=== PATIENT | male | born 1945 | race Caucasian/White ===

== ENCOUNTER 2016-09-13 17:56 | Inpatient (IN) | payer MEDICARE, OTHER ==
[2016-09-13] MEDS ORDERED: DUONEB 0.5-3 MG/3 ml Neb IH ONE ×2 (18:09→18:19)
[2016-09-13] MEDS ORDERED: solu-MEDROL 125 MG IV ONE (18:09)
[2016-09-13] MEDS ORDERED: solu-MEDROL 125 MG ONE (18:15)
--- NOTE | 2016-09-13 18:16 | ERPHSYRPT ---
- History of Present Illness Source: patient Exam Limitations: no limitations Patient Subjective Stated Complaint: PT REPORTS INCREASED SOB ET CHEST PAIN- REPORTS PRODUCTIVE COUGH WITH WHITE SPUTUM-CHEST PAIN INTERMITTANT-HURTS TO TAKE A DEEP BREATH Triage Nursing Assessment: PT ARRIVED SOB-RETRACTIONS NOTED-WHEEZES AUDIBLE- PURSED LIP BREATHING NOTED Hx Tetanus, Diphtheria Vaccination/Date Given: No Hx Influenza Vaccination/Date Given: No Hx Pneumococcal Vaccination/Date Given: No Immunizations Up to Date: Yes <SCAR DANIELS - Last Filed: 09/13/16 19:04> <MARIA TERESA HENRIQUEZ - Last Filed: 09/13/16 20:21> - History of Present Illness Time Seen by Provider: 09/13/16 18:09 Physician History: 71 year old male presented to the ER with complaints of sharp central chest pain that was worse upon awakening this morning. He has had cough and problems with respiratory issues since he had pneumonia in June. He complains of cough productive of white sputum, no fever, feels tight in his chest. He is prescribed an inhaler but states he hasn't used it in the last 5 days and he forgets it. He quit smoking 3 months ago. He denies syncope or palpitations. ( SCAR DANIELS) Allergies/Adverse Reactions: No Known Drug Allergies Allergy (Verified 09/13/16 18:05) Home Medications: No Home Meds 1 ea MC UD 09/13/16 [History] - Review of Systems Constitutional: No Fever, No Chills Respiratory: Cough, Wheezing Cardiac: Chest Pain, No Palpitations, No Syncope, No Orthopnea, No PND Abdominal/Gastrointestinal: No Abdominal Pain, No Nausea, No Vomiting, No Diarrhea Genitourinary Symptoms: No Dysuria Skin: No Rash All Other Systems: Reviewed and Negative <SCAR DANIELS - Last Filed: 09/13/16 19:04> - Past Medical History Pertinent Past Medical History: Yes Neurological History: No Pertinent History ENT History: No Pertinent History Cardiac History: No Pertinent History Respiratory History: COPD, Pneumonia Endocrine Medical History: No Pertinent History Musculoskeletal History: Other GI Medical History: No Pertinent History History: No Pertinent History Psycho-Social History: No Pertinent History Male Reproductive Disorders: No Pertinent History Other Medical History: hx of vertebrae pinching a nerve, seen a chiropractor. - Past Surgical History Past Surgical History: Yes Neuro Surgical History: No Pertinent History Cardiac: No Pertinent History Respiratory: No Pertinent History Gastrointestinal: Cholecystectomy, Hernia Repair Genitourinary: No Pertinent History Musculoskeletal: No Pertinent History Male Surgical History: No Pertinent History - Social History Smoking Status: Former smoker How long have you smoked: 62 years Exposure to second hand smoke: Yes Drug Use: none Patient Lives Alone: No <SCAR DANIELS - Last Filed: 09/13/16 19:04> - Physical Exam General Appearance: no apparent distress Ears, Nose, Throat Exam: normal ENT inspection Neck Exam: normal inspection, non-tender, supple, full range of motion Respiratory Exam: prolonged expirations, wheezing Cardiovascular Exam: regular rate/rhythm, normal heart sounds Gastrointestinal/Abdomen Exam: soft, No tenderness Extremity Exam: normal inspection, normal range of motion Skin Exam: normal color, warm, dry, No rash SpO2 Interpretation: normal SpO2: 95 Oxygen Delivery: Room Air <SCAR DANIELS - Last Filed: 09/13/16 19:04> - Course EKG Interpreted by Me: Sinus Rhythm, Sinus Tach, Left [place] Deviation, NORMAL INTERVALS, NORMAL QRS, Non-specific ST Changes, Other (PVC noted) Rhythm Strip: Rate (109), Sinus Tachycardia <SCAR DANIELS - Last Filed: 09/13/16 19:04> <SCAR DANIELS - Last Filed: 09/13/16 19:04> - Progress Discussed with : Chanell Whiting ( - 2008) <MARIA TERESA HENRIQUEZ - Last Filed: 09/13/16 20:21> - Progress Progress Note: 09/13/16 19:[address] Henriquez (SCAR DANIELS) 09/13/16 20:19 (MARIA TERESA HENRIQUEZ) <SCAR DANIELS - Last Filed: 09/13/16 19:04> - Departure Time of Disposition: 20:21 Departure Disposition: Observation Critical Care Time: No <MARIA TERESA HENRIQUEZ - Last Filed: 09/13/16 20:21> - Departure Clinical Impression: BRONCHITIS, CHEST PAIN, ELEVATED D-DIMER, COPD Condition: Fair
[2016-09-13 18:53] LABS: BASOPHIL % 0.6 % (0.0-0.4); Eosinophil % 1.3 % (0.00-5.0); Granulocytes % 63.9 % (36.0-66.0); Lymphocytes % 20.8 % (24.0-44.0); Mean Cell Volume 83.5 fl (78-100); Mean Platelet Volume 9.7 fl (6-9.5); Monocytes % 13.4 % (0.0-12.0); Platelet Count 247 K/mm3 (150-450); Red Blood Count 6.25 M/mm3 (4.1-5.6); White Blood Count 9.4 K/mm3 (4.0-10.5)
[2016-09-13 18:54] LABS: Mean Corpuscular Hemoglobin 28.4 pg (26-32)
[2016-09-13 19:28] LABS: ALBUMIN 3.4 g/dL (3.4-5.0); ALKALINE PHOSPHATASE 86 U/L (46-116); ANION GAP 13.3 MEQ/L (5-15); BILIRUBIN,TOTAL 0.7 mg/dL (0.2-1.0); BLOOD UREA NITROGEN 14 mg/dL (9-20); CHLORIDE 105 mEq/L (98-107); Glucose 127 MG/DL (70-110); Potassium 3.9 mEq/L (3.5-5.1); SGOT/AST 8 U/L (15-37); SGPT/ALT 14 U/L (12-78); SODIUM 140 mEq/L (136-145); Total Protein 7.4 gm/dL (6.4-8.2)
[2016-09-13 19:30] LABS: TROPONIN < 0.017 ng/ml (0.000-0.056)
[2016-09-13] MEDS ORDERED: ROCEPHIN 1 Gm-D5w 50 ml Bag** 50 ML IV ONE ×2 (20:31→20:43)
[2016-09-13] MEDS ORDERED: Zithromax 500 MG/ 250 ML NaCl Premix 250 ML IV ONE ×2 (20:31→20:43)
[2016-09-13] MEDS ORDERED: PROVENTIL 2.5 MG/3 ML NEB IH PRN (21:41)
[2016-09-13] MEDS ORDERED: DILAUDID 2 MG INJECTION IV PRN (21:41)
[2016-09-13] MEDS ORDERED: Phenergan 25 MG INJ IV PRN (21:41)
[2016-09-13] MEDS ORDERED: Nitrostat 0.4 MG Tablet SL PRN (21:41)
[2016-09-13] MEDS ORDERED: TYLENOL 325 MG PO PRN (21:41)
[2016-09-14] MEDS ORDERED: ENOXAPARIN SODIUM SQ ONE
[2016-09-14] MEDS: Sodium Chloride 0.9% 1000 ML 1,000 ML IV SCH ×2 (00:36→21:22)
[2016-09-14] MEDS ORDERED: MAALOX ES 30 ML UNIT DOSE PO PRN (03:29)
[2016-09-14] MEDS ORDERED: MILK OF MAGNESIA 30 ML PO PRN (03:29)
[2016-09-14 06:31] LABS: Mean Cell Volume 83.9 fl (78-100); Mean Corpuscular Hemoglobin 28.2 pg (26-32); Mean Platelet Volume 10.3 fl (6-9.5); Platelet Count 267 K/mm3 (150-450); Red Blood Count 5.85 M/mm3 (4.1-5.6); Red Cell Distribution Width 14.7 % (11.5-14.0); White Blood Count 4.2 K/mm3 (4.0-10.5)
[2016-09-14 06:38] LABS: ALKALINE PHOSPHATASE 76 U/L (46-116); ANION GAP 13.2 MEQ/L (5-15); BILIRUBIN,TOTAL 0.5 mg/dL (0.2-1.0); BLOOD UREA NITROGEN 14 mg/dL (9-20); CHLORIDE 106 mEq/L (98-107); Glucose 131 MG/DL (70-110); Potassium 4.4 mEq/L (3.5-5.1); SGOT/AST 10 U/L (15-37); SGPT/ALT 12 U/L (12-78); SODIUM 138 mEq/L (136-145); Total Protein 6.7 gm/dL (6.4-8.2)
[2016-09-14] MEDS: DUONEB 0.5-3 MG/3 ml Neb IH SCH ×5 (06:51→18:42)
[2016-09-14 07:58] LABS: Total Cells Counted 100
[2016-09-14 07:59] LABS: Platelet Estimate NORMAL (NORMAL)
--- NOTE | 2016-09-14 08:38 | XRAY ---
Indication: Fever, cough, and short of breath. Comparison: August 09, 2016 Portable chest unchanged again hyperinflated with right mid to lower lung infiltrate/atelectasis and left base fibrosis/scarring. Remaining lungs clear. Heart is not enlarged. Bony thorax intact again with mild scoliosis.
[2016-09-14] MEDS ORDERED: Zithromax 500 MG/ 250 ML NaCl Premix 250 ML IV SCH (10:00)
[2016-09-14] MEDS ORDERED: ROCEPHIN 1 Gm-D5w 50 ml Bag** 50 ML IV SCH ×2 (10:00→11:15)
[2016-09-14] MEDS ORDERED: ENOXAPARIN SODIUM SQ SCH ×2 (10:00→22:00)
[2016-09-14] MEDS: PROTONIX 40 MG IV IV SCH (10:54)
[2016-09-14] MEDS: solu-MEDROL 40 MG IV SCH ×2 (11:30→21:26)
[2016-09-14 11:33] LABS: MAGNESIUM 1.9 mg/dL (1.8-2.4)
[2016-09-14 11:36] LABS: A-aADO2 72; ALLEN TEST OK? YES; ARTERIAL BLD GAS O2 SATURATION 98.9 % (95-100); ARTERIAL BLOOD GAS BASE EXCESS -2.1 (-2.0-2.0); ARTERIAL BLOOD GAS FIO2 28 %; ARTERIAL BLOOD GAS PO2 88 mmHg (75-100); ARTERIAL BLOOD GAS pH 7.43 (7.35-7.45)
--- NOTE | 2016-09-14 12:25 | XRAY ---
Indication: Elevated d-dimer. Two-dimensional sonogram and color Doppler imaging of the major venous vessels of the left and right leg was performed. Comparison: None No thrombus seen in the examined deep venous vessels of the left and right leg including greater saphenous veins. Veins demonstrate normal compressibility. Venous waveforms are normal with and without augmentation. Impression: Left and right leg negative for DVT.
--- NOTE | 2016-09-14 12:37 | HP ---
HISTORY OF PRESENT ILLNESS: David Martinez is a 71 year old male with past medical history of chronic obstructive pulmonary disease. He presented to the emergency room yesterday evening with sharp substernal/central chest pain which started yesterday afternoon. The patient states he was carrying a heavy load trying to help his friend carrying something and that is when the pain started. The pain lasted for about four hours. It was associated with increased shortness of breath however no nausea, vomiting, diaphoresis. The pain did not radiate. He also states that he has been having increasing productive cough and shortness of breath for the past several days. There was no reported history of fever. Upon initial evaluation and treatment in the emergency room he was admitted to the medical floor. Prior to admission vitals in the emergency room were blood pressure 154/69, heart rate 110, respiratory rate 16, and temperature 97.5F. Oxygen saturation 95%. Since admission his chest pain had not recurred. At the time of this evaluation he is alert, awake, comfortable, denies any chest pain. He complains of shortness of breath, complains of cough. Appears comfortable. PAST MEDICAL HISTORY: As noted above. He denies any prior history of coronary problems. PAST SURGICAL HISTORY: Pinched nerve. Cholecystectomy. ALLERGIES: NKDA. MEDICATIONS: The patient is on no home medications. He was prescribed an inhaler however does not use it often. SOCIAL HISTORY: The patient is a former smoker. He has smoked for 50 years, also he has history of exposure to secondhand smoke. Denies illicit drug use. REVIEW OF SYSTEMS: Denies headache or dizziness. Denies fever. Complains of fatigue. History of sharp chest pain all across the lower part of chest (anterior) and also substernal yesterday that has resolved. Complains of shortness of breath. Complains of productive cough. Denies palpitations. Denies abdominal pain, nausea or vomiting. Denies constipation or diarrhea. Denies urinary complaints. PHYSICAL EXAMINATION: An elderly male lying comfortably in bed, not in acute distress. VITAL SIGNS: Blood pressure 123/62, heart rate 84, respiratory rate 20, temperature 97.8F. Oxygen saturation 97% on 2 liters. HEENT: Normocephalic. No pallor or icterus is noted. NECK: No JVD is present. CVS: S1, S2 present. RESPIRATORY: Breath sounds are bilaterally diminished, occasional rhonchi present. ABDOMEN: Soft, nontender. NEURO: He is alert, oriented x3. EXTREMITIES: No edema on bilateral lower extremities. LABORATORY DATA AND TESTS: Initial labs had revealed unremarkable CBC. D-dimer was 1.125. CMP notable for BUN 14, creatinine 1.35, glucose 127. Troponin has been less than 0.017 x3. Today's CBC is unremarkable. Today's BMP shows glucose of 131, BUN 14, creatinine 1.05. Chest x-ray from yesterday showed hyperinflated right mid to lower lung infiltrate/atelectasis and left base fibrosis/scarring. Initial EKG showed sinus tachycardia at 103 beats/minute, nonspecific ST-T changes in anterior leads. A follow EKG showed sinus tachycardia at 92 beats/minute, nonspecific ST-T changes in anterior leads, presence of PVC. ASSESSMENT: A 71 year old male with impression: 1) Chest pain. 2) Acute bronchopneumonia. 3) Elevated D-dimer. 4) Chronic obstructive pulmonary disease exacerbation. 5) Renal insufficiency, resolved. PLAN: The patient is admitted for further monitoring and management. He was placed on chest pain protocol. Also he was placed on therapeutic dose of Lovenox. VQ scan has been requested and will not be available until tomorrow. Will obtain bilateral lower extremity venous Doppler's. Continue broad spectrum IV antibiotics, continue inhalers. Addition of steroids. Likely discharge home tomorrow if clinically improved and work up is negative. The patient's clinical condition, work up results and plan of management was discussed with patient and family. The patient seem to be in understanding and agreement.
[2016-09-14] MEDS: ROCEPHIN 1 Gm-D5w 50 ml Bag** 50 ML IV SCH (21:27)
[2016-09-15] MEDS: Zithromax 500 MG/ 250 ML NaCl Premix 250 ML IV SCH ×2 (00:41→22:30)
[2016-09-15] MEDS: DUONEB 0.5-3 MG/3 ml Neb IH SCH ×4 (06:40→19:07)
--- NOTE | 2016-09-15 09:26 | XRAY ---
Indication: Short of breath, chest pain, tachycardia, and elevated d-dimer. COPD. Patient received 4.7 mCi technetium 99 microaggregated albumin for the perfusion portion of the exam. Patient inhaled 36.9 mCi of air/technetium 99 DTPA. Multiplanar images obtained. Comparison: None Perfusion images demonstrates good radiopharmaceutical activity throughout both lungs. Small subsegmental perfusion defect seen in the periphery of the right middle lobe. No other perfusion defects. Ventilation images demonstrates diffuse heterogeneous radiopharmaceutical activity with more central activity noted favoring known COPD. Small subsegmental ventilation defect seen in the periphery of the right middle lobe. Incidental ingested GI radiopharmaceutical activity. Impression: 1. Small subsegmental matched right middle lobe ventilation/perfusion defect. PIOPED criteria for diagnosis of pulmonary embolus is low probability. 2. Ventilation images demonstrates features favoring COPD.
[2016-09-15] MEDS: PROTONIX 40 MG IV IV SCH (10:41)
[2016-09-15] MEDS: solu-MEDROL 40 MG IV SCH ×3 (10:45→21:26)
--- NOTE | 2016-09-15 15:40 | XRAY ---
Indication: Chronic respiratory distress. Comparison: Taken earlier today. PA/lateral chest unchanged again hyperinflated with right mid to lower lung infiltrate/atelectasis and left base fibrosis/scarring. Heart is not enlarged. No new cardiopulmonary abnormalities.
[2016-09-15] MEDS: ROCEPHIN 1 Gm-D5w 50 ml Bag** 50 ML IV SCH (21:26)
[2016-09-15] MEDS: Sodium Chloride 0.9% 1000 ML 1,000 ML IV SCH (22:29)
[2016-09-16 05:52] LABS: Mean Cell Volume 86.7 fl (78-100); Mean Corpuscular Hemoglobin 28.2 pg (26-32); Mean Platelet Volume 10.1 fl (6-9.5); Platelet Count 199 K/mm3 (150-450); Red Blood Count 4.83 M/mm3 (4.1-5.6); Red Cell Distribution Width 15.1 % (11.5-14.0); White Blood Count 9.6 K/mm3 (4.0-10.5)
[2016-09-16 06:28] LABS: ALBUMIN 2.6 g/dL (3.4-5.0); ALKALINE PHOSPHATASE 53 U/L (46-116); ANION GAP 11.5 MEQ/L (5-15); BILIRUBIN,TOTAL 0.2 mg/dL (0.2-1.0); BLOOD UREA NITROGEN 15 mg/dL (9-20); CHLORIDE 109 mEq/L (98-107); Carbon Dioxide 25.9 mEq/L (21-32); Glucose 119 MG/DL (70-110); Potassium 4.8 mEq/L (3.5-5.1); SGOT/AST 7 U/L (15-37); SGPT/ALT 10 U/L (12-78); SODIUM 142 mEq/L (136-145); Total Protein 5.6 gm/dL (6.4-8.2)
[2016-09-16] MEDS: DUONEB 0.5-3 MG/3 ml Neb IH SCH ×4 (06:53→19:41)
[2016-09-16] MEDS: PROTONIX 40 MG IV IV SCH (09:27)
[2016-09-16] MEDS: solu-MEDROL 40 MG IV SCH ×2 (09:27→17:31)
[2016-09-16] MEDS: ENOXAPARIN SODIUM SQ SCH (09:27)
--- NOTE | 2016-09-16 15:39 | PROG NOTE ---
DATE: 09/16/16 Chart reviewed. Events noted. Patient states he ambulated some this morning with respiratory therapy. However, got more short of breath upon ambulation. At the time of this evaluation, he is alert and awake. Continues to have shortness of breath. Denied chest pain. Complains of dry cough. VITALS: BP 110/62, heart rate 59, respiratory rate 28, temperature 97.3, O2 saturation 92%. HEENT: No pallor or icterus noted. NECK: No JVD present. CVS: S1 and S2 present. RESPIRATORY: Breath sounds bilaterally diminished and clear to auscultation. ABDOMEN: Obese, soft, nontender. NEURO: He is alert and oriented X 3. EXTREMITIES: Reveals no edema in bilateral lower extremities. LABORATORY DATA: Labs from today show unremarkable CBC. CMP is notable for chloride of 109, glucose 119, BUN 15, creatinine 0.92. VQ scan from yesterday was low probability. Chest x-ray from yesterday showed hyperinflated right mid to lower lung. Infiltrates/atelectasis and left base fibrosis/scarring. No new cardiopulmonary abnormalities. Bilateral lower extremity venous Doppler was negative. Medications were reviewed. ASSESSMENT: 71 y/o male with impression: 1. ACUTE BRONCHOPNEUMONIA. 2. CHEST PAIN - RESOLVED. 3. CHRONIC OBSTRUCTIVE PULMONARY DISEASE WITH EXACERBATION. 4. ELEVATED D-DIMER. 5. HISTORY OF RENAL INSUFFICIENCY (RESOLVED). PLAN: 1. Patient continues to be symptomatic clinically. Will obtain another NT Pro BNP. Increase steroids. 2. Continue ambulation as tolerated. 3. Likely discharge home tomorrow if improves clinically. 4. Prior to discharge, will obtain 2D echo. Patient's clinical condition, work-up results, and plan of management were discussed with him. He seems to be in understanding and agreement.
[2016-09-16] MEDS ORDERED: Lasix 40 MG/4 ML IV ONE (17:00)
[2016-09-16] MEDS: ROCEPHIN 1 Gm-D5w 50 ml Bag** 50 ML IV SCH (22:22)
[2016-09-16] MEDS: Zithromax 500 MG/ 250 ML NaCl Premix 250 ML IV SCH (23:29)
[2016-09-17] MEDS: solu-MEDROL 40 MG IV SCH ×3 (02:28→18:58)
[2016-09-17] MEDS: DUONEB 0.5-3 MG/3 ml Neb IH SCH ×4 (07:28→20:12)
[2016-09-17] MEDS: Lasix 20 MG/2 ML IV SCH (09:30)
[2016-09-17] MEDS: Protonix 40MG Tablet PO SCH (09:30)
[2016-09-17] MEDS: ENOXAPARIN SODIUM SQ SCH (09:30)
--- NOTE | 2016-09-17 16:46 | ECHO ---
Transthoracic echocardiographic examination and color Doppler was done on 09/16/2016. INDICATION: Shortness of breath, chronic obstructive pulmonary disease. IMPRESSION: 1) BORDERLINE LEFT VENTRICULAR HYPOKINESIA. EJECTION FRACTION OF AROUND 50%. 2) TRACE MITRAL REGURGITATION. 3) TRACE TRICUSPID REGURGITATION. RIGHT VENTRICULAR SYSTOLIC PRESSURE OF 20 MM OF MERCURY. The left ventricle is visualized and demonstrated borderline left ventricular hypokinesia. Ejection fraction around 50%. There is mild left ventricular hypertrophy. The mitral valve is seen and this opens adequately. There is trace mitral regurgitation. Left atrium is normal. The aortic valve opens adequately. Right side chambers are normal. There is trace tricuspid regurgitation. Right ventricular systolic pressure of 20 mm of Mercury.
[2016-09-17] MEDS: ROCEPHIN 1 Gm-D5w 50 ml Bag** 50 ML IV SCH (21:32)
[2016-09-17] MEDS: Zithromax 500 MG/ 250 ML NaCl Premix 250 ML IV SCH (23:31)
[2016-09-18] MEDS: solu-MEDROL 40 MG IV SCH ×2 (02:05→10:37)
[2016-09-18] MEDS: DUONEB 0.5-3 MG/3 ml Neb IH SCH ×3 (06:57→14:50)
[2016-09-18 09:29] LABS: ANION GAP 14.7 MEQ/L (5-15); BLOOD UREA NITROGEN 24 mg/dL (9-20); CHLORIDE 103 mEq/L (98-107); Carbon Dioxide 26.2 mEq/L (21-32); Glucose 190 MG/DL (70-110); Potassium 4.4 mEq/L (3.5-5.1); SODIUM 140 mEq/L (136-145)
[2016-09-18] MEDS: Protonix 40MG Tablet PO SCH (10:14)
[2016-09-18] MEDS: Lasix 20 MG/2 ML IV SCH (10:14)
[2016-09-18] MEDS: ENOXAPARIN SODIUM SQ SCH (10:37)
[2016-09-18 15:36] VITALS: BP 145/82; PULSE 113; O2SAT 94
--- NOTE | 2016-09-20 11:29 | DS ---
DISCHARGE DIAGNOSES: 1) ACUTE BRONCHOPNEUMONIA, CLINICALLY IMPROVED. 2) CHEST PAIN, RESOLVED. 3) CHRONIC OBSTRUCTIVE PULMONARY DISEASE WITH EXACERBATION. 4) ELEVATED D-DIMER. 5) HISTORY OF RENAL INSUFFICIENCY, RESOLVED. HOSPITAL COURSE: David Martinez is a 71 year-old male with past medical history of chronic obstructive pulmonary disease. He was admitted through the emergency room on 09/12/2016 with sharp, substernal chest pain with increasing shortness of breath. Lab work up was notable for BUN of 14, creatinine 1.35. D-dimer was 1.125. Troponin less than 0.017 x3. Chest x-ray showed hyperinflated right mid to lower lung infiltrate/atelectasis and left lung base fibrosis/scarring. Initial EKG showed tachycardia, nonspecific ST-T changes. Follow up EKG showed tachycardia of 92 beats/minutes, nonspecific ST-T changes, presence of PAC. He was placed on chest pain protocol. Also he was placed on therapeutic dose of Lovenox. Additionally he was placed on broad spectrum IV antibiotics and IV steroids and supplemental oxygen. Also he was placed on cautious IV hydration. He underwent VQ scan on 09/15/2016 with small subsegmental mass right middle lobe ventilation-perfusion defect pulmonary embolism low probability consistent with chronic obstructive pulmonary disease. Chest x-ray on the same day had shown no acute cardiopulmonary abnormalities. During his further course he also underwent bilateral lower extremity venous Doppler's which were negative for deep venous thrombosis. Follow up lab work up had revealed resolution of renal insufficiency, normal white blood cell count and stable hemoglobin/hematocrit. ABG during his admission had shown pH of 7.43, pCO2 32, pO2 88. Lipid profile was essentially unremarkable. Subsequent labs had shown elevated BNP. His IV fluids were discontinued. Also he was treated with IV diuretic. He underwent 2D echo on 09/16/2016 and that showed ejection fraction of around 50%, trace mitral regurgitation, trace tricuspid regurgitation, right ventricular systolic pressure of 20 mm of Mercury. During his further course he improved clinically, remained hemodynamically stable. He was discharged by covering physician, Dr. Montague, on 09/18/2016. He was discharged in stable condition. Please refer to discharge medication list from 09/18/2016 for details of medications on discharge. The patient was advised to obtain CMP and CBC in three to four days and follow up with Dr. Luo in one week. Compliance with diet and medications was stressed. He was advised to return to the Emergency Room ANTON[facility] if any new signs and symptoms or reappearance of previous signs and symptoms are noted. The patient's clinical condition, work-up results and plan of management were discussed with him. He seems to be in understanding and agreement. Please refer to patient's chart, labs, diagnostic work up results and consult notes for details.
== END 2016-09-18 15:55 | disposition home health service (06) | DRG 204 ==
LOC: ED 17:56 → MED SURG 21:11 → OBSVTOIN 09-15 09:00
PROVIDERS: ADMIT General Practice; ATTEND General Practice
DX: J80 Acute respiratory distress syndrome (principal); J44.1 Chronic obstructive pulmonary disease with (acute) exacerbation; R07.89 Other chest pain; R79.1 Abnormal coagulation profile; N28.9 Disorder of kidney and ureter, unspecified; J96.20 Acute and chronic respiratory failure, unspecified whether with hypoxia or hypercapnia; I34.0 Nonrheumatic mitral (valve) insufficiency; I07.1 Rheumatic tricuspid insufficiency
CPT/HCPCS: 36000; 36415; 36600; 71010; 71020; 78582; 80048; 80053; 80061; 82375; 82803; 83605; 83721; 83735; 83880; 84484; 85025; 85027; 85379; 87040; 93005; 93041; 93268; 93306; 93970; 94640; 94760; 96374; 99284; A9540; A9567; G0378; J0456; J0696; J1650; J1940; J2920; J2930

== ENCOUNTER 2016-11-16 13:02 | Emergency (ER) | payer MEDICARE, OTHER ==
[2016-11-16] MEDS ORDERED: DUONEB 0.5-3 MG/3 ml Neb IH ONE ×2 (13:35→13:36)
[2016-11-16 13:42] VITALS: O2SAT 94
--- NOTE | 2016-11-16 14:00 | ERPHSYRPT ---
- History of Present Illness Time Seen by Provider: 11/16/16 13:55 Source: patient Exam Limitations: no limitations Patient Subjective Stated Complaint: SOB Triage Nursing Assessment: STATES WENT TO CARDIAC REHAB TODAY AND BEFORE IT BEGAN HE C/O SOB. STATES INCREASED SOB STARTED LAST NIGHT AND WORSENED TODAY. MOIST COUGH WHICH PT SAYS IS NORMAL FOR HIM. NO FEVER. CLEAR/WHITE SPUTUM PRODUCTION SINCE LAST NIGHT. LUNGS DIMINISHED BUT CLEAR Physician History: The patient is a 71-year-old male who complains of shortness of breath since last night. He had presented himself to cardiac rehabilitation for treatment of shortness of breath and because he was so short of breath he was transferred to the ER for evaluation. He's had a cough with mild sputum production. He denies fever. He has COPD. He quit smoking last June after 63 years of smoking. Timing/Duration: yesterday Activities at Onset: none Severity of Dyspnea-Max: moderate Severity of Dyspnea-Current: moderate Possible Cause: frequent episodes Modifying Factors: Improves With: activity, albuterol inhaler, coughing Associated Symptoms: cough, No fever Allergies/Adverse Reactions: No Known Drug Allergies Allergy (Verified 11/16/16 13:25) Home Medications: Potassium Chloride 10 meq PO BID 11/16/16 [History] Hx Tetanus, Diphtheria Vaccination/Date Given: Yes Hx Influenza Vaccination/Date Given: No Hx Pneumococcal Vaccination/Date Given: No Immunizations Up to Date: Yes - Review of Systems Constitutional: No Fever, No Chills Eyes: No Symptoms Ears, Nose, & Throat: No Symptoms Respiratory: Cough, Dyspnea, Dyspnea on Exertion (KANG) Cardiac: No Chest Pain Abdominal/Gastrointestinal: No Abdominal Pain, No Nausea, No Vomiting, No Diarrhea Genitourinary Symptoms: No Dysuria Musculoskeletal: No Back Pain, No Neck Pain Skin: No Symptoms, No Rash Neurological: No Dizziness, No Focal Weakness, No Sensory Changes Psychological: No Symptoms Endocrine: No Symptoms Hematologic/Lymphatic: No Symptoms Immunological/Allergic: No Symptoms All Other Systems: Reviewed and Negative - Past Medical History Pertinent Past Medical History: Yes Neurological History: No Pertinent History ENT History: No Pertinent History Cardiac History: No Pertinent History Respiratory History: COPD, Pneumonia Endocrine Medical History: No Pertinent History Musculoskeletal History: Other GI Medical History: No Pertinent History History: No Pertinent History Psycho-Social History: No Pertinent History Male Reproductive Disorders: No Pertinent History Other Medical History: PINCH NERVE IN BACK - Past Surgical History Past Surgical History: Yes Neuro Surgical History: No Pertinent History Cardiac: No Pertinent History Respiratory: No Pertinent History Gastrointestinal: Cholecystectomy, Hernia Repair Genitourinary: No Pertinent History Musculoskeletal: No Pertinent History Male Surgical History: No Pertinent History - Social History Smoking Status: Former smoker How long have you smoked: 62 years Exposure to second hand smoke: Yes Drug Use: none Patient Lives Alone: No - Nursing Vital Signs Nursing Vital Signs: Initial Vital Signs Temperature 97.9 F Temperature Source Oral Pulse Rate 114 Respiratory Rate 22 Blood Pressure [Right Arm] 127/66 Pain Intensity 0 - Physical Exam General Appearance: mild distress Eye Exam: PERRL/EOMI Neck Exam: normal inspection, supple Respiratory Exam: diminished breath sounds Cardiovascular/Chest Exam: normal heart sounds, regular rate/rhythm Abdominal/Gastrointestinal Exam: soft, No tenderness, No distention, No mass Rectal Exam: not done Extremity Exam: non-tender, normal range of motion, normal inspection, no calf tenderness, no pedal edema Neurologic Exam: alert, oriented x 3, cooperative, 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, sensation nml, No motor deficits Skin Exam: normal color, warm, No dry SpO2 Interpretation: normal SpO2: 94 Oxygen Delivery: Nasal Cannula - Radiology Exams Chest X-ray Interpretation: Teleradiologist Report, Negative (no acute, per Dr Howe.) Ordered Tests: Active Orders 24 hr Category Date Time Status Overlay Operator STAT Care 11/16/16 14:04 Active EKG-ER Only STAT Care 11/16/16 13:32 Active IV Insertion STAT Care 11/16/16 14:34 Active Oxygen-ED Only NASAL CANNULA 2 lpm Care 11/16/16 13:43 Active CHEST 2 VIEWS (PA AND LAT) Stat Exams 11/16/16 14:04 Completed CBC W DIFF Stat Lab 11/16/16 13:40 Completed CMP Stat Lab 11/16/16 13:40 Completed Manual Differential NC Stat Lab 11/16/16 13:40 Completed NT PRO BNP Stat Lab 11/16/16 13:40 Completed TROPONIN Stat Lab 11/16/16 13:40 Completed Respiratory Nebulizer STAT RT 11/16/16 13:35 Completed Medication Summary Discontinued Medications Generic Name Dose Route Start Last Admin Trade Name Freq PRN Reason Stop Dose Admin Albuterol/Ipratropium 3 ml 11/16/16 13:35 11/16/16 13:36 Duoneb 0.5-3 Mg/3 Ml Neb IH 11/16/16 13:36 3 ml STAT ONE Administration Albuterol/Ipratropium Confirm 11/16/16 13:36 Duoneb 0.5-3 Mg/3 Ml Neb Administered 11/16/16 13:37 Dose 3 ml IH .STK-MED ONE Methylprednisolone Sodium Succinate 125 mg 11/16/16 14:04 11/16/16 14:11 Solu-Medrol 125 Mg IV 11/16/16 14:05 125 mg STAT ONE Administration Methylprednisolone Sodium Succinate Confirm 11/16/16 14:08 Solu-Medrol 125 Mg Administered 11/16/16 14:09 Dose 125 mg .ROUTE .STK-MED ONE Lab/Rad Data: Laboratory Result Diagrams 11/16/16 13:40 11/16/16 13:40 Laboratory Results 11/16/16 11/16/16 11/16/16 Range/Units 14:16 13:40 13:40 WBC 8.3 (4.0-10.5) K/mm3 RBC 5.89 H (4.1-5.6) M/mm3 Hgb 16.9 (12.5-18.0) gm/dl Hct 49.5 (42-50) % MCV 84.0 (78-100) fl MCH 28.6 (26-32) pg MCHC 34.1 (32-36) g/dl RDW 15.3 H (11.5-14.0) % Plt Count 228 (150-450) K/mm3 MPV 10.5 H (6-9.5) fl Sodium 136 (136-145) mEq/L Potassium 4.8 (3.5-5.1) mEq/L Chloride 103 (98-107) mEq/L Carbon Dioxide 22.2 (21-32) mEq/L Anion Gap 15.7 H (5-15) MEQ/L BUN 10 (9-20) mg/dL Creatinine 1.10 (0.55-1.30) mg/dl Estimated GFR > 60 ML/MIN Glucose 90 (70-110) MG/DL Calcium 9.7 (8.5-10.1) mg/dL Total Bilirubin 0.8 (0.2-1.0) mg/dL AST 21 (15-37) U/L ALT 10 L (12-78) U/L Alkaline Phosphatase 72 (46-116) U/L Troponin I < 0.017 (0.000-0.056) ng/ml NT-Pro-B Natriuret Pep 970 H (0-125) pg/ml Serum Total Protein 7.3 (6.4-8.2) gm/dL Albumin 3.5 (3.4-5.0) g/dL Influenza Type A Ag POSITIVE (NEGATIVE) Influenza Type B Ag NEGATIVE (NEGATIVE) RSV (PCR) NEGATIVE (Negative) - Progress Progress: improved Air Movement: good Blood Culture(s) Obtained: No Antibiotics given: No - Departure Time of Disposition: 16:22 Departure Disposition: Home Clinical Impression: Influenza A Condition: Stable Critical Care Time: No Additional Instructions: You have an influenza A infection. Take tamiflu 75 mg twice a day for 5 days. Take prednisone 60 mg daily for 5 days. Use your nebulizers as directed. Follow up as needed. Prescriptions: Oseltamivir Phosphate [Tamiflu] 75 mg PO BID #10 capsule Prednisone 10 mg [Deltasone 10 mg] 60 mg PO DAILY #30 tablet
[2016-11-16] MEDS ORDERED: solu-MEDROL 125 MG IV ONE (14:04)
[2016-11-16] MEDS ORDERED: solu-MEDROL 125 MG ONE (14:08)
--- NOTE | 2016-11-16 14:31 | XRAY ---
Indication: Cough. Short of breath. Comparison: September 15, 2016. AP/lateral chest unchanged again hyperinflated with bilateral mid to lower lung infiltrates/atelectasis/scarring. Heart is not enlarged. No new cardiopulmonary abnormalities.
[2016-11-16 14:33] LABS: ALBUMIN 3.5 g/dL (3.4-5.0); ALKALINE PHOSPHATASE 72 U/L (46-116); ANION GAP 15.7 MEQ/L (5-15); BILIRUBIN,TOTAL 0.8 mg/dL (0.2-1.0); BLOOD UREA NITROGEN 10 mg/dL (9-20); CHLORIDE 103 mEq/L (98-107); Carbon Dioxide 22.2 mEq/L (21-32); Glucose 90 MG/DL (70-110); Potassium 4.8 mEq/L (3.5-5.1); SGOT/AST 21 U/L (15-37); SGPT/ALT 10 U/L (12-78); SODIUM 136 mEq/L (136-145); Total Protein 7.3 gm/dL (6.4-8.2)
[2016-11-16 14:34] LABS: Mean Platelet Volume 10.5 fl (6-9.5); Platelet Count 228 K/mm3 (150-450); Red Blood Count 5.89 M/mm3 (4.1-5.6); Red Cell Distribution Width 15.3 % (11.5-14.0); White Blood Count 8.3 K/mm3 (4.0-10.5)
[2016-11-16 14:35] LABS: Mean Corpuscular Hemoglobin 28.6 pg (26-32)
[2016-11-16 14:42] LABS: TROPONIN < 0.017 ng/ml (0.000-0.056)
[2016-11-16 16:30] VITALS: BP 116/68; PULSE 112
[2016-11-16 16:54] LABS: Basophil 1 % (0.0-1.0); Eosinophil 1 % (0.00-3.0); Total Cells Counted 100
[2016-11-16 17:12] LABS: Platelet Estimate NORMAL (NORMAL)
[2016-11-16 17:19] LABS: ANISOCYTOSIS 1+
== END 2016-11-16 16:40 | disposition home or self-care (01) ==
LOC: ED 13:02
DX: J11.1 Influenza due to unidentified influenza virus with other respiratory manifestations (principal); R06.02 Shortness of breath; J44.9 Chronic obstructive pulmonary disease, unspecified; R05 Cough; R06.00 Dyspnea, unspecified
CPT/HCPCS: 93041; 96374; 99284; 36000; 93005; 36415; 83880; 85025; 80053; 84484; 87631; 71020; 94640; A9270; J2930

== ENCOUNTER 2017-12-12 10:51 | Observation (INO) | payer MEDICARE, OTHER ==
--- NOTE | 2017-12-12 12:13 | PCM.HP.ADD ---
Addendum to History & Physical - History & Physical Addendum Addendum to History & Physical: This certifies that the History & Physical in the electronic chart reflects the current health status of the patient. If there are changes in the H&P these changes/exceptions are listed as follows.
[2017-12-12 12:43] LABS: A-aADO2 44; ABG HEMOGLOBIN 17.2; ABG SITE RIGHT RADIAL; ALLEN TEST OK? YES; ARTERIAL BLD GAS O2 SATURATION 99.2 % (95-100); ARTERIAL BLOOD GAS BASE EXCESS 0.7 (-2.0-2.0); ARTERIAL BLOOD GAS FIO2 28 %; ARTERIAL BLOOD GAS PCO2 40 mmHg (35-45); ARTERIAL BLOOD GAS PO2 106 mmHg (75-100); ARTERIAL BLOOD GAS pH 7.41 (7.35-7.45); CARBOXYHEMOGLOBIN 1.8 % THgb (0.0-6.9); HCO3- 25.4 (22-28); Methhemoglobin 1.4 % (1.4-1.5); paO2 pAO1 0.71
[2017-12-12] MEDS: ROCEPHIN 1 Gm-D5w 50 ml Bag** 1 G/50 ML IVPB IV SCH (12:50)
[2017-12-12] MEDS: solu-MEDROL 40 MG IV SCH ×2 (12:51→21:19)
[2017-12-12 12:53] LABS: BASOPHIL % 0.7 % (0.0-0.4); Basophil (Absolute #) 0.06 (0-0.4); Eosinophil % 3.3 % (0.00-5.0); Granulocyte Absolute (ANC) 6.48 (1.4-6.9); Granulocytes % 71.3 % (36.0-66.0); Hematocrit 48.3 % (42-50); Hemoglobin 16.6 gm/dl (12.5-18.0); Lymphocyte (Absolute #) 1.15 (1.0-4.6); Lymphocytes % 12.7 % (24.0-44.0); Mean Cell Volume 82.1 fl (78-100); Mean Corpuscular Hemoglobin 28.2 pg (26-32); Mean Corpuscular Hgb Concent. 34.4 g/dl (32-36); Mean Platelet Volume 9.5 fl (6-9.5); Monocyte (Absolute #) 1.09 (0.0-1.3); Platelet Count 249 K/mm3 (150-450); Red Blood Count 5.88 M/mm3 (4.1-5.6); Red Cell Distribution Width 14.8 % (11.5-14.0); White Blood Count 9.1 K/mm3 (4.0-10.5)
[2017-12-12] MEDS: Sodium Chloride 0.9% 1000 ML 1,000 ML IV SCH (12:54)
[2017-12-12] MEDS ORDERED: MEDICATION INTERVENTION MC SCH (13:15)
[2017-12-12 13:37] LABS: ALBUMIN 3.8 g/dL (3.5-5.0); ALKALINE PHOSPHATASE 74 U/L (38-126); ANION GAP 13.7 MEQ/L (5-15); BLOOD UREA NITROGEN 16 mg/dL (9-20); CHLORIDE 103 mmol/L (98-107); Calcium 10.2 mg/dL (8.4-10.2); Carbon Dioxide 25 mmol/L (22-30); Glucose 108 mg/dL (74-106); Potassium 4.3 mmol/L (3.5-5.1); SGOT/AST 20 U/L (17-59); SGPT/ALT 13 U/L (0-50); SODIUM 137 mmol/L (137-145); Total Protein 7.2 g/dL (6.3-8.2)
[2017-12-12 13:46] LABS: NT PRO BNP 536 pg/mL (0-900)
--- NOTE | 2017-12-12 13:50 | XRAY ---
Indication: COPD. Comparison: November 16, 2016. PA/lateral chest again demonstrates COPD and bibasilar fibrosis/scarring again right greater than left. No focal infiltrate, consolidation, or large effusion. Heart is not enlarged. Bony thorax intact again with mild osteopenia, degenerative changes, and mild scoliosis. Impression: Stable nonacute chest with chronic features.
[2017-12-12] MEDS: Klor Con 10 MEQ PO SCH ×2 (13:59→21:18)
[2017-12-12] MEDS: DUONEB 0.5-3 MG/3 ml Neb IH SCH ×2 (14:30→19:55)
[2017-12-12] MEDS: PATIENT OWN MEDICATION IH SCH (19:58)
[2017-12-12] MEDS ORDERED: NON-FORMULARY ITEM (Potassium Chloride [Potassium Chloride] 10 MEQ) PO SCH (22:00)
[2017-12-12] MEDS ORDERED: NON-FORMULARY ITEM (Budesonide/Formoterol Fumarate [Symbicort 160-4.5 Mcg Inhaler] 2 PUFF) IH SCH (22:00)
[2017-12-13] MEDS: DUONEB 0.5-3 MG/3 ml Neb IH SCH ×4 (02:13→18:49)
[2017-12-13] MEDS: solu-MEDROL 40 MG IV SCH ×3 (05:39→22:08)
[2017-12-13] MEDS: PATIENT OWN MEDICATION IH SCH ×2 (07:08→18:50)
[2017-12-13] MEDS: Sodium Chloride 0.9% 1000 ML 1,000 ML IV SCH (08:40)
[2017-12-13] MEDS: ROCEPHIN 1 Gm-D5w 50 ml Bag** 1 G/50 ML IVPB IV SCH (09:14)
[2017-12-13] MEDS: Klor Con 10 MEQ PO SCH ×2 (09:14→22:08)
--- NOTE | 2017-12-13 11:50 | PCM.NOTE ---
Date and Time: 12/13/17 1149 Subjective Assessment: doing better - Review of Systems Constitutional: No Fever, No Chills Eyes: No Symptoms Ears, Nose, & Throat: No Symptoms Respiratory: No Cough, No Short Of Breath Cardiac: No Chest Pain, No Edema, No Syncope Abdominal/Gastrointestinal: No Abdominal Pain, No Nausea, No Vomiting, No Diarrhea Genitourinary Symptoms: No Dysuria Musculoskeletal: No Back Pain, No Neck Pain Skin: No Rash Neurological: No Dizziness, No Focal Weakness, No Sensory Changes Psychological: No Symptoms Endocrine: No Symptoms Hematologic/Lymphatic: No Symptoms Immunological/Allergic: No Symptoms Objective Exam General Appearance: no apparent distress, alert Neurologic Exam: alert, oriented x 3, cooperative, normal mood/affect, nml cerebellar function, sensation nml, No motor deficits Skin Exam: normal color, warm, dry Eye Exam: PERRL, EOMI, eyes nml inspection Ears, Nose, Throat Exam: normal ENT inspection, pharynx normal, moist mucous membranes Neck Exam: normal inspection, non-tender, supple, full range of motion Respiratory Exam: diminished breath sounds, No respiratory distress Cardiovascular Exam: regular rate/rhythm, normal heart sounds Gastrointestinal/Abdomen Exam: soft, No tenderness, No mass Extremity Exam: normal inspection, normal range of motion Back Exam: normal inspection, normal range of motion, No CVA tenderness, No vertebral tenderness Male Genitalia Exam: deferred Rectal Exam: deferred OBJECTIVE DATA Vital Signs: Vital Signs - 24 hr Temp Pulse Resp BP Pulse Ox 12/13/17 11:38 97.4 F 70 20 131/62 94 L 12/13/17 08:45 20 12/13/17 07:21 97.3 F 78 20 118/71 93 L 12/13/17 07:10 84 18 93 L 12/13/17 04:00 97.5 F 83 18 126/85 96 12/13/17 00:00 97.9 F 96 H 20 123/73 95 12/12/17 20:00 98.3 F 104 H 17 124/97 95 12/12/17 19:59 88 20 95 12/12/17 16:00 97.7 F 89 18 144/75 97 12/12/17 14:30 80 20 96 12/12/17 12:09 97.6 F 87 22 117/70 95 Oxygen-Last 24 hours O2 Percentage 2 Liters = 28% O2 Percentage 2 Liters = 28% O2 Percentage 2 Liters = 28% O2 Percentage 2 Liters = 28% O2 Percentage 2 Liters = 28% Pain Assessment - Last Documented Pain Intensity 0 Pain Scale Used 0-10 Pain Scale Intake and Output: Intake & Output 12/10/17 12/11/17 12/12/17 12/13/17 11:59 11:59 11:59 11:59 Intake Total 2270 Balance 2270 Weight 55.5 kg Lab Results: Lab Results-Last 24 Hours 12/12/17 12/12/17 12/12/17 Range/Units 12:40 12:45 12:45 WBC 9.1 (4.0-10.5) K/mm3 RBC 5.88 H (4.1-5.6) M/mm3 Hgb 16.6 (12.5-18.0) gm/dl Hct 48.3 (42-50) % MCV 82.1 (78-100) fl MCH 28.2 (26-32) pg MCHC 34.4 (32-36) g/dl RDW 14.8 H (11.5-14.0) % Plt Count 249 (150-450) K/mm3 MPV 9.5 (6-9.5) fl Gran % 71.3 H (36.0-66.0) % Eos # (Auto) 0.30 (0-0.5) Absolute Lymphs (auto) 1.15 (1.0-4.6) Absolute Monos (auto) 1.09 (0.0-1.3) Lymphocytes % 12.7 L (24.0-44.0) % Monocytes % 12.0 (0.0-12.0) % Eosinophils % 3.3 (0.00-5.0) % Basophils % 0.7 (0.0-0.4) % Absolute Granulocytes 6.48 (1.4-6.9) Basophils # 0.06 (0-0.4) Puncture Site RIGHT RADIAL pCO2 40 (35-45) mmHg pO2 106 H (75-100) mmHg Base Excess 0.7 (-2.0-2.0) O2 Saturation 96.0 (94-100) g/dF ABG pH 7.41 (7.35-7.45) ABG HCO3 25.4 (22-28) ABG O2 Sat (Measured) 99.2 (95-100) % Ravi Test YES A-a Gradient 44 a/A Ratio 0.71 Hemoglobin 17.2 Carboxyhemoglobin 1.8 (0.0-6.9) % THgb Methemoglobin 1.4 (1.4-1.5) % Potassium 4.0 4.3 (3.5-5.1) Temperature 37.0 C POC O2 Flow Rate 28 % Sodium 137 (137-145) mmol/L Chloride 103 (98-107) mmol/L Carbon Dioxide 25 (22-30) mmol/L Anion Gap 13.7 (5-15) MEQ/L BUN 16 (9-20) mg/dL Creatinine 0.90 (0.66-1.25) mg/dL Estimated GFR > 60.0 ML/MIN Glucose 108 H (74-106) mg/dL Calcium 10.2 (8.4-10.2) mg/dL Total Bilirubin 0.50 (0.2-1.3) mg/dL AST 20 (17-59) U/L ALT 13 (0-50) U/L Alkaline Phosphatase 74 (38-126) U/L NT-Pro-B Natriuret Pep 536 (0-900) pg/mL Serum Total Protein 7.2 (6.3-8.2) g/dL Albumin 3.8 (3.5-5.0) g/dL Radiology Exams: Radiology Procedures Category Date Time Status CHEST 2 VIEWS (PA AND LAT) Stat Exams 12/12/17 13:42 Completed Assessment/Plan (1) COPD exacerbation Current Visit: Yes Status: Acute Onset Date: ~12/12/17 Assessment & Plan: Chief Complaint Diagnosis COPD exacerbation Allergies Allergy/AdvReac Type Severity Reaction Status Date / Time No Known Drug Allergies Allergy Verified 12/12/17 11:59 Vital Signs (Last 24 hours) Temp Pulse Resp BP Pulse Ox 12/13/17 11:38 97.4 F 70 20 131/62 94 L 12/13/17 08:45 20 12/13/17 07:21 97.3 F 78 20 118/71 93 L 12/13/17 07:10 84 18 93 L 12/13/17 04:00 97.5 F 83 18 126/85 96 12/13/17 00:00 97.9 F 96 H 20 123/73 95 12/12/17 20:00 98.3 F 104 H 17 124/97 95 12/12/17 19:59 88 20 95 12/12/17 16:00 97.7 F 89 18 144/75 97 12/12/17 14:30 80 20 96 12/12/17 12:09 97.6 F 87 22 117/70 95 Current Medications Generic Name Dose Route Start Last Admin Trade Name Freq PRN Reason Stop Dose Admin Albuterol/Ipratropium 3 ml 12/12/17 13:00 12/13/17 07:08 Duoneb 0.5-3 Mg/3 Ml Neb IH 01/11/18 12:59 3 ml Q6HRT ALIYAH Administration Ceftriaxone Sodium/Dextrose 1 g in 50 mls @ 100 mls/hr 12/12/17 12:30 09:14 Rocephin 1 Gm-D5w 50 Ml Bag IV 01/11/18 12:29 100 mls/hr Q24H10 ALIYAH Administration Sodium Chloride 1,000 mls @ 50 mls/hr 12/12/17 12:00 12/13/17 08:40 Sodium Chloride 0.9% 1000 Ml IV 01/11/18 11:59 50 mls/hr .Q20H ALIYAH Administration Methylprednisolone Sodium Succinate 40 mg 12/12/17 12:30 12/13/17 05:39 Solu-Medrol 40 Mg IV 01/11/18 12:29 40 mg Q8HT ALIYAH Administration Symbicort 160/4.5 2 each 12/12/17 19:00 12/13/17 07:08 Inhaler IH 01/11/18 18:59 2 each BIDRT ALIYAH Administration Potassium Chloride 10 meq 12/12/17 14:00 12/13/17 09:14 Klor Con 10 Meq PO 01/11/18 13:59 10 meq BID ALIYAH Administration Intake & Output (Last 24 hours) 12/10/17 12/11/17 12/12/17 12/13/17 11:59 11:59 11:59 11:59 Intake Total 2270 Balance 2270 Weight 55.5 kg Microbiology Results (Last 24 hours) 12/12/17 13:05 Blood Blood Culture Gram Stain - Pending 12/12/17 13:05 Blood Blood Culture - Pending 12/12/17 12:45 Blood Blood Culture Gram Stain - Pending 12/12/17 12:45 Blood Blood Culture - Pending Laboratory Results (Last 24 hours) 12/12/17 12/12/17 12/12/17 12:45 12:45 12:40 WBC 9.1 RBC 5.88 H Hgb 16.6 Hct 48.3 MCV 82.1 MCH 28.2 MCHC 34.4 RDW 14.8 H Plt Count 249 MPV 9.5 Gran % 71.3 H Eos # (Auto) 0.30 Absolute Lymphs (auto) 1.15 Absolute Monos (auto) 1.09 Lymphocytes % 12.7 L Monocytes % 12.0 Eosinophils % 3.3 Basophils % 0.7 Absolute Granulocytes 6.48 Basophils # 0.06 Puncture Site RIGHT RADIAL pCO2 40 pO2 106 H Base Excess 0.7 O2 Saturation 96.0 ABG pH 7.41 ABG HCO3 25.4 ABG O2 Sat (Measured) 99.2 Ravi Test YES A-a Gradient 44 a/A Ratio 0.71 Hemoglobin 17.2 Carboxyhemoglobin 1.8 Methemoglobin 1.4 Potassium 4.3 4.0 Temperature 37.0 POC O2 Flow Rate 28 Sodium 137 Chloride 103 Carbon Dioxide 25 Anion Gap 13.7 BUN 16 Creatinine 0.90 Estimated GFR > 60.0 Glucose 108 H Calcium 10.2 Total Bilirubin 0.50 AST 20 ALT 13 Alkaline Phosphatase 74 NT-Pro-B Natriuret Pep 536 Serum Total Protein 7.2 Albumin 3.8 Orders (Last 24 hours) Category Date Time Status Up Ad Priti TOLERATED Activity 12/12/17 11:59 Active Ambulate Patient TID Care 12/13/17 09:16 Active Code Status Order ROUTINE Care 12/12/17 11:[address] in Observation ROUTINE Care 12/12/17 11:58 Active Social Services Technician/Discharge Plan ROUTINE Cons 12/12/17 13:00 Active Regular Diet Diet 12/12/17 Dinner Active CHEST 2 VIEWS (PA AND LAT) Stat Exams 12/12/17 13:42 Completed ARTERIAL BLOOD GASES Stat Lab 12/12/17 12:40 Completed BLOOD CULTURE Stat Lab 12/12/17 13:05 Received CBC W DIFF Stat Lab 12/12/17 12:45 Completed CMP Stat Lab 12/12/17 12:45 Completed NT PRO BNP Stat Lab 12/12/17 12:45 Completed Albuterol/Ipratropium 3ml Neb* [DUONEB 0.5-3 MG/3 ml Med 12/12/17 13:00 Active Neb] 3 ml IH Q6HRT Ceftriaxone 1 GM/50 ML PREMIX* [ROCEPHIN 1 Gm-D5w 50 ml Med 12/12/17 12:30 Active Bag] 1 g in 50 ml IV Q24H10 Medication Intervention Med 12/12/17 13:15 Discontinued 1 each MC .RT TO CHECK ON Methylprednisolone Sod Suc 40M [solu-MEDROL 40 MG] Med 12/12/17 12:30 Active 40 mg IV Q8HT NaCl 0.9% 1000 ml [Sodium Chloride 0.9% 1000 ML] 1,000 Med 12/12/17 12:00 Active ml IV 50 mls/hr Patient Own Med [Patient Own Medication] Med 12/12/17 19:00 Active 2 each IH BIDRT Potassium Chloride 10 Meq Tab* [Klor Con 10 MEQ] Med 12/12/17 14:00 Active 10 meq PO BID Oxygen NASAL CANNULA 2 lpm RT 12/12/17 14:33 Active RT Screen per Nursing Assess ONCE RT 12/12/17 13:00 Completed Respiratory MDI BID RT 12/12/17 19:00 Active Respiratory Nebulizer Q6H RT 12/12/17 13:00 Active Patient Care Notes (Last 24 hours) 12/13/17 09:23 Nursing Note by Alie Pearson see medsurg assessment, pt sadie c/o at this time, O2 on at 2L NC, pt states he wears O2 at home "most of the time." Dr. Luo will round today and assess progress, pt in agreement with this plan. Initialized on 12/13/17 09:23 - END OF NOTE 12/12/17 14:04 Nursing Note by Nimco Coyle pt's nonformulary symbacort from home sent to pharmacy to verify Initialized on 12/12/17 14:04 - END OF NOTE Code(s): J44.1 - CHRONIC OBSTRUCTIVE PULMONARY DISEASE W (ACUTE) EXACERBATION
[2017-12-14] MEDS: DUONEB 0.5-3 MG/3 ml Neb IH SCH ×2 (02:40→07:03)
[2017-12-14] MEDS: solu-MEDROL 40 MG IV SCH (06:47)
[2017-12-14] MEDS: Sodium Chloride 0.9% 1000 ML 1,000 ML IV SCH (06:47)
[2017-12-14] MEDS: Klor Con 10 MEQ PO SCH (09:47)
[2017-12-14] MEDS: ROCEPHIN 1 Gm-D5w 50 ml Bag** 1 G/50 ML IVPB IV SCH (09:47)
--- NOTE | 2017-12-14 11:30 | PCM.NOTE ---
Date and Time: 12/14/17 1130 Subjective Assessment: doing better - Review of Systems Constitutional: No Fever, No Chills Eyes: No Symptoms Ears, Nose, & Throat: No Symptoms Respiratory: No Cough, No Short Of Breath Cardiac: No Chest Pain, No Edema, No Syncope Abdominal/Gastrointestinal: No Abdominal Pain, No Nausea, No Vomiting, No Diarrhea Genitourinary Symptoms: No Dysuria Musculoskeletal: No Back Pain, No Neck Pain Skin: No Rash Neurological: No Dizziness, No Focal Weakness, No Sensory Changes Psychological: No Symptoms Endocrine: No Symptoms Hematologic/Lymphatic: No Symptoms Immunological/Allergic: No Symptoms Objective Exam General Appearance: no apparent distress, alert Neurologic Exam: alert, oriented x 3, cooperative, normal mood/affect, nml cerebellar function, sensation nml, No motor deficits Skin Exam: normal color, warm, dry Eye Exam: PERRL, EOMI, eyes nml inspection Ears, Nose, Throat Exam: normal ENT inspection, pharynx normal, moist mucous membranes Neck Exam: normal inspection, non-tender, supple, full range of motion Respiratory Exam: normal breath sounds, lungs clear, No respiratory distress Cardiovascular Exam: regular rate/rhythm, normal heart sounds Gastrointestinal/Abdomen Exam: soft, No tenderness, No mass Extremity Exam: normal inspection, normal range of motion Back Exam: normal inspection, normal range of motion, No CVA tenderness, No vertebral tenderness Male Genitalia Exam: deferred Rectal Exam: deferred OBJECTIVE DATA Vital Signs: Vital Signs - 24 hr Temp Pulse Resp BP Pulse Ox 12/14/17 08:00 18 12/14/17 07:59 97.6 F 76 18 100/55 95 12/14/17 04:00 97.6 F 74 18 115/57 96 12/14/17 02:00 76 18 95 12/14/17 00:00 97.9 F 63 19 102/60 96 12/13/17 20:00 97.6 F 79 18 131/70 96 12/13/17 18:53 86 18 95 12/13/17 16:00 97.3 F 69 20 137/63 94 L 12/13/17 13:00 84 18 92 L 12/13/17 12:00 20 12/13/17 11:38 97.4 F 70 20 131/62 94 L Oxygen-Last 24 hours O2 Percentage 2 Liters = 28% O2 Percentage 2 Liters = 28% O2 Percentage 2 Liters = 28% O2 Percentage 2 Liters = 28% O2 Percentage 2 Liters = 28% O2 Percentage 2 Liters = 28% Pain Assessment - Last Documented Pain Intensity 0 Pain Scale Used FLACC Intake and Output: Intake & Output 12/11/17 12/12/17 12/13/17 12/14/17 11:59 11:59 11:59 11:59 Intake Total 0 1938 Balance 2270 1938 Weight 55.5 kg Radiology Exams: Radiology Procedures Category Date Time Status CHEST 2 VIEWS (PA AND LAT) Stat Exams 12/12/17 13:42 Completed Multi-Disciplinary Progress Notes: Multi-Disciplinary Progress Notes 12/13/17 12:40 (created 12/13/17 13:11) Case Management Note by Libra Escalante DR. ROUNDED AND EVALUATED, DISCUSSED PLAN OF CARE WITH PT, VERBALIZED UNDERSTANDING AND ABLE TO REPEAT INFORMATION BACK. DECLINED ADDNL NEEDS AT PRESENT. DR. DOBBINS DISCUSSED WITH PT LIKELY DC HOME TOMORROW, 12/14/17, IF PT CONTINUES TO IMPROVE. DENIES NEEDS FOR DISCHARGE. USES [facility] FOR HOME OXYGEN. INDEPENDENT WITH ALL ADL'S. Initialized on 12/13/17 13:11 - END OF NOTE Assessment/Plan (1) COPD exacerbation Current Visit: Yes Status: Acute Onset Date: ~12/12/17 Code(s): J44.1 - CHRONIC OBSTRUCTIVE PULMONARY DISEASE W (ACUTE) EXACERBATION
--- NOTE | 2017-12-14 11:35 | PCM.DCORD ---
- Discharge Discharge Date: 12/14/17 Disposition: Home, Self-Care Condition: Stable Prescriptions: New Azithromycin [Zithromax Tri-Peter 500 mg] 500 mg PO DAILY #3 tablet Continue Albuterol/Ipratropium 3ml Neb* [DUONEB 0.5-3 MG/3 ml Neb] 3 ml IH QID #120 ampul.neb Budesonide/Formoterol Fumarate [Symbicort 160-4.5 Mcg Inhaler] 2 puff IH BID #1 hfa.aer.ad Potassium Chloride 10 meq PO BID Follow up with: GALEN DOBBINS MD [Primary Care Provider] - 12/21/17 3:15 pm (at [facility] )
[2017-12-14 12:12] VITALS: BP 125/71; PULSE 74; O2SAT 96
== END 2017-12-14 12:40 | disposition home or self-care (01) ==
LOC: MED SURG 11:35
PROVIDERS: ADMIT General Practice; ATTEND General Practice
DX: J44.1 Chronic obstructive pulmonary disease with (acute) exacerbation (principal); J15.8 Pneumonia due to other specified bacteria
CPT/HCPCS: 36415; 36600; 71046; 80053; 82375; 82803; 83880; 85025; 87040; 94150; 94640; 94760; G0378; J0696; J2920; A9270-GY

== ENCOUNTER 2017-12-18 08:19 | Observation (INO) | payer MEDICARE ==
[2017-12-18] MEDS ORDERED: DUONEB 0.5-3 MG/3 ml Neb IH ONE ×4 (08:22→11:32)
[2017-12-18] MEDS ORDERED: solu-MEDROL 125 MG IV ONE (08:22)
[2017-12-18] MEDS ORDERED: PROVENTIL 2.5 MG/3 ML NEB IH ONE (08:22)
--- NOTE | 2017-12-18 08:37 | ERPHSYRPT ---
- History of Present Illness Time Seen by Provider: 12/18/17 08:20 Source: patient Exam Limitations: clinical condition Physician History: PATIENT WITH A HISTORY OF COPE, CHF RECENTLY DISCHARGED FROM THE HOSPITAL 4 DAYS AGO COMPLAINS OF INCREASING DYSPNEA SINCE 9PM LAST NIGHT. HAS DYSPNEA AT REST, MARKED EXERTIONAL DYSPNEA AND A PRODUCTIVE COUGH. DENIES CHEST PAIN, FEVER OR CHILLS. PATIENT ALSO COMPLAINS OF BILATERAL FLANK PAIN SINCE LAST NIGHT. DENIES RADIATION AROUND TO LOWER ABDOMEN, NAUSEA OR EMESIS Timing/Duration: yesterday Activities at Onset: none Severity of Dyspnea-Max: severe Severity of Dyspnea-Current: severe Possible Cause: occasional episodes Modifying Factors: Improves With: activity, coughing, exertion Associated Symptoms: cough International travel in last 2 weeks: No Allergies/Adverse Reactions: No Known Drug Allergies Allergy (Verified 12/12/17 11:59) Home Medications: Potassium Chloride 10 meq PO BID 11/16/16 [History] Hx Tetanus, Diphtheria Vaccination/Date Given: Yes Hx Influenza Vaccination/Date Given: No Hx Pneumococcal Vaccination/Date Given: No - Review of Systems Constitutional: No Fever, No Chills Eyes: No Symptoms Ears, Nose, & Throat: No Symptoms Respiratory: Cough, Dyspnea, Dyspnea on Exertion (KANG) Cardiac: No Symptoms, No Chest Pain, No Edema, No Syncope Abdominal/Gastrointestinal: No Symptoms, No Abdominal Pain, No Nausea, No Vomiting, No Diarrhea Genitourinary Symptoms: No Symptoms, No Dysuria Musculoskeletal: No Symptoms, No Back Pain, No Neck Pain Skin: No Rash Neurological: No Dizziness, No Focal Weakness, No Sensory Changes Psychological: No Symptoms Endocrine: No Symptoms All Other Systems: Reviewed and Negative - Past Medical History Pertinent Past Medical History: Yes Neurological History: No Pertinent History ENT History: No Pertinent History Cardiac History: No Pertinent History Respiratory History: Bronchitis, COPD, Pneumonia Endocrine Medical History: No Pertinent History Musculoskeletal History: No Pertinent History GI Medical History: No Pertinent History History: No Pertinent History Psycho-Social History: No Pertinent History Male Reproductive Disorders: No Pertinent History Other Medical History: 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 - Past Surgical History Past Surgical History: Yes Neuro Surgical History: No Pertinent History Cardiac: No Pertinent History Respiratory: No Pertinent History Gastrointestinal: Cholecystectomy, Hernia Repair Genitourinary: No Pertinent History Musculoskeletal: No Pertinent History Male Surgical History: No Pertinent History - Social History Smoking Status: Former smoker How long have you smoked: 62 years Exposure to second hand smoke: Yes Drug Use: none Patient Lives Alone: No - Nursing Vital Signs Nursing Vital Signs: Initial Vital Signs Pulse Rate 100 H 12/18/17 08:24 Respiratory Rate 24 12/18/17 08:24 O2 Sat by Pulse Oximetry 96 12/18/17 08:24 Pain Scale Pain Intensity 4 - Physical Exam General Appearance: severe distress Eye Exam: PERRL/EOMI Neck Exam: normal inspection, supple Respiratory Exam: diminished breath sounds, accessory muscle use Abdominal/Gastrointestinal Exam: soft, No tenderness, No distention, No mass Extremity Exam: non-tender, normal range of motion, normal inspection, no calf tenderness, no pedal edema Peripheral Pulses Exam: carotid (R): 2+, carotid (L): 2+, femoral (R): 2+, femoral (L): 2+, dorsalis-pedis (R): 2+, dorsalis-pedis (L): 2+ Neurologic Exam: alert, oriented x 3, cooperative, 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, sensation nml, No motor deficits SpO2 Interpretation: hypoxic SpO2: 88 - Course EKG Interpreted by Me: RATE, Sinus Rhythm, NORMAL AXIS, Non-specific ST Changes - Radiology Exams Chest X-ray Interpretation: Discussed w/ radiologist (NONACUTE CHEST WITH CHRONIC FEATURES) - CT Exams Chest CT Interpretation: Discussed w/radiologist (EXTENSIVE BILATERAL PULMONARY EMBOLI , NO DISTAL INFARCT, ADVANCED PULMONARY EMPLHYSEMA) Abdomen/Pelvis CT Interpretation: Discussed w/radiologist (NEGATIVE RENAL CALCULUS OR EVIDENCE FOR OBSTRUCTIVE UROPATHY) Ordered Tests: Active Orders 24 hr Category Date Time Status Up With Assistance ROUTINE Activity 12/18/17 11:26 Ordered Dye Machine Operator STAT Care 12/18/17 08:22 Active Code Status Order ROUTINE Care 12/18/17 11:26 Ordered EKG-ER Only STAT Care 12/18/17 08:22 Active IV Care Q6H Care 12/18/17 11:26 Ordered IV Insertion STAT Care 12/18/17 08:22 Active Oxygen-ED Only NASAL CANNULA 4 lpm Care 12/18/17 08:[address] in Observation ROUTINE Care 12/18/17 11:26 Ordered Jake Hose, Apply ROUTINE Care 12/18/17 11:26 Ordered Telemetry ROUTINE Care 12/18/17 11:26 Ordered Vital Signs Q4H Care 12/18/17 11:26 Ordered Weight,Daily 0600 Care 12/18/17 11:26 Ordered Regular Diet Diet 12/18/17 Dinner Ordered ABDOMEN AND PELVIS W/0 CONTRAS [CT] Stat Exams 12/18/17 09:48 Completed CHEST 1 VIEW (PORTABLE) Stat Exams 12/18/17 08:22 Completed CHEST WITH CONTRAST [CT] Stat Exams 12/18/17 09:47 Completed BLOOD CULTURE Stat Lab 12/18/17 08:54 Received CBC W DIFF Stat Lab 12/18/17 08:54 Completed CMP Routine Lab 12/18/17 08:30 Ordered D-DIMER QUANTITATION Stat Lab 12/18/17 08:54 Completed Lactic Acid Stat Lab 12/18/17 08:22 Completed MAGNESIUM Routine Lab 12/18/17 08:30 Ordered Manual Differential NC Stat Lab 12/18/17 08:54 Completed NT PRO BNP Routine Lab 12/18/17 08:30 Ordered TROPONIN Q3H Lab 12/18/17 08:30 Ordered TROPONIN Q3H Lab 12/18/17 11:30 Ordered TROPONIN Q3H Lab 12/18/17 14:30 Ordered TROPONIN Q3H Lab 12/18/17 17:30 Ordered TROPONIN Q3H Lab 12/18/17 20:30 Ordered UA W/RFX UR CULTURE Stat Lab 12/18/17 08:53 Ordered VENOUS BLOOD GAS Stat Lab 12/18/17 08:22 Completed Oxygen NASAL CANNULA 3 lpm RT 12/18/17 11:26 Ordered Pulse Oximetry CONTINUOUS RT 12/18/17 11:28 Ordered Respiratory Nebulizer STAT RT 12/18/17 08:24 Completed Respiratory Nebulizer STAT RT 12/18/17 08:51 Active Respiratory Therapy Consult ROUTINE RT 12/18/17 11:26 Ordered Transfer Order Routine Transfer 12/18/17 Ordered Medication Summary Discontinued Medications Generic Name Dose Route Start Last Admin Trade Name Freq PRN Reason Stop Dose Admin Hydrocodone Bitart/Acetaminophen 1 tab 12/18/17 09:17 12/18/17 09:47 [place] 5/325 Mg PO 12/18/17 09:18 1 tab STAT ONE Administration Hydrocodone Bitart/Acetaminophen Confirm 12/18/17 09:19 [place] 5/325 Mg Administered 12/18/17 09:20 Dose 1 tab .ROUTE .STK-MED ONE Albuterol Sulfate 10 mg 12/18/17 08:22 12/18/17 08:42 Proventil 2.5 Mg/3 Ml Neb IH 12/18/17 08:23 10 mg STAT ONE Administration Albuterol/Ipratropium 3 ml 12/18/17 08:22 12/18/17 08:28 Duoneb 0.5-3 Mg/3 Ml Neb IH 12/18/17 08:23 3 ml STAT ONE Administration Albuterol/Ipratropium Confirm 12/18/17 08:26 Duoneb 0.5-3 Mg/3 Ml Neb Administered 12/18/17 08:27 Dose 3 ml IH .STK-MED ONE Albuterol/Ipratropium Confirm 12/18/17 11:26 Duoneb 0.5-3 Mg/3 Ml Neb Administered 12/18/17 11:27 Dose 3 ml IH .STK-MED ONE Enoxaparin Sodium Confirm 12/18/17 11:09 Enoxaparin Sodium Administered 12/18/17 11:10 Dose 80 mg SQ .STK-MED ONE Enoxaparin Sodium 50 mg 12/18/17 11:30 12/18/17 11:25 Enoxaparin Sodium SQ 12/18/17 11:31 50 mg STAT ONE Administration Levofloxacin/Dextrose 500 mg in 100 mls @ 100 mls/hr 12/18/17 09:13 12/18/17 09:47 Levofloxacin 500mg/100ml D5w IV 12/18/17 10:12 100 mls/hr STAT STA Administration Levofloxacin/Dextrose Confirm 12/18/17 09:19 Levofloxacin 500mg/100ml D5w Administered 12/18/17 09:20 Dose 500 mg in 100 mls @ ud IV .STK-MED ONE Ketorolac Tromethamine 20 mg 12/18/17 09:43 12/18/17 09:46 Toradol 30 Mg Injection IV 12/18/17 09:44 20 mg STAT ONE Administration Ketorolac Tromethamine Confirm 12/18/17 09:45 Toradol 30 Mg Injection Administered 12/18/17 09:46 Dose 30 mg .ROUTE .STK-MED ONE Methylprednisolone Sodium Succinate 125 mg 12/18/17 08:22 12/18/17 08:41 Solu-Medrol 125 Mg IV 12/18/17 08:23 125 mg STAT ONE Administration Methylprednisolone Sodium Succinate Confirm 12/18/17 08:40 Solu-Medrol 125 Mg Administered 12/18/17 08:41 Dose 125 mg .ROUTE .STK-MED ONE Lab/Rad Data: Laboratory Result Diagrams 12/18/17 08:54 Laboratory Results 12/18/17 12/18/17 12/18/17 Range/Units 08:54 08:54 08:54 WBC 18.4 H (4.0-10.5) K/mm3 RBC 6.44 H* (4.1-5.6) M/mm3 Hgb 18.2 H (12.5-18.0) gm/dl Hct 52.6 H (42-50) % MCV 81.7 (78-100) fl MCH 28.2 (26-32) pg MCHC 34.6 (32-36) g/dl RDW 16.0 H (11.5-14.0) % Plt Count 269 (150-450) K/mm3 MPV 10.1 H (6-9.5) fl Segmented Neutrophils 93 H (36.-66.) % Lymphocytes (Manual) 4 L (24-44) % Monocytes (Manual) 1 (0.0-12.0) % Eosinophils (Manual) 2 (0.00-3.0) % Platelet Estimate NORMAL (NORMAL) RBC Morphology NORMAL D-Dimer 1100.23 H* (215-500) ng/mL pO2/FiO2 Ratio % VBG pH (7.32-7.42) VBG pCO2 at Pat Temp (42-55) mm/Hg VBG pO2 at Pat Temp (25-40) mm/Hg VBG HCO3 (22-28) meq/L VBG O2 Sat (Toni) (95-100) VBG Base Excess (-2.0-2.0) VBG Hemoglobin VBG Carboxyhemoglobin (0.0-6.9) % T HGB POC Potassium (3.5-5.1) Lactic Acid (0.4-2.0) Influenza Type A Ag NEGATIVE (NEGATIVE) Influenza Type B Ag NEGATIVE (NEGATIVE) RSV (PCR) NEGATIVE (Negative) 12/18/17 Range/Units 08:22 WBC (4.0-10.5) K/mm3 RBC (4.1-5.6) M/mm3 Hgb (12.5-18.0) gm/dl Hct (42-50) % MCV (78-100) fl MCH (26-32) pg MCHC (32-36) g/dl RDW (11.5-14.0) % Plt Count (150-450) K/mm3 MPV (6-9.5) fl Segmented Neutrophils (36.-66.) % Lymphocytes (Manual) (24-44) % Monocytes (Manual) (0.0-12.0) % Eosinophils (Manual) (0.00-3.0) % Platelet Estimate (NORMAL) RBC Morphology D-Dimer (215-500) ng/mL pO2/FiO2 Ratio 36.0 % VBG pH 7.40 (7.32-7.42) VBG pCO2 at Pat Temp 37 L (42-55) mm/Hg VBG pO2 at Pat Temp 67 H (25-40) mm/Hg VBG HCO3 22.9 (22-28) meq/L VBG O2 Sat (Toni) 96.3 (95-100) VBG Base Excess -1.4 (-2.0-2.0) VBG Hemoglobin 18.3 VBG Carboxyhemoglobin 2.4 (0.0-6.9) % T HGB POC Potassium 4.5 (3.5-5.1) Lactic Acid 1.1 (0.4-2.0) Influenza Type A Ag (NEGATIVE) Influenza Type B Ag (NEGATIVE) RSV (PCR) (Negative) - Progress Progress: re-examined Air Movement: fair Progress Note: 12/18/17 08:35 IV NORMAL SALINE 50ML/HR, SOLUMEDROL 125MG IV, DUONEB AEROSOL TX FOLLOWED BY A CONTINUOUS ALBUTEROL 10MG AEROSOL TX OVER 1 HOUR. AND AFTER 2 SETS OF BLOOD CULTURES OBTAINED LEVAQUIN 500MG IVPB, NORCO 5/325 ORALLY, TORADOL 20MG IV. CHEST CT C/W EXTENSIVE BILATERAL PULMONARLY EMBOLISM, ADMINISTERED LOVENOX 50MG SUBQ 12/18/17 11:12 12/18/17 11:22 Blood Culture(s) Obtained: Yes Antibiotics given: Yes Discussed with Dr.: Dobbins (DISCUSSDED WITH DR FIERRO AT 1115 FOR OBSERVATION ) - Departure Time of Disposition: 11:25 Departure Disposition: Observation Clinical Impression: ACUTE PULMONARY EMBOLI, ACUTE EXACERBATION COPD Condition: Stable Critical Care Time: No Referrals: GALEN DOBBINS MD [Primary Care Provider] -
[2017-12-18] MEDS ORDERED: solu-MEDROL 125 MG ONE (08:40)
--- NOTE | 2017-12-18 08:45 | XRAY ---
Indication: Severe dyspnea. COPD. Comparison: December 12, 2017. Portable chest less inflated today, accentuating previous bibasilar fibrosis/scarring. Remaining lungs clear again with COPD. Heart is not enlarged. Vascularity normal. Bony thorax intact again with mild osteopenia, degenerative changes, and mild scoliosis. Impression: Nonacute chest again with chronic features.
[2017-12-18 08:47] LABS: Lactic Acid 1.1 (0.4-2.0); VBG BASE EXCESS -1.4 (-2.0-2.0); VBG CARBOXYHEMOGLOBIN 2.4 % T HGB (0.0-6.9); VBG HCO3- 22.9 meq/L (22-28); VBG HEMOGLOBIN 18.3; VBG O2 SATURATION 96.3 (95-100); VBG POTASSIUM 4.5 (3.5-5.1); VBG pH 7.4 (7.32-7.42)
[2017-12-18 09:02] LABS: Hematocrit 52.6 % (42-50); Hemoglobin 18.2 gm/dl (12.5-18.0); Mean Cell Volume 81.7 fl (78-100); Mean Corpuscular Hemoglobin 28.2 pg (26-32); Mean Corpuscular Hgb Concent. 34.6 g/dl (32-36); Mean Platelet Volume 10.1 fl (6-9.5); Platelet Count 269 K/mm3 (150-450); Red Blood Count 6.44 M/mm3 (4.1-5.6); White Blood Count 18.4 K/mm3 (4.0-10.5)
[2017-12-18] MEDS ORDERED: Levofloxacin 500MG/100ML D5W 500 MG/100 ML BAG IV STA (09:13)
[2017-12-18] MEDS ORDERED: NORCO 5/325 MG PO ONE (09:17)
[2017-12-18] MEDS ORDERED: NORCO 5/325 MG ONE (09:19)
[2017-12-18] MEDS ORDERED: Levofloxacin 500MG/100ML D5W 500 MG/100 ML BAG IV ONE (09:19)
[2017-12-18] MEDS ORDERED: TORAdol 30 mg Injection IV ONE (09:43)
[2017-12-18] MEDS ORDERED: TORAdol 30 mg Injection ONE (09:45)
[2017-12-18 09:47] LABS: INFLUENZA A NEGATIVE (NEGATIVE); INFLUENZA B NEGATIVE (NEGATIVE); RESPIRATORY SYNCTIAL VIRUS NEGATIVE (Negative)
[2017-12-18 09:55] LABS: Eosinophil 2 % (0.00-3.0); Lymphocytes 4 % (24-44); Monocyte 1 % (0.0-12.0); Neutrophils 93 % (36.-66.); Platelet Estimate NORMAL (NORMAL); Total Cells Counted 100
--- NOTE | 2017-12-18 11:00 | XRAY ---
Indication: Short of breath and low back pain. Multiple contiguous axial images obtained through the chest using 80 cc Isovue 370 contrast and PE protocol. Comparison: None There is satisfactory opacification of the pulmonary arteries. Extensive pulmonary emboli seen in the distal left and right main pulmonary arteries extending into all lobar branches with sparing of the left upper lobe. Pulmonary emboli further extends into the segmental branches of both lower lobes. Heart is not enlarged. AP window, subcarinal, and right hilar tiny calcified nodes. No pathologic mediastinal/hilar lymphadenopathy. Examination of the lung parenchyma demonstrates advanced diffuse pulmonary emphysema and moderate bilateral dependent atelectasis. A few scattered tiny calcified granulomas bilaterally. No consolidation or effusion. Bony thorax intact with mild degenerative changes throughout the spine and multilevel Schmorl nodes. CT abdomen reported separately. Impression: 1. Extensive bilateral pulmonary emboli. No distal infarct. 2. Advanced pulmonary emphysema and evidence for old granulomatous disease. CT DI 11.37
--- NOTE | 2017-12-18 11:04 | XRAY ---
Indication: Bilateral flank pain. Multiple contiguous axial images obtained through the abdomen and pelvis without contrast using renal stone protocol. Comparison: None CT chest reported separately. No renal calculus or evidence for obstructive uropathy in either system. Noncontrasted stomach and bowel loops appear nonobstructed. Normal appendix. No free fluid/air. Mild fatty liver. Previous cholecystectomy. Remaining liver, pancreas, spleen, adrenal glands, kidneys, ureters, and bladder appear unremarkable for noncontrast exam. Mild scattered aortoiliac calcifications without AAA. Osseous structures intact with mild degenerative changes throughout the spine. Superior endplates of T12/L1/L3/L4 demonstrates concave appearance either remote fractures versus prominent Schmorl nodes. Moderate-sized fatty left inguinal hernia. Impression: 1. Negative renal calculus or evidence for obstructive uropathy. 2. Mild fatty liver and moderate-sized fatty left inguinal hernia. 3. No acute intra-abdominal/pelvic abnormalities on this noncontrast exam. 4. Multilevel remote endplate fractures versus prominent Schmorl nodes. CT DI 12.65
[2017-12-18] MEDS ORDERED: ENOXAPARIN SODIUM SQ ONE ×2 (11:09→11:30)
[2017-12-18] MEDS ORDERED: Xopenex 1.25 MG/0.5 ML UD NEBULE IH PRN (11:30)
[2017-12-18] MEDS ORDERED: NORCO 5/325 MG PO PRN (11:32)
[2017-12-18] MEDS: Sodium Chloride 0.9% 1000 ML 1,000 ML IV SCH (12:57)
[2017-12-18] MEDS: solu-MEDROL 125 MG IV SCH ×3 (13:00→23:02)
[2017-12-18 14:22] LABS: Appearance CLEAR (CLEAR); Bilirubin NEGATIVE (NEGATIVE); Blood 50 Ery/ul (0-5); Glucose 50 mg/dL (NEGATIVE); Ketones MODERATE (NEGATIVE); Leukocyte Esterase NEGATIVE (NEGATIVE); Nitrite NEGATIVE (NEGATIVE); Protein,Urine Dip TRACE (Negative); Specific Gravity 1.015 (1.005-1.025); Urobilinogen NORMAL mg/dL (0-1)
[2017-12-18 14:30] LABS: WBC 0-2 /HPF (0-5)
[2017-12-18 14:31] LABS: Bacteria RARE /HPF (NEGATIVE); Epithelial Cells RARE /HPF (FEW); Hyaline Casts 0-2 /LPF (0-2)
[2017-12-18] MEDS ORDERED: Advair Hfa 230/21 Mcg COMMON CANISTER IH SCH (15:00)
[2017-12-18] MEDS: DUONEB 0.5-3 MG/3 ml Neb IH SCH ×3 (15:09→23:17)
[2017-12-18] MEDS: Advair Hfa 230/21 Mcg COMMON CANISTER IH SCH ×2 (15:31→18:58)
[2017-12-18] MEDS: ENOXAPARIN SODIUM SQ SCH (22:59)
[2017-12-18] MEDS: Klor Con 10 MEQ PO SCH (22:59)
[2017-12-19] MEDS: DUONEB 0.5-3 MG/3 ml Neb IH SCH ×6 (05:56→23:10)
[2017-12-19] MEDS: solu-MEDROL 125 MG IV SCH ×3 (06:34→18:22)
[2017-12-19] MEDS: Advair Hfa 230/21 Mcg COMMON CANISTER IH SCH ×2 (07:01→19:06)
[2017-12-19] MEDS: Sodium Chloride 0.9% 1000 ML 1,000 ML IV SCH (07:15)
[2017-12-19] MEDS: Klor Con 10 MEQ PO SCH ×2 (10:04→21:34)
[2017-12-19] MEDS: ENOXAPARIN SODIUM SQ SCH (10:04)
[2017-12-19] MEDS: Levofloxacin 500MG/100ML D5W 500 MG/100 ML BAG IV SCH (10:05)
[2017-12-19] MEDS ORDERED: ENOXAPARIN SODIUM SQ ONE (11:05)
--- NOTE | 2017-12-19 12:21 | PCM.HP ---
History of Present Illness - Chief Complaint Chief Complaint: worsening of shortness of breath for 2-3 days History of Present Illness: is a 72 year old male came to ER with worsening shortness of breath, patient was recently admitted with COPD exacerbation - Review of Systems Constitutional: No Fever, No Chills Eyes: No Symptoms Ears, Nose, & Throat: No Symptoms Respiratory: Cough, Orthopnea, Short Of Breath, Wheezing Cardiac: No Chest Pain, No Edema, No Syncope Abdominal/Gastrointestinal: No Abdominal Pain, No Nausea, No Vomiting, No Diarrhea Genitourinary Symptoms: No Dysuria Musculoskeletal: No Back Pain, No Neck Pain Skin: No Rash Neurological: No Dizziness, No Focal Weakness, No Sensory Changes Psychological: No Symptoms Endocrine: No Symptoms Hematologic/Lymphatic: No Symptoms Immunological/Allergic: No Symptoms Medications & Allergies Home Medications: Home Medication List Albuterol/Ipratropium 3ml Neb* [DUONEB 0.5-3 MG/3 ml Neb] 3 ml IH QID #120 ampul.neb 09/18/16 [Rx Confirmed 12/18/17] Budesonide/Formoterol Fumarate [Symbicort 160-4.5 Mcg Inhaler] 2 puff IH BID #1 [email or web address] 09/18/16 [Rx Confirmed 12/18/17] Potassium Chloride 10 meq PO BID 11/16/16 [History Confirmed 12/18/17] Allergies/Adverse Reactions: Allergies Allergy/AdvReac Type Severity Reaction Status Date / Time No Known Drug Allergies Allergy Verified 12/18/17 13:25 - Past Medical History Past Medical History: Yes Neurological History: No Pertinent History ENT History: No Pertinent History Cardiac History: No Pertinent History Respiratory History: Bronchitis, COPD, Pneumonia Endocrine Medical History: No Pertinent History Musculoskelatal History: No Pertinent History GI Medical History: No Pertinent History History: No Pertinent History Pyscho-Social History: No Pertinent History Male Reproductive Disorders: No Pertinent History 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 - Past Surgical History Past Surgical History: Yes Neuro Surgical History: No Pertinent History Cardiac History: No Pertinent History Respiratory Surgery: No Pertinent History GI Surgical History: Cholecystectomy, Hernia Repair Genitourinary Surgical Hx: No Pertinent History Musculskeletal Surgical Hx: No Pertinent History Male Surgical History: No Pertinent History - Social History Smoking Status: Former smoker How long have you smoked: 62 years Exposure to second hand smoke: Yes Alcohol: None Drug Use: none - Physical Exam Vital Signs: Vital Signs - 24 hr Temp Pulse Resp BP Pulse Ox 12/19/17 11:53 97.9 F 106 H 18 124/65 96 12/19/17 10:37 108 H 20 93 L 12/19/17 07:32 97.6 F 99 H 18 119/67 95 12/19/17 07:00 84 16 100 12/19/17 04:00 98 F 100 H 20 131/74 96 12/19/17 00:00 97.9 F 97 H 26 H 120/67 95 12/18/17 23:00 105 H 23 93 L 12/18/17 20:00 97.9 F 110 H 20 111/65 95 12/18/17 19:00 107 H 22 95 12/18/17 16:00 97.7 F 106 H 20 134/76 94 L 12/18/17 15:00 110 H 24 93 L 12/18/17 13:05 98.1 F 118 H 20 141/73 96 12/18/17 13:00 96 Oxygen-Last 24 hours O2 Percentage 4 Liters = 36% O2 Percentage 4 Liters = 36% O2 Percentage 4 Liters = 36% O2 Percentage 4 Liters = 36% General Appearance: no apparent distress, alert Neurologic Exam: alert, oriented x 3, cooperative, normal mood/affect, nml cerebellar function, nml station & gait, sensation nml, No motor deficits Eye Exam: PERRL/EOMI, eyes nml inspection Ears, Nose, Throat Exam: normal ENT inspection, TMs normal, pharynx normal, moist mucous membranes Neck Exam: normal inspection, non-tender, supple, full range of motion Respiratory Exam: diminished breath sounds, prolonged expirations, crackles/ rales, rhonchi, wheezing, No respiratory distress Cardiovascular Exam: regular rate/rhythm, normal heart sounds, normal peripheral pulses Gastrointestinal/Abdomen Exam: soft, normal bowel sounds, No tenderness, No mass Back Exam: normal inspection, normal range of motion, No CVA tenderness, No vertebral tenderness Extremity Exam: normal inspection, normal range of motion, pelvis stable Skin Exam: normal color, warm, dry, No rash Lymphatic Exam: No adenopathy Results - Labs Lab/Micro Results: Lab Results-Last 24 Hours 12/18/17 12/18/17 12/18/17 Range/Units 14:20 14:25 17:42 Troponin I < 0.012 < 0.012 (0.000-0.034) ng/mL Ur Collection Type VOID Urine Color YELLOW (YELLOW) Urine Appearance CLEAR (CLEAR) Urine pH 5.0 (5-6) Ur Specific [place] 1.015 (1.005-1.025) Urine Protein TRACE (Negative) Urine Ketones MODERATE (NEGATIVE) Urine Blood 50 (0-5) Tim/ul Urine Nitrite NEGATIVE (NEGATIVE) Urine Bilirubin NEGATIVE (NEGATIVE) Urine Urobilinogen NORMAL (0-1) mg/dL Ur Leukocyte Esterase NEGATIVE (NEGATIVE) Urine Microscopic RBC 2-5 (0-2) /HPF Urine Microscopic WBC 0-2 (0-5) /HPF Ur Epithelial Cells RARE (FEW) /HPF Urine Bacteria RARE (NEGATIVE) /HPF Hyaline Casts 0-2 (0-2) /LPF Urine Culture Reflexed YES (NO) Urine Glucose 50 (NEGATIVE) mg/dL Specimen Received 12/18/17 1213 Microbiology 12/18/17 14:20 Urine Culture - Preliminary Urine, Void NO GROWTH TO DATE - Radiology Impressions Radiology Exams & Impressions: Radiology Procedures Category Date Time Status VENOUS BILATERAL EXTREMITY [US] Stat Exams 12/19/17 Ordered - Other Procedures and Tests Respiratory Therapy 12/18/17 11:26 Oxygen NASAL CANNULA 3 lpm 12/18/17 15:00 Respiratory Nebulizer Q4H 12/18/17 19:00 Respiratory MDI Q12H Assessment/Plan (1) Pulmonary embolism Current Visit: Yes Status: Acute Onset Date: ~12/18/17 Qualifiers: Pulmonary embolism type: other Chronicity: acute Acute cor pulmonale presence: without acute cor pulmonale Qualified Code(s): I26.99 - Other pulmonary embolism without acute cor pulmonale Assessment & Plan: Chief Complaint Diagnosis PE Allergies Allergy/AdvReac Type Severity Reaction Status Date / Time No Known Drug Allergies Allergy Verified 12/18/17 13:25 Vital Signs (Last 24 hours) Temp Pulse Resp BP Pulse Ox 12/19/17 11:53 97.9 F 106 H 18 124/65 96 12/19/17 10:37 108 H 20 93 L 12/19/17 07:32 97.6 F 99 H 18 119/67 95 12/19/17 07:00 84 16 100 12/19/17 04:00 98 F 100 H 20 131/74 96 12/19/17 00:00 97.9 F 97 H 26 H 120/67 95 12/18/17 23:00 105 H 23 93 L 12/18/17 20:00 97.9 F 110 H 20 111/65 95 12/18/17 19:00 107 H 22 95 12/18/17 16:00 97.7 F 106 H 20 134/76 94 L 12/18/17 15:00 110 H 24 93 L 12/18/17 13:05 98.1 F 118 H 20 141/73 96 12/18/17 13:00 96 Current Medications Generic Name Dose Route Start Last Admin Trade Name Freq PRN Reason Stop Dose Admin Hydrocodone Bitart/Acetaminophen 1 tab 12/18/17 11:32 [place] 5/325 Mg PO 12/23/17 11:31 QID PRN PRN PAIN Albuterol/Ipratropium 3 ml 12/18/17 15:00 12/19/17 10:36 Duoneb 0.5-3 Mg/3 Ml Neb 01/17/18 14:59 3 ml Q4HRT ALIYAH Administration Enoxaparin Sodium 50 mg 12/18/17 22:00 12/19/17 10:04 Enoxaparin Sodium 1 mg/kg (50 mg) 01/17/18 21:59 50 mg SQ Administration Q12HT ALIYAH Levofloxacin/Dextrose 500 mg in 100 mls @ 100 mls/hr 12/19/17 10:00 12/19/17 10:05 Levofloxacin 500mg/100ml D5w IV 01/18/18 09:59 100 mls/hr Q24H10 ALIYAH Administration Sodium Chloride 1,000 mls @ 50 mls/hr 12/18/17 11:30 12/19/17 07:15 Sodium Chloride 0.9% 1000 Ml IV 01/17/18 11:29 50 mls/hr .Q20H ALIYAH Administration Levalbuterol HCl 1.25 mg 12/18/17 11:30 Xopenex 1.25 Mg/0.5 Ml Ud Nebule IH 01/17/18 11:29 Q2H/PRN PRN DYSPNEA Methylprednisolone Sodium Succinate 80 mg 12/18/17 12:00 12/19/17 11:39 Solu-Medrol 125 Mg IV 01/17/18 11:59 80 mg Q6HT ALIYAH Administration Potassium Chloride 10 meq 12/18/17 22:00 12/19/17 10:04 Klor Con 10 Meq PO 01/17/18 21:59 10 meq BID ALYIAH Administration Fluticasone/Salmeterol 2 puff 12/18/17 19:00 12/19/17 07:01 Advair Hfa 230/21 Mcg Common Canister* IH 01/17/18 18:59 2 puff BIDRT ALIYAH Administration Discontinued Medications Generic Name Dose Route Start Last Admin Trade Name Sreeq PRN Reason Stop Dose Admin Hydrocodone Bitart/Acetaminophen 1 tab 12/18/17 09:17 12/18/17 09:47 [place] 5/325 Mg PO 12/18/17 09:18 1 tab STAT ONE Administration Hydrocodone Bitart/Acetaminophen Confirm 12/18/17 09:19 [place] 5/325 Mg Administered 12/18/17 09:20 Dose 1 tab .ROUTE .STK-MED ONE Albuterol Sulfate 10 mg 12/18/17 08:22 12/18/17 08:42 Proventil 2.5 Mg/3 Ml Neb IH 12/18/17 08:23 10 mg STAT ONE Administration Albuterol/Ipratropium 3 ml 12/18/17 08:22 12/18/17 08:28 Duoneb 0.5-3 Mg/3 Ml Neb IH 12/18/17 08:23 3 ml STAT ONE Administration Albuterol/Ipratropium Confirm 12/18/17 08:26 Duoneb 0.5-3 Mg/3 Ml Neb Administered 12/18/17 08:27 Dose 3 ml IH .STK-MED ONE Albuterol/Ipratropium Confirm 12/18/17 11:26 Duoneb 0.5-3 Mg/3 Ml Neb Administered 12/18/17 11:27 Dose 3 ml IH .STK-MED ONE Albuterol/Ipratropium 3 ml 12/18/17 11:32 12/18/17 11:30 Duoneb 0.5-3 Mg/3 Ml Neb IH 12/18/17 11:33 3 ml STAT ONE Administration Enoxaparin Sodium Confirm 12/18/17 11:09 Enoxaparin Sodium Administered 12/18/17 11:10 Dose 80 mg SQ .STK-MED ONE Enoxaparin Sodium 50 mg 12/18/17 11:30 12/18/17 11:25 Enoxaparin Sodium SQ 12/18/17 11:31 50 mg STAT ONE Administration Levofloxacin/Dextrose 500 mg in 100 mls @ 100 mls/hr 12/18/17 09:13 12/18/17 09:47 Levofloxacin 500mg/100ml D5w IV 12/18/17 10:12 100 mls/hr STAT STA Administration Levofloxacin/Dextrose Confirm 12/18/17 09:19 Levofloxacin 500mg/100ml D5w Administered 12/18/17 09:20 Dose 500 mg in 100 mls @ ud IV .STK-MED ONE Ketorolac Tromethamine 20 mg 12/18/17 09:43 12/18/17 09:46 Toradol 30 Mg Injection IV 12/18/17 09:44 20 mg STAT ONE Administration Ketorolac Tromethamine Confirm 12/18/17 09:45 Toradol 30 Mg Injection Administered 12/18/17 09:46 Dose 30 mg .ROUTE .STK-MED ONE Methylprednisolone Sodium Succinate 125 mg 12/18/17 08:22 12/18/17 08:41 Solu-Medrol 125 Mg IV 12/18/17 08:23 125 mg STAT ONE Administration Methylprednisolone Sodium Succinate Confirm 12/18/17 08:40 Solu-Medrol 125 Mg Administered 12/18/17 08:41 Dose 125 mg .ROUTE .STK-MED ONE Intake & Output (Last 24 hours) 12/17/17 12/18/17 12/19/17 12/20/17 11:59 11:59 11:59 11:59 Intake Total 1415 Output Total 550 Balance 865 Weight 49.895 kg 57.3 kg Microbiology Results (Last 24 hours) 12/18/17 14:20 Urine, Void Urine Culture - Preliminary NO GROWTH TO DATE 12/18/17 08:54 Blood Blood Culture Gram Stain - Pending 12/18/17 08:54 Blood Blood Culture - Pending 12/18/17 08:54 Blood Blood Culture Gram Stain - Pending 12/18/17 08:54 Blood Blood Culture - Pending Laboratory Results (Last 24 hours) 12/18/17 12/18/17 12/18/17 17:42 14:25 14:20 Anion Gap Troponin I < 0.012 < 0.012 Ur Collection Type VOID Urine Color YELLOW Urine Appearance CLEAR Urine pH 5.0 Ur Specific [place] 1.015 Urine Protein TRACE Urine Ketones MODERATE Urine Blood 50 Urine Nitrite NEGATIVE Urine Bilirubin NEGATIVE Urine Urobilinogen NORMAL Ur Leukocyte Esterase NEGATIVE Urine Microscopic RBC 2-5 Urine Microscopic WBC 0-2 Ur Epithelial Cells RARE Urine Bacteria RARE Hyaline Casts 0-2 Urine Culture Reflexed YES Urine Glucose 50 Specimen Received 12/18/17 1213 12/18/17 12/18/17 12/18/17 11:40 08:30 08:05 Anion Gap Troponin I < 0.012 < 0.012 Ur Collection Type Urine Color Urine Appearance Urine pH Ur Specific [place] Urine Protein Urine Ketones Urine Blood Urine Nitrite Urine Bilirubin Urine Urobilinogen Ur Leukocyte Esterase Urine Microscopic RBC Urine Microscopic WBC Ur Epithelial Cells Urine Bacteria Hyaline Casts Urine Culture Reflexed Urine Glucose Specimen Received Orders (Last 24 hours) Category Date Time Status Up With Assistance ROUTINE Activity 12/18/17 11:26 Active Code Status Order ROUTINE Care 12/18/17 11:26 Inactive IV Care Q6H Care 12/18/17 11:[address] in Observation ROUTINE Care 12/18/17 11:26 Active Fracisco Calderon ROUTINE Care 12/18/17 11:26 Active Telemetry Q12H Care 12/18/17 11:26 Active Vital Signs Q4H Care 12/18/17 11:26 Completed Weight,Daily 0600 Care 12/18/17 11:26 Active Slot Operations Director/Discharge Plan ROUTINE Cons 12/18/17 13:18 Active Regular Diet Diet 12/18/17 Dinner Active VENOUS BILATERAL EXTREMITY [US] Stat Exams 12/19/17 Ordered CULTURE,URINE Stat Lab 12/18/17 14:20 Results TROPONIN Q3H Lab 12/18/17 11:40 Completed TROPONIN Q3H Lab 12/18/17 14:25 Completed TROPONIN Q3H Lab 12/18/17 17:42 Completed UA W/ MICROSCOPIC Stat Lab 12/18/17 14:20 Completed Albuterol/Ipratropium 3ml Neb* [DUONEB 0.5-3 MG/3 ml Med 12/18/17 11:26 Discontinued Neb] 3 ml IH .STK-MED ONE Albuterol/Ipratropium 3ml Neb* [DUONEB 0.5-3 MG/3 ml Med 12/18/17 15:00 Active Neb] 3 ml IH Q4HRT Albuterol/Ipratropium 3ml Neb* [DUONEB 0.5-3 MG/3 ml Med 12/18/17 11:32 Discontinued Neb] 3 ml IH STAT ONE Enoxaparin Sodium [Enoxaparin Sodium] Med 12/18/17 11:30 Discontinued 50 mg SQ STAT ONE Enoxaparin Sodium [Enoxaparin Sodium] Med 12/18/17 22:00 Active See Dose Instructions SQ Q12HT Fluticasone/Salmeterol 230/21 [Advair Hfa 230/21 Mcg Med 12/18/17 19:00 Active COMMON CANISTER*] 2 puff IH BIDRT Hydrocodone/APAP 5/325 [[place] 5/325 mg] Med 12/18/17 11:32 Active 1 tab PO QID PRN PRN Levalbuterol HCl 1.25 MG/0.5M* [Xopenex 1.25 MG/0.5 ML Med 12/18/17 11:30 Active UD NEBULE] 1.25 mg IH Q2H/PRN PRN Levofloxacin [Levofloxacin 500MG/100ML D5W] Med 12/19/17 10:00 Active 500 mg in 100 ml IV Q24H10 Methylprednis Sod Succ 125 mg* [solu-MEDROL 125 MG] Med 12/18/17 12:00 Active 80 mg IV Q6HT NaCl 0.9% 1000 ml [Sodium Chloride 0.9% 1000 ML] 1,000 Med 12/18/17 11:30 Active ml IV 50 mls/hr Potassium Chloride 10 Meq Tab* [Klor Con 10 MEQ] Med 12/18/17 22:00 Active 10 meq PO BID Oxygen NASAL CANNULA 3 lpm RT 12/18/17 11:26 Active Pulse Oximetry CONTINUOUS RT 12/18/17 11:28 Active Respiratory MDI Q12H RT 12/18/17 19:00 Active Respiratory Nebulizer Q4H RT 12/18/17 15:00 Active Respiratory Nebulizer STAT RT 12/18/17 11:32 Completed Respiratory Therapy Consult ROUTINE RT 12/18/17 11:26 Completed Code(s): I26.99 - OTHER PULMONARY EMBOLISM WITHOUT ACUTE COR PULMONALE (2) COPD exacerbation Current Visit: Yes Status: Acute Onset Date: ~12/18/17 Code(s): J44.1 - CHRONIC OBSTRUCTIVE PULMONARY DISEASE W (ACUTE) EXACERBATION
--- NOTE | 2017-12-19 14:54 | XRAY ---
Indication: Short of breath. Pulmonary emboli. Two-dimensional sonogram and color Doppler imaging of the major venous vessels of the left and right leg was performed. Comparison: September 14, 2016. Again no thrombus seen in the examined deep venous vessels of the left and right leg including greater saphenous veins. Veins demonstrated normal compressibility. Venous waveforms are normal with and without augmentation. Impression: Left and right legs negative for DVT.
[2017-12-19] MEDS: ELIQUIS 5 MG TABLET PO SCH (21:34)
[2017-12-20] MEDS: solu-MEDROL 125 MG IV SCH ×3 (00:24→13:56)
[2017-12-20] MEDS: Sodium Chloride 0.9% 1000 ML 1,000 ML IV SCH (02:37)
[2017-12-20] MEDS: DUONEB 0.5-3 MG/3 ml Neb IH SCH ×4 (06:06→15:16)
[2017-12-20] MEDS: Advair Hfa 230/21 Mcg COMMON CANISTER IH SCH (06:38)
[2017-12-20] MEDS: ELIQUIS 5 MG TABLET PO SCH (10:26)
[2017-12-20] MEDS: Klor Con 10 MEQ PO SCH (10:26)
[2017-12-20] MEDS: Levofloxacin 500MG/100ML D5W 500 MG/100 ML BAG IV SCH (10:26)
[2017-12-20 11:01] VITALS: BP 156/78
--- NOTE | 2017-12-20 12:01 | PCM.NOTE ---
Date and Time: 12/20/17 1201 Subjective Assessment: doing better - Review of Systems Constitutional: No Fever, No Chills Eyes: No Symptoms Ears, Nose, & Throat: No Symptoms Respiratory: No Cough, No Short Of Breath Cardiac: No Chest Pain, No Edema, No Syncope Abdominal/Gastrointestinal: No Abdominal Pain, No Nausea, No Vomiting, No Diarrhea Genitourinary Symptoms: No Dysuria Musculoskeletal: No Back Pain, No Neck Pain Skin: No Rash Neurological: No Dizziness, No Focal Weakness, No Sensory Changes Psychological: No Symptoms Endocrine: No Symptoms Hematologic/Lymphatic: No Symptoms Immunological/Allergic: No Symptoms Objective Exam General Appearance: no apparent distress, alert Neurologic Exam: alert, oriented x 3, cooperative, normal mood/affect, nml cerebellar function, sensation nml, No motor deficits Skin Exam: normal color, warm, dry Eye Exam: PERRL, EOMI, eyes nml inspection Ears, Nose, Throat Exam: normal ENT inspection, pharynx normal, moist mucous membranes Neck Exam: normal inspection, non-tender, supple, full range of motion Respiratory Exam: rhonchi, wheezing, No respiratory distress Cardiovascular Exam: regular rate/rhythm, normal heart sounds Gastrointestinal/Abdomen Exam: soft, No tenderness, No mass Extremity Exam: normal inspection, normal range of motion Back Exam: normal inspection, normal range of motion, No CVA tenderness, No vertebral tenderness Male Genitalia Exam: deferred Rectal Exam: deferred OBJECTIVE DATA Vital Signs: Vital Signs - 24 hr Temp Pulse Resp BP Pulse Ox 12/20/17 11:00 98.6 F 105 H 20 156/78 93 L 12/20/17 10:40 99 H 20 95 12/20/17 08:00 20 12/20/17 07:21 97.6 F 87 20 131/72 97 12/20/17 06:41 93 H 18 95 12/20/17 04:00 97.9 F 95 H 18 132/66 93 L 12/20/17 00:00 21 12/19/17 23:53 98.1 F 111 H 21 130/70 97 12/19/17 23:00 108 H 24 97 12/19/17 20:00 97.6 F 105 H 19 119/64 95 12/19/17 19:00 109 H 26 H 95 12/19/17 15:44 97.8 F 102 H 20 129/67 95 12/19/17 14:31 100 H 20 96 Oxygen-Last 24 hours O2 Percentage 2 Liters = 28% O2 Percentage 2 Liters = 28% O2 Percentage 2 Liters = 28% O2 Percentage 2 Liters = 28% O2 Percentage 2 Liters = 28% Pain Assessment - Last Documented Pain Intensity 0 Pain Scale Used 0-10 Pain Scale Intake and Output: Intake & Output 12/18/17 12/19/17 12/20/17 12/21/17 11:59 11:59 11:59 11:59 Intake Total 1415 3041 Output Total 550 200 Balance 865 2841 Weight 57.3 kg 57.3 kg Radiology Exams: Radiology Procedures Category Date Time Status VENOUS BILATERAL EXTREMITY [US] Stat Exams 12/19/17 14:40 Completed Multi-Disciplinary Progress Notes: Multi-Disciplinary Progress Notes 12/19/17 15:45 Case Management Note by Libra Escalante CALL TO [facility] TO REQUEST COKER CHECK FOR PT'S COPAY. SPOKE WITH JAYLENE BHARDWAJ. REPORTS THAT PT'S PORTION FOR ONE MONTH SUPPLY IS APPROX $78.00. WILL REPORT TO PT. Initialized on 12/19/17 15:45 - END OF NOTE Assessment/Plan (1) Pulmonary embolism Current Visit: Yes Status: Acute Onset Date: ~12/18/17 Qualifiers: Pulmonary embolism type: other Chronicity: acute Acute cor pulmonale presence: without acute cor pulmonale Qualified Code(s): I26.99 - Other pulmonary embolism without acute cor pulmonale Code(s): I26.99 - OTHER PULMONARY EMBOLISM WITHOUT ACUTE COR PULMONALE (2) COPD exacerbation Current Visit: Yes Status: Acute Onset Date: ~12/18/17 Code(s): J44.1 - CHRONIC OBSTRUCTIVE PULMONARY DISEASE W (ACUTE) EXACERBATION
[2017-12-20 15:18] VITALS: PULSE 98; O2SAT 95
--- NOTE | 2017-12-20 15:44 | CONS ---
CONSULT DATE: 12/20/2017 HISTORY: David Martinez is a 72 year-old male with chronic obstructive pulmonary disease on home oxygen therapy who started developing chest discomfort with chest pain around 2100 hours on Monday night. The patient reported that his symptoms were progressively worse to the point that he had to call his friends to bring him to the emergency room. The patient had CT chest that showed bilateral pulmonary emboli. Lower extremity venous Doppler's were negative for any additional cause. The patient also had CT abdomen and pelvis that also did not show any acute problems other than fatty liver and inguinal hernia. The patient is being treated with anticoagulation and does report improvement in symptoms gradually. He has been experiencing streaky hemoptysis presumably from pulmonary emboli and pulmonary infarction. At the time of my evaluation the patient is sitting comfortably in bed. He voices no new complaints. He has not yet ambulated well. He denies any chest pain. The patient also denies any recent leg swelling or leg pain. He has had relative sedentary lifestyle. There is no family history of hypercoag state. PAST MEDICAL HISTORY: Positive for history of chronic obstructive pulmonary disease, chronic respiratory failure with hypoxemia, arthritis. PAST SURGICAL HISTORY: No recent surgery. PERSONAL AND SOCIAL HISTORY: The patient is a former smoker. MEDICATIONS: Home and current medications are reviewed. ALLERGIES: ALLERGIES NOTED. PHYSICAL EXAMINATION: This is an elderly frail male who appears comfortable at rest. Vital signs are noted. HEENT: Normocephalic. Pupils are reactive. Oral exam unremarkable. NECK: Supple. CVS: First and second heart sounds are normal, regular, rhythmic. RESPIRATORY: Shows diminished breath sounds, fairly clear to auscultation. ABDOMEN: Soft. No edema is noted. LABORATORY DATA AND TESTS: Blood cultures have remained negative to date. Troponin I negative as well x3. Sodium 135, potassium 4.8, chloride 99, bicarb 22, glucose 108, BUN 15, creatinine 0.9, albumin 4.0. Magnesium 2.0. ABG showed pH of 7.40, pCO2 37, pO2 67. White blood cell count 18.4, hemoglobin 18.2, hematocrit 52, PLT 269,000. Influenza A and B were negative. D-dimer 1110. CT chest reviewed. ASSESSMENT: This is a 72 year old male admitted with: 1) Acute chest pain from pulmonary emboli. 2) Hemoptysis possibly from pulmonary infarction with streaking. 3) No evidence of deep venous thrombosis. 4) Underlying chronic obstructive pulmonary disease, stable. 5) Chronic hypoxic respiratory failure. RECOMMENDATIONS: The patient is doing well from pulmonary standpoint. Advised ambulation causes the patient's functional status. The patient's treatment options were discussed already and the patient has agreed to be on Eliquis which I believe certainly would be helpful. I advised a repeat CT in four to six months to assess complete resolution of clots following which hypercoag work up can be done although it appears that given extensive clot but without obvious risk factor, the patient may be of benefit with anticoagulation for life unless any other obvious contraindication persists. No evidence of any occult malignancy so far on diagnostic radiology screens. Consider CEA and PSA if not done earlier. Follow up with me in two weeks upon discharge. Discussed the plan of care with the patient and family. Thank you Dr. Luo for allowing me to participate in the care of David Martinez.
== END 2017-12-20 15:50 | disposition home or self-care (01) ==
LOC: ED 08:19 → MED SURG 12:13
PROVIDERS: ADMIT General Practice; ATTEND General Practice
DX: I26.99 Other pulmonary embolism without acute cor pulmonale (principal); J44.1 Chronic obstructive pulmonary disease with (acute) exacerbation
CPT/HCPCS: 36000; 36415; 71045; 71260; 74176; 80053; 81000; 82378; 82805; 83605; 83735; 83880; 84484; 85025; 85379; 87040; 87086; 87631; 93005; 93041; 93268; 93970; 94150; 94640; 94760; 96365; 96372; 96374; 96375; 99285; G0103; J1650; J1885; J1956; J2930; A9270-GY; G0378

== ENCOUNTER 2018-02-28 14:56 | Emergency (ER) | payer MEDICARE ==
[2018-02-28] MEDS ORDERED: DUONEB 0.5-3 MG/3 ml Neb IH ONE ×2 (16:02→16:10)
--- NOTE | 2018-02-28 16:02 | ERPHSYRPT ---
- History of Present Illness Time Seen by Provider: 02/28/18 15:50 Source: patient Exam Limitations: no limitations Patient Subjective Stated Complaint: shortness of breath Triage Nursing Assessment: pt to er per rehabilitation nurse, was participating in the bicycle when he experienced increased dyspnea, pt reports that he has been experiencing this for several days, worse with movement, denies cough or congestion, denies any other complaints at this time, upon arrival pt did not have o2 on, states he uses it at 2 lpm at home, believed he removed it for transport from rehab Physician History: The patient is a 72-year-old male who arrives from physical therapy where he was short of breath while riding a bicycle. He has COPD and uses supplemental oxygen at home when he needs it. Before he began riding the bike in physical therapy today, they've placed him on 4 L by nasal cannula of oxygen. Shortly after beginning has been biking he felt short of breath and his oxygen saturation declined into the 80s. He now feels fine and would like to go home. He says he has oxygen at home and he wants to see his primary medical doctor, Dr. Dobbins, in the morning. He denies chest pain. He states it is time for his breathing treatment at home. I suggested that he have a breathing treatment in the ER before going home. The patient agrees to breathing treatment. He declines any other treatment or blood work or chest x-ray. His past medical history is significant for COPD, pulmonary embolus. Timing/Duration: today Activities at Onset: activity Severity of Dyspnea-Max: moderate Severity of Dyspnea-Current: mild Possible Cause: frequent episodes Modifying Factors: Improves With: exertion Allergies/Adverse Reactions: No Known Drug Allergies Allergy (Verified 02/28/18 15:09) Home Medications: Potassium Chloride 10 meq PO BID 11/16/16 [History] Furosemide 40 mg [Lasix 40 MG] 40 mg PO DAILY 02/28/18 [History] Hx Tetanus, Diphtheria Vaccination/Date Given: Yes Hx Influenza Vaccination/Date Given: Yes Hx Pneumococcal Vaccination/Date Given: Yes Immunizations Up to Date: Yes - Review of Systems Constitutional: No Fever, No Chills Eyes: No Symptoms Ears, Nose, & Throat: No Symptoms Respiratory: Dyspnea, Dyspnea on Exertion (KANG) Cardiac: No Chest Pain, No Edema, No Syncope Abdominal/Gastrointestinal: No Abdominal Pain, No Nausea, No Vomiting, No Diarrhea Genitourinary Symptoms: No Dysuria Musculoskeletal: No Back Pain, No Neck Pain Skin: No Rash Neurological: No Dizziness, No Focal Weakness, No Sensory Changes Psychological: No Symptoms Endocrine: No Symptoms Hematologic/Lymphatic: No Symptoms Immunological/Allergic: No Symptoms All Other Systems: Reviewed and Negative - Past Medical History Pertinent Past Medical History: Yes Neurological History: No Pertinent History ENT History: No Pertinent History Cardiac History: No Pertinent History Respiratory History: Bronchitis, COPD, Pneumonia, Pulmonary Embolism Endocrine Medical History: No Pertinent History Musculoskeletal History: No Pertinent History GI Medical History: No Pertinent History History: No Pertinent History Psycho-Social History: No Pertinent History Male Reproductive Disorders: No Pertinent History Other Medical History: 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 - Past Surgical History Past Surgical History: Yes Neuro Surgical History: No Pertinent History Cardiac: No Pertinent History Respiratory: No Pertinent History Gastrointestinal: Cholecystectomy, Hernia Repair Genitourinary: No Pertinent History Musculoskeletal: No Pertinent History Male Surgical History: No Pertinent History - Social History Smoking Status: Former smoker How long have you smoked: 62 years Exposure to second hand smoke: No Drug Use: none Patient Lives Alone: No - Nursing Vital Signs Nursing Vital Signs: Initial Vital Signs Temperature 97.5 F 02/28/18 15:00 Pulse Rate 92 H 02/28/18 15:00 Respiratory Rate 24 02/28/18 15:00 Blood Pressure 124/83 02/28/18 15:00 O2 Sat by Pulse Oximetry 97 02/28/18 15:00 Pain Scale Pain Intensity 0 - Physical Exam General Appearance: no apparent distress, alert Eye Exam: PERRL/EOMI Ears, Nose, Throat Exam: hearing grossly normal Neck Exam: normal inspection, supple Respiratory Exam: diminished breath sounds, prolonged expirations, wheezing ( mild) Cardiovascular/Chest Exam: normal heart sounds, regular rate/rhythm Abdominal/Gastrointestinal Exam: soft, No tenderness, No distention, No mass Rectal Exam: not done Extremity Exam: non-tender, normal range of motion, normal inspection, no calf tenderness, no pedal edema Neurologic Exam: alert, oriented x 3, cooperative, db2 dba II-XII nml as tested, sensation nml, No motor deficits Skin Exam: normal color, warm, No dry SpO2 Interpretation: normal SpO2: 97 Oxygen Delivery: Nasal Cannula (2 L) - Course EKG Interpreted by Me: RATE, Sinus Rhythm, Left Pima Deviation, NORMAL INTERVALS , NORMAL QRS - Progress Progress: improved Air Movement: fair Counseled pt/family regarding: diagnosis, need for follow-up - Departure Time of Disposition: 16:08 Departure Disposition: Home Clinical Impression: COPD exacerbation Condition: Stable Critical Care Time: No Referrals: GALEN DOBBINS MD [Primary Care Provider] - Instructions: Chronic Obstructive Pulmonary Disease Additional Instructions: You experienced shortness of breath due to your COPD. You were given a DuoNeb treatment in the ER. You declined any other workup or treatments in the ER. Please follow-up with Dr. Dobbins tomorrow morning as scheduled.
[2018-02-28 16:38] VITALS: BP 135/82; PULSE 80; O2SAT 96
== END 2018-02-28 16:38 | disposition home or self-care (01) ==
LOC: ED 14:56
DX: J44.1 Chronic obstructive pulmonary disease with (acute) exacerbation (principal); Z87.891 Personal history of nicotine dependence; Z86.711 Personal history of pulmonary embolism
CPT/HCPCS: 93005; 94150; 94640; 99284; A9270-GY

== ENCOUNTER 2018-08-21 08:22 | Day surgery (SDC) | payer MEDICARE ==
[~2018-08-21 08:22] MED LIST: Ak-Dilate OPHTHALMIC*** 1.065 ML, Cyclogyl 1% OPHTH SOL 5 ML 1.065 ML, GATIFLOXACIN 0.5... OP ONE; Lactated Ringers 1,000 ML IV ONE; Lactated Ringers 1,000 ML IV SCH; TETRACAINE 0.5% STERI-UNIT SOL OP ONE
[2018-08-21] MEDS ORDERED: DIPRIVAN 200 MG/20 ML IV ONE (08:23)
[2018-08-21 08:57] VITALS: O2SAT 95
[2018-08-21] MEDS ORDERED: ACETAZOLAMIDE 250 MG TABLET PO ONE (09:00)
[2018-08-21] MEDS ORDERED: Zofran 4 MG/2 ML VIAL IV PRN (09:00)
[2018-08-21] MEDS ORDERED: LIDOCAINE HCL 1% AMPUL 5 ML IJ ONE (09:00)
[2018-08-21] MEDS ORDERED: BSS 500 ML, Fortaz/Tazicef 1 GM** 0.2 G IO ONE ×2 (09:00)
[2018-08-21] MEDS ORDERED: BETADINE 5% OPHTHALMIC 30 ML OP ONE (09:00)
[2018-08-21] MEDS ORDERED: Epinephrine Preservative Free 1 MG/ML INTRAOP ONE (09:00)
[2018-08-21 11:04] VITALS: BP 146/72; PULSE 77
--- NOTE | 2018-08-21 15:28 | OP ---
DATE/TIME OF OPERATION: 08/21/2018 0950 TIME DICTATED: 1146 PREOPERATIVE DIAGNOSIS: Senile cataract of left eye. POSTOPERATIVE DIAGNOSIS: Senile cataract of left eye. SURGEON: Tahir Marcos MD EXPERIMENTAL PSYCHOLOGIST: None. OPERATION: Cataract extraction of left eye with an intraocular lens implant. STANDARD COMPLEX ___X___ ANESTHESIA: MAC. 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 The anesthesiologist or the nurse coordinate measuring machine operator was utilized to monitor and regulate the intravenous sedation of the patient, so the patient was cooperative, relaxed, and comfortable). Topical anesthesia using Tetracaine eye drops together with intra cameral anesthesia using Lidocaine 1% MPF. The nurse was utilized to monitor the patient. ANESTHESIA PROVIDER: Lopez Blum CRNA. COMPLICATIONS: None. BLOOD LOSS: None. INDICATIONS: The patient is undergoing cataract surgery in the hopes of eliminating the visual complaints and difficulty. PROCEDURE: After arriving at the facility's outpatient surgery area, an IV was started; the patient was given 5 mg of p.o. Versed. (If an anesthesia provider was not monitoring the patient) The patient was then given topical anesthetic Tetracaine eye drops. A cotton pellet was soaked into a solution of a combination of Zymaxid 0.5%, Hudson-Synephrine 2.5% and Ocufen (other drops might have been substituted referenced in the patient's record). The pellet was inserted by the RN into the lower conjunctival cul-de-sac with a sterile forceps and left for 20 minutes. The pellet was then removed by the RN with a sterile forceps before taking the patient to the operating room. The preoperative area nurse identified the patient and marked the correct eye to be operated on. I identified the correct eye to be operated on and marked it appropriately in the outpatient surgery area. The patient was then taken into the operating room. Tetracaine eye drops were installed again in the correct eye. The eyelids and the lashes and the lid margins were scrubbed with Betadine solution. One drop of the diluted Betadine solution was placed in the conjunctival cul-de-sac for 45 seconds and then was irrigated. A drop of Tetracaine Gel was placed in the conjunctival cul-de-sac. The patient's forehead was taped to secure it during the procedure. The patient was monitored. The patient was then draped in the usual way for this procedure. An eye speculum was used to separate the eyelids. The eye was then fixated and a temporal 2.5 mm incision was made in the clear cornea temporally at the limbus. Through the incision, 0.25 cc of 1% non-preserved lidocaine was injected into the anterior chamber for intracameral anesthesia. The anterior chamber was then filled with viscoelastic. ___X__ The pupil was small. I felt that it would be safer to mechanically dilate the pupil. A Malyugin ring was used at this point which dilated the pupil. That was removed at the end of the procedure prior to aspiration of the viscoelastic from the anterior chamber and posterior to the intraocular lens implant. The cataract had a great amount of cortical changes. That rendered seeing the anterior capsule difficult for a safe performance of an anterior capsulotomy. I injected an air bubble into the anterior chamber. I then injected 1 ML of vision blue solution into the anterior chamber. The vision blue solution was irrigated from the anterior chamber after 30 seconds. The anterior capsule was stained which facilitated performing the anterior capsulotomy safely. After that was completed, a cystotome was introduced into the anterior chamber and a round anterior capsulotomy was performed. The capsule was removed by a forceps. Hydrodissection was next carried utilizing a 25-gauge cannula and balanced salt solution to delineate the cortical material from the capsule and the nucleus from the cortical material. The nucleus was rotated freely into the capsular bag with no difficulty. The phaco tip of the [employer] Phacoemulsifier was introduced into the anterior chamber and two grooves were made into the nucleus 90 degrees apart. Using two spatulas resulted into the nucleus being fractured into four quadrants. The phaco tip was then used to remove each quadrant of the nucleus. Viscoelastic was used during this process to protect the corneal endothelium. Once the entire nucleus was removed, the phaco tip then was removed and the irrigation tip was introduced into the eye and the cortex was removed. The posterior capsule was polished. It was noticed that there was a tear into the posterior capsule with few vitreous strands into the pupil plan. An anterior vitrectomy was performed. A 22.00 diopter, [id number], posterior chamber lens implant, was inspected and found to be grossly normal. The implant was inserted into the implant injector cartridge; Viscoelastic again was introduced into the anterior chamber, which filled the capsular bag. The implant injector's cartridge tip was placed at the limbal wound and the posterior chamber implant was released into the capsular bag and rotated appropriately. The implant was found to be into the capsular bag and it was centered. 0.2 ml of Tri-Moxi was introduced via 27 gauge cannula into the vitreous cavity through the ciliary processes. Viscoelastic was aspirated from the anterior chamber and posterior to the intraocular lens implant from the capsular bag using the irrigating tip. The anterior chamber was irrigated and filled with 5 cc antibiotic solution (500 cc of BSS plus 2 ml of Fortaz 100 mg/ml) ( if patient was not allergic to the medication). The lips of the corneal incision were hydrated using BSS solution. The anterior chamber was checked and found to be water tight. ___X___ One drop each of antibiotic, steroid and NSAID drops (refer to chart for drops used) were placed in the conjunctival cul-de-sac of the operated eye. Patient tolerated the procedure quite well and left the operating room in satisfactory condition. DISCHARGE SUMMARY: The patient was released in stable condition. The patient and those with the patient were given an instruction sheet as of how to care for the eye after surgery as well as counseling on any abnormal laboratory studies by the postoperative RN. The patient was also given an appointment card for follow-up in the office and is to call immediately for any difficulties including but not limited to pain in the eye, decreased vision, discharge from the eye, headache and or fever. DISCHARGE DIAGNOSIS: Pseudophakia of left eye.
== END 2018-08-21 11:20 | disposition home or self-care (01) ==
LOC: SDC 08:22
PROVIDERS: ATTEND Ophthalmology
DX: H25.9 Unspecified age-related cataract (principal); J44.9 Chronic obstructive pulmonary disease, unspecified; I82.409 Acute embolism and thrombosis of unspecified deep veins of unspecified lower extremity; Z79.01 Long term (current) use of anticoagulants
CPT/HCPCS: 66982; 94250; 99100; C1780; J0171; J2704; A9270-GY

== ENCOUNTER 2019-03-23 19:29 | Observation (INO) | payer MEDICARE ==
[2019-03-23] MEDS ORDERED: DUONEB 0.5-3 MG/3 ml Neb IH ONE ×2 (19:33)
[2019-03-23] MEDS ORDERED: BABY ASPIRIN 81 MG CHEW PO ONE (19:33)
[2019-03-23] MEDS ORDERED: solu-MEDROL 125 MG IV ONE (19:33)
[2019-03-23] MEDS ORDERED: Sodium Chloride 0.9% 1000 ML 1,000 ML ONE (19:44)
[2019-03-23] MEDS ORDERED: Magnesium 1 Gm / 100 Ml D5W*** 100 ML IV ONE ×2 (19:44→21:29)
[2019-03-23] MEDS ORDERED: solu-MEDROL 125 MG ONE (19:44)
[2019-03-23] MEDS ORDERED: Sodium Chloride 0.9% 1000 ML 1,000 ML IV SCH (19:45)
--- NOTE | 2019-03-23 19:46 | ERPHSYRPT ---
- History of Present Illness Time Seen by Provider: 03/23/19 19:37 Source: patient, family Exam Limitations: no limitations Physician History: pt is 73 year old male with hx lung dx on inhalers and acute sobreath today after being outside- uses home O2; has not had any cardiac procedures , but is seeing synthetic soil blocks pulper to check on heart; was prior smoker; no fever, has CP Timing/Duration: today, hour(s) Activities at Onset: activity Severity of Dyspnea-Max: severe Severity of Dyspnea-Current: moderate Possible Cause: frequent episodes Modifying Factors: Improves With: albuterol inhaler, exertion, oxygen Associated Symptoms: chest pain/discomfort, wheezing, No cough, No fever Allergies/Adverse Reactions: No Known Drug Allergies Allergy (Verified 09/18/18 11:25) Home Medications: Potassium Chloride 10 meq PO BID 11/16/16 [History] predniSONE [Prednisone] 10 mg PO DAILY 03/23/19 [History] Hx Tetanus, Diphtheria Vaccination/Date Given: Yes Hx Influenza Vaccination/Date Given: Yes Hx Pneumococcal Vaccination/Date Given: Yes - Review of Systems Constitutional: No Fever, No Chills Eyes: No Symptoms Ears, Nose, & Throat: No Symptoms Respiratory: Dyspnea, Dyspnea on Exertion (KANG), Wheezing, No Cough Cardiac: Chest Pain, No Edema, No Syncope Abdominal/Gastrointestinal: No Abdominal Pain, No Nausea, No Vomiting, No Diarrhea Genitourinary Symptoms: No Dysuria Musculoskeletal: No Back Pain, No Neck Pain Skin: No Rash Neurological: No Dizziness, No Focal Weakness, No Sensory Changes Psychological: No Symptoms Endocrine: No Symptoms All Other Systems: Reviewed and Negative - Past Medical History Pertinent Past Medical History: Yes Neurological History: No Pertinent History ENT History: No Pertinent History Cardiac History: No Pertinent History Respiratory History: Bronchitis, COPD, Pneumonia, Pulmonary Embolism Endocrine Medical History: No Pertinent History Musculoskeletal History: No Pertinent History GI Medical History: No Pertinent History History: No Pertinent History Psycho-Social History: No Pertinent History Male Reproductive Disorders: No Pertinent History Other Medical History: 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 - Past Surgical History Past Surgical History: Yes Neuro Surgical History: No Pertinent History Cardiac: No Pertinent History Respiratory: No Pertinent History Gastrointestinal: Cholecystectomy, Hernia Repair Genitourinary: No Pertinent History Musculoskeletal: No Pertinent History Male Surgical History: No Pertinent History Other Surgical History: cataract IOL left eye - Social History Smoking Status: Former smoker How long have you smoked: 62 years Exposure to second hand smoke: Yes Drug Use: none Patient Lives Alone: No - Nursing Vital Signs Nursing Vital Signs: Initial Vital Signs Temperature 97.8 F 03/23/19 19:29 Pulse Rate 90 03/23/19 19:29 Respiratory Rate 26 H 03/23/19 19:29 Blood Pressure 162/85 03/23/19 19:29 O2 Sat by Pulse Oximetry 99 03/23/19 19:29 Pain Scale Pain Intensity 0 - Physical Exam General Appearance: no apparent distress, alert Eye Exam: PERRL/EOMI Neck Exam: normal inspection, supple Respiratory Exam: airway intact, accessory muscle use, prolonged expirations, wheezing Cardiovascular/Chest Exam: normal heart sounds, regular rate/rhythm Abdominal/Gastrointestinal Exam: soft, No tenderness, No distention, No mass Extremity Exam: non-tender, normal range of motion, normal inspection, no calf tenderness, no pedal edema, No swelling, No stacey's sign Peripheral Pulses Exam: carotid (R): 2+, carotid (L): 2+, femoral (R): 2+, femoral (L): 2+, dorsalis-pedis (R): 2+, dorsalis-pedis (L): 2+ Neurologic Exam: alert, oriented x 3, cooperative, program scheduler II-XII nml as tested, sensation nml, No motor deficits Skin Exam: normal color, warm, No dry SpO2 Interpretation: borderline oxygenation O2 Delivery: Nasal Cannula - Course Nursing assessment & vital signs reviewed: Yes EKG Interpreted by Me: Left Avery Deviation, Non-specific ST Changes, Other ( bigeminy) - Radiology Exams Chest X-ray Interpretation: Reviewed by me, Infiltrates (similar to previous ) Ordered Tests: Active Orders 24 hr Category Date Time Status Supervisor Long Goods STAT Care 03/23/19 19:34 Active EKG-ER Only STAT Care 03/23/19 19:33 Active IV Insertion STAT Care 03/23/19 19:33 Active Oxygen-ED Only Nasal Cannula 4 lpm Care 03/23/19 19:33 Active CHEST 1 VIEW (PORTABLE) Stat Exams 03/23/19 19:34 Taken CBC W DIFF Stat Lab 03/23/19 19:59 Completed CMP Stat Lab 03/23/19 19:59 Completed D-DIMER QUANTITATION Stat Lab 03/23/19 19:59 Completed Lactic Acid Stat Lab 03/23/19 20:45 Completed Manual Differential NC Stat Lab 03/23/19 19:59 Completed NT PRO BNP Stat Lab 03/23/19 19:59 Completed TROPONIN Q3H Lab 03/23/19 19:59 Completed TROPONIN Q3H Lab 03/23/19 22:45 Ordered TROPONIN Q3H Lab 03/24/19 01:45 Ordered TROPONIN Q3H Lab 03/24/19 04:45 Ordered TROPONIN Q3H Lab 03/24/19 07:45 Ordered VENOUS BLOOD GAS Urgent Lab 03/23/19 19:45 Completed Respiratory Therapy Assessment DAILY RT 03/23/19 19:41 Completed Medication Summary Generic Name Dose Route Start Last Admin Trade Name Freq PRN Reason Stop Dose Admin Magnesium Sulfate/Dextrose 100 mls @ 100 mls/hr 03/23/19 19:45 03/23/19 19:47 Magnesium 1 Gm / 100 Ml D5w IV 03/23/19 21:44 100 mls/hr Q1H ALIYAH Administration Sodium Chloride 1,000 mls @ 50 mls/hr 03/23/19 19:45 03/23/19 19:47 Sodium Chloride 0.9% 1000 Ml IV 04/22/19 19:44 50 mls/hr .Q20H ALIYAH Administration Levofloxacin/Dextrose 750 mg in 150 mls @ 100 mls/hr 03/23/19 20:53 Levofloxacin 750mg/150ml D5w IV 03/23/19 22:22 STAT STA Discontinued Medications Generic Name Dose Route Start Last Admin Trade Name Freq PRN Reason Stop Dose Admin Albuterol/Ipratropium Confirm 03/23/19 19:33 Duoneb 0.5-3 Mg/3 Ml Neb Administered 03/23/19 19:34 Dose 3 ml IH .STK-MED ONE Albuterol/Ipratropium 3 ml 03/23/19 19:33 03/23/19 19:40 Duoneb 0.5-3 Mg/3 Ml Neb IH 03/23/19 19:34 3 ml STAT ONE Administration Aspirin 324 mg 03/23/19 19:33 03/23/19 19:42 Baby Aspirin 81 Mg Chew PO 03/23/19 19:34 324 mg STAT ONE Administration Piperacillin Sod/Tazobactam Sod 3.375 gm in 100 mls @ 200 mls/hr 03/23/19 20: 18 Zosyn 3.375gm/100 Ml D5w IV 03/23/19 20:47 STAT ONE Piperacillin Sod/Tazobactam Sod Confirm 03/23/19 20:55 Zosyn 3.375gm/100 Ml D5w Administered 03/23/19 20:56 Dose 3.375 gm in 100 mls @ ud IV .STK-MED ONE Piperacillin Sod/Tazobactam Sod Confirm 03/23/19 20:56 Zosyn 3.375gm/100 Ml D5w Administered 03/23/19 20:57 Dose 3.375 gm in 100 mls @ ud IV .STK-MED ONE Methylprednisolone Sodium Succinate 125 mg 03/23/19 19:33 03/23/19 19:48 Solu-Medrol 125 Mg IV 03/23/19 19:34 125 mg STAT ONE Administration Methylprednisolone Sodium Succinate Confirm 03/23/19 19:44 Solu-Medrol 125 Mg Administered 03/23/19 19:45 Dose 125 mg .ROUTE .STK-MED ONE Lab/Rad Data: Laboratory Result Diagrams 03/23/19 19:59 03/23/19 19:59 Laboratory Results 03/23/19 03/23/19 03/23/19 Range/Units 20:45 19:59 19:59 WBC (4.0-10.5) K/mm3 RBC (4.1-5.6) M/mm3 Hgb (12.5-18.0) gm/dl Hct (42-50) % MCV (78-100) fl MCH (26-32) pg MCHC (32-36) g/dl RDW (11.5-14.0) % Plt Count (150-450) K/mm3 MPV (6-9.5) fl D-Dimer 270 (215-500) ng/mL pO2/FiO2 Ratio % VBG pH (7.32-7.42) VBG pCO2 at Pat Temp (42-55) mm/Hg VBG pO2 at Pat Temp (25-40) mm/Hg VBG HCO3 (22-28) meq/L VBG O2 Sat (Toni) (95-100) VBG Base Excess (-2.0-2.0) VBG Hemoglobin VBG Carboxyhemoglobin (0.0-6.9) % T HGB POC Potassium (3.5-5.1) Sodium (137-145) mmol/L Potassium (3.5-5.1) mmol/L Chloride (98-107) mmol/L Carbon Dioxide (22-30) mmol/L Anion Gap (5-15) MEQ/L BUN (9-20) mg/dL Creatinine (0.66-1.25) mg/dL Estimated GFR ML/MIN Glucose (74-106) mg/dL Lactic Acid 1.3 (0.4-2.0) Calcium (8.4-10.2) mg/dL Total Bilirubin (0.2-1.3) mg/dL AST (17-59) U/L ALT (0-50) U/L Alkaline Phosphatase (38-126) U/L Troponin I < 0.012 (0.000-0.034) ng/mL NT-Pro-B Natriuret Pep (0-900) pg/mL Serum Total Protein (6.3-8.2) g/dL Albumin (3.5-5.0) g/dL 03/23/19 03/23/19 03/23/19 Range/Units 19:59 19:59 19:45 WBC 10.1 (4.0-10.5) K/mm3 RBC 6.05 H (4.1-5.6) M/mm3 Hgb 17.2 (12.5-18.0) gm/dl Hct 50.9 H (42-50) % MCV 84.1 (78-100) fl MCH 28.4 (26-32) pg MCHC 33.8 (32-36) g/dl RDW 18.1 H (11.5-14.0) % Plt Count 181 (150-450) K/mm3 MPV 10.1 H (6-9.5) fl D-Dimer (215-500) ng/mL pO2/FiO2 Ratio 36.0 % VBG pH 7.40 (7.32-7.42) VBG pCO2 at Pat Temp 45 (42-55) mm/Hg VBG pO2 at Pat Temp 46 H (25-40) mm/Hg VBG HCO3 27.9 (22-28) meq/L VBG O2 Sat (Toni) 85.9 L (95-100) VBG Base Excess 2.3 H (-2.0-2.0) VBG Hemoglobin 17.9 VBG Carboxyhemoglobin 2.6 (0.0-6.9) % T HGB POC Potassium 4.6 (3.5-5.1) Sodium 137 (137-145) mmol/L Potassium 4.6 (3.5-5.1) mmol/L Chloride 104 (98-107) mmol/L Carbon Dioxide 25 (22-30) mmol/L Anion Gap 12.2 (5-15) MEQ/L BUN 23 H (9-20) mg/dL Creatinine 1.00 (0.66-1.25) mg/dL Estimated GFR > 60.0 ML/MIN Glucose 94 (74-106) mg/dL Lactic Acid (0.4-2.0) Calcium 10.2 (8.4-10.2) mg/dL Total Bilirubin 1.00 (0.2-1.3) mg/dL AST 19 (17-59) U/L ALT 23 (0-50) U/L Alkaline Phosphatase 75 (38-126) U/L Troponin I (0.000-0.034) ng/mL NT-Pro-B Natriuret Pep 965 H (0-900) pg/mL Serum Total Protein 7.2 (6.3-8.2) g/dL Albumin 3.9 (3.5-5.0) g/dL - Progress Progress: improved, re-examined Air Movement: good Progress Note: 03/23/19 19:59 improving after first breathing treatment and steroids; 03/23/19 21:05 discussed with pt and Dr. Cast covering and all agree best to place pt in on obs and continue to monitor cadiac status and resp condition for resolution, also starting ab for COPD exacerbation CP has now resolved. Blood Culture(s) Obtained: No Antibiotics given: Yes Discussed with : Henry Will see patient in: hospital (observation) Counseled pt/family regarding: lab results, diagnosis, need for follow-up, rad results - Departure Departure Disposition: Observation Clinical Impression: COPD exacerbation, SOB (shortness of breath) Condition: Good Critical Care Time: No Referrals: GALEN DOBBINS MD [Primary Care Provider] - Instructions: Chronic Obstructive Pulmonary Disease
[2019-03-23] MEDS: Magnesium 1 Gm / 100 Ml D5W*** 100 ML IV SCH ×2 (19:47→21:36)
[2019-03-23 19:59] LABS: VBG BASE EXCESS 2.3 (-2.0-2.0); VBG CARBOXYHEMOGLOBIN 2.6 % T HGB (0.0-6.9); VBG HCO3- 27.9 meq/L (22-28); VBG HEMOGLOBIN 17.9; VBG O2 SATURATION 85.9 (95-100); VBG POTASSIUM 4.6 (3.5-5.1); VBG pH 7.4 (7.32-7.42)
[2019-03-23 20:06] LABS: Hematocrit 50.9 % (42-50); Hemoglobin 17.2 gm/dl (12.5-18.0); Mean Cell Volume 84.1 fl (78-100); Mean Corpuscular Hemoglobin 28.4 pg (26-32); Mean Corpuscular Hgb Concent. 33.8 g/dl (32-36); Mean Platelet Volume 10.1 fl (6-9.5); Platelet Count 181 K/mm3 (150-450); Red Blood Count 6.05 M/mm3 (4.1-5.6); Red Cell Distribution Width 18.1 % (11.5-14.0); White Blood Count 10.1 K/mm3 (4.0-10.5)
[2019-03-23] MEDS ORDERED: Zosyn 3.375GM/100 Ml D5W 3.375 GM/100 ML IVPB IV ONE ×2 (20:18→20:56)
[2019-03-23 20:23] LABS: ALBUMIN 3.9 g/dL (3.5-5.0); ALKALINE PHOSPHATASE 75 U/L (38-126); ANION GAP 12.2 MEQ/L (5-15); BLOOD UREA NITROGEN 23 mg/dL (9-20); CHLORIDE 104 mmol/L (98-107); Calcium 10.2 mg/dL (8.4-10.2); Carbon Dioxide 25 mmol/L (22-30); Glucose 94 mg/dL (74-106); NT PRO BNP 965 pg/mL (0-900); Potassium 4.6 mmol/L (3.5-5.1); SGOT/AST 19 U/L (17-59); SGPT/ALT 23 U/L (0-50); SODIUM 137 mmol/L (137-145); Total Protein 7.2 g/dL (6.3-8.2)
[2019-03-23] MEDS ORDERED: LEVOFLOXACIN 750MG/150ML D5W 750 MG/150 ML BAG IV STA (20:53)
[2019-03-23] MEDS ORDERED: Zosyn 3.375GM/100 Ml D5W 0 GM/0 ML IVPB IV ONE (20:55)
[2019-03-23] MEDS ORDERED: LEVOFLOXACIN 750MG/150ML D5W 750 MG/150 ML BAG IV ONE (21:29)
[2019-03-23] MEDS ORDERED: NovoLIN R SQ PRN (21:39)
[2019-03-23] MEDS ORDERED: solu-MEDROL 125 MG IV SCH (21:39)
[2019-03-23] MEDS ORDERED: Zofran 4 MG/2 ML VIAL IV PRN (21:39)
[2019-03-23] MEDS ORDERED: MORPHINE SULFATE 2 MG INJ IV PRN (21:39)
[2019-03-23] MEDS ORDERED: TYLENOL 325 MG PO PRN (21:39)
[2019-03-23 21:59] LABS: Group A Strep NEGATIVE (NEGATIVE); INFLUENZA A NEGATIVE (NEGATIVE); INFLUENZA B NEGATIVE (NEGATIVE); RESPIRATORY SYNCTIAL VIRUS NEGATIVE (Negative)
[2019-03-23] MEDS ORDERED: BABY ASPIRIN 81 MG CHEW ONE (22:09)
[2019-03-23] MEDS: Klor Con 10 MEQ PO SCH (23:17)
[2019-03-23] MEDS: Bystolic 5 MG PO SCH (23:17)
[2019-03-23] MEDS: Pepcid 20 MG VIAL IV SCH (23:18)
[2019-03-23] MEDS: ELIQUIS 2.5 MG TABLET PO SCH (23:18)
[2019-03-24] MEDS: Zosyn 3.375GM/100 Ml D5W 3.375 GM/100 ML IVPB IV SCH ×4 (02:18→17:53)
[2019-03-24] MEDS: solu-MEDROL 125 MG IV SCH ×4 (02:19→17:46)
[2019-03-24 05:11] LABS: ATYPICAL LYMPHS 1 %; BAND 2 % (0.0-2.0); Eosinophil 4 % (0.00-3.0); Lymphocytes 7 % (24-44); Monocyte 2 % (0.0-12.0); Neutrophils 84 % (36.-66.); Total Cells Counted 100
[2019-03-24 05:12] LABS: Platelet Estimate NORMAL (NORMAL)
[2019-03-24 05:56] LABS: Hematocrit 46.1 % (42-50); Hemoglobin 15.6 gm/dl (12.5-18.0); Mean Cell Volume 83.5 fl (78-100); Mean Corpuscular Hemoglobin 28.3 pg (26-32); Mean Corpuscular Hgb Concent. 33.8 g/dl (32-36); Mean Platelet Volume 9.9 fl (6-9.5); Platelet Count 159 K/mm3 (150-450); Red Blood Count 5.52 M/mm3 (4.1-5.6); Red Cell Distribution Width 16.2 % (11.5-14.0); White Blood Count 7.5 K/mm3 (4.0-10.5)
[2019-03-24 06:22] LABS: ALBUMIN 3.1 g/dL (3.5-5.0); ALKALINE PHOSPHATASE 54 U/L (38-126); ANION GAP 10.7 MEQ/L (5-15); BLOOD UREA NITROGEN 19 mg/dL (9-20); CHLORIDE 104 mmol/L (98-107); Calcium 8.6 mg/dL (8.4-10.2); Carbon Dioxide 25 mmol/L (22-30); Creatinine 1 0.87 mg/dL (0.66-1.25); Glucose 144 mg/dL (74-106); Potassium 4.8 mmol/L (3.5-5.1); SGOT/AST 16 U/L (17-59); SGPT/ALT 19 U/L (0-50); SODIUM 135 mmol/L (137-145); Total Protein 5.9 g/dL (6.3-8.2)
[2019-03-24 06:25] LABS: Lymphocytes 3 % (24-44); Neutrophils 97 % (36.-66.); Total Cells Counted 100
[2019-03-24 06:27] LABS: Platelet Estimate NORMAL (NORMAL)
[2019-03-24] MEDS: DUONEB 0.5-3 MG/3 ml Neb IH PRN ×3 (07:02→15:14)
[2019-03-24] MEDS: Advair Hfa 230/21 Mcg COMMON CANISTER IH SCH ×2 (07:03→19:43)
[2019-03-24] MEDS: Sodium Chloride 0.9% 1000 ML 1,000 ML IV SCH ×2 (07:18→11:21)
[2019-03-24] MEDS: ELIQUIS 2.5 MG TABLET PO SCH ×2 (09:55→21:07)
[2019-03-24] MEDS: Klor Con 10 MEQ PO SCH ×2 (09:56→21:07)
[2019-03-24] MEDS: Pepcid 20 MG VIAL IV SCH ×2 (09:56→21:07)
--- NOTE | 2019-03-24 13:14 | XRAY ---
Indication: Short of breath. COPD. Comparison: April 05, 2018. Portable chest again demonstrates bilateral mid to lower lung interstitial alveolar opacities again right greater than left with new tiny right effusion. Remaining heart and lungs unremarkable. Bony thorax intact within normal T12/L1 kyphoplasty.
[2019-03-24] MEDS: DUONEB 0.5-3 MG/3 ml Neb IH SCH (19:41)
[2019-03-24] MEDS: Bystolic 5 MG PO SCH (21:07)
[2019-03-24] MEDS ORDERED: LEVOFLOXACIN 750MG/150ML D5W 750 MG/150 ML BAG IV SCH (22:00)
[2019-03-25] MEDS: Zosyn 3.375GM/100 Ml D5W 3.375 GM/100 ML IVPB IV SCH ×3 (00:22→12:14)
[2019-03-25] MEDS: solu-MEDROL 125 MG IV SCH ×2 (01:11→09:35)
[2019-03-25 05:45] LABS: BASOPHIL % 0.1 % (0.0-0.4); Basophil (Absolute #) 0.01 (0-0.4); Eosinophil % 0.1 % (0.00-5.0); Eosinophil (Absolute #) 0.01 (0-0.5); Granulocytes % 94.3 % (36.0-66.0); Hematocrit 41.5 % (42-50); Hemoglobin 14.1 gm/dl (12.5-18.0); Lymphocyte (Absolute #) 0.22 (1.0-4.6); Lymphocytes % 2.1 % (24.0-44.0); Mean Cell Volume 83.8 fl (78-100); Mean Corpuscular Hemoglobin 28.5 pg (26-32); Mean Platelet Volume 10.4 fl (6-9.5); Monocyte (Absolute #) 0.36 (0.0-1.3); Monocytes % 3.4 % (0.0-12.0); Platelet Count 166 K/mm3 (150-450); Red Blood Count 4.95 M/mm3 (4.1-5.6); Red Cell Distribution Width 15.8 % (11.5-14.0); White Blood Count 10.5 K/mm3 (4.0-10.5)
[2019-03-25 06:04] LABS: ALBUMIN 2.9 g/dL (3.5-5.0); ALKALINE PHOSPHATASE 48 U/L (38-126); ANION GAP 9.8 MEQ/L (5-15); BLOOD UREA NITROGEN 20 mg/dL (9-20); CHLORIDE 106 mmol/L (98-107); Calcium 9.3 mg/dL (8.4-10.2); Carbon Dioxide 25 mmol/L (22-30); Creatinine 1 0.98 mg/dL (0.66-1.25); Glucose 143 mg/dL (74-106); Potassium 4.6 mmol/L (3.5-5.1); SGOT/AST 16 U/L (17-59); SGPT/ALT 17 U/L (0-50); SODIUM 137 mmol/L (137-145); Total Protein 5.4 g/dL (6.3-8.2)
[2019-03-25] MEDS: DUONEB 0.5-3 MG/3 ml Neb IH SCH ×2 (07:18→11:01)
[2019-03-25] MEDS: Advair Hfa 230/21 Mcg COMMON CANISTER IH SCH (07:20)
[2019-03-25] MEDS: ELIQUIS 2.5 MG TABLET PO SCH (09:33)
[2019-03-25] MEDS: Pepcid 20 MG VIAL IV SCH (09:37)
[2019-03-25] MEDS: Klor Con 10 MEQ PO SCH (09:38)
--- NOTE | 2019-03-25 11:12 | HP ---
CHIEF COMPLAINT: Shortness of breath. HISTORY OF PRESENT ILLNESS: The patient is a 73 year-old white male patient with known history of chronic obstructive pulmonary disease. He is on prednisone at 20 mg on a regular basis. He reports that he began having more shortness of breath yesterday evening while at the [facility]. He went out to get a pack of cigarettes for his friend when he continued to deteriorate and he was brought to the emergency room apparently fairly dyspneic upon arrival. Receiving nebulizer treatments he improved. He was admitted to the hospital for IV steroids, IV antibiotics, nebulizer treatments and oxygen support. PAST MEDICAL HISTORY: Again mostly significant for his lung problems. He is on home oxygen and oral steroids on a regular basis. He previously had a pulmonary embolism. PAST SURGICAL HISTORY: Includes cholecystectomy, hernia repair and cataract surgery. HOME MEDICATIONS: Albuterol PRN, Eliquis 5 mg b.i.d., Symbicort inhaler, Bystolic 5 mg at night, potassium 10 mEq b.i.d., prednisone 20 mg daily. ALLERGIES: NKDA. PHYSICAL EXAMINATION: The patient is currently on oxygen per nasal cannula. He is sitting upright in full sentences with ease. He is not tachypneic and moving air reasonably well. His vital signs on admission showed temperature 97.8F, pulse 90, respiratory rate 26 and blood pressure 162/85. HEENT: Normocephalic, atraumatic. Pupils equal round reactive to light. NECK: Supple. No masses. CHEST: Clear but diminished. HEART: Regular rate and rhythm. ABDOMEN: Soft without palpable masses. EXTREMITIES: Without cyanosis, clubbing or edema. NEUROLOGIC: The patient is alert and oriented x3. LAB DATA AND TESTS: Showed venous blood gas showing the pH 7.40, pCO2 45. His white blood cell count 10,100, hemoglobin 17.2, PLT count 181,000. Troponin was less than 0.012. His glucose is 94, BUN 23, creatinine 1.0. Electrolytes were normal. ProBNP was slightly elevated at 965. D-dimer was normal at 270. Lactic acid 1.3. Group A Strep, influenza and respiratory syncytial virus were all negative. Serial troponins all less than 0.012. His telemetry tracing showed him to be in sinus rhythm. ASSESSMENT: A patient with acute exacerbation of chronic obstructive pulmonary disease. He has been placed on IV steroids, Solu-Medrol 80 mg every six hours. He has been placed on oxygen nebulizer support. He will continue his home medications and also placed on empiric antibiotics.
--- NOTE | 2019-03-25 12:35 | PCM.SSS ---
History of Present Illness - Chief Complaint Chief Complaint: shortness of breath for 2 days History of Present Illness: is a 73 year old male came to ER with c/o shortness of breath for 2-3 days. pt is 73 year old male with hx lung dx on inhalers and acute sobreath today after being outside- uses home O2; has not had any cardiac procedures , but is seeing senior engineering technician to check on heart; was prior smoker; no fever, has CP - Review of Systems Constitutional: No Fever, No Chills Eyes: No Symptoms Ears, Nose, & Throat: No Symptoms Respiratory: Orthopnea, Short Of Breath, No Cough Cardiac: No Chest Pain, No Edema, No Syncope Abdominal/Gastrointestinal: No Abdominal Pain, No Nausea, No Vomiting, No Diarrhea Genitourinary Symptoms: No Dysuria Musculoskeletal: No Back Pain, No Neck Pain Skin: No Rash Neurological: No Dizziness, No Focal Weakness, No Sensory Changes Psychological: No Symptoms Endocrine: No Symptoms Hematologic/Lymphatic: No Symptoms Immunological/Allergic: No Symptoms Medications & Allergies Home Medications: Home Medication List Albuterol/Ipratropium 3ml Neb* [DUONEB 0.5-3 MG/3 ml Neb] 3 ml IH QID #120 ampul.neb 09/18/16 [Rx Confirmed 03/23/19] Budesonide/Formoterol Fumarate [Symbicort 160-4.5 Mcg Inhaler] 2 puff IH BID #1 hfa.aer.ad 09/18/16 [Rx Confirmed 03/23/19] Potassium Chloride 10 meq PO BID 11/16/16 [History Confirmed 03/23/19] Apixaban [Eliquis 5 mg Tablet] 5 mg PO BID 30 Days #60 tablet 12/20/17 [ Rx Confirmed 03/23/19] Nebivolol HCl 5 MG [Bystolic 5 MG] 5 mg PO QHS 03/23/19 [History Confirmed 03/23/19] predniSONE [Prednisone] 20 mg PO DAILY 03/23/19 [History Confirmed 03/24/19] Allergies/Adverse Reactions: Allergies Allergy/AdvReac Type Severity Reaction Status Date / Time No Known Drug Allergies Allergy Verified 09/18/18 11:25 - Past Medical History Past Medical History: Yes Neurological History: No Pertinent History ENT History: No Pertinent History Cardiac History: Hypertension Respiratory History: Bronchitis, COPD, Pneumonia, Pulmonary Embolism Endocrine Medical History: No Pertinent History Musculoskelatal History: No Pertinent History GI Medical History: No Pertinent History History: No Pertinent History Pyscho-Social History: No Pertinent History Male Reproductive Disorders: No Pertinent History 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 - Past Surgical History Past Surgical History: Yes Neuro Surgical History: No Pertinent History Cardiac History: No Pertinent History Respiratory Surgery: No Pertinent History GI Surgical History: Cholecystectomy, Hernia Repair Genitourinary Surgical Hx: No Pertinent History Musculskeletal Surgical Hx: No Pertinent History Male Surgical History: No Pertinent History Other Surgical History: cataract IOL left eye, back surgery - Social History Smoking Status: Former smoker How long have you smoked: 62 years Exposure to second hand smoke: Yes Alcohol: None Drug Use: none - Physical Exam Vital Signs: Vital Signs - 24 hr Temp Pulse Resp BP Pulse Ox 03/25/19 11:03 96 03/25/19 07:32 64 18 97 03/25/19 07:23 97.4 F 78 19 128/63 95 03/25/19 04:00 97.7 F 87 28 H 112/57 96 03/25/19 00:01 97.9 F 86 26 H 131/67 95 03/24/19 20:00 97.8 F 66 18 111/63 98 03/24/19 19:43 80 18 94 L 03/24/19 16:00 97.7 F 87 18 126/64 94 L 03/24/19 15:17 61 18 97 Oxygen-Last 24 hours O2 Percentage 4 Liters = 36% O2 Percentage 4 Liters = 36% O2 Percentage 4 Liters = 36% O2 Percentage 4 Liters = 36% O2 Percentage 4 Liters = 36% General Appearance: no apparent distress, alert Neurologic Exam: alert, oriented x 3, cooperative, normal mood/affect, nml cerebellar function, nml station & gait, sensation nml, No motor deficits Eye Exam: PERRL/EOMI, eyes nml inspection Ears, Nose, Throat Exam: normal ENT inspection, TMs normal, pharynx normal, moist mucous membranes Neck Exam: normal inspection, non-tender, supple, full range of motion Respiratory Exam: diminished breath sounds, crackles/rales, rhonchi, No respiratory distress Cardiovascular Exam: regular rate/rhythm, normal heart sounds, normal peripheral pulses Gastrointestinal/Abdomen Exam: soft, normal bowel sounds, No tenderness, No mass Back Exam: normal inspection, normal range of motion, No CVA tenderness, No vertebral tenderness Extremity Exam: normal inspection, normal range of motion, pelvis stable Skin Exam: normal color, warm, dry, No rash Lymphatic Exam: No adenopathy Results - Labs Lab/Micro Results: Lab Results-Last 24 Hours 03/25/19 03/25/19 Range/Units 05:05 05:05 WBC 10.5 (4.0-10.5) K/mm3 RBC 4.95 (4.1-5.6) M/mm3 Hgb 14.1 (12.5-18.0) gm/dl Hct 41.5 L (42-50) % MCV 83.8 (78-100) fl MCH 28.5 (26-32) pg MCHC 34.0 (32-36) g/dl RDW 15.8 H (11.5-14.0) % Plt Count 166 (150-450) K/mm3 MPV 10.4 H (6-9.5) fl Gran % 94.3 H (36.0-66.0) % Eos # (Auto) 0.01 (0-0.5) Absolute Lymphs (auto) 0.22 L (1.0-4.6) Absolute Monos (auto) 0.36 (0.0-1.3) Lymphocytes % 2.1 L (24.0-44.0) % Monocytes % 3.4 (0.0-12.0) % Eosinophils % 0.1 (0.00-5.0) % Basophils % 0.1 (0.0-0.4) % Absolute Granulocytes 9.90 H (1.4-6.9) Basophils # 0.01 (0-0.4) Sodium 137 (137-145) mmol/L Potassium 4.6 (3.5-5.1) mmol/L Chloride 106 (98-107) mmol/L Carbon Dioxide 25 (22-30) mmol/L Anion Gap 9.8 (5-15) MEQ/L BUN 20 (9-20) mg/dL Creatinine 0.98 (0.66-1.25) mg/dL Estimated GFR > 60.0 ML/MIN Glucose 143 H (74-106) mg/dL Calcium 9.3 (8.4-10.2) mg/dL Total Bilirubin 0.70 (0.2-1.3) mg/dL AST 16 L (17-59) U/L ALT 17 (0-50) U/L Alkaline Phosphatase 48 (38-126) U/L Serum Total Protein 5.4 L (6.3-8.2) g/dL Albumin 2.9 L (3.5-5.0) g/dL Slides for Path Review YES - Radiology Impressions Radiology Exams & Impressions: Radiology Procedures Category Date Time Status CHEST 1 VIEW (PORTABLE) Stat Exams 03/23/19 19:34 Completed Assessment/Plan (1) COPD exacerbation Current Visit: Yes Status: Resolved Onset Date: ~12/18/17 Code(s): J44.1 - CHRONIC OBSTRUCTIVE PULMONARY DISEASE W (ACUTE) EXACERBATION (2) Hypoxia Current Visit: No Status: Resolved Onset Date: ~12/18/17 Code(s): R09.02 - HYPOXEMIA Hospital Summary - Hospital Course Hospital Course: Chief Complaint Diagnosis shortness of breath for 2 days Allergies Allergy/AdvReac Type Severity Reaction Status Date / Time No Known Drug Allergies Allergy Verified 09/18/18 11:25 Vital Signs (Last 24 hours) Temp Pulse Resp BP Pulse Ox 03/25/19 11:03 96 03/25/19 07:32 64 18 97 03/25/19 07:23 97.4 F 78 19 128/63 95 03/25/19 04:00 97.7 F 87 28 H 112/57 96 03/25/19 00:01 97.9 F 86 26 H 131/67 95 03/24/19 20:00 97.8 F 66 18 111/63 98 03/24/19 19:43 80 18 94 L 03/24/19 16:00 97.7 F 87 18 126/64 94 L 03/24/19 15:17 61 18 97 Home Medications Medication Instructions Recorded Confirmed Last Taken Type Nebivolol HCl 5 MG [Bystolic 5 5 mg PO QHS 03/23/19 03/23/19 03/22/19 History MG] predniSONE [Prednisone] 20 mg PO DAILY 03/23/19 03/24/19 03/23/19 08:30 History Current Medications Generic Name Dose Route Start Last Admin Trade Name Freq PRN Reason Stop Dose Admin Acetaminophen 650 mg 03/23/19 21:39 Tylenol 325 Mg PO 04/22/19 21:38 Q4H PRN PRN PAIN AND/OR FEVER Albuterol/Ipratropium 3 ml 03/23/19 21:39 03/24/19 15:14 Duoneb 0.5-3 Mg/3 Ml Neb IH 04/22/19 21:38 3 ml Q4HPRN PRN Administration SHORTNESS OF BREATH/WHEEZING Albuterol/Ipratropium 3 ml 03/24/19 19:00 03/25/19 11:01 Duoneb 0.5-3 Mg/3 Ml Neb IH 04/23/19 18:59 3 ml QIDRT ALIYAH Administration Apixaban 5 mg 03/23/19 22:00 03/25/19 09:33 Eliquis 2.5 Mg Tablet PO 04/22/19 21:59 Not Given BID ALIYAH Famotidine 20 mg 03/23/19 22:00 03/25/19 09:37 Pepcid 20 Mg Vial IV 04/22/19 21:59 20 mg Q12HT ALIYAH Administration Levofloxacin/Dextrose 750 mg in 150 mls @ 100 mls/hr 03/24/19 22:00 03/24/19 21:07 Levofloxacin 750mg/150ml D5w IV 04/23/19 21:59 100 mls/hr Q24H22 ALIYAH Administration Piperacillin Sod/Tazobactam Sod 3.375 gm in 100 mls @ 200 mls/hr 03/24/19 00: 00 03/25/19 12:14 Zosyn 3.375gm/100 Ml D5w IV 04/23/19 00:00 200 mls/hr Q6HT ALIYAH Administration Insulin Human Regular 0 unit 03/23/19 21:39 Novolin R SQ 04/22/19 21:38 UD PRN HYPERGLYCEMIA Methylprednisolone Sodium Succinate 60 mg 03/24/19 10:00 03/25/19 09:35 Solu-Medrol 125 Mg IV 04/23/19 09:59 60 mg Q8H ALIYAH Administration Morphine Sulfate 2 mg 03/23/19 21:39 Morphine Sulfate 2 Mg Inj IV 03/28/19 21:38 Q4H PRN PRN PAIN Nebivolol 5 mg 03/23/19 23:02 03/24/19 21:07 Bystolic 5 Mg PO 04/22/19 23:01 5 mg QHS ALIYAH Administration Ondansetron HCl 4 mg 03/23/19 21:39 Zofran 4 Mg/2 Ml Vial IV 04/22/19 21:38 Q6H PRN PRN NAUSEA/VOMITING Potassium Chloride 10 meq 03/23/19 23:05 03/25/19 09:38 Klor Con 10 Meq PO 04/22/19 23:04 10 meq BID ALIYAH Administration Fluticasone/Salmeterol 2 puff 03/24/19 07:00 03/25/19 07:20 Advair Hfa 230/21 Mcg Common Canister* IH 04/23/19 06:59 2 puff BIDRT ALIYAH Administration Discontinued Medications Generic Name Dose Route Start Last Admin Trade Name Freq PRN Reason Stop Dose Admin Albuterol/Ipratropium Confirm 03/23/19 19:33 Duoneb 0.5-3 Mg/3 Ml Neb Administered 03/23/19 19:34 Dose 3 ml IH .STK-MED ONE Albuterol/Ipratropium 3 ml 03/23/19 19:33 03/23/19 19:40 Duoneb 0.5-3 Mg/3 Ml Neb IH 03/23/19 19:34 3 ml STAT ONE Administration Aspirin 324 mg 03/23/19 19:33 03/23/19 19:42 Baby Aspirin 81 Mg Chew PO 03/23/19 19:34 324 mg STAT ONE Administration Aspirin Confirm 03/23/19 22:09 Baby Aspirin 81 Mg Chew Administered 03/23/19 22:10 Dose 324 mg .ROUTE .STK-MED ONE Magnesium Sulfate/Dextrose 100 mls @ 100 mls/hr 03/23/19 19:45 03/23/19 21:36 Magnesium 1 Gm / 100 Ml D5w IV 03/23/19 21:44 100 mls/hr Q1H ALIYAH Administration Sodium Chloride 1,000 mls @ 50 mls/hr 03/23/19 19:45 03/23/19 19:47 Sodium Chloride 0.9% 1000 Ml IV 04/22/19 19:44 50 mls/hr .Q20H ALIYAH Administration Piperacillin Sod/Tazobactam Sod 3.375 gm in 100 mls @ 200 mls/hr 03/23/19 20: 18 03/23/19 21:01 Zosyn 3.375gm/100 Ml D5w IV 03/23/19 20:47 200 mls/hr STAT ONE Administration Levofloxacin/Dextrose 750 mg in 150 mls @ 100 mls/hr 03/23/19 20:53 03/23/19 21:36 Levofloxacin 750mg/150ml D5w IV 03/23/19 22:22 100 mls/hr STAT STA 100 mls/hr Administration Piperacillin Sod/Tazobactam Sod Confirm 03/23/19 20:55 Zosyn 3.375gm/100 Ml D5w Administered 03/23/19 20:56 Dose 3.375 gm in 100 mls @ ud IV .STK-MED ONE Piperacillin Sod/Tazobactam Sod Confirm 03/23/19 20:56 Zosyn 3.375gm/100 Ml D5w Administered 03/23/19 20:57 Dose 3.375 gm in 100 mls @ ud IV .STK-MED ONE Levofloxacin/Dextrose Confirm 03/23/19 21:29 Levofloxacin 750mg/150ml D5w Administered 03/23/19 21:30 Dose 750 mg in 150 mls @ ud IV .STK-MED ONE Magnesium Sulfate/Dextrose Confirm 03/23/19 19:44 Magnesium 1 Gm / 100 Ml D5w Administered 03/23/19 19:45 Dose 100 mls @ ud IV .STK-MED ONE Magnesium Sulfate/Dextrose Confirm 03/23/19 21:29 Magnesium 1 Gm / 100 Ml D5w Administered 03/23/19 21:30 Dose 100 mls @ ud IV .STK-MED ONE Sodium Chloride Confirm 03/23/19 19:44 Sodium Chloride 0.9% 1000 Ml Administered 03/23/19 19:45 Dose 1,000 mls @ ud .ROUTE .STK-MED ONE Sodium Chloride 1,000 mls @ 50 mls/hr 03/23/19 23:30 03/24/19 11:21 Sodium Chloride 0.9% 1000 Ml IV 04/22/19 23:29 50 mls/hr .Q20H ALIYAH Administration Methylprednisolone Sodium Succinate 125 mg 03/23/19 19:33 03/23/19 19:48 Solu-Medrol 125 Mg IV 03/23/19 19:34 125 mg STAT ONE Administration Methylprednisolone Sodium Succinate Confirm 03/23/19 19:44 Solu-Medrol 125 Mg Administered 03/23/19 19:45 Dose 125 mg .ROUTE .STK-MED ONE Methylprednisolone Sodium Succinate 80 mg 03/23/19 21:39 03/24/19 07:18 Solu-Medrol 125 Mg IV 04/22/19 21:38 Not Given Q6H ALIYAH Methylprednisolone Sodium Succinate 80 mg 03/24/19 02:00 03/24/19 09:40 Solu-Medrol 125 Mg IV 04/23/19 01:59 Not Given Q6H ALIYAH Intake & Output (Last 24 hours) 03/23/19 03/24/19 03/25/19 03/26/19 11:59 11:59 11:59 11:59 Intake Total 1477 2160 Balance 1477 2160 Weight 58.7 kg 59 kg Laboratory Results (Last 24 hours) 03/25/19 03/25/19 05:05 05:05 WBC 10.5 RBC 4.95 Hgb 14.1 Hct 41.5 L MCV 83.8 MCH 28.5 MCHC 34.0 RDW 15.8 H Plt Count 166 MPV 10.4 H Gran % 94.3 H Eos # (Auto) 0.01 Absolute Lymphs (auto) 0.22 L Absolute Monos (auto) 0.36 Lymphocytes % 2.1 L Monocytes % 3.4 Eosinophils % 0.1 Basophils % 0.1 Absolute Granulocytes 9.90 H Basophils # 0.01 Sodium 137 Potassium 4.6 Chloride 106 Carbon Dioxide 25 Anion Gap 9.8 BUN 20 Creatinine 0.98 Estimated GFR > 60.0 Glucose 143 H Calcium 9.3 Total Bilirubin 0.70 AST 16 L ALT 17 Alkaline Phosphatase 48 Serum Total Protein 5.4 L Albumin 2.9 L Slides for Path Review YES Orders (Last 24 hours) Category Date Time Status CBC W DIFF AM.LAB Lab 03/25/19 05:05 Completed CMP AM.LAB Lab 03/25/19 05:05 Completed Albuterol/Ipratropium 3ml Neb* [DUONEB 0.5-3 MG/3 ml Med 03/24/19 19:00 Active Neb] 3 ml IH QIDRT Levofloxacin [Levofloxacin 750Mg/150Ml D5w] Med 03/24/19 22:00 Active 750 mg in 150 ml IV Q24H22 Patient Care Notes (Last 24 hours) 03/25/19 09:33 (created 03/25/19 11:03) Nursing Note by Norma Dia [id number] pt refused eliquis at this time he stated he is having surgery on monday and needs to be off of his blood thinners for 2 days prior Initialized on 03/25/19 11:03 - END OF NOTE 03/24/19 22:43 Nursing Note by Dayton Watson During med pass pt mentioned he forgot he is having eye surgery on and is to stop blood thinners 2 days prior. Will report to day shift nurse Initialized on 03/24/19 22:43 - END OF NOTE - Vitals & Intake/Output Vital Signs: Vital Signs Temperature 97.4 F 03/25/19 07:23 Pulse Rate 64 03/25/19 07:32 Respiratory Rate 18 03/25/19 07:32 Blood Pressure 128/63 03/25/19 07:23 O2 Sat by Pulse Oximetry 96 03/25/19 11:03 Oxygen-Last Documented O2 Percentage 4 Liters = 36% Intake & Output: Intake & Output 03/23/19 03/24/19 03/25/19 03/26/19 11:59 11:59 11:59 11:59 Intake Total 1477 2160 Balance 1477 2160 Weight 58.7 kg 59 kg - Lab Result Diagrams: 03/25/19 05:05 03/25/19 05:05 Lab Results-Last 24 Hrs: Lab Results-Last 24 Hours 03/25/19 03/25/19 Range/Units 05:05 05:05 WBC 10.5 (4.0-10.5) K/mm3 RBC 4.95 (4.1-5.6) M/mm3 Hgb 14.1 (12.5-18.0) gm/dl Hct 41.5 L (42-50) % MCV 83.8 (78-100) fl MCH 28.5 (26-32) pg MCHC 34.0 (32-36) g/dl RDW 15.8 H (11.5-14.0) % Plt Count 166 (150-450) K/mm3 MPV 10.4 H (6-9.5) fl Gran % 94.3 H (36.0-66.0) % Eos # (Auto) 0.01 (0-0.5) Absolute Lymphs (auto) 0.22 L (1.0-4.6) Absolute Monos (auto) 0.36 (0.0-1.3) Lymphocytes % 2.1 L (24.0-44.0) % Monocytes % 3.4 (0.0-12.0) % Eosinophils % 0.1 (0.00-5.0) % Basophils % 0.1 (0.0-0.4) % Absolute Granulocytes 9.90 H (1.4-6.9) Basophils # 0.01 (0-0.4) Sodium 137 (137-145) mmol/L Potassium 4.6 (3.5-5.1) mmol/L Chloride 106 (98-107) mmol/L Carbon Dioxide 25 (22-30) mmol/L Anion Gap 9.8 (5-15) MEQ/L BUN 20 (9-20) mg/dL Creatinine 0.98 (0.66-1.25) mg/dL Estimated GFR > 60.0 ML/MIN Glucose 143 H (74-106) mg/dL Calcium 9.3 (8.4-10.2) mg/dL Total Bilirubin 0.70 (0.2-1.3) mg/dL AST 16 L (17-59) U/L ALT 17 (0-50) U/L Alkaline Phosphatase 48 (38-126) U/L Serum Total Protein 5.4 L (6.3-8.2) g/dL Albumin 2.9 L (3.5-5.0) g/dL Slides for Path Review YES - Radiology Exams Ordered Rad Exams-Entire Visit: Radiology Procedures Category Date Time Status CHEST 1 VIEW (PORTABLE) Stat Exams 03/23/19 19:34 Completed - Procedures and Test Procedures and Tests throughout Hospitalization: Therapy Orders & Screens 03/23/19 19:41 Respiratory Therapy Assessment DAILY Comment: 03/23/19 21:39 Oxygen Nasal Cannula 4 lpm Comment: Respiratory Therapy Consult ROUTINE Comment: Reason For Exam: 03/23/19 21:57 Respiratory Therapy Assessment DAILY Comment: 03/23/19 22:49 RT Screen per Nursing Assess ONCE Comment: Protocol Order Physician Instructions: Greater than 3 points order RT Admission Screen Reason For Exam: Triggered on Admission Diagnosis: COPD, SOB Diagnosis: COPD, SOB Pneumonia: No Home O2: Yes Asthma: No CHF: No Home CPAP/BIPAP: No Home Nebs/MDI: Yes Total Points: 10 03/24/19 07:07 Peak Expiratory Flow Rate ONCE Comment: Reason For Exam: Diagnosis: COPD, SOB - Discharge Discharge Date: 03/25/19 Disposition: Home, Self-Care Condition: Good Prescriptions: No Action Albuterol/Ipratropium 3ml Neb* [DUONEB 0.5-3 MG/3 ml Neb] 3 ml IH QID #120 ampul.neb Budesonide/Formoterol Fumarate [Symbicort 160-4.5 Mcg Inhaler] 2 puff IH BID #1 hfa.aer.ad Potassium Chloride 10 meq PO BID Apixaban [Eliquis 5 mg Tablet] 5 mg PO BID 30 Days #60 tablet predniSONE [Prednisone] 20 mg PO DAILY Nebivolol HCl 5 MG [Bystolic 5 MG] 5 mg PO QHS Instructions: Exacerbation of COPD (DC) Follow up with: MICAH HAND [ACTIVE STAFF] - 03/27/19 GALEN DOBBINS MD [Primary Care Provider] - 04/02/19 10:30 am (at [facility])
[2019-03-25 12:45] VITALS: BP 138/69; PULSE 78; O2SAT 92
== END 2019-03-25 13:20 | disposition home or self-care (01) ==
LOC: ED 19:29 → MED SURG 21:34
PROVIDERS: ADMIT General Practice; ATTEND General Practice
DX: J44.1 Chronic obstructive pulmonary disease with (acute) exacerbation (principal); I10 Essential (primary) hypertension; R09.02 Hypoxemia; Z99.81 Dependence on supplemental oxygen; Z86.711 Personal history of pulmonary embolism; Z79.899 Other long term (current) drug therapy; Z79.01 Long term (current) use of anticoagulants
CPT/HCPCS: 31500; 36000; 36415; 71045; 80053; 82805; 83605; 83880; 84484; 85025; 85379; 87631; 87651; 93005; 93041; 93268; 94150; 94640; 94760; 94762; 96360; 96361; 96365; 96367; 96374; 99285; G0378; J1956; J2543; J2930; J3475; A9270-GY

== ENCOUNTER 2019-05-06 18:01 | Observation (INO) | payer MEDICARE ==
[2019-05-06] MEDS ORDERED: BABY ASPIRIN 81 MG CHEW PO ONE (18:04)
[2019-05-06] MEDS ORDERED: Sodium Chloride 0.9% 1000 ML 1,000 ML IV STA ×2 (18:04→19:29)
[2019-05-06] MEDS ORDERED: DUONEB 0.5-3 MG/3 ml Neb IH ONE ×5 (18:06→18:37)
--- NOTE | 2019-05-06 18:15 | ERPHSYRPT ---
- History of Present Illness Source: patient Exam Limitations: no limitations Physician History: Patient has a history of COPD and has had increasing dyspnea over the past two days. Patient tried increasing his usual 3L nasal cannula to 4L last evening without any relief of his dyspnea. Timing/Duration: day(s) (2) Activities at Onset: rest Severity of Dyspnea-Max: moderate Severity of Dyspnea-Current: severe Possible Cause: occasional episodes Associated Symptoms: constant, wheezing, tightness, No cough, No chest pain/ discomfort, No edema, No fever, No hemoptysis, No calf pain, No dizziness, No heaviness, No heart racing, No lightheadedness, No leg swelling, No painful breathing, No productive cough International travel in last 2 weeks: No Allergies/Adverse Reactions: No Known Drug Allergies Allergy (Verified 05/06/19 18:15) Home Medications: Potassium Chloride 10 meq PO BID 11/16/16 [History] Nebivolol HCl 5 MG [Bystolic 5 MG] 5 mg PO QHS 03/23/19 [History] predniSONE [Prednisone] 20 mg PO DAILY 03/23/19 [History] Fluticasone/Umeclidin/Vilanter [Trelegy Ellipta 100-62.5-25] 1 each IH DAILY 10/23 [History] Hx Tetanus, Diphtheria Vaccination/Date Given: Yes Hx Influenza Vaccination/Date Given: Yes Hx Pneumococcal Vaccination/Date Given: Yes - Review of Systems Constitutional: No Fever, No Chills Eyes: No Eye Redness, No Photophobia Ears, Nose, & Throat: No Ear Pain, No Ear Discharge, No Nose Congestion, No Throat Pain Respiratory: Dyspnea, Wheezing, No Cough, No Stridor Cardiac: No Chest Pain, No Edema, No Syncope Abdominal/Gastrointestinal: No Abdominal Pain, No Nausea, No Vomiting, No Diarrhea Genitourinary Symptoms: No Dysuria, No Flank Pain Musculoskeletal: No Back Pain, No Neck Pain Skin: No Rash Neurological: No Dizziness, No Focal Weakness, No Sensory Changes Psychological: No Symptoms Endocrine: No Symptoms Hematologic/Lymphatic: No Easy Bleeding, No Easy Bruising All Other Systems: Reviewed and Negative - Past Medical History Pertinent Past Medical History: Yes Neurological History: No Pertinent History ENT History: No Pertinent History Cardiac History: Hypertension Respiratory History: Bronchitis, COPD, Pneumonia, Pulmonary Embolism Endocrine Medical History: No Pertinent History Musculoskeletal History: No Pertinent History GI Medical History: No Pertinent History History: No Pertinent History Psycho-Social History: No Pertinent History Male Reproductive Disorders: No Pertinent History Other Medical History: 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 - Past Surgical History Past Surgical History: Yes Neuro Surgical History: No Pertinent History Cardiac: No Pertinent History Respiratory: No Pertinent History Gastrointestinal: Cholecystectomy, Hernia Repair Genitourinary: No Pertinent History Musculoskeletal: No Pertinent History Male Surgical History: No Pertinent History Other Surgical History: cataract IOL left eye, back surgery - Social History Smoking Status: Former smoker How long have you smoked: 62 years Exposure to second hand smoke: Yes Drug Use: none Patient Lives Alone: No - Nursing Vital Signs Nursing Vital Signs: Initial Vital Signs Temperature 97.3 F 05/06/19 18:05 Pulse Rate 56 L 05/06/19 18:05 Respiratory Rate 40 H 05/06/19 18:05 Blood Pressure 162/58 05/06/19 18:05 O2 Sat by Pulse Oximetry 90 L 05/06/19 18:05 Pain Scale Pain Intensity 0 - Physical Exam General Appearance: mild distress, alert Eye Exam: PERRL/EOMI Ears, Nose, Throat Exam: normal ENT inspection, normal pharynx, No sinus pain/ drainage Neck Exam: normal inspection, supple, No meningismus, No carotid bruit, No JVD, No lymphadenopathy (R) Respiratory Exam: diminished breath sounds, prolonged expirations, rhonchi, wheezing, No accessory muscle use, No crackles/rales, No stridor, No pleural rub Cardiovascular/Chest Exam: normal heart sounds, regular rate/rhythm Abdominal/Gastrointestinal Exam: soft, No tenderness, No distention, No mass, No rebound Extremity Exam: non-tender, normal range of motion, normal inspection, no calf tenderness, no pedal edema Neurologic Exam: alert, oriented x 3, cooperative, embedded engineer II-XII nml as tested, sensation nml, No motor deficits Skin Exam: normal color, warm, No dry Lymphatic Exam: No adenopathy SpO2 Interpretation: borderline oxygenation, O2 applied, airway management int. O2 Delivery: Nasal Cannula - Course Nursing assessment & vital signs reviewed: Yes EKG Interpreted by Me: RATE, Sinus Rhythm, Left Burton Deviation, NORMAL ST-T, Other (multiple PVCs, no difference in comparison to EKG from 03/23/2019) - Radiology Exams Chest X-ray Interpretation: Interpreted by me, Infiltrates, Pneumonia, Other (right sided atelectasis) Ordered Tests: Active Orders 24 hr Category Date Time Status Stock Supervisor STAT Care 05/06/19 18:05 Active EKG-ER Only STAT Care 05/06/19 18:04 Active IV Insertion STAT Care 05/06/19 18:04 Active Oxygen-ED Only Nasal Cannula 4 lpm Care 05/06/19 18:04 Active Pulse Oximetry (ED) STAT Care 05/06/19 18:04 Active CHEST 1 VIEW (PORTABLE) Stat Exams 05/06/19 18:05 Taken CHEST WITH CONTRAST [CT] Stat Exams 05/06/19 20:10 Ordered BLOOD CULTURE Stat Lab 05/06/19 19:35 Received BLOOD CULTURE Stat Lab 05/06/19 19:45 Received CBC W DIFF Stat Lab 05/06/19 18:19 Completed CK-Creatinine Phosphokinase Stat Lab 05/06/19 18:19 Completed CMP Stat Lab 05/06/19 18:19 Completed Lactic Acid Urgent Lab 05/06/19 18:45 Results NT PRO BNP Stat Lab 05/06/19 18:19 Completed PROTIME WITH INR Stat Lab 05/06/19 18:19 Completed PTT Stat Lab 05/06/19 18:19 Completed TROPONIN Q3H Lab 05/06/19 18:19 Completed TROPONIN Q3H Lab 05/06/19 21:15 Ordered TROPONIN Q3H Lab 05/07/19 00:15 Ordered TROPONIN Q3H Lab 05/07/19 03:15 Ordered TROPONIN Q3H Lab 05/07/19 06:15 Ordered VENOUS BLOOD GAS Stat Lab 05/06/19 18:30 Completed Peak Expiratory Flow Rate ONCE RT 05/06/19 18:51 Active Respiratory Therapy Assessment DAILY RT 05/06/19 18:51 Active Transfer Order Routine Transfer 05/06/19 Ordered Medication Summary Generic Name Dose Route Start Last Admin Trade Name Freq PRN Reason Stop Dose Admin Sodium Chloride 1,000 mls @ 999 mls/hr 05/06/19 19:29 05/06/19 19:43 Sodium Chloride 0.9% 1000 Ml IV 05/06/19 20:29 999 mls/hr .Q1H1M STA Administration Discontinued Medications Generic Name Dose Route Start Last Admin Trade Name Freq PRN Reason Stop Dose Admin Albuterol/Ipratropium 3 ml 05/06/19 18:06 05/06/19 18:35 Duoneb 0.5-3 Mg/3 Ml Neb IH 05/06/19 18:07 3 ml STAT ONE Administration Albuterol/Ipratropium 3 ml 05/06/19 18:07 05/06/19 18:38 Duoneb 0.5-3 Mg/3 Ml Neb IH 05/06/19 18:08 3 ml STAT ONE Administration Albuterol/Ipratropium 3 ml 05/06/19 18:07 05/06/19 18:38 Duoneb 0.5-3 Mg/3 Ml Neb IH 05/06/19 18:08 3 ml STAT ONE Administration Albuterol/Ipratropium Confirm 05/06/19 18:28 Duoneb 0.5-3 Mg/3 Ml Neb Administered 05/06/19 18:29 Dose 3 ml IH .STK-MED ONE Albuterol/Ipratropium Confirm 05/06/19 18:37 Duoneb 0.5-3 Mg/3 Ml Neb Administered 05/06/19 18:38 Dose 6 ml IH .STK-MED ONE Aspirin 81 mg 05/06/19 18:04 05/06/19 18:36 Baby Aspirin 81 Mg Chew PO 05/06/19 18:05 81 mg STAT ONE Administration Aspirin Confirm 05/06/19 18:34 Baby Aspirin 81 Mg Chew Administered 05/06/19 18:35 Dose 81 mg .ROUTE .STK-MED ONE Sodium Chloride 1,000 mls @ 999 mls/hr 05/06/19 18:04 05/06/19 19:44 Sodium Chloride 0.9% 1000 Ml IV 05/06/19 19:04 Infused .Q1H1M STA Infusion Sodium Chloride Confirm 05/06/19 18:34 Sodium Chloride 0.9% 1000 Ml Administered 05/06/19 18:35 Dose 1,000 mls @ ud .ROUTE .STK-MED ONE Cefepime HCl 1 g/ Sodium 100 mls @ 200 mls/hr 05/06/19 19:26 Chloride IV 05/06/19 19:55 STAT STA Sodium Chloride Confirm 05/06/19 19:37 Sodium Chloride 0.9% 1000 Ml Administered 05/06/19 19:38 Dose 1,000 mls @ ud .ROUTE .STK-MED ONE Lab/Rad Data: Laboratory Result Diagrams 05/06/19 18:19 05/06/19 18:19 Laboratory Results 05/06/19 05/06/19 05/06/19 Range/Units 18:45 18:30 18:19 WBC (4.0-10.5) K/mm3 RBC (4.1-5.6) M/mm3 Hgb (12.5-18.0) gm/dl Hct (42-50) % MCV (78-100) fl MCH (26-32) pg MCHC (32-36) g/dl RDW (11.5-14.0) % Plt Count (150-450) K/mm3 MPV (6-9.5) fl Gran % (36.0-66.0) % Eos # (Auto) (0-0.5) Absolute Lymphs (auto) (1.0-4.6) Absolute Monos (auto) (0.0-1.3) Lymphocytes % (24.0-44.0) % Monocytes % (0.0-12.0) % Eosinophils % (0.00-5.0) % Basophils % (0.0-0.4) % Absolute Granulocytes (1.4-6.9) Basophils # (0-0.4) PT (8.83-12.87) SECONDS INR (0.8-3.0) APTT (24.1-36.1) SECONDS pO2/FiO2 Ratio 28.0 % VBG pH 7.47 H (7.32-7.42) VBG pCO2 at Pat Temp 31 L (42-55) mm/Hg VBG pO2 at Pat Temp 76 H (25-40) mm/Hg VBG HCO3 22.6 (22-28) meq/L VBG O2 Sat (Toni) 97.9 (95-100) VBG Base Excess 0.0 (-2.0-2.0) VBG Hemoglobin 16.9 VBG Carboxyhemoglobin 3.6 (0.0-6.9) % T HGB POC Potassium 4.4 (3.5-5.1) Sodium (137-145) mmol/L Potassium (3.5-5.1) mmol/L Chloride (98-107) mmol/L Carbon Dioxide (22-30) mmol/L Anion Gap (5-15) MEQ/L BUN (9-20) mg/dL Creatinine (0.66-1.25) mg/dL Estimated GFR ML/MIN Glucose (74-106) mg/dL Lactic Acid 3.3 H (0.4-2.0) Calcium (8.4-10.2) mg/dL Total Bilirubin (0.2-1.3) mg/dL AST (17-59) U/L ALT (0-50) U/L Alkaline Phosphatase (38-126) U/L Creatine Kinase (55-170) U/L Troponin I < 0.012 (0.000-0.034) ng/mL NT-Pro-B Natriuret Pep (0-900) pg/mL Serum Total Protein (6.3-8.2) g/dL Albumin (3.5-5.0) g/dL 05/06/19 05/06/19 05/06/19 Range/Units 18:19 18:19 18:19 WBC 12.7 H (4.0-10.5) K/mm3 RBC 5.88 H (4.1-5.6) M/mm3 Hgb 16.9 (12.5-18.0) gm/dl Hct 49.3 (42-50) % MCV 83.8 (78-100) fl MCH 28.7 (26-32) pg MCHC 34.3 (32-36) g/dl RDW 17.5 H (11.5-14.0) % Plt Count 247 (150-450) K/mm3 MPV 9.6 H (6-9.5) fl Gran % 89.3 H (36.0-66.0) % Eos # (Auto) 0.01 (0-0.5) Absolute Lymphs (auto) 0.45 L (1.0-4.6) Absolute Monos (auto) 0.86 (0.0-1.3) Lymphocytes % 3.6 L (24.0-44.0) % Monocytes % 6.8 (0.0-12.0) % Eosinophils % 0.1 (0.00-5.0) % Basophils % 0.2 (0.0-0.4) % Absolute Granulocytes 11.32 H (1.4-6.9) Basophils # 0.02 (0-0.4) PT 25.0 H (8.83-12.87) SECONDS INR 2.18 (0.8-3.0) APTT 38.5 H (24.1-36.1) SECONDS pO2/FiO2 Ratio % VBG pH (7.32-7.42) VBG pCO2 at Pat Temp (42-55) mm/Hg VBG pO2 at Pat Temp (25-40) mm/Hg VBG HCO3 (22-28) meq/L VBG O2 Sat (Toni) (95-100) VBG Base Excess (-2.0-2.0) VBG Hemoglobin VBG Carboxyhemoglobin (0.0-6.9) % T HGB POC Potassium (3.5-5.1) Sodium 138 (137-145) mmol/L Potassium 4.4 (3.5-5.1) mmol/L Chloride 105 (98-107) mmol/L Carbon Dioxide 22 (22-30) mmol/L Anion Gap 15.4 H (5-15) MEQ/L BUN 21 H (9-20) mg/dL Creatinine 1.09 (0.66-1.25) mg/dL Estimated GFR > 60.0 ML/MIN Glucose 148 H (74-106) mg/dL Lactic Acid (0.4-2.0) Calcium 10.4 H (8.4-10.2) mg/dL Total Bilirubin 1.70 H (0.2-1.3) mg/dL AST 20 (17-59) U/L ALT 21 (0-50) U/L Alkaline Phosphatase 66 (38-126) U/L Creatine Kinase 27 L (55-170) U/L Troponin I (0.000-0.034) ng/mL NT-Pro-B Natriuret Pep 1900 H (0-900) pg/mL Serum Total Protein 7.3 (6.3-8.2) g/dL Albumin 4.0 (3.5-5.0) g/dL - Progress Progress: improved, re-examined Air Movement: fair Blood Culture(s) Obtained: Yes Antibiotics given: Yes Discussed with : Alexandr Will see patient in: hospital (observation) Counseled pt/family regarding: lab results, diagnosis, need for follow-up, rad results - Departure Departure Disposition: Observation Clinical Impression: SOB (shortness of breath), Hospital-acquired bacterial pneumonia, COPD exacerbation Hypertension Qualifiers: Hypertension type: essential hypertension Qualified Code(s): I10 - Essential ( primary) hypertension Condition: Fair Critical Care Time: No Referrals: GALEN DOBBINS MD [Primary Care Provider] - Instructions: Chronic Obstructive Pulmonary Disease
[2019-05-06 18:33] LABS: BASOPHIL % 0.2 % (0.0-0.4); Basophil (Absolute #) 0.02 (0-0.4); Eosinophil % 0.1 % (0.00-5.0); Eosinophil (Absolute #) 0.01 (0-0.5); Granulocyte Absolute (ANC) 11.32 (1.4-6.9); Granulocytes % 89.3 % (36.0-66.0); Hematocrit 49.3 % (42-50); Hemoglobin 16.9 gm/dl (12.5-18.0); Lymphocyte (Absolute #) 0.45 (1.0-4.6); Lymphocytes % 3.6 % (24.0-44.0); Mean Cell Volume 83.8 fl (78-100); Mean Corpuscular Hemoglobin 28.7 pg (26-32); Mean Corpuscular Hgb Concent. 34.3 g/dl (32-36); Mean Platelet Volume 9.6 fl (6-9.5); Monocyte (Absolute #) 0.86 (0.0-1.3); Monocytes % 6.8 % (0.0-12.0); Platelet Count 247 K/mm3 (150-450); Red Blood Count 5.88 M/mm3 (4.1-5.6); Red Cell Distribution Width 17.5 % (11.5-14.0); White Blood Count 12.7 K/mm3 (4.0-10.5)
[2019-05-06 18:33] LABS: VBG CARBOXYHEMOGLOBIN 3.6 % T HGB (0.0-6.9); VBG HCO3- 22.6 meq/L (22-28); VBG HEMOGLOBIN 16.9; VBG O2 SATURATION 97.9 (95-100); VBG POTASSIUM 4.4 (3.5-5.1); VBG pH 7.47 (7.32-7.42)
[2019-05-06] MEDS ORDERED: Sodium Chloride 0.9% 1000 ML 1,000 ML ONE ×2 (18:34→19:37)
[2019-05-06] MEDS ORDERED: BABY ASPIRIN 81 MG CHEW ONE (18:34)
[2019-05-06 18:44] LABS: INR 2.18 (0.8-3.0)
[2019-05-06 18:47] LABS: PTT 38.5 SECONDS (24.1-36.1)
[2019-05-06 18:49] LABS: Lactic Acid 3.3 (0.4-2.0)
[2019-05-06 18:57] LABS: ALKALINE PHOSPHATASE 66 U/L (38-126); ANION GAP 15.4 MEQ/L (5-15); BLOOD UREA NITROGEN 21 mg/dL (9-20); CHLORIDE 105 mmol/L (98-107); CK-Creatinine Phosphokinase 27 U/L (55-170); Calcium 10.4 mg/dL (8.4-10.2); Carbon Dioxide 22 mmol/L (22-30); Creatinine 1 1.09 mg/dL (0.66-1.25); Glucose 148 mg/dL (74-106); NT PRO BNP 1900 pg/mL (0-900); Potassium 4.4 mmol/L (3.5-5.1); SGOT/AST 20 U/L (17-59); SGPT/ALT 21 U/L (0-50); SODIUM 138 mmol/L (137-145); Total Protein 7.3 g/dL (6.3-8.2)
[2019-05-06] MEDS ORDERED: MAXIPIME 1 GM** 1 G in Sodium Chloride 0.9% 100 ML IVPB 100 ML IV STA (19:26)
--- NOTE | 2019-05-06 20:32 | XRAY ---
Indication: Short of breath. Comparison: March 23, 2019. Portable chest again demonstrates bilateral mid to lower lung interstitial alveolar opacities a,in right greater than left. No consolidation/large effusion. Heart is not enlarged. Bony thorax intact again with mild scoliosis and T12 kyphoplasty.
[2019-05-06 21:28] LABS: Slide Review 1 YES
[2019-05-06] MEDS ORDERED: TYLENOL 325 MG PO PRN (22:18)
[2019-05-06] MEDS ORDERED: VANCOCIN 1 GM VIAL*** 1 GM in Sodium Chloride 0.9% 250 ML 250 ML IV SCH (22:18)
[2019-05-06] MEDS ORDERED: Colace 100 MG PO PRN (22:18)
[2019-05-06] MEDS: MAXIPIME 1 GM** 1 G in Dextrose 5%/Water IV Soln. 100ML PLUS BAG 100 ML IV SCH (22:20)
[2019-05-06] MEDS ORDERED: Vancomycin 1GM/ Ns 250ML*** 250 ML IV ONE (22:23)
[2019-05-06] MEDS: DUONEB 0.5-3 MG/3 ml Neb IH SCH (22:31)
[2019-05-07] MEDS ORDERED: Lasix 20 MG/2 ML IV ONE (00:30)
[2019-05-07] MEDS: Bystolic 5 MG PO SCH ×2 (00:32→23:52)
[2019-05-07] MEDS: ELIQUIS 2.5 MG TABLET PO SCH ×4 (00:32→21:17)
[2019-05-07] MEDS: Klor Con 10 MEQ PO SCH ×4 (00:32→21:17)
[2019-05-07] MEDS ORDERED: DUONEB 0.5-3 MG/3 ml Neb IH PRN (00:45)
[2019-05-07] MEDS: DUONEB 0.5-3 MG/3 ml Neb IH SCH ×6 (02:54→23:17)
[2019-05-07 03:47] LABS: BASOPHIL % 0.2 % (0.0-0.4); Basophil (Absolute #) 0.01 (0-0.4); Eosinophil % 0.5 % (0.00-5.0); Eosinophil (Absolute #) 0.03 (0-0.5); Granulocytes % 90.7 % (36.0-66.0); Hematocrit 44.9 % (42-50); Hemoglobin 15.1 gm/dl (12.5-18.0); Lymphocyte (Absolute #) 0.25 (1.0-4.6); Lymphocytes % 3.9 % (24.0-44.0); Mean Cell Volume 85.2 fl (78-100); Mean Corpuscular Hemoglobin 28.7 pg (26-32); Mean Corpuscular Hgb Concent. 33.6 g/dl (32-36); Mean Platelet Volume 9.5 fl (6-9.5); Monocytes % 4.7 % (0.0-12.0); Platelet Count 195 K/mm3 (150-450); Red Blood Count 5.27 M/mm3 (4.1-5.6); Red Cell Distribution Width 16.5 % (11.5-14.0); White Blood Count 6.4 K/mm3 (4.0-10.5)
[2019-05-07 04:03] LABS: ANION GAP 11.2 MEQ/L (5-15); BLOOD UREA NITROGEN 19 mg/dL (9-20); CHLORIDE 107 mmol/L (98-107); Calcium 9.5 mg/dL (8.4-10.2); Carbon Dioxide 22 mmol/L (22-30); Creatinine 1 0.89 mg/dL (0.66-1.25); Glucose 167 mg/dL (74-106); Potassium 3.8 mmol/L (3.5-5.1); SODIUM 136 mmol/L (137-145)
[2019-05-07 07:12] LABS: Slide Review 1 YES
--- NOTE | 2019-05-07 09:03 | XRAY ---
Indication: Dyspnea. Abnormal chest x-ray. Multiple contiguous axial images obtained through the chest using 80 cc Isovue 370 contrast. Comparison: December 18, 2017. Again advanced diffuse pulmonary emphysema with bibasilar dependent atelectasis, scattered fibrosis/scarring, and scattered tiny calcified granulomas. Inferior right upper lobe demonstrates new interstitial alveolar opacities without consolidation or effusion. Heart is not enlarged. Aorta remains minimally arteriosclerotic without aneurysm/dissection. Stable tiny mediastinal and hilar calcified nodes. No pathologic mediastinal/hilar lymphadenopathy. Bony thorax intact again with mild degenerative changes throughout the spine and multilevel Schmorl nodes. Interval T12/L1 kyphoplasty. Limited upper abdomen again demonstrates cholecystectomy clips. Impression: 1. New right upper lobe interstitial alveolar opacities. Rule out pneumonia. 2. Stable pulmonary emphysema, fibrosis/scarring, and evidence for old granulomatous disease. CT DI 12.32
[2019-05-07] MEDS ORDERED: MEDICATION INTERVENTION MC SCH (09:30)
[2019-05-07] MEDS ORDERED: NON-FORMULARY ITEM (Fluticasone/Umeclidin/Vilanter [Trelegy Ellipta 100-62.5-25] 1 EACH) IH SCH (10:00)
[2019-05-07] MEDS ORDERED: DELTASONE 5 MG PO SCH ×2 (10:00)
[2019-05-07] MEDS: DELTASONE 20 MG PO SCH (10:53)
[2019-05-07] MEDS: MAXIPIME 1 GM** 1 G in Dextrose 5%/Water IV Soln. 100ML PLUS BAG 100 ML IV SCH ×2 (10:53→21:16)
--- NOTE | 2019-05-07 12:11 | PCM.HP ---
History of Present Illness - Chief Complaint Chief Complaint: Pneumonia, COPD exacerbation History of Present Illness: is a 73 year old male has a history of COPD and has had increasing dyspnea over the past two days. Patient tried increasing his usual 3L nasal cannula to 4L last evening without any relief of his dyspnea. - Review of Systems Constitutional: No Fever, No Chills Eyes: No Symptoms Ears, Nose, & Throat: No Symptoms Respiratory: No Cough, No Short Of Breath Cardiac: No Chest Pain, No Edema, No Syncope Abdominal/Gastrointestinal: No Abdominal Pain, No Nausea, No Vomiting, No Diarrhea Genitourinary Symptoms: No Dysuria Musculoskeletal: No Back Pain, No Neck Pain Skin: No Rash Neurological: No Dizziness, No Focal Weakness, No Sensory Changes Psychological: No Symptoms Endocrine: No Symptoms Hematologic/Lymphatic: No Symptoms Immunological/Allergic: No Symptoms Medications & Allergies Home Medications: Home Medication List Albuterol/Ipratropium 3ml Neb* [DUONEB 0.5-3 MG/3 ml Neb] 3 ml IH QID #120 ampul.neb 09/18/16 [Rx Confirmed 05/06/19] Potassium Chloride 10 meq PO BID 11/16/16 [History Confirmed 05/06/19] Apixaban [Eliquis 5 mg Tablet] 5 mg PO BID 30 Days #60 tablet 12/20/17 [ Rx Confirmed 05/06/19] Nebivolol HCl 5 MG [Bystolic 5 MG] 5 mg PO QHS 03/23/19 [History Confirmed 05/06/19] predniSONE [Prednisone] 20 mg PO DAILY 03/23/19 [History Confirmed 05/06/19] Fluticasone/Umeclidin/Vilanter [Trelegy Ellipta 100-62.5-25] 1 each IH DAILY 10/23 [History Confirmed 05/06/19] Allergies/Adverse Reactions: Allergies Allergy/AdvReac Type Severity Reaction Status Date / Time No Known Drug Allergies Allergy Verified 05/06/19 18:15 - Past Medical History Past Medical History: Yes Neurological History: No Pertinent History ENT History: No Pertinent History Cardiac History: Hypertension Respiratory History: Bronchitis, COPD, Pneumonia, Pulmonary Embolism Endocrine Medical History: No Pertinent History Musculoskelatal History: No Pertinent History GI Medical History: No Pertinent History History: No Pertinent History Pyscho-Social History: No Pertinent History Male Reproductive Disorders: No Pertinent History 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 - Past Surgical History Past Surgical History: Yes Neuro Surgical History: No Pertinent History Cardiac History: No Pertinent History Respiratory Surgery: No Pertinent History GI Surgical History: Cholecystectomy, Hernia Repair Genitourinary Surgical Hx: No Pertinent History Musculskeletal Surgical Hx: No Pertinent History Male Surgical History: No Pertinent History Other Surgical History: cataract IOL left eye, back surgery, Surgery on right eye to bring up lower eyelid - Social History Smoking Status: Former smoker How long have you smoked: 62 years Exposure to second hand smoke: Yes Alcohol: None Drug Use: none - Physical Exam Vital Signs: Vital Signs - 24 hr Temp Pulse Resp BP Pulse Ox 05/07/19 11:19 94 H 26 H 05/07/19 07:30 97.5 F 97 H 25 H 99/58 97 05/07/19 07:00 98 H 100 05/07/19 04:02 100.3 F 107 H 30 H 142/87 96 05/07/19 03:00 102 H 26 H 93 L 05/07/19 01:41 117 H 48 H 93 L 05/07/19 00:45 112 H 46 H 95 05/06/19 23:25 97.9 F 99 H 28 H 150/85 92 L 05/06/19 22:45 101 H 24 94 L 05/06/19 21:42 97.9 F 99 H 28 H 150/85 92 L 05/06/19 21:25 100 H 24 127/74 95 05/06/19 20:21 102 H 22 140/84 95 05/06/19 19:45 106 H 26 H 137/92 95 05/06/19 18:52 91 H 26 H 93 L 05/06/19 18:22 94 L 05/06/19 18:05 97.3 F 56 L 40 H 162/58 90 L Oxygen-Last 24 hours O2 Percentage 4 Liters = 36% O2 Percentage 4 Liters = 36% O2 Percentage 4 Liters = 36% O2 Percentage 4 Liters = 36% O2 Percentage 4 Liters = 36% Oxygen Flowrate (L/min)-RT 12 Oxygen Flowrate (L/min)-RT 15 Oxygen Flowrate (L/min)-RT 4 General Appearance: no apparent distress, alert Neurologic Exam: alert, oriented x 3, cooperative, normal mood/affect, nml cerebellar function, nml station & gait, sensation nml, No motor deficits Eye Exam: PERRL/EOMI, eyes nml inspection Ears, Nose, Throat Exam: normal ENT inspection, TMs normal, pharynx normal, moist mucous membranes Neck Exam: normal inspection, non-tender, supple, full range of motion Respiratory Exam: normal breath sounds, lungs clear, No respiratory distress Cardiovascular Exam: regular rate/rhythm, normal heart sounds, normal peripheral pulses Gastrointestinal/Abdomen Exam: soft, normal bowel sounds, No tenderness, No mass Back Exam: normal inspection, normal range of motion, No CVA tenderness, No vertebral tenderness Extremity Exam: normal inspection, normal range of motion, pelvis stable Skin Exam: normal color, warm, dry, No rash Lymphatic Exam: No adenopathy Results - Labs Lab/Micro Results: Lab Results-Last 24 Hours 05/06/19 05/06/19 05/06/19 Range/Units 18:19 18:19 18:19 WBC 12.7 H (4.0-10.5) K/mm3 RBC 5.88 H (4.1-5.6) M/mm3 Hgb 16.9 (12.5-18.0) gm/dl Hct 49.3 (42-50) % MCV 83.8 (78-100) fl MCH 28.7 (26-32) pg MCHC 34.3 (32-36) g/dl RDW 17.5 H (11.5-14.0) % Plt Count 247 (150-450) K/mm3 MPV 9.6 H (6-9.5) fl Gran % 89.3 H (36.0-66.0) % Eos # (Auto) 0.01 (0-0.5) Absolute Lymphs (auto) 0.45 L (1.0-4.6) Absolute Monos (auto) 0.86 (0.0-1.3) Lymphocytes % 3.6 L (24.0-44.0) % Monocytes % 6.8 (0.0-12.0) % Eosinophils % 0.1 (0.00-5.0) % Basophils % 0.2 (0.0-0.4) % Absolute Granulocytes 11.32 H (1.4-6.9) Basophils # 0.02 (0-0.4) PT 25.0 H (8.83-12.87) SECONDS INR 2.18 (0.8-3.0) APTT 38.5 H (24.1-36.1) SECONDS pO2/FiO2 Ratio % VBG pH (7.32-7.42) VBG pCO2 at Pat Temp (42-55) mm/Hg VBG pO2 at Pat Temp (25-40) mm/Hg VBG HCO3 (22-28) meq/L VBG O2 Sat (Toni) (95-100) VBG Base Excess (-2.0-2.0) VBG Hemoglobin VBG Carboxyhemoglobin (0.0-6.9) % T HGB POC Potassium (3.5-5.1) Sodium 138 (137-145) mmol/L Potassium 4.4 (3.5-5.1) mmol/L Chloride 105 (98-107) mmol/L Carbon Dioxide 22 (22-30) mmol/L Anion Gap 15.4 H (5-15) MEQ/L BUN 21 H (9-20) mg/dL Creatinine 1.09 (0.66-1.25) mg/dL Estimated GFR > 60.0 ML/MIN Glucose 148 H (74-106) mg/dL Lactic Acid (0.4-2.0) Calcium 10.4 H (8.4-10.2) mg/dL Total Bilirubin 1.70 H (0.2-1.3) mg/dL AST 20 (17-59) U/L ALT 21 (0-50) U/L Alkaline Phosphatase 66 (38-126) U/L Creatine Kinase 27 L (55-170) U/L Troponin I (0.000-0.034) ng/mL NT-Pro-B Natriuret Pep 1900 H (0-900) pg/mL Serum Total Protein 7.3 (6.3-8.2) g/dL Albumin 4.0 (3.5-5.0) g/dL Slides for Path Review YES 05/06/19 05/06/19 05/06/19 Range/Units 18:19 18:30 18:45 WBC (4.0-10.5) K/mm3 RBC (4.1-5.6) M/mm3 Hgb (12.5-18.0) gm/dl Hct (42-50) % MCV (78-100) fl MCH (26-32) pg MCHC (32-36) g/dl RDW (11.5-14.0) % Plt Count (150-450) K/mm3 MPV (6-9.5) fl Gran % (36.0-66.0) % Eos # (Auto) (0-0.5) Absolute Lymphs (auto) (1.0-4.6) Absolute Monos (auto) (0.0-1.3) Lymphocytes % (24.0-44.0) % Monocytes % (0.0-12.0) % Eosinophils % (0.00-5.0) % Basophils % (0.0-0.4) % Absolute Granulocytes (1.4-6.9) Basophils # (0-0.4) PT (8.83-12.87) SECONDS INR (0.8-3.0) APTT (24.1-36.1) SECONDS pO2/FiO2 Ratio 28.0 % VBG pH 7.47 H (7.32-7.42) VBG pCO2 at Pat Temp 31 L (42-55) mm/Hg VBG pO2 at Pat Temp 76 H (25-40) mm/Hg VBG HCO3 22.6 (22-28) meq/L VBG O2 Sat (Toni) 97.9 (95-100) VBG Base Excess 0.0 (-2.0-2.0) VBG Hemoglobin 16.9 VBG Carboxyhemoglobin 3.6 (0.0-6.9) % T HGB POC Potassium 4.4 (3.5-5.1) Sodium (137-145) mmol/L Potassium (3.5-5.1) mmol/L Chloride (98-107) mmol/L Carbon Dioxide (22-30) mmol/L Anion Gap (5-15) MEQ/L BUN (9-20) mg/dL Creatinine (0.66-1.25) mg/dL Estimated GFR ML/MIN Glucose (74-106) mg/dL Lactic Acid 3.3 H (0.4-2.0) Calcium (8.4-10.2) mg/dL Total Bilirubin (0.2-1.3) mg/dL AST (17-59) U/L ALT (0-50) U/L Alkaline Phosphatase (38-126) U/L Creatine Kinase (55-170) U/L Troponin I < 0.012 (0.000-0.034) ng/mL NT-Pro-B Natriuret Pep (0-900) pg/mL Serum Total Protein (6.3-8.2) g/dL Albumin (3.5-5.0) g/dL Slides for Path Review 05/06/19 05/06/19 05/07/19 Range/Units 21:13 21:13 00:39 WBC (4.0-10.5) K/mm3 RBC (4.1-5.6) M/mm3 Hgb (12.5-18.0) gm/dl Hct (42-50) % MCV (78-100) fl MCH (26-32) pg MCHC (32-36) g/dl RDW (11.5-14.0) % Plt Count (150-450) K/mm3 MPV (6-9.5) fl Gran % (36.0-66.0) % Eos # (Auto) (0-0.5) Absolute Lymphs (auto) (1.0-4.6) Absolute Monos (auto) (0.0-1.3) Lymphocytes % (24.0-44.0) % Monocytes % (0.0-12.0) % Eosinophils % (0.00-5.0) % Basophils % (0.0-0.4) % Absolute Granulocytes (1.4-6.9) Basophils # (0-0.4) PT (8.83-12.87) SECONDS INR (0.8-3.0) APTT (24.1-36.1) SECONDS pO2/FiO2 Ratio % VBG pH (7.32-7.42) VBG pCO2 at Pat Temp (42-55) mm/Hg VBG pO2 at Pat Temp (25-40) mm/Hg VBG HCO3 (22-28) meq/L VBG O2 Sat (Toni) (95-100) VBG Base Excess (-2.0-2.0) VBG Hemoglobin VBG Carboxyhemoglobin (0.0-6.9) % T HGB POC Potassium (3.5-5.1) Sodium (137-145) mmol/L Potassium (3.5-5.1) mmol/L Chloride (98-107) mmol/L Carbon Dioxide (22-30) mmol/L Anion Gap (5-15) MEQ/L BUN (9-20) mg/dL Creatinine (0.66-1.25) mg/dL Estimated GFR ML/MIN Glucose (74-106) mg/dL Lactic Acid 1.2 (0.4-2.0) Calcium (8.4-10.2) mg/dL Total Bilirubin (0.2-1.3) mg/dL AST (17-59) U/L ALT (0-50) U/L Alkaline Phosphatase (38-126) U/L Creatine Kinase (55-170) U/L Troponin I < 0.012 < 0.012 (0.000-0.034) ng/mL NT-Pro-B Natriuret Pep (0-900) pg/mL Serum Total Protein (6.3-8.2) g/dL Albumin (3.5-5.0) g/dL Slides for Path Review 05/07/19 05/07/19 05/07/19 Range/Units 03:33 03:33 03:33 WBC 6.4 (4.0-10.5) K/mm3 RBC 5.27 (4.1-5.6) M/mm3 Hgb 15.1 (12.5-18.0) gm/dl Hct 44.9 (42-50) % MCV 85.2 (78-100) fl MCH 28.7 (26-32) pg MCHC 33.6 (32-36) g/dl RDW 16.5 H (11.5-14.0) % Plt Count 195 (150-450) K/mm3 MPV 9.5 (6-9.5) fl Gran % 90.7 H (36.0-66.0) % Eos # (Auto) 0.03 (0-0.5) Absolute Lymphs (auto) 0.25 L (1.0-4.6) Absolute Monos (auto) 0.30 (0.0-1.3) Lymphocytes % 3.9 L (24.0-44.0) % Monocytes % 4.7 (0.0-12.0) % Eosinophils % 0.5 (0.00-5.0) % Basophils % 0.2 (0.0-0.4) % Absolute Granulocytes 5.80 (1.4-6.9) Basophils # 0.01 (0-0.4) PT (8.83-12.87) SECONDS INR (0.8-3.0) APTT (24.1-36.1) SECONDS pO2/FiO2 Ratio % VBG pH (7.32-7.42) VBG pCO2 at Pat Temp (42-55) mm/Hg VBG pO2 at Pat Temp (25-40) mm/Hg VBG HCO3 (22-28) meq/L VBG O2 Sat (Toni) (95-100) VBG Base Excess (-2.0-2.0) VBG Hemoglobin VBG Carboxyhemoglobin (0.0-6.9) % T HGB POC Potassium (3.5-5.1) Sodium 136 L (137-145) mmol/L Potassium 3.8 (3.5-5.1) mmol/L Chloride 107 (98-107) mmol/L Carbon Dioxide 22 (22-30) mmol/L Anion Gap 11.2 (5-15) MEQ/L BUN 19 (9-20) mg/dL Creatinine 0.89 (0.66-1.25) mg/dL Estimated GFR > 60.0 ML/MIN Glucose 167 H (74-106) mg/dL Lactic Acid (0.4-2.0) Calcium 9.5 (8.4-10.2) mg/dL Total Bilirubin (0.2-1.3) mg/dL AST (17-59) U/L ALT (0-50) U/L Alkaline Phosphatase (38-126) U/L Creatine Kinase (55-170) U/L Troponin I 0.013 (0.000-0.034) ng/mL NT-Pro-B Natriuret Pep (0-900) pg/mL Serum Total Protein (6.3-8.2) g/dL Albumin (3.5-5.0) g/dL Slides for Path Review YES 05/07/19 Range/Units 06:15 WBC (4.0-10.5) K/mm3 RBC (4.1-5.6) M/mm3 Hgb (12.5-18.0) gm/dl Hct (42-50) % MCV (78-100) fl MCH (26-32) pg MCHC (32-36) g/dl RDW (11.5-14.0) % Plt Count (150-450) K/mm3 MPV (6-9.5) fl Gran % (36.0-66.0) % Eos # (Auto) (0-0.5) Absolute Lymphs (auto) (1.0-4.6) Absolute Monos (auto) (0.0-1.3) Lymphocytes % (24.0-44.0) % Monocytes % (0.0-12.0) % Eosinophils % (0.00-5.0) % Basophils % (0.0-0.4) % Absolute Granulocytes (1.4-6.9) Basophils # (0-0.4) PT (8.83-12.87) SECONDS INR (0.8-3.0) APTT (24.1-36.1) SECONDS pO2/FiO2 Ratio % VBG pH (7.32-7.42) VBG pCO2 at Pat Temp (42-55) mm/Hg VBG pO2 at Pat Temp (25-40) mm/Hg VBG HCO3 (22-28) meq/L VBG O2 Sat (Toni) (95-100) VBG Base Excess (-2.0-2.0) VBG Hemoglobin VBG Carboxyhemoglobin (0.0-6.9) % T HGB POC Potassium (3.5-5.1) Sodium (137-145) mmol/L Potassium (3.5-5.1) mmol/L Chloride (98-107) mmol/L Carbon Dioxide (22-30) mmol/L Anion Gap (5-15) MEQ/L BUN (9-20) mg/dL Creatinine (0.66-1.25) mg/dL Estimated GFR ML/MIN Glucose (74-106) mg/dL Lactic Acid (0.4-2.0) Calcium (8.4-10.2) mg/dL Total Bilirubin (0.2-1.3) mg/dL AST (17-59) U/L ALT (0-50) U/L Alkaline Phosphatase (38-126) U/L Creatine Kinase (55-170) U/L Troponin I 0.023 (0.000-0.034) ng/mL NT-Pro-B Natriuret Pep (0-900) pg/mL Serum Total Protein (6.3-8.2) g/dL Albumin (3.5-5.0) g/dL Slides for Path Review - Radiology Impressions Radiology Exams & Impressions: Radiology Procedures Category Date Time Status CHEST 1 VIEW (PORTABLE) Stat Exams 05/06/19 18:05 Completed CHEST WITH CONTRAST [CT] Stat Exams 05/06/19 20:10 Completed - Other Procedures and Tests Respiratory Therapy 05/06/19 22:39 Oxygen Nasal Cannula 4 lpm 05/06/19 22:40 Respiratory Therapy Assessment DAILY 05/07/19 01:52 BiPap/CPAP ROUTINE 05/07/19 07:00 Peak Expiratory Flow Rate ONCE Assessment/Plan (1) COPD exacerbation Current Visit: Yes Status: Acute Assessment & Plan: Last Vital Signs Temp 97.5 F 05/07/19 07:30 Pulse 94 H 05/07/19 11:19 Resp 26 H 05/07/19 11:19 BP 99/58 05/07/19 07:30 Pulse Ox 97 05/07/19 07:30 Allergies No Known Drug Allergies Allergy (Verified 05/06/19 18:15) Active Medications Acetaminophen (Tylenol 325 Mg) 325 mg PO Q4H PRN PRN PRN Reason: PAIN, FEVER, HEADACHE Stop: 06/05/19 22:17 Albuterol/Ipratropium (Duoneb 0.5-3 Mg/3 Ml Neb) 3 ml IH Q4HRT ALIYAH Stop: 06/05/19 22:59 Last Admin: 05/07/19 11:18 Dose: 3 ml Albuterol/Ipratropium (Duoneb 0.5-3 Mg/3 Ml Neb) 3 ml IH Q4HPRN PRN PRN Reason: SHORTNESS OF BREATH/WHEEZING Stop: 06/06/19 00:44 Last Admin: 05/07/19 00:45 Dose: 3 ml Apixaban (Eliquis 2.5 Mg Tablet) 5 mg PO BID [facility] Stop: 06/06/19 00:29 Last Admin: 05/07/19 10:53 Dose: 5 mg Docusate Sodium (Colace 100 Mg) 100 mg PO BIDPRN PRN PRN Reason: CONSTIPATION Stop: 06/05/19 22:17 Cefepime HCl 1 g/ Dextrose 100 mls @ 200 mls/hr IV Q12HT ALIYAH Stop: 06/05/19 22:17 Last Admin: 05/07/19 10:53 Dose: 200 mls/hr Vancomycin HCl 1 gm/ Sodium (Chloride) 250 mls @ 167 mls/hr IV Q18H ALIYAH Stop: 06/05/19 22:17 Miscellaneous Information (Medication Intervention) 1 each MC .RT TO CHECK WITH PT ALIYAH Stop: 06/06/19 09:29 Nebivolol (Bystolic 5 Mg) 5 mg PO HS ALIYAH Stop: 06/06/19 00:29 Last Admin: 05/07/19 00:32 Dose: 5 mg Potassium Chloride (Klor Con 10 Meq) 10 meq PO BID ALIYAH Stop: 06/06/19 00:29 Last Admin: 05/07/19 10:53 Dose: 10 meq Prednisone (Deltasone 20 Mg) 20 mg PO DAILY ALIYAH Stop: 06/06/19 09:59 Last Admin: 05/07/19 10:53 Dose: 20 mg Intake & Output 05/07/19 05/08/19 11:59 11:59 Intake Total 1380 Output Total 2150 Balance -770 Weight 60 kg Orders 05/06/19 22:39 Oxygen Nasal Cannula 4 lpm 05/06/19 22:40 Respiratory Therapy Assessment DAILY 05/06/19 22:41 Pulse Oximetry .continuos 05/07/19 00:08 [employer] Plaster/Discharge Plan Nutritional Admission Screen 05/07/19 00:45 Albuterol/Ipratropium 3ml Neb* [DUONEB 0.5-3 MG/3 ml Neb] 3 ml IH Q4HPRN PRN 05/07/19 07:00 Peak Expiratory Flow Rate ONCE 05/07/19 09:30 Medication Intervention 1 each MC .RT TO CHECK WITH PT 05/07/19 10:00 Prednisone 20 mg [Deltasone 20 mg] 20 mg PO DAILY Lab Tests 05/06/19 05/06/19 05/06/19 18:19 18:19 18:19 WBC 12.7 H RBC 5.88 H Hgb 16.9 Hct 49.3 MCV 83.8 MCH 28.7 MCHC 34.3 RDW 17.5 H Plt Count 247 MPV 9.6 H Gran % 89.3 H Eos # (Auto) 0.01 Absolute Lymphs (auto) 0.45 L Absolute Monos (auto) 0.86 Lymphocytes % 3.6 L Monocytes % 6.8 Eosinophils % 0.1 Basophils % 0.2 Absolute Granulocytes 11.32 H Basophils # 0.02 PT 25.0 H INR 2.18 APTT 38.5 H pO2/FiO2 Ratio VBG pH VBG pCO2 at Pat Temp VBG pO2 at Pat Temp VBG HCO3 VBG O2 Sat (Toni) VBG Base Excess VBG Hemoglobin VBG Carboxyhemoglobin POC Potassium Sodium 138 Potassium 4.4 Chloride 105 Carbon Dioxide 22 Anion Gap 15.4 H BUN 21 H Creatinine 1.09 Estimated GFR > 60.0 Glucose 148 H Lactic Acid Calcium 10.4 H Total Bilirubin 1.70 H AST 20 ALT 21 Alkaline Phosphatase 66 Creatine Kinase 27 L Troponin I NT-Pro-B Natriuret Pep 1900 H Serum Total Protein 7.3 Albumin 4.0 Slides for Path Review YES 05/06/19 05/06/19 05/06/19 18:19 18:30 18:45 WBC RBC Hgb Hct MCV MCH MCHC RDW Plt Count MPV Gran % Eos # (Auto) Absolute Lymphs (auto) Absolute Monos (auto) Lymphocytes % Monocytes % Eosinophils % Basophils % Absolute Granulocytes Basophils # PT INR APTT pO2/FiO2 Ratio 28.0 VBG pH 7.47 H VBG pCO2 at Pat Temp 31 L VBG pO2 at Pat Temp 76 H VBG HCO3 22.6 VBG O2 Sat (Toni) 97.9 VBG Base Excess 0.0 VBG Hemoglobin 16.9 VBG Carboxyhemoglobin 3.6 POC Potassium 4.4 Sodium Potassium Chloride Carbon Dioxide Anion Gap BUN Creatinine Estimated GFR Glucose Lactic Acid 3.3 H Calcium Total Bilirubin AST ALT Alkaline Phosphatase Creatine Kinase Troponin I < 0.012 NT-Pro-B Natriuret Pep Serum Total Protein Albumin Slides for Path Review 05/06/19 05/06/19 05/07/19 21:13 21:13 00:39 WBC RBC Hgb Hct MCV MCH MCHC RDW Plt Count MPV Gran % Eos # (Auto) Absolute Lymphs (auto) Absolute Monos (auto) Lymphocytes % Monocytes % Eosinophils % Basophils % Absolute Granulocytes Basophils # PT INR APTT pO2/FiO2 Ratio VBG pH VBG pCO2 at Pat Temp VBG pO2 at Pat Temp VBG HCO3 VBG O2 Sat (Toni) VBG Base Excess VBG Hemoglobin VBG Carboxyhemoglobin POC Potassium Sodium Potassium Chloride Carbon Dioxide Anion Gap BUN Creatinine Estimated GFR Glucose Lactic Acid 1.2 Calcium Total Bilirubin AST ALT Alkaline Phosphatase Creatine Kinase Troponin I < 0.012 < 0.012 NT-Pro-B Natriuret Pep Serum Total Protein Albumin Slides for Path Review 05/07/19 05/07/19 05/07/19 03:33 03:33 03:33 WBC 6.4 RBC 5.27 Hgb 15.1 Hct 44.9 MCV 85.2 MCH 28.7 MCHC 33.6 RDW 16.5 H Plt Count 195 MPV 9.5 Gran % 90.7 H Eos # (Auto) 0.03 Absolute Lymphs (auto) 0.25 L Absolute Monos (auto) 0.30 Lymphocytes % 3.9 L Monocytes % 4.7 Eosinophils % 0.5 Basophils % 0.2 Absolute Granulocytes 5.80 Basophils # 0.01 PT INR APTT pO2/FiO2 Ratio VBG pH VBG pCO2 at Pat Temp VBG pO2 at Pat Temp VBG HCO3 VBG O2 Sat (Toni) VBG Base Excess VBG Hemoglobin VBG Carboxyhemoglobin POC Potassium Sodium 136 L Potassium 3.8 Chloride 107 Carbon Dioxide 22 Anion Gap 11.2 BUN 19 Creatinine 0.89 Estimated GFR > 60.0 Glucose 167 H Lactic Acid Calcium 9.5 Total Bilirubin AST ALT Alkaline Phosphatase Creatine Kinase Troponin I 0.013 NT-Pro-B Natriuret Pep Serum Total Protein Albumin Slides for Path Review YES 05/07/19 06:15 WBC RBC Hgb Hct MCV MCH MCHC RDW Plt Count MPV Gran % Eos # (Auto) Absolute Lymphs (auto) Absolute Monos (auto) Lymphocytes % Monocytes % Eosinophils % Basophils % Absolute Granulocytes Basophils # PT INR APTT pO2/FiO2 Ratio VBG pH VBG pCO2 at Pat Temp VBG pO2 at Pat Temp VBG HCO3 VBG O2 Sat (Toni) VBG Base Excess VBG Hemoglobin VBG Carboxyhemoglobin POC Potassium Sodium Potassium Chloride Carbon Dioxide Anion Gap BUN Creatinine Estimated GFR Glucose Lactic Acid Calcium Total Bilirubin AST ALT Alkaline Phosphatase Creatine Kinase Troponin I 0.023 NT-Pro-B Natriuret Pep Serum Total Protein Albumin Slides for Path Review Code(s): J44.1 - CHRONIC OBSTRUCTIVE PULMONARY DISEASE W (ACUTE) EXACERBATION (2) SOB (shortness of breath) Current Visit: Yes Status: Acute Onset Date: ~12/19/17 Code(s): R06.02 - SHORTNESS OF BREATH
[2019-05-07] MEDS: VANCOCIN 1 GM VIAL*** 1 GM in Sodium Chloride 0.9% 250 ML 250 ML IV SCH (16:45)
[2019-05-08] MEDS: DUONEB 0.5-3 MG/3 ml Neb IH SCH ×3 (02:05→11:08)
[2019-05-08 08:28] VITALS: BP 121/75
[2019-05-08] MEDS: ELIQUIS 2.5 MG TABLET PO SCH (09:24)
[2019-05-08] MEDS: DELTASONE 20 MG PO SCH (09:24)
[2019-05-08] MEDS: MAXIPIME 1 GM** 1 G in Dextrose 5%/Water IV Soln. 100ML PLUS BAG 100 ML IV SCH (09:24)
[2019-05-08] MEDS: Klor Con 10 MEQ PO SCH (09:24)
[2019-05-08] MEDS: VANCOCIN 1 GM VIAL*** 1 GM in Sodium Chloride 0.9% 250 ML 250 ML IV SCH (10:04)
[2019-05-08 11:12] VITALS: PULSE 84; O2SAT 93
--- NOTE | 2019-05-08 12:39 | PCM.DS ---
Discharge Summary Date of Admission: 05/06/19 21:38 Admitting Physician: GALEN DOBBINS Primary Care Provider: GALEN DOBBINS Allergies Allergies No Known Drug Allergies Allergy (Verified 05/06/19 18:15) Hospital Summary - Hospital Course Hospital Course: Chief Complaint Diagnosis Pneumonia, COPD exacerbation Allergies Allergy/AdvReac Type Severity Reaction Status Date / Time No Known Drug Allergies Allergy Verified 05/06/19 18:15 Vital Signs (Last 24 hours) Temp Pulse Resp BP Pulse Ox 05/08/19 11:11 84 18 93 L 05/08/19 07:00 99.3 F 86 17 121/75 05/08/19 06:53 98 H 19 94 L 05/08/19 03:00 98.8 F 81 22 99/55 95 05/08/19 02:06 93 H 26 H 90 L 05/07/19 23:17 82 27 H 92 L 05/07/19 23:05 99.0 F 98 H 26 H 90/50 91 L 05/07/19 19:59 93 H 20 94 L 05/07/19 19:52 98.2 F 88 21 82/40 93 L 05/07/19 16:50 98.3 F 99 H 22 116/55 94 L 05/07/19 15:01 22 05/07/19 13:00 98.2 F 101 H 22 129/57 93 L Home Medications Medication Instructions Recorded Confirmed Last Taken Type Fluticasone/Umeclidin/Vilanter 1 each IH DAILY 05/06/19 05/06/19 05/06/19 History [Treledarin Ellipta 100-62.5-25] Levofloxacin [Levaquin] 500 mg PO DAILY #5 tablet 05/08/19 Unknown Rx Current Medications Discontinued Medications Generic Name Dose Route Start Last Admin Trade Name Freq PRN Reason Stop Dose Admin Acetaminophen 325 mg 05/06/19 22:18 Tylenol 325 Mg PO 06/05/19 22:17 Q4H PRN PRN PAIN, FEVER, HEADACHE Albuterol/Ipratropium 3 ml 05/06/19 18:06 05/06/19 18:35 Duoneb 0.5-3 Mg/3 Ml Neb IH 05/06/19 18:07 3 ml STAT ONE Administration Albuterol/Ipratropium 3 ml 05/06/19 18:07 05/06/19 18:38 Duoneb 0.5-3 Mg/3 Ml Neb IH 05/06/19 18:08 3 ml STAT ONE Administration Albuterol/Ipratropium 3 ml 05/06/19 18:07 05/06/19 18:38 Duoneb 0.5-3 Mg/3 Ml Neb IH 05/06/19 18:08 3 ml STAT ONE Administration Albuterol/Ipratropium Confirm 05/06/19 18:28 Duoneb 0.5-3 Mg/3 Ml Neb Administered 05/06/19 18:29 Dose 3 ml IH .STK-MED ONE Albuterol/Ipratropium Confirm 05/06/19 18:37 Duoneb 0.5-3 Mg/3 Ml Neb Administered 05/06/19 18:38 Dose 6 ml IH .STK-MED ONE Albuterol/Ipratropium 3 ml 05/06/19 23:00 05/08/19 11:08 Duoneb 0.5-3 Mg/3 Ml Neb IH 06/05/19 22:59 3 ml Q4HRT ALIYAH Administration Albuterol/Ipratropium 3 ml 05/07/19 00:45 05/07/19 00:45 Duoneb 0.5-3 Mg/3 Ml Neb IH 06/06/19 00:44 3 ml Q4HPRN PRN Administration SHORTNESS OF BREATH/WHEEZING Apixaban 5 mg 05/07/19 00:30 05/08/19 09:24 Eliquis 2.5 Mg Tablet PO 06/06/19 00:29 5 mg BID ALIYAH Administration Aspirin 81 mg 05/06/19 18:04 05/06/19 18:36 Baby Aspirin 81 Mg Chew PO 05/06/19 18:05 81 mg STAT ONE Administration Aspirin Confirm 05/06/19 18:34 Baby Aspirin 81 Mg Chew Administered 05/06/19 18:35 Dose 81 mg .ROUTE .STK-MED ONE Docusate Sodium 100 mg 05/06/19 22:18 Colace 100 Mg PO 06/05/19 22:17 BIDPRN PRN CONSTIPATION Furosemide 20 mg 05/07/19 00:30 05/07/19 00:32 Lasix 20 Mg/2 Ml IV 05/07/19 00:31 20 mg ONCE ONE Administration Sodium Chloride 1,000 mls @ 999 mls/hr 05/06/19 18:04 05/06/19 19:44 Sodium Chloride 0.9% 1000 Ml IV 05/06/19 19:04 Infused .Q1H1M STA Infusion Sodium Chloride Confirm 05/06/19 18:34 Sodium Chloride 0.9% 1000 Ml Administered 05/06/19 18:35 Dose 1,000 mls @ ud .ROUTE .STK-MED ONE Cefepime HCl 1 g/ Sodium 100 mls @ 200 mls/hr 05/06/19 19:26 05/06/19 20:17 Chloride IV 05/06/19 19:55 200 mls/hr STAT STA Administration Sodium Chloride 1,000 mls @ 999 mls/hr 05/06/19 19:29 05/06/19 20:46 Sodium Chloride 0.9% 1000 Ml IV 05/06/19 20:29 Infused .Q1H1M STA Infusion Sodium Chloride Confirm 05/06/19 19:37 Sodium Chloride 0.9% 1000 Ml Administered 05/06/19 19:38 Dose 1,000 mls @ ud .ROUTE .STK-MED ONE Cefepime HCl 1 g/ Dextrose 100 mls @ 200 mls/hr 05/06/19 22:18 05/08/19 09:24 IV 06/05/19 22:17 200 mls/hr Q12HT ALIYAH Administration Vancomycin HCl 1 gm/ Sodium 250 mls @ 167 mls/hr 05/06/19 22:18 05/06/19 22: 26 Chloride IV 06/05/19 22:17 167 mls/hr Q24H ALIYAH Administration Vancomycin HCl Confirm 05/06/19 22:23 Vancomycin 1gm/ Ns 250ml Administered 05/06/19 22:24 Dose 250 mls @ ud IV .STK-MED ONE Vancomycin HCl 1 gm/ Sodium 250 mls @ 167 mls/hr 05/07/19 16:00 05/08/19 10: 04 Chloride IV 06/05/19 22:17 167 mls/hr Q18H ALIYAH Administration Miscellaneous Information 1 each 05/07/19 09:30 Medication Intervention MC 06/06/19 09:29 .RT TO CHECK WITH PT ALIYAH Nebivolol 5 mg 05/07/19 00:30 05/07/19 23:52 Bystolic 5 Mg PO 06/06/19 00:29 Not Given HS ALIYAH Potassium Chloride 10 meq 05/07/19 00:30 05/08/19 09:24 Klor Con 10 Meq PO 06/06/19 00:29 10 meq BID ALIYAH Administration Prednisone 20 mg 05/07/19 10:00 Deltasone 5 Mg PO 06/06/19 09:59 DAILY ALIYAH Prednisone 20 mg 05/07/19 10:00 05/08/19 09:24 Deltasone 20 Mg PO 06/06/19 09:59 20 mg DAILY ALIYAH Administration Intake & Output (Last 24 hours) 05/06/19 05/07/19 05/08/19 05/09/19 11:59 11:59 11:59 11:59 Intake Total 1380 868 Output Total 2150 1325 Balance -770 -457 Weight 60 kg Microbiology Results (Last 24 hours) 05/06/19 19:45 Blood Blood Culture Gram Stain - Pending 05/06/19 19:45 Blood Blood Culture - Preliminary NO GROWTH TO DATE 05/06/19 19:35 Blood Blood Culture Gram Stain - Pending 05/06/19 19:35 Blood Blood Culture - Preliminary NO GROWTH TO DATE 05/07/19 04:00 Urine, Indwelling Catheter Urine Culture - Final NO GROWTH Orders (Last 24 hours) Category Date Time Status Discharge Routine Discharge 05/08/19 Ordered Vancomycin HCl 1 gm Inj [Vancocin 1 gm Vial] 1 gm Med 05/07/19 16:00 Discontinued NaCl 0.9% 250 ml [Sodium Chloride 0.9% 250 ML] 250 ml IV Q18H Patient Care Notes (Last 24 hours) 05/08/19 09:50 (created 05/08/19 10:20) Case Management Note by Libra Escalante CONTINUES TO DENY NEEDS FOR DISCHARGE. INDEPENDENT WITH ALL ADL'S. DRIVES HIMSELF TO APPTS, AND PLANNING TO DRIVE HIMSELF HOME TODAY. Initialized on 05/08/19 10:20 - END OF NOTE 05/08/19 02:13 Respiratory Note by [place] Viera NURSING CALLED TO STATE THAT PT HAD GOTTEN TANGLED UP IN HIS BLANKETS AND WIRES AND HAD A SMALL PANIC ATTACK. PT SATS DROPPED DURING THIS EVENT. NURSING CALMED HIM DOWN AND CALLED TO ASK IF I COULD GO AHEAD AND GIVE HIS 0300 TX. I AGAIN REQUESTED TO PT TO WEAR BIPAP AND HE STATED THAT HE WOULD HAVE REALLY BAD ANXIETY THEN IF HE HAD TO WEAR THAT AGAIN. PT REFUSED. I LEFT BIPAP IN RM AND POST TX PLACED PT ON 4LPM. Initialized on 05/08/19 02:13 - END OF NOTE 05/07/19 16:05 Nutrition Note by Elizabeth Harper Asked pt about chew/swall pblms stated he has both at times. Left message for speech therapist to evaluate. Tricia MSRDLD Initialized on 05/07/19 16:05 - END OF NOTE - Vitals & Intake/Output Vital Signs: Vital Signs Temperature 99.3 F 05/08/19 07:00 Pulse Rate 84 05/08/19 11:11 Respiratory Rate 18 05/08/19 11:11 Blood Pressure 121/75 05/08/19 07:00 O2 Sat by Pulse Oximetry 93 L 05/08/19 11:11 Oxygen-Last Documented O2 Percentage 4 Liters = 36% Intake & Output: Intake & Output 05/06/19 05/07/19 05/08/19 05/09/19 11:59 11:59 11:59 11:59 Intake Total 1380 868 Output Total 2150 1325 Balance -770 -457 Weight 60 kg - Lab Result Diagrams: 05/07/19 03:33 05/07/19 03:33 Micro Results-Entire Visit: Microbiology 05/06/19 19:45 Blood Culture - Preliminary Blood NO GROWTH TO DATE 05/06/19 19:35 Blood Culture - Preliminary Blood NO GROWTH TO DATE 05/07/19 04:00 Urine Culture - Final Urine, Indwelling Catheter NO GROWTH - Radiology Exams Ordered Rad Exams-Entire Visit: Radiology Procedures Category Date Time Status CHEST 1 VIEW (PORTABLE) Stat Exams 05/06/19 18:05 Completed CHEST WITH CONTRAST [CT] Stat Exams 05/06/19 20:10 Completed - Procedures and Test Procedures and Tests throughout Hospitalization: Therapy Orders & Screens 05/06/19 18:51 Peak Expiratory Flow Rate ONCE Comment: Reason For Exam: Respiratory Therapy Assessment DAILY Comment: 05/06/19 22:39 Oxygen Nasal Cannula 4 lpm Comment: Diagnosis: Pneumonia 05/06/19 22:40 Respiratory Therapy Assessment DAILY Comment: Diagnosis: Pneumonia 05/07/19 01:52 BiPap/CPAP ROUTINE Comment: Diagnosis: Pneumonia, COPD exacerbation 05/07/19 07:00 Peak Expiratory Flow Rate ONCE Comment: Reason For Exam: Diagnosis: Pneumonia Discharge Exam General Appearance: no apparent distress, alert Neurologic Exam: alert, oriented x 3, cooperative, normal mood/affect, nml cerebellar function, sensation nml, No motor deficits Eye Exam: PERRL, EOMI, eyes nml inspection Ears, Nose, Throat Exam: normal ENT inspection, pharynx normal, moist mucous membranes Neck Exam: normal inspection, non-tender, supple, full range of motion Respiratory Exam: normal breath sounds, lungs clear, No respiratory distress Cardiovascular Exam: regular rate/rhythm, normal heart sounds Gastrointestinal/Abdomen Exam: soft, No tenderness, No mass Male Genitalia Exam: deferred Rectal Exam: deferred Back Exam: normal inspection, normal range of motion, No CVA tenderness, No vertebral tenderness Extremity Exam: normal inspection, normal range of motion Skin Exam: normal color, warm, dry Final Diagnosis/Problem List - Final Discharge Diagnosis/Problem (1) COPD exacerbation Status: Acute Code(s): J44.1 - CHRONIC OBSTRUCTIVE PULMONARY DISEASE W (ACUTE ) EXACERBATION (2) SOB (shortness of breath) Status: Acute Onset Date: ~12/19/17 Code(s): R06.02 - SHORTNESS OF BREATH - Discharge Discharge Date: 05/08/19 Disposition: Home, Self-Care Condition: Fair Prescriptions: New Levofloxacin [Levaquin] 500 mg PO DAILY #5 tablet Continue Albuterol/Ipratropium 3ml Neb* [DUONEB 0.5-3 MG/3 ml Neb] 3 ml IH QID #120 ampul.neb Potassium Chloride 10 meq PO BID Apixaban [Eliquis 5 mg Tablet] 5 mg PO BID 30 Days #60 tablet predniSONE [Prednisone] 20 mg PO DAILY Nebivolol HCl 5 MG [Bystolic 5 MG] 5 mg PO QHS Fluticasone/Umeclidin/Vilanter [Trelegy Ellipta 100-62.5-25] 1 each IH DAILY Instructions: Exacerbation of COPD (DC) Follow up with: GALEN DOBBINS MD [Primary Care Provider] - 05/16/19 1:45 pm Forms: Discharge Instructions
== END 2019-05-08 12:15 | disposition home or self-care (01) ==
LOC: ED 18:01 → MED SURG 21:38
PROVIDERS: ADMIT General Practice; ATTEND General Practice
DX: J44.1 Chronic obstructive pulmonary disease with (acute) exacerbation (principal); J18.9 Pneumonia, unspecified organism; I10 Essential (primary) hypertension; Z79.899 Other long term (current) drug therapy; Z79.01 Long term (current) use of anticoagulants; Z86.711 Personal history of pulmonary embolism
CPT/HCPCS: 36000; 36415; 71045; 71260; 80048; 80053; 82550; 82805; 83605; 83880; 84484; 85025; 85610; 85730; 87040; 87086; 93005; 93041; 93268; 94002; 94150; 94640; 94760; 94762; 96360; 96361; 96365; 99285; G0378; J0692; J1940; J3370; A9270-GY

== ENCOUNTER 2019-06-15 19:37 | Observation (INO) | payer MEDICARE ==
--- NOTE | 2019-06-15 19:38 | ERPHSYRPT ---
- History of Present Illness Time Seen by Provider: 06/15/19 19:38 Source: patient Exam Limitations: no limitations Physician History: 73year-old male with history of chronic respiratory failure secondary to COPD on 3 L oxygen, hypertension, pulmonary embolism on Eliquis date ER with the chief complaint of worsening shortness of breath since morning initially with activity and currently having shortness of breath even at rest. He has increased his oxygen 5L but still feeling short of breath. Patient can hardly walk a few steps before he has to rest because of shortness of breath. He feels tightness in his chest all over with wheezing and worsening cough productive of yellow-green sputum. He denies any palpitations or chest pain but has tightness. Patient reports symptoms similar to previous episodes when he has COPD exacerbations. He is taking steroids chronically and has been using neb treatments with no significant relief. Denies tobacco use.denies any fever or chills. Timing/Duration: today Activities at Onset: activity, rest Severity of Dyspnea-Max: moderate Severity of Dyspnea-Current: moderate Possible Cause: frequent episodes Modifying Factors: Improves With: activity, coughing Associated Symptoms: cough, chest pain/discomfort, wheezing, heaviness, productive cough, No ankle swelling, No leg swelling, No painful breathing International travel in last 2 weeks: No Allergies/Adverse Reactions: No Known Drug Allergies Allergy (Verified 06/15/19 19:38) Home Medications: Potassium Chloride 10 meq PO BID 11/16/16 [History] Nebivolol HCl 5 MG [Bystolic 5 MG] 5 mg PO QHS 03/23/19 [History] predniSONE [Prednisone] 20 mg PO DAILY 03/23/19 [History] Fluticasone/Umeclidin/Vilanter [Trelegy Ellipta 100-62.5-25] 1 each IH DAILY 10/23 [History] Hx Tetanus, Diphtheria Vaccination/Date Given: Yes Hx Influenza Vaccination/Date Given: Yes Hx Pneumococcal Vaccination/Date Given: Yes - Review of Systems Constitutional: Fatigue, No Fever, No Chills Eyes: No Symptoms Ears, Nose, & Throat: No Symptoms Respiratory: Cough, Dyspnea, Dyspnea on Exertion (KANG), Wheezing Cardiac: No Palpitations, No Orthopnea Abdominal/Gastrointestinal: No Symptoms Psychological: No Symptoms Endocrine: No Symptoms Hematologic/Lymphatic: No Symptoms Immunological/Allergic: No Symptoms - Past Medical History Pertinent Past Medical History: Yes Neurological History: No Pertinent History ENT History: No Pertinent History Cardiac History: Hypertension Respiratory History: Bronchitis, COPD, Pneumonia, Pulmonary Embolism Endocrine Medical History: No Pertinent History Musculoskeletal History: No Pertinent History GI Medical History: No Pertinent History History: No Pertinent History Psycho-Social History: No Pertinent History Male Reproductive Disorders: No Pertinent History Other Medical History: 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 - Past Surgical History Past Surgical History: Yes Neuro Surgical History: No Pertinent History Cardiac: No Pertinent History Respiratory: No Pertinent History Gastrointestinal: Cholecystectomy, Hernia Repair Genitourinary: No Pertinent History Musculoskeletal: No Pertinent History Male Surgical History: No Pertinent History Other Surgical History: cataract IOL left eye, back surgery, Surgery on right eye to bring up lower eyelid - Social History Smoking Status: Former smoker How long have you smoked: 62 years Exposure to second hand smoke: Yes Drug Use: none Patient Lives Alone: No - Nursing Vital Signs Nursing Vital Signs: Initial Vital Signs Temperature 97.7 F 06/15/19 19:40 Pulse Rate 48 L 06/15/19 19:40 Respiratory Rate 30 H 06/15/19 19:40 Blood Pressure 146/70 06/15/19 19:40 O2 Sat by Pulse Oximetry 91 L 06/15/19 19:40 Pain Scale Pain Intensity 0 - Physical Exam General Appearance: moderate distress Eye Exam: eyes nml inspection, scleral icterus Ears, Nose, Throat Exam: hearing grossly normal, pharyngeal erythema Neck Exam: normal inspection, non-tender, full range of motion Respiratory Exam: diminished breath sounds, accessory muscle use, crackles/rales , wheezing, No chest tenderness Cardiovascular/Chest Exam: normal heart sounds, tachycardia Abdominal/Gastrointestinal Exam: soft, normal bowel sounds Extremity Exam: non-tender, normal range of motion, normal inspection Neurologic Exam: alert, oriented x 3, cooperative Skin Exam: normal color, warm, dry SpO2 Interpretation: ABG ordered, O2 applied O2 Delivery: Nasal Cannula - Course EKG Interpreted by Me: RATE (90), Sinus Rhythm, Non-specific ST Changes Ordered Tests: Active Orders 24 hr Category Date Time Status Up With Assistance ROUTINE Activity 06/15/19 21:20 Active Equipment Man STAT Care 06/15/19 20:02 Active Code Status Order ROUTINE Care 06/15/19 21:20 Active IV Care Q6H Care 06/15/19 21:20 Active IV Insertion STAT Care 06/15/19 20:01 Active Oxygen-ED Only Nasal Cannula 3 lpm Care 06/15/19 20:[address] in Observation ROUTINE Care 06/15/19 21:20 Active Pulse Oximetry (ED) STAT Care 06/15/19 20:01 Active Jake Floyd, Apply ROUTINE Care 06/15/19 21:20 Active Weight,Daily 0600 Care 06/15/19 21:20 Active CHEST 1 VIEW (PORTABLE) Stat Exams 06/15/19 20:01 Taken ARTERIAL BLOOD GASES Stat Lab 06/15/19 20:11 Completed BLOOD CULTURE Stat Lab 06/15/19 Ordered CBC AM.LAB Lab 06/16/19 04:00 Ordered CBC W DIFF Stat Lab 06/15/19 20:01 Completed CMP AM.LAB Lab 06/16/19 04:00 Ordered CMP Stat Lab 06/15/19 20:01 Completed Manual Differential NC Stat Lab 06/15/19 20:01 Completed NT PRO BNP Stat Lab 06/15/19 20:01 Completed TROPONIN Q3H Lab 06/15/19 20:15 Completed TROPONIN Q3H Lab 06/15/19 23:15 Ordered TROPONIN Q3H Lab 06/16/19 02:15 Ordered TROPONIN Q3H Lab 06/16/19 05:15 Ordered TROPONIN Q3H Lab 06/16/19 08:15 Ordered Oxygen Nasal Cannula 3 lpm RT 06/15/19 21:20 Completed Respiratory Therapy Assessment DAILY RT 06/15/19 19:55 Completed Medication Summary Generic Name Dose Route Start Last Admin Trade Name Freq PRN Reason Stop Dose Admin Albuterol Sulfate 2.5 mg 06/16/19 01:00 Proventil 2.5 Mg/3 Ml Neb IH 07/16/19 00:59 Q6HRT ALIYAH Magnesium Sulfate/Dextrose 100 mls @ 100 mls/hr 06/15/19 20:30 06/15/19 20:27 Magnesium 1 Gm / 100 Ml D5w IV 06/15/19 22:29 100 mls/hr Q1H ALIYAH Administration Levofloxacin/Dextrose 750 mg in 150 mls @ 100 mls/hr 06/15/19 21:00 06/15/19 21:12 Levofloxacin 750mg/150ml D5w IV 06/15/19 22:29 100 ml/hr STAT STA 100 mls/hr Administration Discontinued Medications Generic Name Dose Route Start Last Admin Trade Name Ana Paula PRN Reason Stop Dose Admin Albuterol/Ipratropium Confirm 06/15/19 19:41 Duoneb 0.5-3 Mg/3 Ml Neb Administered 06/15/19 19:42 Dose 3 ml IH .STK-MED ONE Albuterol/Ipratropium 3 ml 06/15/19 19:55 06/15/19 19:56 Duoneb 0.5-3 Mg/3 Ml Neb IH 06/15/19 19:56 3 ml STAT ONE Administration Albuterol/Ipratropium 3 ml 06/15/19 20:03 06/15/19 21:17 Duoneb 0.5-3 Mg/3 Ml Neb IH 06/15/19 20:04 3 ml STAT ONE Administration Albuterol/Ipratropium Confirm 06/15/19 20:22 Duoneb 0.5-3 Mg/3 Ml Neb Administered 06/15/19 20:23 Dose 3 ml IH .STK-MED ONE Aspirin 324 mg 06/15/19 20:01 06/15/19 20:12 Baby Aspirin 81 Mg Chew PO 06/15/19 20:02 324 mg STAT ONE Administration Aspirin Confirm 06/15/19 20:11 Baby Aspirin 81 Mg Chew Administered 06/15/19 20:12 Dose 324 mg .ROUTE .STK-MED ONE Dextrose Confirm 06/15/19 20:19 D5w 100ml Mini Bag 100 Ml Administered 06/15/19 20:20 Dose 100 mls @ ud IV .STK-MED ONE Levofloxacin/Dextrose Confirm 06/15/19 21:06 Levofloxacin 750mg/150ml D5w Administered 06/15/19 21:07 Dose 750 mg in 150 mls @ ud IV .STK-MED ONE Magnesium Sulfate Confirm 06/15/19 20:19 Magnesium Sulfate 1 Gm/2 Ml Vial Administered 06/15/19 20:20 Dose 2 gm .ROUTE .STK-MED ONE Methylprednisolone Sodium Succinate 125 mg 06/15/19 20:03 06/15/19 20:13 Solu-Medrol 125 Mg IV 06/15/19 20:04 125 mg STAT ONE Administration Methylprednisolone Sodium Succinate Confirm 06/15/19 20:11 Solu-Medrol 125 Mg Administered 06/15/19 20:12 Dose 125 mg .ROUTE .STK-MED ONE Lab/Rad Data: Laboratory Result Diagrams 06/15/19 20:01 06/15/19 20:01 Laboratory Results 06/15/19 06/15/19 06/15/19 Range/Units 20:15 20:11 20:01 WBC (4.0-10.5) K/mm3 RBC (4.1-5.6) M/mm3 Hgb (12.5-18.0) gm/dl Hct (42-50) % MCV (78-100) fl MCH (26-32) pg MCHC (32-36) g/dl RDW (11.5-14.0) % Plt Count (150-450) K/mm3 MPV (6-9.5) fl Puncture Site RIGHT RADIAL pCO2 34 L (35-45) mmHg pO2 77 (75-100) mmHg Base Excess 3.7 H (-2.0-2.0) O2 Saturation 94.9 (94-100) g/dF ABG pH 7.50 H (7.35-7.45) ABG HCO3 26.5 (22-28) ABG O2 Sat (Measured) 98.0 (95-100) % Ravi Test YES A-a Gradient 109 a/A Ratio 0.41 Hemoglobin 15.9 Carboxyhemoglobin 2.5 (0.0-6.9) % THgb Methemoglobin 0.8 L (1.4-1.5) % Temperature 37.0 C POC O2 Flow Rate 32 % Sodium 140 (137-145) mmol/L Potassium 4.2 4.4 (3.5-5.1) mmol/L Chloride 104 (98-107) mmol/L Carbon Dioxide 26 (22-30) mmol/L Anion Gap 14.2 (5-15) MEQ/L BUN 15 (9-20) mg/dL Creatinine 0.98 (0.66-1.25) mg/dL Estimated GFR > 60.0 ML/MIN Glucose 93 (74-106) mg/dL Calcium 10.3 H (8.4-10.2) mg/dL Total Bilirubin 1.00 (0.2-1.3) mg/dL AST 26 (17-59) U/L ALT 24 (0-50) U/L Alkaline Phosphatase 71 (38-126) U/L Troponin I < 0.012 (0.000-0.034) ng/mL NT-Pro-B Natriuret Pep 1630 H (0-900) pg/mL Serum Total Protein 6.8 (6.3-8.2) g/dL Albumin 3.7 (3.5-5.0) g/dL 06/15/19 Range/Units 20:01 WBC 8.6 (4.0-10.5) K/mm3 RBC 5.51 (4.1-5.6) M/mm3 Hgb 15.7 (12.5-18.0) gm/dl Hct 47.3 (42-50) % MCV 85.8 (78-100) fl MCH 28.5 (26-32) pg MCHC 33.2 (32-36) g/dl RDW 16.7 H (11.5-14.0) % Plt Count 220 (150-450) K/mm3 MPV 9.9 H (6-9.5) fl Puncture Site pCO2 (35-45) mmHg pO2 (75-100) mmHg Base Excess (-2.0-2.0) O2 Saturation (94-100) g/dF ABG pH (7.35-7.45) ABG HCO3 (22-28) ABG O2 Sat (Measured) (95-100) % Ravi Test A-a Gradient a/A Ratio Hemoglobin Carboxyhemoglobin (0.0-6.9) % THgb Methemoglobin (1.4-1.5) % Temperature C POC O2 Flow Rate % Sodium (137-145) mmol/L Potassium (3.5-5.1) mmol/L Chloride (98-107) mmol/L Carbon Dioxide (22-30) mmol/L Anion Gap (5-15) MEQ/L BUN (9-20) mg/dL Creatinine (0.66-1.25) mg/dL Estimated GFR ML/MIN Glucose (74-106) mg/dL Calcium (8.4-10.2) mg/dL Total Bilirubin (0.2-1.3) mg/dL AST (17-59) U/L ALT (0-50) U/L Alkaline Phosphatase (38-126) U/L Troponin I (0.000-0.034) ng/mL NT-Pro-B Natriuret Pep (0-900) pg/mL Serum Total Protein (6.3-8.2) g/dL Albumin (3.5-5.0) g/dL - Progress Progress: improved, re-examined Air Movement: fair Progress Note: 73 years old is evaluated for respiratory distress. He is given breathing treatments and Solu-Medrol. He also has multiple PVCs, given IV magnesium, and evaluation patient is feeling much better but still had wheezing. Chest x-ray showed right lower lobe infiltrative changes. Started on Levaquin. has normal white count and lactate. Negative troponins. Patient is on Eliquis do not think needs any PE workup as it seems more of a COPD exacerbation going to his pneumonia. Patient still have mild tachypnea, I believe he would benefit but frequent neb treatments, IV steroids. discussed with Dr. Jerome and patient is being admitted. 06/15/19 21:33 06/15/19 21:35 Blood Culture(s) Obtained: Yes Antibiotics given: Yes Discussed with Dr.: Mayelin Will see patient in: hospital (observation) Counseled pt/family regarding: lab results, diagnosis, rad results - Departure Departure Disposition: Observation Clinical Impression: COPD exacerbation Condition: Fair Critical Care Time: Yes Critical Care Time(excluding separately billable procedures): Critical 30-74 mins Referrals: GALEN DOBBINS MD [Primary Care Provider] - Instructions: Chronic Obstructive Pulmonary Disease
[2019-06-15] MEDS ORDERED: DUONEB 0.5-3 MG/3 ml Neb IH ONE ×4 (19:41→20:22)
[2019-06-15] MEDS ORDERED: BABY ASPIRIN 81 MG CHEW PO ONE (20:01)
[2019-06-15] MEDS ORDERED: solu-MEDROL 125 MG IV ONE (20:03)
[2019-06-15] MEDS ORDERED: BABY ASPIRIN 81 MG CHEW ONE (20:11)
[2019-06-15] MEDS ORDERED: solu-MEDROL 125 MG ONE (20:11)
[2019-06-15 20:14] LABS: A-aADO2 109; ABG HEMOGLOBIN 15.9; ABG POTASSIUM 4.2 (3.5-5.1); ARTERIAL BLOOD GAS BASE EXCESS 3.7 (-2.0-2.0); ARTERIAL BLOOD GAS FIO2 32 %; ARTERIAL BLOOD GAS PCO2 34 mmHg (35-45); ARTERIAL BLOOD GAS PO2 77 mmHg (75-100); CARBOXYHEMOGLOBIN 2.5 % THgb (0.0-6.9); HCO3- 26.5 (22-28); HGB O2 SAT 94.9 g/dF (94-100); Methhemoglobin 0.8 % (1.4-1.5); paO2 pAO1 0.41
[2019-06-15] MEDS ORDERED: Magnesium Sulfate 1 GM/2 ML VIAL ONE (20:19)
[2019-06-15] MEDS ORDERED: D5w 100ML Mini Bag 100 ML 100 ML IV ONE (20:19)
[2019-06-15 20:25] LABS: ABG SITE RIGHT RADIAL; ALLEN TEST OK? YES
[2019-06-15] MEDS: Magnesium 1 Gm / 100 Ml D5W*** 100 ML IV SCH ×2 (20:25→20:27)
[2019-06-15 20:43] LABS: ALBUMIN 3.7 g/dL (3.5-5.0); ALKALINE PHOSPHATASE 71 U/L (38-126); ANION GAP 14.2 MEQ/L (5-15); BLOOD UREA NITROGEN 15 mg/dL (9-20); CHLORIDE 104 mmol/L (98-107); Calcium 10.3 mg/dL (8.4-10.2); Carbon Dioxide 26 mmol/L (22-30); Creatinine 1 0.98 mg/dL (0.66-1.25); Glucose 93 mg/dL (74-106); NT PRO BNP 1630 pg/mL (0-900); Potassium 4.4 mmol/L (3.5-5.1); SGOT/AST 26 U/L (17-59); SGPT/ALT 24 U/L (0-50); SODIUM 140 mmol/L (137-145); Total Protein 6.8 g/dL (6.3-8.2)
[2019-06-15 20:57] LABS: Hematocrit 47.3 % (42-50); Hemoglobin 15.7 gm/dl (12.5-18.0); Mean Cell Volume 85.8 fl (78-100); Mean Corpuscular Hemoglobin 28.5 pg (26-32); Mean Corpuscular Hgb Concent. 33.2 g/dl (32-36); Mean Platelet Volume 9.9 fl (6-9.5); Platelet Count 220 K/mm3 (150-450); Red Blood Count 5.51 M/mm3 (4.1-5.6); Red Cell Distribution Width 16.7 % (11.5-14.0); White Blood Count 8.6 K/mm3 (4.0-10.5)
[2019-06-15] MEDS ORDERED: LEVOFLOXACIN 750MG/150ML D5W 750 MG/150 ML BAG IV STA (21:00)
[2019-06-15] MEDS ORDERED: LEVOFLOXACIN 750MG/150ML D5W 750 MG/150 ML BAG IV ONE (21:06)
--- NOTE | 2019-06-15 22:13 | XRAY ---
Indication: Short of breath. Pneumonia. Comparison: May 06, 2019. Portable chest again demonstrates bilateral mid to lower lung interstitial alveolar opacities, less than before. Remaining heart and lungs unremarkable.
[2019-06-15] MEDS ORDERED: PROVENTIL 2.5 MG/3 ML NEB IH PRN (23:00)
[2019-06-15 23:47] LABS: ANISOCYTOSIS 1+; Lymphocytes 14 % (24-44); Monocyte 7 % (0.0-12.0); Neutrophils 79 % (36.-66.); Platelet Estimate NORMAL (NORMAL); Poikilocytosis 1+; Total Cells Counted 100
[2019-06-16] MEDS ORDERED: Bystolic 5 MG ONE (00:10)
[2019-06-16] MEDS: Bystolic 5 MG PO SCH ×2 (00:11→22:12)
[2019-06-16] MEDS ORDERED: PROVENTIL 2.5 MG/3 ML NEB IH SCH (01:00)
[2019-06-16 05:38] LABS: Hematocrit 43.7 % (42-50); Hemoglobin 14.4 gm/dl (12.5-18.0); Mean Cell Volume 85.9 fl (78-100); Mean Corpuscular Hemoglobin 28.3 pg (26-32); Mean Platelet Volume 9.5 fl (6-9.5); Platelet Count 181 K/mm3 (150-450); Red Blood Count 5.09 M/mm3 (4.1-5.6); Red Cell Distribution Width 16.4 % (11.5-14.0); White Blood Count 7.2 K/mm3 (4.0-10.5)
[2019-06-16 05:46] LABS: ALBUMIN 3.2 g/dL (3.5-5.0); ALKALINE PHOSPHATASE 63 U/L (38-126); ANION GAP 12.4 MEQ/L (5-15); BLOOD UREA NITROGEN 17 mg/dL (9-20); CHLORIDE 103 mmol/L (98-107); Calcium 9.4 mg/dL (8.4-10.2); Carbon Dioxide 26 mmol/L (22-30); Creatinine 1 0.96 mg/dL (0.66-1.25); Glucose 140 mg/dL (74-106); Potassium 4.8 mmol/L (3.5-5.1); SGOT/AST 18 U/L (17-59); SGPT/ALT 21 U/L (0-50); SODIUM 136 mmol/L (137-145); Total Protein 5.9 g/dL (6.3-8.2)
[2019-06-16] MEDS: DUONEB 0.5-3 MG/3 ml Neb IH SCH ×4 (07:07→20:01)
[2019-06-16] MEDS: Advair Hfa 115/21 Common canister IH SCH ×2 (07:09→20:02)
--- NOTE | 2019-06-16 08:27 | PCM.HP ---
History of Present Illness - Chief Complaint Chief Complaint: severe shortness of breath for 1 day History of Present Illness: 73year-old male with history of chronic respiratory failure secondary to COPD on 3 L oxygen, hypertension, pulmonary embolism on Eliquis date ER with the chief complaint of worsening shortness of breath since morning initially with activity and currently having shortness of breath even at rest. He has increased his oxygen 5L but still feeling short of breath. Patient can hardly walk a few steps before he has to rest because of shortness of breath. He feels tightness in his chest all over with wheezing and worsening cough productive of yellow-green sputum. He denies any palpitations or chest pain but has tightness. Patient reports symptoms similar to previous episodes when he has COPD exacerbations. He is taking steroids chronically and has been using neb treatments with no significant relief. Denies tobacco use.denies any fever or chills. - Review of Systems Constitutional: No Fever, No Chills Eyes: No Symptoms Ears, Nose, & Throat: No Symptoms Respiratory: Short Of Breath, Wheezing, No Cough Cardiac: No Chest Pain, No Edema, No Syncope Abdominal/Gastrointestinal: No Abdominal Pain, No Nausea, No Vomiting, No Diarrhea Genitourinary Symptoms: No Dysuria Musculoskeletal: No Back Pain, No Neck Pain Skin: No Rash Neurological: No Dizziness, No Focal Weakness, No Sensory Changes Psychological: No Symptoms Endocrine: No Symptoms Hematologic/Lymphatic: No Symptoms Immunological/Allergic: No Symptoms Medications & Allergies Home Medications: Home Medication List Albuterol/Ipratropium 3ml Neb* [DUONEB 0.5-3 MG/3 ml Neb] 3 ml IH QID #120 ampul.neb 09/18/16 [Rx Confirmed 06/15/19] Potassium Chloride 10 meq PO BID 11/16/16 [History Confirmed 06/15/19] Apixaban [Eliquis 5 mg Tablet] 5 mg PO BID 30 Days #60 tablet 12/20/17 [ Rx Confirmed 06/15/19] Nebivolol HCl 5 MG [Bystolic 5 MG] 5 mg PO QHS 03/23/19 [History Confirmed 06/15/19] predniSONE [Prednisone] 20 mg PO DAILY 03/23/19 [History Confirmed 06/15/19] Fluticasone/Umeclidin/Vilanter [Trelegy Ellipta 100-62.5-25] 1 each IH DAILY 10/23 [History Confirmed 06/15/19] Allergies/Adverse Reactions: Allergies Allergy/AdvReac Type Severity Reaction Status Date / Time No Known Drug Allergies Allergy Verified 06/15/19 19:38 - Past Medical History Past Medical History: Yes Neurological History: No Pertinent History ENT History: No Pertinent History Cardiac History: Hypertension Respiratory History: Bronchitis, COPD, Pneumonia, Pulmonary Embolism Endocrine Medical History: No Pertinent History Musculoskelatal History: No Pertinent History GI Medical History: No Pertinent History History: No Pertinent History Pyscho-Social History: No Pertinent History Male Reproductive Disorders: No Pertinent History 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 - Past Surgical History Past Surgical History: Yes Neuro Surgical History: No Pertinent History Cardiac History: No Pertinent History Respiratory Surgery: No Pertinent History GI Surgical History: Cholecystectomy, Hernia Repair Genitourinary Surgical Hx: No Pertinent History Musculskeletal Surgical Hx: No Pertinent History Male Surgical History: No Pertinent History Other Surgical History: cataract IOL left eye, back surgery, Surgery on right eye to bring up lower eyelid - Social History Smoking Status: Former smoker How long have you smoked: 62 years Exposure to second hand smoke: Yes Alcohol: None Drug Use: none - Physical Exam Vital Signs: Vital Signs - 24 hr Temp Pulse Resp BP Pulse Ox 06/16/19 08:00 98.8 F 89 26 H 111/73 91 L 06/16/19 07:00 80 26 H 96 06/16/19 04:00 97.0 F 83 22 112/76 96 06/15/19 23:36 85 27 H 96 06/15/19 22:08 97.6 F 96 H 26 H 122/84 94 L 06/15/19 21:33 92 H 22 122/78 94 L 06/15/19 21:17 84 38 H 93 L 06/15/19 21:14 84 24 93/74 94 L 06/15/19 20:53 87 22 128/73 94 L 06/15/19 20:30 96 H 24 128/73 93 L 06/15/19 20:08 93 L 06/15/19 20:00 88 18 137/78 98 06/15/19 19:57 88 28 H 88 L 06/15/19 19:40 97.7 F 48 L 30 H 146/70 93 L Oxygen-Last 24 hours O2 Percentage 3 Liters = 32% O2 Percentage 3 Liters = 32% O2 Percentage 3 Liters = 32% O2 Percentage 3 Liters = 32% O2 Percentage 3 Liters = 32% O2 Percentage 4 Liters = 36% O2 Percentage 3 Liters = 32% O2 Percentage 3 Liters = 32% O2 Percentage 3 Liters = 32% O2 Percentage 4 Liters = 36% O2 Percentage 4 Liters = 36% General Appearance: no apparent distress, alert Neurologic Exam: alert, oriented x 3, cooperative, normal mood/affect, nml cerebellar function, nml station & gait, sensation nml, No motor deficits Eye Exam: PERRL/EOMI, eyes nml inspection Ears, Nose, Throat Exam: normal ENT inspection, TMs normal, pharynx normal, moist mucous membranes Neck Exam: normal inspection, non-tender, supple, full range of motion Respiratory Exam: prolonged expirations, crackles/rales, rhonchi, wheezing, No respiratory distress Cardiovascular Exam: regular rate/rhythm, normal heart sounds, normal peripheral pulses Gastrointestinal/Abdomen Exam: soft, normal bowel sounds, No tenderness, No mass Back Exam: normal inspection, normal range of motion, No CVA tenderness, No vertebral tenderness Extremity Exam: normal inspection, normal range of motion, pelvis stable Skin Exam: normal color, warm, dry, No rash Lymphatic Exam: No adenopathy Results - Labs Lab/Micro Results: Lab Results-Last 24 Hours 06/15/19 06/15/19 06/15/19 Range/Units 20:01 20:01 20:11 WBC 8.6 (4.0-10.5) K/mm3 RBC 5.51 (4.1-5.6) M/mm3 Hgb 15.7 (12.5-18.0) gm/dl Hct 47.3 (42-50) % MCV 85.8 (78-100) fl MCH 28.5 (26-32) pg MCHC 33.2 (32-36) g/dl RDW 16.7 H (11.5-14.0) % Plt Count 220 (150-450) K/mm3 MPV 9.9 H (6-9.5) fl Segmented Neutrophils 79 H (36.-66.) % Lymphocytes (Manual) 14 L (24-44) % Monocytes (Manual) 7 (0.0-12.0) % Platelet Estimate NORMAL (NORMAL) RBC Morphology ABNORMAL Poikilocytosis 1+ Anisocytosis 1+ Puncture Site RIGHT RADIAL pCO2 34 L (35-45) mmHg pO2 77 (75-100) mmHg Base Excess 3.7 H (-2.0-2.0) O2 Saturation 94.9 (94-100) g/dF ABG pH 7.50 H (7.35-7.45) ABG HCO3 26.5 (22-28) ABG O2 Sat (Measured) 98.0 (95-100) % Ravi Test YES A-a Gradient 109 a/A Ratio 0.41 Hemoglobin 15.9 Carboxyhemoglobin 2.5 (0.0-6.9) % THgb Methemoglobin 0.8 L (1.4-1.5) % Temperature 37.0 C POC O2 Flow Rate 32 % Sodium 140 (137-145) mmol/L Potassium 4.4 4.2 (3.5-5.1) mmol/L Chloride 104 (98-107) mmol/L Carbon Dioxide 26 (22-30) mmol/L Anion Gap 14.2 (5-15) MEQ/L BUN 15 (9-20) mg/dL Creatinine 0.98 (0.66-1.25) mg/dL Estimated GFR > 60.0 ML/MIN Glucose 93 (74-106) mg/dL Calcium 10.3 H (8.4-10.2) mg/dL Total Bilirubin 1.00 (0.2-1.3) mg/dL AST 26 (17-59) U/L ALT 24 (0-50) U/L Alkaline Phosphatase 71 (38-126) U/L Troponin I (0.000-0.034) ng/mL NT-Pro-B Natriuret Pep 1630 H (0-900) pg/mL Serum Total Protein 6.8 (6.3-8.2) g/dL Albumin 3.7 (3.5-5.0) g/dL 06/15/19 06/15/19 06/16/19 Range/Units 20:15 23:17 02:15 WBC (4.0-10.5) K/mm3 RBC (4.1-5.6) M/mm3 Hgb (12.5-18.0) gm/dl Hct (42-50) % MCV (78-100) fl MCH (26-32) pg MCHC (32-36) g/dl RDW (11.5-14.0) % Plt Count (150-450) K/mm3 MPV (6-9.5) fl Segmented Neutrophils (36.-66.) % Lymphocytes (Manual) (24-44) % Monocytes (Manual) (0.0-12.0) % Platelet Estimate (NORMAL) RBC Morphology Poikilocytosis Anisocytosis Puncture Site pCO2 (35-45) mmHg pO2 (75-100) mmHg Base Excess (-2.0-2.0) O2 Saturation (94-100) g/dF ABG pH (7.35-7.45) ABG HCO3 (22-28) ABG O2 Sat (Measured) (95-100) % Ravi Test A-a Gradient a/A Ratio Hemoglobin Carboxyhemoglobin (0.0-6.9) % THgb Methemoglobin (1.4-1.5) % Temperature C POC O2 Flow Rate % Sodium (137-145) mmol/L Potassium (3.5-5.1) mmol/L Chloride (98-107) mmol/L Carbon Dioxide (22-30) mmol/L Anion Gap (5-15) MEQ/L BUN (9-20) mg/dL Creatinine (0.66-1.25) mg/dL Estimated GFR ML/MIN Glucose (74-106) mg/dL Calcium (8.4-10.2) mg/dL Total Bilirubin (0.2-1.3) mg/dL AST (17-59) U/L ALT (0-50) U/L Alkaline Phosphatase (38-126) U/L Troponin I < 0.012 < 0.012 < 0.012 (0.000-0.034) ng/mL NT-Pro-B Natriuret Pep (0-900) pg/mL Serum Total Protein (6.3-8.2) g/dL Albumin (3.5-5.0) g/dL 06/16/19 06/16/19 06/16/19 Range/Units 05:30 05:30 05:30 WBC 7.2 (4.0-10.5) K/mm3 RBC 5.09 (4.1-5.6) M/mm3 Hgb 14.4 (12.5-18.0) gm/dl Hct 43.7 (42-50) % MCV 85.9 (78-100) fl MCH 28.3 (26-32) pg MCHC 33.0 (32-36) g/dl RDW 16.4 H (11.5-14.0) % Plt Count 181 (150-450) K/mm3 MPV 9.5 (6-9.5) fl Segmented Neutrophils (36.-66.) % Lymphocytes (Manual) (24-44) % Monocytes (Manual) (0.0-12.0) % Platelet Estimate (NORMAL) RBC Morphology Poikilocytosis Anisocytosis Puncture Site pCO2 (35-45) mmHg pO2 (75-100) mmHg Base Excess (-2.0-2.0) O2 Saturation (94-100) g/dF ABG pH (7.35-7.45) ABG HCO3 (22-28) ABG O2 Sat (Measured) (95-100) % Ravi Test A-a Gradient a/A Ratio Hemoglobin Carboxyhemoglobin (0.0-6.9) % THgb Methemoglobin (1.4-1.5) % Temperature C POC O2 Flow Rate % Sodium 136 L (137-145) mmol/L Potassium 4.8 (3.5-5.1) mmol/L Chloride 103 (98-107) mmol/L Carbon Dioxide 26 (22-30) mmol/L Anion Gap 12.4 (5-15) MEQ/L BUN 17 (9-20) mg/dL Creatinine 0.96 (0.66-1.25) mg/dL Estimated GFR > 60.0 ML/MIN Glucose 140 H (74-106) mg/dL Calcium 9.4 (8.4-10.2) mg/dL Total Bilirubin 0.90 (0.2-1.3) mg/dL AST 18 (17-59) U/L ALT 21 (0-50) U/L Alkaline Phosphatase 63 (38-126) U/L Troponin I < 0.012 (0.000-0.034) ng/mL NT-Pro-B Natriuret Pep (0-900) pg/mL Serum Total Protein 5.9 L (6.3-8.2) g/dL Albumin 3.2 L (3.5-5.0) g/dL - Radiology Impressions Radiology Exams & Impressions: Radiology Procedures Category Date Time Status CHEST 1 VIEW (PORTABLE) Stat Exams 06/15/19 20:01 Completed - Other Procedures and Tests Respiratory Therapy 06/15/19 21:20 Oxygen Nasal Cannula 3 lpm 06/15/19 23:35 Respiratory Therapy Assessment DAILY 06/16/19 07:00 Peak Expiratory Flow Rate ONCE Assessment/Plan (1) COPD exacerbation Current Visit: Yes Status: Acute Assessment & Plan: Chief Complaint Diagnosis copd exacerbation Allergies Allergy/AdvReac Type Severity Reaction Status Date / Time No Known Drug Allergies Allergy Verified 06/15/19 19:38 Vital Signs (Last 24 hours) Temp Pulse Resp BP Pulse Ox 06/16/19 08:00 98.8 F 89 26 H 111/73 91 L 06/16/19 07:00 80 26 H 96 06/16/19 04:00 97.0 F 83 22 112/76 96 06/15/19 23:36 85 27 H 96 06/15/19 22:08 97.6 F 96 H 26 H 122/84 94 L 06/15/19 21:33 92 H 22 122/78 94 L 06/15/19 21:17 84 38 H 93 L 06/15/19 21:14 84 24 93/74 94 L 06/15/19 20:53 87 22 128/73 94 L 06/15/19 20:30 96 H 24 128/73 93 L 06/15/19 20:08 93 L 06/15/19 20:00 88 18 137/78 98 06/15/19 19:57 88 28 H 88 L 06/15/19 19:40 97.7 F 48 L 30 H 146/70 93 L Current Medications Generic Name Dose Route Start Last Admin Trade Name Freq PRN Reason Stop Dose Admin Albuterol Sulfate 2.5 mg 06/15/19 23:00 Proventil 2.5 Mg/3 Ml Neb IH 07/15/19 22:59 Q4H PRN PRN SHORTNESS OF BREATH Albuterol/Ipratropium 3 ml 06/16/19 07:00 06/16/19 07:07 Duoneb 0.5-3 Mg/3 Ml Neb IH 07/16/19 06:59 3 ml QIDRT ALIYAH Administration Apixaban 5 mg 06/16/19 10:00 Eliquis 2.5 Mg Tablet PO 07/16/19 09:59 BID ALIYAH Nebivolol 5 mg 06/16/19 22:00 06/16/19 00:11 Bystolic 5 Mg PO 07/16/19 21:59 5 mg QHS ALIYAH Administration Non-Formulary Medication 1 each 06/16/19 10:00 Fluticasone/Umeclidin/Vilanter [Trelegy Ellipta 100-62.5-25] IH 07/16/19 09: 59 DAILY ALIYAH Potassium Chloride 10 meq 06/16/19 10:00 Klor Con 10 Meq PO 07/16/19 09:59 BID ALIYAH Prednisone 20 mg 06/16/19 10:00 Deltasone 20 Mg PO 07/16/19 09:59 DAILY ALIYAH Fluticasone/Salmeterol 2 puff 06/16/19 07:00 06/16/19 07:09 Advair Hfa 115/21 Common Canister* IH 07/16/19 06:59 2 puff BIDRT ALIYAH Administration Discontinued Medications Generic Name Dose Route Start Last Admin Trade Name Freq PRN Reason Stop Dose Admin Albuterol Sulfate 2.5 mg 06/16/19 01:00 Proventil 2.5 Mg/3 Ml Neb IH 07/16/19 00:59 Q6HRT ALIYAH Albuterol/Ipratropium Confirm 06/15/19 19:41 Duoneb 0.5-3 Mg/3 Ml Neb Administered 06/15/19 19:42 Dose 3 ml IH .STK-MED ONE Albuterol/Ipratropium 3 ml 06/15/19 19:55 06/15/19 19:56 Duoneb 0.5-3 Mg/3 Ml Neb IH 06/15/19 19:56 3 ml STAT ONE Administration Albuterol/Ipratropium 3 ml 06/15/19 20:03 06/15/19 21:17 Duoneb 0.5-3 Mg/3 Ml Neb IH 06/15/19 20:04 3 ml STAT ONE Administration Albuterol/Ipratropium Confirm 06/15/19 20:22 Duoneb 0.5-3 Mg/3 Ml Neb Administered 06/15/19 20:23 Dose 3 ml IH .STK-MED ONE Aspirin 324 mg 10/12/19 20:01 06/15/19 20:12 Baby Aspirin 81 Mg Chew PO 06/15/19 20:02 324 mg STAT ONE Administration Aspirin Confirm 06/15/19 20:11 Baby Aspirin 81 Mg Chew Administered 06/15/19 20:12 Dose 324 mg .ROUTE .STK-MED ONE Magnesium Sulfate/Dextrose 100 mls @ 100 mls/hr 06/15/19 20:30 06/15/19 20:27 Magnesium 1 Gm / 100 Ml D5w IV 06/15/19 22:29 100 mls/hr Q1H ALIYAH Administration Dextrose Confirm 06/15/19 20:19 D5w 100ml Mini Bag 100 Ml Administered 06/15/19 20:20 Dose 100 mls @ ud IV .STK-MED ONE Levofloxacin/Dextrose 750 mg in 150 mls @ 100 mls/hr 06/15/19 21:00 06/15/19 21:12 Levofloxacin 750mg/150ml D5w IV 06/15/19 22:29 100 ml/hr STAT STA 100 mls/hr Administration Levofloxacin/Dextrose Confirm 06/15/19 21:06 Levofloxacin 750mg/150ml D5w Administered 06/15/19 21:07 Dose 750 mg in 150 mls @ ud IV .STK-MED ONE Magnesium Sulfate Confirm 06/15/19 20:19 Magnesium Sulfate 1 Gm/2 Ml Vial Administered 06/15/19 20:20 Dose 2 gm .ROUTE .STK-MED ONE Methylprednisolone Sodium Succinate 125 mg 06/15/19 20:03 06/15/19 20:13 Solu-Medrol 125 Mg IV 06/15/19 20:04 125 mg STAT ONE Administration Methylprednisolone Sodium Succinate Confirm 06/15/19 20:11 Solu-Medrol 125 Mg Administered 06/15/19 20:12 Dose 125 mg .ROUTE .STK-MED ONE Nebivolol Confirm 06/16/19 00:10 Bystolic 5 Mg Administered 06/16/19 00:11 Dose 5 mg .ROUTE .STK-MED ONE Intake & Output (Last 24 hours) 06/13/19 06/14/19 06/15/19 06/16/19 11:59 11:59 11:59 11:59 Intake Total 100 Output Total 150 Balance -50 Weight 57.5 kg Microbiology Results (Last 24 hours) 06/15/19 Unknown Blood Blood Culture Gram Stain - Pending 06/15/19 Unknown Blood Blood Culture - Pending 06/15/19 Unknown Blood Blood Culture Gram Stain - Pending 06/15/19 Unknown Blood Blood Culture - Pending Laboratory Results (Last 24 hours) 06/16/19 06/16/19 06/16/19 05:30 05:30 05:30 WBC 7.2 RBC 5.09 Hgb 14.4 Hct 43.7 MCV 85.9 MCH 28.3 MCHC 33.0 RDW 16.4 H Plt Count 181 MPV 9.5 Segmented Neutrophils Lymphocytes (Manual) Monocytes (Manual) Platelet Estimate RBC Morphology Poikilocytosis Anisocytosis Puncture Site pCO2 pO2 Base Excess O2 Saturation ABG pH ABG HCO3 ABG O2 Sat (Measured) Ravi Test A-a Gradient a/A Ratio Hemoglobin Carboxyhemoglobin Methemoglobin Temperature POC O2 Flow Rate Sodium 136 L Potassium 4.8 Chloride 103 Carbon Dioxide 26 Anion Gap 12.4 BUN 17 Creatinine 0.96 Estimated GFR > 60.0 Glucose 140 H Calcium 9.4 Total Bilirubin 0.90 AST 18 ALT 21 Alkaline Phosphatase 63 Troponin I < 0.012 NT-Pro-B Natriuret Pep Serum Total Protein 5.9 L Albumin 3.2 L 06/16/19 06/15/19 06/15/19 02:15 23:17 20:15 WBC RBC Hgb Hct MCV MCH MCHC RDW Plt Count MPV Segmented Neutrophils Lymphocytes (Manual) Monocytes (Manual) Platelet Estimate RBC Morphology Poikilocytosis Anisocytosis Puncture Site pCO2 pO2 Base Excess O2 Saturation ABG pH ABG HCO3 ABG O2 Sat (Measured) Ravi Test A-a Gradient a/A Ratio Hemoglobin Carboxyhemoglobin Methemoglobin Temperature POC O2 Flow Rate Sodium Potassium Chloride Carbon Dioxide Anion Gap BUN Creatinine Estimated GFR Glucose Calcium Total Bilirubin AST ALT Alkaline Phosphatase Troponin I < 0.012 < 0.012 < 0.012 NT-Pro-B Natriuret Pep Serum Total Protein Albumin 06/15/19 06/15/19 06/15/19 20:11 20:01 20:01 WBC 8.6 RBC 5.51 Hgb 15.7 Hct 47.3 MCV 85.8 MCH 28.5 MCHC 33.2 RDW 16.7 H Plt Count 220 MPV 9.9 H Segmented Neutrophils 79 H Lymphocytes (Manual) 14 L Monocytes (Manual) 7 Platelet Estimate NORMAL RBC Morphology ABNORMAL Poikilocytosis 1+ Anisocytosis 1+ Puncture Site RIGHT RADIAL pCO2 34 L pO2 77 Base Excess 3.7 H O2 Saturation 94.9 ABG pH 7.50 H ABG HCO3 26.5 ABG O2 Sat (Measured) 98.0 Ravi Test YES A-a Gradient 109 a/A Ratio 0.41 Hemoglobin 15.9 Carboxyhemoglobin 2.5 Methemoglobin 0.8 L Temperature 37.0 POC O2 Flow Rate 32 Sodium 140 Potassium 4.2 4.4 Chloride 104 Carbon Dioxide 26 Anion Gap 14.2 BUN 15 Creatinine 0.98 Estimated GFR > 60.0 Glucose 93 Calcium 10.3 H Total Bilirubin 1.00 AST 26 ALT 24 Alkaline Phosphatase 71 Troponin I NT-Pro-B Natriuret Pep 1630 H Serum Total Protein 6.8 Albumin 3.7 Orders (Last 24 hours) Category Date Time Status Up With Assistance Q8H Activity 06/15/19 21:20 Active Technical Operations Manager STAT Care 06/15/19 20:02 Completed Code Status Order ROUTINE Care 06/15/19 21:20 Active IV Care Q6H Care 06/15/19 21:20 Active IV Insertion STAT Care 06/15/19 20:01 Active Oxygen-ED Only Nasal Cannula 3 lpm Care 06/15/19 20:[address] in Observation ROUTINE Care 06/15/19 21:20 Active Pulse Oximetry (ED) STAT Care 06/15/19 20:01 Completed Fracisco Calderon Q6H Care 06/15/19 21:20 Active Weight,Daily 0600 Care 06/15/19 21:20 Active Production Grader/Discharge Plan Cons 06/15/19 23:00 Active Regular Diet Diet 06/16/19 Breakfast Active CHEST 1 VIEW (PORTABLE) Stat Exams 06/15/19 20:01 Completed ARTERIAL BLOOD GASES Stat Lab 06/15/19 20:11 Completed CBC AM.LAB Lab 06/16/19 05:30 Completed CBC W DIFF Stat Lab 06/15/19 20:01 Completed CMP AM.LAB Lab 06/16/19 05:30 Completed CMP Stat Lab 06/15/19 20:01 Completed Manual Differential NC Stat Lab 06/15/19 20:01 Completed NT PRO BNP Stat Lab 06/15/19 20:01 Completed TROPONIN Q3H Lab 06/15/19 20:15 Completed TROPONIN Q3H Lab 06/15/19 23:17 Completed TROPONIN Q3H Lab 06/16/19 02:15 Completed TROPONIN Q3H Lab 06/16/19 05:30 Completed TROPONIN Q3H Lab 06/16/19 08:15 Ordered Albuterol 2.5 mg/3 ml Neb [Proventil 2.5 mg/3 ml Neb Med 06/15/19 23:00 Active ] 2.5 mg IH Q4H PRN PRN Albuterol 2.5 mg/3 ml Neb [Proventil 2.5 mg/3 ml Neb Med 06/16/19 01:00 Discontinued ] 2.5 mg IH Q6HRT Albuterol/Ipratropium 3ml Neb* [DUONEB 0.5-3 MG/3 ml Med 06/15/19 19:41 Discontinued Neb] 3 ml IH .STK-MED ONE Albuterol/Ipratropium 3ml Neb* [DUONEB 0.5-3 MG/3 ml Med 06/15/19 20:22 Discontinued Neb] 3 ml IH .STK-MED ONE Albuterol/Ipratropium 3ml Neb* [DUONEB 0.5-3 MG/3 ml Med 06/16/19 07:00 Active Neb] 3 ml IH QIDRT Albuterol/Ipratropium 3ml Neb* [DUONEB 0.5-3 MG/3 ml Med 06/15/19 19:55 Discontinued Neb] 3 ml IH STAT ONE Albuterol/Ipratropium 3ml Neb* [DUONEB 0.5-3 MG/3 ml Med 06/15/19 20:03 Discontinued Neb] 3 ml IH STAT ONE Apixaban [Eliquis 2.5 mg Tablet] Med 06/16/19 10:00 Active 5 mg PO BID Aspirin 81 gm Chew [Baby Aspirin 81 mg Chew] Med 06/15/19 20:11 Discontinued 324 mg .ROUTE .STK-MED ONE Aspirin 81 gm Chew [Baby Aspirin 81 mg Chew] Med 06/15/19 20:01 Discontinued 324 mg PO STAT ONE D5w 100 ml [D5w 100ML Mini Bag 100 ML] 100 ml Med 06/15/19 20:19 Discontinued IV UD Fluticasone/Salmeterol 115/21 [Advair Hfa 115/21 Common Med 06/16/19 07:00 Active canister*] 2 puff IH BIDRT Fluticasone/Umeclidin/Vilanter [Trelegy Ellipta 100-62. Med 06/16/19 10:00 Ordered 5-25] 1 each IH DAILY Levofloxacin [Levofloxacin 750Mg/150Ml D5w] Med 06/15/19 21:00 Discontinued 750 mg in 150 ml IV STAT Levofloxacin [Levofloxacin 750Mg/150Ml D5w] Med 06/15/19 21:06 Discontinued 750 mg in 150 ml IV UD Magnesium Sulfate 1 gm/100 ml* [Magnesium 1 Gm / 100 Ml Med 06/15/19 20:30 Discontinued D5W] 100 ml IV Q1H Magnesium Sulfate 1 gm/2 ml [Magnesium Sulfate 1 GM/ Med 06/15/19 20:19 Discontinued 2 ML VIAL] 2 gm .ROUTE .STK-MED ONE Methylprednis Sod Succ 125 mg* [solu-MEDROL 125 MG] Med 06/15/19 20:11 Discontinued 125 mg .ROUTE .STK-MED ONE Methylprednis Sod Succ 125 mg* [solu-MEDROL 125 MG] Med 06/15/19 20:03 Discontinued 125 mg IV STAT ONE Nebivolol HCl 5 MG [Bystolic 5 MG] Med 06/16/19 00:10 Discontinued 5 mg .ROUTE .STK-MED ONE Nebivolol HCl 5 MG [Bystolic 5 MG] Med 06/16/19 22:00 Active 5 mg PO QHS Potassium Chloride 10 Meq Tab* [Klor Con 10 MEQ] Med 06/16/19 10:00 Active 10 meq PO BID Prednisone 20 mg [Deltasone 20 mg] Med 06/16/19 10:00 Active 20 mg PO DAILY Oxygen Nasal Cannula 3 lpm RT 06/15/19 21:20 Active Peak Expiratory Flow Rate ONCE RT 06/16/19 07:00 Active Pulse Oximetry .continuos RT 06/15/19 23:34 Active RT Screen per Nursing Assess ONCE RT 06/15/19 23:00 Completed Respiratory Therapy Assessment DAILY RT 06/15/19 19:55 Completed Respiratory Therapy Assessment DAILY RT 06/15/19 23:35 Active Patient Care Notes (Last 24 hours) 06/16/19 07:48 Nursing Note by Cade Coppola Dr rounded this am. Was informed by Dr Luo that patient to be discharged tomorrow. No other orders at this time. Initialized on 06/16/19 07:48 - END OF NOTE Code(s): J44.1 - CHRONIC OBSTRUCTIVE PULMONARY DISEASE W (ACUTE) EXACERBATION (2) Hypertension Current Visit: Yes Status: Chronic Qualifiers: Hypertension type: essential hypertension Qualified Code(s): I10 - Essential (primary) hypertension Code(s): I10 - ESSENTIAL (PRIMARY) HYPERTENSION
[2019-06-16] MEDS ORDERED: DELTASONE 5 MG PO SCH (10:00)
[2019-06-16] MEDS ORDERED: DELTASONE 20 MG PO SCH (10:00)
[2019-06-16] MEDS ORDERED: NON-FORMULARY ITEM (Apixaban*** [Eliquis 5 Mg Tablet***] 5 MG) PO SCH (10:00)
[2019-06-16] MEDS ORDERED: NON-FORMULARY ITEM (Fluticasone/Umeclidin/Vilanter [Trelegy Ellipta 100-62.5-25] 1 EACH) IH SCH (10:00)
[2019-06-16] MEDS ORDERED: NON-FORMULARY ITEM (Potassium Chloride [Potassium Chloride] 10 MEQ) PO SCH (10:00)
[2019-06-16] MEDS: ELIQUIS 2.5 MG TABLET PO SCH ×2 (10:21→22:10)
[2019-06-16] MEDS: Klor Con 10 MEQ PO SCH ×2 (10:22→22:10)
[2019-06-16] MEDS: solu-MEDROL 40 MG IV SCH ×2 (14:37→22:10)
[2019-06-17] MEDS: Advair Hfa 115/21 Common canister IH SCH (06:38)
[2019-06-17] MEDS: DUONEB 0.5-3 MG/3 ml Neb IH SCH ×2 (06:38→10:22)
[2019-06-17 07:35] VITALS: BP 131/72
[2019-06-17] MEDS: ELIQUIS 2.5 MG TABLET PO SCH (10:29)
[2019-06-17] MEDS: solu-MEDROL 40 MG IV SCH (10:30)
[2019-06-17] MEDS: Klor Con 10 MEQ PO SCH (10:30)
[2019-06-17 10:31] VITALS: PULSE 63; O2SAT 93
--- NOTE | 2019-06-17 13:30 | PCM.DS ---
Discharge Summary Date of Admission: 06/15/19 21:56 Admitting Physician: GALEN DOBBINS Primary Care Provider: GALEN DOBBINS Allergies Allergies No Known Drug Allergies Allergy (Verified 06/15/19 19:38) Hospital Summary - Hospital Course Hospital Course: Chief Complaint Diagnosis severe shortness of breath for 1 day Allergies Allergy/AdvReac Type Severity Reaction Status Date / Time No Known Drug Allergies Allergy Verified 06/15/19 19:38 Vital Signs (Last 24 hours) Temp Pulse Resp BP Pulse Ox 06/17/19 10:25 63 24 93 L 06/17/19 07:34 97.9 F 87 26 H 131/72 94 L 06/17/19 06:42 89 26 H 95 06/17/19 04:00 97.9 F 95 H 22 125/83 94 L 06/17/19 00:00 99.3 F 101 H 22 108/64 93 L 06/16/19 21:00 97.8 F 96 H 20 117/70 95 06/16/19 20:07 93 H 30 H 93 L 06/16/19 16:00 97.7 F 92 H 25 H 111/66 96 06/16/19 15:27 87 24 92 L Home Medications Medication Instructions Recorded Confirmed Last Taken Type Levofloxacin [Levaquin] 500 mg PO DAILY #5 tablet 06/17/19 Unknown Rx Current Medications Discontinued Medications Generic Name Dose Route Start Last Admin Trade Name Freq PRN Reason Stop Dose Admin Albuterol Sulfate 2.5 mg 06/16/19 01:00 Proventil 2.5 Mg/3 Ml Neb IH 07/16/19 00:59 Q6HRT ALIYAH Albuterol Sulfate 2.5 mg 06/15/19 23:00 Proventil 2.5 Mg/3 Ml Neb IH 07/15/19 22:59 Q4H PRN PRN SHORTNESS OF BREATH Albuterol/Ipratropium Confirm 06/15/19 19:41 Duoneb 0.5-3 Mg/3 Ml Neb Administered 06/15/19 19:42 Dose 3 ml IH .STK-MED ONE Albuterol/Ipratropium 3 ml 06/15/19 19:55 06/15/19 19:56 Duoneb 0.5-3 Mg/3 Ml Neb IH 06/15/19 19:56 3 ml STAT ONE Administration Albuterol/Ipratropium 3 ml 06/15/19 20:03 06/15/19 21:17 Duoneb 0.5-3 Mg/3 Ml Neb IH 06/15/19 20:04 3 ml STAT ONE Administration Albuterol/Ipratropium Confirm 06/15/19 20:22 Duoneb 0.5-3 Mg/3 Ml Neb Administered 06/15/19 20:23 Dose 3 ml IH .STK-MED ONE Albuterol/Ipratropium 3 ml 06/16/19 07:00 06/17/19 10:22 Duoneb 0.5-3 Mg/3 Ml Neb IH 07/16/19 06:59 3 ml QIDRT ALIYAH Administration Apixaban 5 mg 06/16/19 10:00 06/17/19 10:29 Eliquis 2.5 Mg Tablet PO 07/16/19 09:59 5 mg BID ALIYAH Administration Aspirin 324 mg 06/15/19 20:01 06/15/19 20:12 Baby Aspirin 81 Mg Chew PO 06/15/19 20:02 324 mg STAT ONE Administration Aspirin Confirm 06/15/19 20:11 Baby Aspirin 81 Mg Chew Administered 06/15/19 20:12 Dose 324 mg .ROUTE .STK-MED ONE Magnesium Sulfate/Dextrose 100 mls @ 100 mls/hr 06/15/19 20:30 06/15/19 20:27 Magnesium 1 Gm / 100 Ml D5w IV 06/15/19 22:29 100 mls/hr Q1H ALIYAH Administration Dextrose Confirm 06/15/19 20:19 D5w 100ml Mini Bag 100 Ml Administered 06/15/19 20:20 Dose 100 mls @ ud IV .STK-MED ONE Levofloxacin/Dextrose 750 mg in 150 mls @ 100 mls/hr 06/15/19 21:00 06/15/19 21:12 Levofloxacin 750mg/150ml D5w IV 06/15/19 22:29 100 ml/hr STAT STA 100 mls/hr Administration Levofloxacin/Dextrose Confirm 06/15/19 21:06 Levofloxacin 750mg/150ml D5w Administered 06/15/19 21:07 Dose 750 mg in 150 mls @ ud IV .STK-MED ONE Levofloxacin/Dextrose 500 mg in 100 mls @ 100 mls/hr 06/17/19 22:00 Levofloxacin 500mg/100ml D5w IV 07/17/19 21:59 Q24H22 ALIYAH Magnesium Sulfate Confirm 06/15/19 20:19 Magnesium Sulfate 1 Gm/2 Ml Vial Administered 06/15/19 20:20 Dose 2 gm .ROUTE .STK-MED ONE Methylprednisolone Sodium Succinate 125 mg 06/15/19 20:03 06/15/19 20:13 Solu-Medrol 125 Mg IV 06/15/19 20:04 125 mg STAT ONE Administration Methylprednisolone Sodium Succinate Confirm 06/15/19 20:11 Solu-Medrol 125 Mg Administered 06/15/19 20:12 Dose 125 mg .ROUTE .STK-MED ONE Methylprednisolone Sodium Succinate 40 mg 06/16/19 13:00 06/17/19 10:30 Solu-Medrol 40 Mg IV 07/16/19 12:59 40 mg BID ALIYAH Administration Nebivolol 5 mg 06/16/19 22:00 06/16/19 22:12 Bystolic 5 Mg PO 07/16/19 21:59 5 mg QHS ALIYAH Administration Nebivolol Confirm 06/16/19 00:10 Bystolic 5 Mg Administered 06/16/19 00:11 Dose 5 mg .ROUTE .STK-MED ONE Non-Formulary Medication 1 each 06/16/19 10:00 06/16/19 11:02 Fluticasone/Umeclidin/Vilanter [Trelegy Ellipta 100-62.5-25] 07/16/19 09: 59 Not Given DAILY ALIYAH Potassium Chloride 10 meq 06/16/19 10:00 06/17/19 10:30 Klor Con 10 Meq PO 07/16/19 09:59 10 meq BID ALIYAH Administration Prednisone 20 mg 06/16/19 10:00 06/16/19 10:21 Deltasone 20 Mg PO 07/16/19 09:59 20 mg DAILY ALIYAH Administration Fluticasone/Salmeterol 2 puff 06/16/19 07:00 06/17/19 06:38 Advair Hfa 115/21 Common Canister* IH 07/16/19 06:59 2 puff BIDRT ALIYAH Administration Intake & Output (Last 24 hours) 06/15/19 06/16/19 06/17/19 06/18/19 11:59 11:59 11:59 11:59 Intake Total 100 840 Output Total 150 500 Balance -50 340 Weight 57.5 kg 57.6 kg Microbiology Results (Last 24 hours) 06/15/19 21:09 Blood Blood Culture Gram Stain - Pending 06/15/19 21:09 Blood Blood Culture - Preliminary NO GROWTH TO DATE 06/15/19 21:09 Blood Blood Culture Gram Stain - Pending 06/15/19 21:09 Blood Blood Culture - Preliminary NO GROWTH TO DATE Orders (Last 24 hours) Category Date Time Status Discharge Routine Discharge 06/17/19 Ordered Levofloxacin [Levofloxacin 500MG/100ML D5W] Med 06/17/19 22:00 Discontinued 500 mg in 100 ml IV Q24H22 Methylprednisolone Sod Suc 40M [solu-MEDROL 40 MG] Med 06/16/19 13:00 Discontinued 40 mg IV BID Nebivolol HCl 5 MG [Bystolic 5 MG] Med 06/16/19 22:00 Discontinued 5 mg PO QHS Patient Care Notes (Last 24 hours) 06/17/19 11:00 (created 06/17/19 11:09) Nursing Note by Amber Moran PT going home this am, given d/c instruction, verbalized understanding. Informed of new RX at [email or web address]. taken to [address] via w/c to care. Mario vazquez home Initialized on 06/17/19 11:09 - END OF NOTE 06/17/19 08:50 Case Management Note by Libra Escalante MD ORDER TO DC HOME TODAY ON LEVAQUIN 500 PO DAILY X 5 DAYS, F/U WITH DR. DOBBINS, F/U WITH DR. Leelee HAND PREVIOUSLY SCHEDULED. CONTINUE ALL OTHER HOME MEDICATIONS. CONTINUES TO DENY NEEDS FOR DISCHARGE. REPORTS THAT ALL HOME OXYGEN EQUIP IS IN WORKING CONDITION, NOW HAS [facility] TO SUPPLY O2 SINCE [facility] HAS CLOSED. Initialized on 06/17/19 08:50 - END OF NOTE - Vitals & Intake/Output Vital Signs: Vital Signs Temperature 97.9 F 06/17/19 07:34 Pulse Rate 63 06/17/19 10:25 Respiratory Rate 24 06/17/19 10:25 Blood Pressure 131/72 06/17/19 07:34 O2 Sat by Pulse Oximetry 93 L 06/17/19 10:25 Oxygen-Last Documented O2 Percentage 3 Liters = 32% Intake & Output: Intake & Output 06/15/19 06/16/19 06/17/19 06/18/19 11:59 11:59 11:59 11:59 Intake Total 100 840 Output Total 150 500 Balance -50 340 Weight 57.5 kg 57.6 kg - Lab Result Diagrams: 06/16/19 05:30 06/16/19 05:30 Micro Results-Entire Visit: Microbiology 06/15/19 21:09 Blood Culture - Preliminary Blood NO GROWTH TO DATE 06/15/19 21:09 Blood Culture - Preliminary Blood NO GROWTH TO DATE - Radiology Exams Ordered Rad Exams-Entire Visit: Radiology Procedures Category Date Time Status CHEST 1 VIEW (PORTABLE) Stat Exams 06/15/19 20:01 Completed - Procedures and Test Procedures and Tests throughout Hospitalization: Therapy Orders & Screens 06/15/19 19:55 Respiratory Therapy Assessment DAILY Comment: 06/15/19 21:20 Oxygen Nasal Cannula 3 lpm Comment: 06/15/19 23:00 RT Screen per Nursing Assess ONCE Comment: Protocol Order Physician Instructions: Greater than 3 points order RT Admission Screen Reason For Exam: Triggered on Admission Diagnosis: copd exacerbation Diagnosis: copd exacerbation Pneumonia: No Home O2: Yes Asthma: No CHF: No Home CPAP/BIPAP: No Home Nebs/MDI: Yes Total Points: 10 06/15/19 23:35 Respiratory Therapy Assessment DAILY Comment: Diagnosis: copd exacerbation 06/16/19 07:00 Peak Expiratory Flow Rate ONCE Comment: Reason For Exam: Diagnosis: copd exacerbation Discharge Exam General Appearance: no apparent distress, alert Neurologic Exam: alert, oriented x 3, cooperative, normal mood/affect, nml cerebellar function, sensation nml, No motor deficits Eye Exam: PERRL, EOMI, eyes nml inspection Ears, Nose, Throat Exam: normal ENT inspection, pharynx normal, moist mucous membranes Neck Exam: normal inspection, non-tender, supple, full range of motion Respiratory Exam: normal breath sounds, lungs clear, No respiratory distress Cardiovascular Exam: regular rate/rhythm, normal heart sounds Gastrointestinal/Abdomen Exam: soft, No tenderness, No mass Male Genitalia Exam: deferred Rectal Exam: deferred Back Exam: normal inspection, normal range of motion, No CVA tenderness, No vertebral tenderness Extremity Exam: normal inspection, normal range of motion Skin Exam: normal color, warm, dry Final Diagnosis/Problem List - Final Discharge Diagnosis/Problem (1) COPD exacerbation Status: Acute Assessment & Plan: improving Code(s): J44.1 - CHRONIC OBSTRUCTIVE PULMONARY DISEASE W (ACUTE) EXACERBATION (2) Hypertension Status: Chronic Code(s): I10 - ESSENTIAL (PRIMARY) HYPERTENSION - Discharge Discharge Date: 06/17/19 Disposition: Home, Self-Care Condition: Stable Prescriptions: New Levofloxacin [Levaquin] 500 mg PO DAILY #5 tablet Continue Albuterol/Ipratropium 3ml Neb* [DUONEB 0.5-3 MG/3 ml Neb] 3 ml IH QID #120 ampul.neb Potassium Chloride 10 meq PO BID Apixaban [Eliquis 5 mg Tablet] 5 mg PO BID 30 Days #60 tablet predniSONE [Prednisone] 20 mg PO DAILY Nebivolol HCl 5 MG [Bystolic 5 MG] 5 mg PO QHS Fluticasone/Umeclidin/Vilanter [Trelegy Ellipta 100-62.5-25] 1 each IH DAILY Instructions: Exacerbation of COPD (DC) Follow up with: MICAH HAND [ACTIVE STAFF] - 07/03/19 2:15 pm GALEN DOBBINS MD [Primary Care Provider] - 06/24/19 2:15 pm Forms: Discharge Instructions
[2019-06-17] MEDS ORDERED: Levofloxacin 500MG/100ML D5W 500 MG/100 ML BAG IV SCH (22:00)
== END 2019-06-17 11:05 | disposition home or self-care (01) ==
LOC: ED 19:37 → ICU 21:56
PROVIDERS: ADMIT General Practice; ATTEND General Practice
DX: J44.1 Chronic obstructive pulmonary disease with (acute) exacerbation (principal); I10 Essential (primary) hypertension; Z79.01 Long term (current) use of anticoagulants; Z79.899 Other long term (current) drug therapy; Z86.711 Personal history of pulmonary embolism
CPT/HCPCS: 36415; 80053; 82375; 82803; 83880; 84484; 85025; 85027; 87040; 93041; 93268; 94150; 94640; 94760; 94762; 96365; 96368; 96374; 99291; G0378; 36000; 36600; 71045; 99285; J1956; J2920; J2930; J3475; A9270-GY

== ENCOUNTER 2019-08-05 10:41 | Emergency (ER) | payer MEDICARE ==
--- NOTE | 2019-08-05 10:52 | ERPHSYRPT ---
- History of Present Illness Time Seen by Provider: 08/05/19 10:45 Source: patient, EMS Exam Limitations: no limitations Physician History: Patient began with a flare-up of his chronic low back pain on the right lower side last evening, causing him to feel short of breath. He called EMS to bring him into the emergency department. He has a history of COPD and saw his physician last week who put him on an antibiotic for his low back pain, but patient did not know the reason. Timing/Duration: yesterday Activities at Onset: none Severity of Dyspnea-Max: moderate Severity of Dyspnea-Current: moderate Possible Cause: occasional episodes Modifying Factors: Improves With: albuterol nebulizer. Worsens With: activity ( makes his low back pain worse) Associated Symptoms: constant, wheezing, tightness, No anxiety, No chest pain/ discomfort, No edema, No fever, No insomnia, No loss of appetite, No lightheadedness, No weakness, No ankle swelling, No hemoptysis, No calf pain, No dizziness, No heaviness, No heart racing, No lightheadedness, No leg swelling , No muscle spasms feet, No muscle spasms hands, No painful breathing, No productive cough, No sweating, No tingling face International travel in last 2 weeks: No Allergies/Adverse Reactions: No Known Drug Allergies Allergy (Verified 08/05/19 10:50) Home Medications: Potassium Chloride 10 meq PO BID 11/16/16 [History] Nebivolol HCl 5 MG [Bystolic 5 MG] 5 mg PO QHS 03/23/19 [History] predniSONE [Prednisone] 20 mg PO DAILY 03/23/19 [History] Fluticasone/Umeclidin/Vilanter [Trelegy Ellipta 100-62.5-25] 1 each IH DAILY 10/23 [History] Hx Tetanus, Diphtheria Vaccination/Date Given: Yes Hx Influenza Vaccination/Date Given: Yes Hx Pneumococcal Vaccination/Date Given: Yes - Review of Systems Constitutional: No Fever, No Chills Eyes: No Eye Pain, No Eye Redness, No Vision Changes Ears, Nose, & Throat: No Nose Congestion, No Nose Discharge, No Epistaxis, No Mouth Pain Respiratory: Cough, Dyspnea Cardiac: No Chest Pain, No Edema, No Syncope Abdominal/Gastrointestinal: No Abdominal Pain, No Nausea, No Vomiting, No Diarrhea Genitourinary Symptoms: No Dysuria, No Hematuria, No Flank Pain Musculoskeletal: Back Pain, No Neck Pain, No Fall, No Joint Pain, No Myalgias Skin: No Rash Neurological: No Dizziness, No Focal Weakness, No Headache, No Parasthesia, No Sensory Changes Psychological: No Emotional Lability Endocrine: No Excessive Sweating Hematologic/Lymphatic: No Easy Bleeding, No Easy Bruising All Other Systems: Reviewed and Negative - Past Medical History Pertinent Past Medical History: Yes Neurological History: No Pertinent History ENT History: No Pertinent History Cardiac History: Hypertension Respiratory History: Bronchitis, COPD, Pneumonia, Pulmonary Embolism Endocrine Medical History: No Pertinent History Musculoskeletal History: No Pertinent History GI Medical History: No Pertinent History History: No Pertinent History Psycho-Social History: No Pertinent History Male Reproductive Disorders: No Pertinent History Other Medical History: 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 - Past Surgical History Past Surgical History: Yes Neuro Surgical History: No Pertinent History Cardiac: No Pertinent History Respiratory: No Pertinent History Gastrointestinal: Cholecystectomy, Hernia Repair Genitourinary: No Pertinent History Musculoskeletal: No Pertinent History Male Surgical History: No Pertinent History Other Surgical History: cataract IOL left eye, back surgery, Surgery on right eye to bring up lower eyelid - Social History Smoking Status: Former smoker How long have you smoked: 62 years Exposure to second hand smoke: Yes Drug Use: none Patient Lives Alone: No - Nursing Vital Signs Nursing Vital Signs: Initial Vital Signs Pulse Rate 83 08/05/19 10:51 Respiratory Rate 24 08/05/19 10:51 Blood Pressure 163/103 08/05/19 10:51 O2 Sat by Pulse Oximetry 99 08/05/19 10:51 Pain Scale Pain Intensity 4 - Physical Exam General Appearance: no apparent distress, alert Eye Exam: PERRL/EOMI, eyes nml inspection, No scleral icterus, No pale conjunctivae Ears, Nose, Throat Exam: hearing grossly normal, normal ENT inspection, normal pharynx, No abnormal TM (R), No abnormal TM (L), No sinus pain/drainage, No nasal congestion, No pharyngeal erythema, No tonsillar exudate, No tonsillar swelling Neck Exam: normal inspection, non-tender, supple, full range of motion, No Brudzinski, No Kernig's Respiratory Exam: lungs clear, airway intact, No chest tenderness, No respiratory distress, No accessory muscle use, No crackles/rales, No rhonchi, No stridor Cardiovascular/Chest Exam: normal heart sounds, regular rate/rhythm, normal peripheral pulses Abdominal/Gastrointestinal Exam: soft, normal bowel sounds, No tenderness, No distention, No mass, No pulsatile mass, No rebound Extremity Exam: non-tender, normal range of motion, normal inspection, no calf tenderness, no pedal edema Neurologic Exam: alert, oriented x 3, cooperative, fire investigation manager II-XII nml as tested, normal mood/affect, sensation nml, No motor deficits, No uncooperative Skin Exam: normal color, warm, No dry SpO2 Interpretation: normal O2 Delivery: Room Air - Course Nursing assessment & vital signs reviewed: Yes EKG Interpreted by Me: RATE (80), Sinus Rhythm, NORMAL AXIS, NORMAL INTERVALS, NORMAL QRS, NORMAL ST-T, Other (aand negative visual change in comparison to EKG from 06/15/2019) - Radiology Exams L-Spine X-ray Interpretation: Other (1. I see no new acute lumbar spine fracture or AP subluxation as compared to Chronic compression deformities are seen involving T12, L1, L3, and L4, as) Chest X-ray Interpretation: Interpreted by me, Reviewed by me, Other (pper radiologist interpretation:portable chest and change again demonstrate bibasilar fibrosis 4/9 right greater than left. Remaining heart and lungs unremarkable. Bony thorax and tachycardia with osteopenia, degenerative changes , and T12/L1 kyphoplasty. No new/acute findings. Overall impression: Nonacute chest with chronic features.) Ordered Tests: Active Orders 24 hr Category Date Time Status Adhesive Bonding Machine Operator STAT Care 08/05/19 10:58 Active EKG-ER Only STAT Care 08/05/19 10:58 Active IV Insertion STAT Care 08/05/19 10:58 Active Oxygen-ED Only Nasal Cannula 3 lpm Care 08/05/19 10:58 Active Pulse Oximetry (ED) STAT Care 08/05/19 10:59 Active CHEST 1 VIEW (PORTABLE) Stat Exams 08/05/19 11:19 Completed CBC W DIFF Stat Lab 08/05/19 11:51 Completed CMP Stat Lab 08/05/19 11:51 Completed CULTURE,URINE Stat Lab 08/05/19 13:37 Received Lactic Acid Stat Lab 08/05/19 11:49 Completed MAGNESIUM Stat Lab 08/05/19 11:51 Completed Manual Differential NC Stat Lab 08/05/19 11:51 Completed NT PRO BNP Stat Lab 08/05/19 11:51 Completed PROTIME WITH INR Stat Lab 08/05/19 11:51 Completed PTT Stat Lab 08/05/19 11:51 Completed TROPONIN Q3H Lab 08/05/19 11:51 Completed TROPONIN Q3H Lab 08/05/19 14:30 Ordered TROPONIN Q3H Lab 08/05/19 17:30 Ordered TROPONIN Q3H Lab 08/05/19 20:30 Ordered TROPONIN Q3H Lab 08/05/19 23:30 Ordered UA W/RFX UR CULTURE Stat Lab 08/05/19 13:37 Completed VENOUS BLOOD GAS Stat Lab 08/05/19 11:49 Completed Medication Summary Discontinued Medications Generic Name Dose Route Start Last Admin Trade Name Freq PRN Reason Stop Dose Admin Morphine Sulfate 4 mg 08/05/19 11:20 08/05/19 11:30 Morphine Sulfate 4 Mg Inj IV 08/05/19 11:21 4 mg STAT ONE Administration Morphine Sulfate Confirm 08/05/19 11:27 Morphine Sulfate 4 Mg Inj Administered 08/05/19 11:28 Dose 4 mg .ROUTE .[employer] HTI ONE Lab/Rad Data: Laboratory Result Diagrams 08/05/19 11:51 08/05/19 11:51 Laboratory Results 08/05/19 08/05/19 08/05/19 Range/Units 13:37 11:51 11:51 WBC (4.0-10.5) K/mm3 RBC (4.1-5.6) M/mm3 Hgb (12.5-18.0) gm/dl Hct (42-50) % MCV (78-100) fl MCH (26-32) pg MCHC (32-36) g/dl RDW (11.5-14.0) % Plt Count (150-450) K/mm3 MPV (6-9.5) fl Segmented Neutrophils (36.-66.) % Band Neutrophils (0.0-2.0) % Lymphocytes (Manual) (24-44) % Atypical Lymphocytes % Toxic Granulation Platelet Estimate (NORMAL) RBC Morphology Anisocytosis PT 16.2 H (8.83-12.87) SECONDS INR 1.42 (0.8-3.0) APTT 31.4 (24.1-36.1) SECONDS pO2/FiO2 Ratio % VBG pH (7.32-7.42) VBG pCO2 at Pat Temp (42-55) mm/Hg VBG pO2 at Pat Temp (25-40) mm/Hg VBG HCO3 (22-28) meq/L VBG O2 Sat (Toni) (95-100) VBG Base Excess (-2.0-2.0) VBG Hemoglobin VBG Carboxyhemoglobin (0.0-6.9) % T HGB POC Potassium (3.5-5.1) Sodium (137-145) mmol/L Potassium (3.5-5.1) mmol/L Chloride (98-107) mmol/L Carbon Dioxide (22-30) mmol/L Anion Gap (5-15) MEQ/L BUN (9-20) mg/dL Creatinine (0.66-1.25) mg/dL Estimated GFR ML/MIN Glucose (74-106) mg/dL Lactic Acid (0.4-2.0) Calcium (8.4-10.2) mg/dL Magnesium (1.6-2.3) mg/dL Total Bilirubin (0.2-1.3) mg/dL AST (17-59) U/L ALT (0-50) U/L Alkaline Phosphatase (38-126) U/L Troponin I < 0.012 (0.000-0.034) ng/mL NT-Pro-B Natriuret Pep (0-900) pg/mL Serum Total Protein (6.3-8.2) g/dL Albumin (3.5-5.0) g/dL Urine Color YELLOW (YELLOW) Urine Appearance CLEAR (CLEAR) Urine pH 6.0 (5-6) Ur Specific [place] 1.018 (1.005-1.025) Urine Protein NEGATIVE (Negative) Urine Ketones NEGATIVE (NEGATIVE) Urine Blood SMALL (0-5) Tim/ul Urine Nitrite NEGATIVE (NEGATIVE) Urine Bilirubin NEGATIVE (NEGATIVE) Urine Urobilinogen NEGATIVE (0-1) mg/dL Ur Leukocyte Esterase NEGATIVE (NEGATIVE) Urine WBC (Auto) 3-5 (0-5) /HPF Urine RBC (Auto) 0-2 (0-2) /HPF U Epithel Cells (Auto) NONE (FEW) /HPF Urine Bacteria (Auto) NONE (NEGATIVE) /HPF Ur Dysmorphic RBCs (0-2) /HPF Urine Mucus (Auto) SLIGHT (NEGATIVE) /HPF Urine Culture Reflexed YES (NO) Urine Glucose NEGATIVE (NEGATIVE) mg/dL 08/05/19 08/05/19 08/05/19 Range/Units 11:51 11:51 11:49 WBC 10.8 H (4.0-10.5) K/mm3 RBC 5.52 (4.1-5.6) M/mm3 Hgb 15.6 (12.5-18.0) gm/dl Hct 47.1 (42-50) % MCV 85.3 (78-100) fl MCH 28.3 (26-32) pg MCHC 33.1 (32-36) g/dl RDW 16.3 H (11.5-14.0) % Plt Count 222 (150-450) K/mm3 MPV 9.3 (6-9.5) fl Segmented Neutrophils 95 H (36.-66.) % Band Neutrophils 1 (0.0-2.0) % Lymphocytes (Manual) 2 L (24-44) % Atypical Lymphocytes 2 % Toxic Granulation 1+ Platelet Estimate NORMAL (NORMAL) RBC Morphology ABNORMAL Anisocytosis 1+ PT (8.83-12.87) SECONDS INR (0.8-3.0) APTT (24.1-36.1) SECONDS pO2/FiO2 Ratio 34.0 % VBG pH 7.52 H (7.32-7.42) VBG pCO2 at Pat Temp 32 L (42-55) mm/Hg VBG pO2 at Pat Temp 79 H (25-40) mm/Hg VBG HCO3 26.1 (22-28) meq/L VBG O2 Sat (Toni) 99.6 (95-100) VBG Base Excess 3.9 H (-2.0-2.0) VBG Hemoglobin 16.1 VBG Carboxyhemoglobin 4.3 (0.0-6.9) % T HGB POC Potassium 4.4 (3.5-5.1) Sodium 139 (137-145) mmol/L Potassium 4.4 (3.5-5.1) mmol/L Chloride 105 (98-107) mmol/L Carbon Dioxide 27 (22-30) mmol/L Anion Gap 11.5 (5-15) MEQ/L BUN 25 H (9-20) mg/dL Creatinine 0.91 (0.66-1.25) mg/dL Estimated GFR > 60.0 ML/MIN Glucose 104 (74-106) mg/dL Lactic Acid 1.1 (0.4-2.0) Calcium 10.4 H (8.4-10.2) mg/dL Magnesium 2.1 (1.6-2.3) mg/dL Total Bilirubin 0.90 (0.2-1.3) mg/dL AST 22 (17-59) U/L ALT 21 (0-50) U/L Alkaline Phosphatase 76 (38-126) U/L Troponin I (0.000-0.034) ng/mL NT-Pro-B Natriuret Pep 928 H (0-900) pg/mL Serum Total Protein 6.6 (6.3-8.2) g/dL Albumin 3.7 (3.5-5.0) g/dL Urine Color (YELLOW) Urine Appearance (CLEAR) Urine pH (5-6) Ur Specific [place] (1.005-1.025) Urine Protein (Negative) Urine Ketones (NEGATIVE) Urine Blood (0-5) Tim/ul Urine Nitrite (NEGATIVE) Urine Bilirubin (NEGATIVE) Urine Urobilinogen (0-1) mg/dL Ur Leukocyte Esterase (NEGATIVE) Urine WBC (Auto) (0-5) /HPF Urine RBC (Auto) (0-2) /HPF U Epithel Cells (Auto) (FEW) /HPF Urine Bacteria (Auto) (NEGATIVE) /HPF Ur Dysmorphic RBCs (0-2) /HPF Urine Mucus (Auto) (NEGATIVE) /HPF Urine Culture Reflexed (NO) Urine Glucose (NEGATIVE) mg/dL - Progress Progress: improved Air Movement: good Progress Note: 08/05/19 12:30 Patient's pain has resolved in his low back and he has no further shortness of breath. Patient has no symptoms of chest pain, abdominal pain, or any focal weakness at any time in the emergency department. Patient has remained in sinus rhythm throughout his time in the emergency department. 08/05/19 14:07 Patient has no dyspnea or back pain. Patient has medications at home except for anything for pain. Blood Culture(s) Obtained: No Antibiotics given: No Counseled pt/family regarding: lab results, diagnosis, need for follow-up, rad results - Departure Departure Disposition: Home Clinical Impression: SOB (shortness of breath), Acute exacerbation of chronic low back pain COPD (chronic obstructive pulmonary disease) Qualifiers: COPD type: chronic bronchitis Chronic bronchitis type: simple Qualified Code(s) : J41.0 - Simple chronic bronchitis Hypertension Qualifiers: Hypertension type: essential hypertension Qualified Code(s): I10 - Essential ( primary) hypertension Condition: Good Critical Care Time: No Referrals: GALEN DOBBINS MD [Primary Care Provider] - 08/06/19 Instructions: Chronic Obstructive Pulmonary Disease, Shortness of Breath ( Dyspnea) (DC), Low Back Pain (DC) Additional Instructions: Return immediately back for any shortness of breath, any chest pain, any fever, new blood in the stool, new blood in the urine, no known pain, new weakness in the lower extremities, new loss of sensation in the lower caries, new numbness anywhere or any other concerning signs or symptoms that were not present at today's emergency department visit for immediate reevaluation in the emergency department. Prescriptions: Meloxicam 7.5 mg [Mobic 7.5 MG] 7.5 mg PO DAILY PRN #7 tablet PRN Reason: Pain
[2019-08-05] MEDS ORDERED: MORPHINE SULFATE 4 MG INJ IV ONE ×2 (11:20→15:07)
[2019-08-05] MEDS ORDERED: MORPHINE SULFATE 4 MG INJ ONE ×2 (11:27→15:11)
--- NOTE | 2019-08-05 11:47 | XRAY ---
Indication: Short of breath. Comparison: August 15, 2019. Portable chest unchanged again demonstrating bibasilar fibrosis/scarring right greater than left. Remaining heart and lungs unremarkable. Bony thorax intact again with osteopenia, degenerative changes, and T12/L1 kyphoplasty. No new/acute findings. Impression: Nonacute chest with chronic features.
[2019-08-05 11:59] LABS: Lactic Acid 1.1 (0.4-2.0); VBG BASE EXCESS 3.9 (-2.0-2.0); VBG CARBOXYHEMOGLOBIN 4.3 % T HGB (0.0-6.9); VBG HCO3- 26.1 meq/L (22-28); VBG HEMOGLOBIN 16.1; VBG O2 SATURATION 99.6 (95-100); VBG POTASSIUM 4.4 (3.5-5.1); VBG pH 7.52 (7.32-7.42)
[2019-08-05 12:06] LABS: INR 1.42 (0.8-3.0); PROTIME 16.2 SECONDS (8.83-12.87)
[2019-08-05 12:08] LABS: PTT 31.4 SECONDS (24.1-36.1)
[2019-08-05 12:12] LABS: Hematocrit 47.1 % (42-50); Hemoglobin 15.6 gm/dl (12.5-18.0); Mean Cell Volume 85.3 fl (78-100); Mean Corpuscular Hemoglobin 28.3 pg (26-32); Mean Corpuscular Hgb Concent. 33.1 g/dl (32-36); Mean Platelet Volume 9.3 fl (6-9.5); Platelet Count 222 K/mm3 (150-450); Red Blood Count 5.52 M/mm3 (4.1-5.6); Red Cell Distribution Width 16.3 % (11.5-14.0); White Blood Count 10.8 K/mm3 (4.0-10.5)
[2019-08-05 12:16] LABS: ALBUMIN 3.7 g/dL (3.5-5.0); ALKALINE PHOSPHATASE 76 U/L (38-126); ANION GAP 11.5 MEQ/L (5-15); BLOOD UREA NITROGEN 25 mg/dL (9-20); CHLORIDE 105 mmol/L (98-107); Calcium 10.4 mg/dL (8.4-10.2); Carbon Dioxide 27 mmol/L (22-30); Creatinine 1 0.91 mg/dL (0.66-1.25); Glucose 104 mg/dL (74-106); MAGNESIUM 2.1 mg/dL (1.6-2.3); NT PRO BNP 928 pg/mL (0-900); Potassium 4.4 mmol/L (3.5-5.1); SGOT/AST 22 U/L (17-59); SGPT/ALT 21 U/L (0-50); SODIUM 139 mmol/L (137-145); Total Protein 6.6 g/dL (6.3-8.2)
[2019-08-05 13:41] LABS: ANISOCYTOSIS 1+; ATYPICAL LYMPHS 2 %; BAND 1 % (0.0-2.0); Lymphocytes 2 % (24-44); Neutrophils 95 % (36.-66.); Platelet Estimate NORMAL (NORMAL); Total Cells Counted 100; Toxic Granulation 1+
[2019-08-05 13:54] LABS: Appearance CLEAR (CLEAR); Bilirubin NEGATIVE (NEGATIVE); Blood SMALL Ery/ul (0-5); Glucose NEGATIVE (NEGATIVE); Ketones NEGATIVE (NEGATIVE); Leukocyte Esterase NEGATIVE (NEGATIVE); Mucus SLIGHT /HPF (NEGATIVE); Nitrite NEGATIVE (NEGATIVE); Protein,Urine Dip NEGATIVE (Negative); RBC 0-2 /HPF (0-2); Specific Gravity 1.018 (1.005-1.025); Urobilinogen NEGATIVE mg/dL (0-1)
--- NOTE | 2019-08-05 15:21 | XRAY ---
Indication: Right lower back pain. Multiple contiguous axial images obtained through the abdomen and pelvis using 80 cc Isovue 370 contrast only. Comparison: CT renal stone study December 18, 2017. Lung bases again demonstrates pulmonary emphysema, fibrosis/scarring, dependent atelectasis, and tiny calcified granulomas. Heart is not enlarged. Noncontrasted stomach and bowel loops appear nonobstructed. Normal appendix. Again moderate sized fatty left inguinal hernia with now loop of sigmoid colon herniating without obstruction/incarceration. Stable fatty liver and cholecystectomy. Remaining liver, pancreas, spleen, adrenal glands, kidneys, ureters, and bladder appear unremarkable. Stable mild scattered aortoiliac calcifications. No AAA or pathologic retroperitoneal lymphadenopathy. Osseous structures again demonstrates mild degenerative changes throughout the spine and T12/L1/L3/L4 superior endplate fractures. Interval T12/L1/L3 kyphoplasty. Impression: 1. Again fatty left inguinal hernia with new herniated loop of sigmoid colon without complications. 2. Stable fatty liver, pulmonary emphysema, pulmonary fibrosis/scarring, and evidence for old granulomatous disease. 3. Again T12/L1/L3/L4 superior endplate with interval T12/L1/L3 kyphoplasty. No new fracture or spinal canal stenosis. CTDI 3.85
[2019-08-05 16:19] VITALS: BP 108/74; PULSE 84; O2SAT 95
== END 2019-08-05 16:58 | disposition home or self-care (01) ==
LOC: ED 10:41
DX: R06.02 Shortness of breath (principal); M54.5 Low back pain; J41.0 Simple chronic bronchitis; I10 Essential (primary) hypertension; Z86.711 Personal history of pulmonary embolism; I71.4 Abdominal aortic aneurysm, without rupture; K76.0 Fatty (change of) liver, not elsewhere classified; K40.90 Unilateral inguinal hernia, without obstruction or gangrene, not specified as recurrent
CPT/HCPCS: 36000; 36415; 71045; 74177; 80053; 81001; 82805; 83605; 83735; 83880; 84484; 85025; 85610; 85730; 87086; 93005; 93041; 94760; 96374; 96376; 99284; J2270

== ENCOUNTER 2019-09-05 20:47 | Emergency (ER) | payer OTHER, MEDICARE ==
[2019-09-05 21:22] LABS: Hematocrit 48.1 % (42-50); Hemoglobin 16.4 gm/dl (12.5-18.0); Mean Cell Volume 83.5 fl (78-100); Mean Corpuscular Hemoglobin 28.5 pg (26-32); Mean Corpuscular Hgb Concent. 34.1 g/dl (32-36); Mean Platelet Volume 9.4 fl (6-9.5); Platelet Count 138 K/mm3 (150-450); Red Blood Count 5.76 M/mm3 (4.1-5.6); Red Cell Distribution Width 17.1 % (11.5-14.0); White Blood Count 12.6 K/mm3 (4.0-10.5)
[2019-09-05] MEDS ORDERED: Tums EX 750 MG PO ONE (21:31)
[2019-09-05 21:44] LABS: ALBUMIN 3.5 g/dL (3.5-5.0); ALKALINE PHOSPHATASE 84 U/L (38-126); ANION GAP 10.1 MEQ/L (5-15); BLOOD UREA NITROGEN 26 mg/dL (9-20); CHLORIDE 104 mmol/L (98-107); Calcium 10.4 mg/dL (8.4-10.2); Carbon Dioxide 26 mmol/L (22-30); Creatinine 1 0.88 mg/dL (0.66-1.25); Glucose 103 mg/dL (74-106); Potassium 4.5 mmol/L (3.5-5.1); SGOT/AST 25 U/L (17-59); SGPT/ALT 44 U/L (0-50); SODIUM 136 mmol/L (137-145); TROPONIN 0.013 ng/mL (0.000-0.034); Total Protein 6.4 g/dL (6.3-8.2)
[2019-09-05 22:07] LABS: BAND 4 % (0.0-2.0); Lymphocytes 5 % (24-44); Monocyte 3 % (0.0-12.0); Neutrophils 88 % (36.-66.); Platelet Estimate NORMAL (NORMAL); Total Cells Counted 100
[2019-09-05 22:37] VITALS: BP 137/101; PULSE 98
[2019-09-05 22:41] VITALS: O2SAT 96
--- NOTE | 2019-09-05 22:41 | ERPHSYRPT ---
- History of Present Illness Source: patient, EMS Patient Subjective Stated Complaint: pt states he was out and stood up to go home. states he suddenly got short of breath. Triage Nursing Assessment: pt alert and oriented, answers questions approp. pt short fo breath at rest. exp wheezes throughout. pursed mouth breathing. occasional moist cough noted. Physician History: h/o copd, htn on 3-5l )2 at home here for sob. pt had sudden onset sob this evening. no new cough, inc sputum. no fever chills. pt has never been iuntubated before. has a lung doctor. was on levoflox a month ago for possible pna. duoneb and solumedrol given by medics. pt back to baseline by the time he got here. lives by himself Allergies/Adverse Reactions: No Known Drug Allergies Allergy (Verified 09/05/19 21:14) Home Medications: Potassium Chloride 10 meq PO BID 11/16/16 [History] Nebivolol HCl 5 MG [Bystolic 5 MG] 5 mg PO QHS 03/23/19 [History] predniSONE [Prednisone] 20 mg PO DAILY 03/23/19 [History] Fluticasone/Umeclidin/Vilanter [Trelegy Ellipta 100-62.5-25] 1 each IH DAILY 10/23 [History] Hx Tetanus, Diphtheria Vaccination/Date Given: Yes Hx Influenza Vaccination/Date Given: No Hx Pneumococcal Vaccination/Date Given: Yes Immunizations Up to Date: Yes - Review of Systems Constitutional: No Fever Eyes: No Discharge Ears, Nose, & Throat: No Nose Congestion Respiratory: Cough, Wheezing Abdominal/Gastrointestinal: No Symptoms Genitourinary Symptoms: No Symptoms Musculoskeletal: No Symptoms Skin: No Symptoms Neurological: No Symptoms - Past Medical History Pertinent Past Medical History: Yes Neurological History: No Pertinent History ENT History: No Pertinent History Cardiac History: Hypertension Respiratory History: Bronchitis, COPD, Pneumonia, Pulmonary Embolism Endocrine Medical History: No Pertinent History Musculoskeletal History: No Pertinent History GI Medical History: No Pertinent History History: No Pertinent History Psycho-Social History: No Pertinent History Male Reproductive Disorders: No Pertinent History Other Medical History: 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 - Past Surgical History Past Surgical History: Yes Neuro Surgical History: No Pertinent History Cardiac: No Pertinent History Respiratory: No Pertinent History Gastrointestinal: Cholecystectomy, Hernia Repair Genitourinary: No Pertinent History Musculoskeletal: No Pertinent History Male Surgical History: No Pertinent History Other Surgical History: cataract IOL left eye, back surgery, Surgery on right eye to bring up lower eyelid - Social History Smoking Status: Former smoker How long have you smoked: 62 years Exposure to second hand smoke: Yes Drug Use: none Patient Lives Alone: Yes - Nursing Vital Signs Nursing Vital Signs: Initial Vital Signs Temperature 97.6 F 09/05/19 20:53 Pulse Rate 101 H 09/05/19 20:53 Respiratory Rate 26 H 09/05/19 20:53 Blood Pressure 163/114 09/05/19 20:53 O2 Sat by Pulse Oximetry 94 L 09/05/19 20:53 Pain Scale Pain Intensity 0 - Physical Exam General Appearance: mild distress Eye Exam: PERRL/EOMI, eyes nml inspection Ears, Nose, Throat Exam: normal ENT inspection, TMs normal Neck Exam: normal inspection Respiratory Exam: diminished breath sounds, other (slightly inc resp rate and effort) Cardiovascular Exam: regular rate/rhythm Gastrointestinal/Abdomen Exam: soft, normal bowel sounds Extremity Exam: normal inspection Neurologic Exam: alert, oriented x 3, cooperative Skin Exam: normal color, warm SpO2: 96 - Course EKG Interpreted by Me: Sinus Rhythm (88) Ordered Tests: Active Orders 24 hr Category Date Time Status CHEST 2 VIEWS (PA AND LAT) Stat Exams 09/05/19 21:42 Taken CBC W DIFF Stat Lab 09/05/19 21:15 Completed CMP Stat Lab 09/05/19 21:15 Completed Manual Differential NC Stat Lab 09/05/19 21:15 Completed TROPONIN Stat Lab 09/05/19 21:15 Completed EKG ROUTINE RT 09/05/19 21:02 Active Medication Summary Discontinued Medications Generic Name Dose Route Start Last Admin Trade Name Freq PRN Reason Stop Dose Admin Calcium Carbonate/Glycine 750 mg 09/05/19 21:31 09/05/19 22:16 Tums Ex 750 Mg PO 09/05/19 21:32 750 mg STAT ONE Administration Lab/Rad Data: Laboratory Result Diagrams 09/05/19 21:15 09/05/19 21:15 Laboratory Results 09/05/19 09/05/19 Range/Units 21:15 21:15 WBC 12.6 H (4.0-10.5) K/mm3 RBC 5.76 H (4.1-5.6) M/mm3 Hgb 16.4 (12.5-18.0) gm/dl Hct 48.1 (42-50) % MCV 83.5 (78-100) fl MCH 28.5 (26-32) pg MCHC 34.1 (32-36) g/dl RDW 17.1 H (11.5-14.0) % Plt Count 138 L (150-450) K/mm3 MPV 9.4 (6-9.5) fl Segmented Neutrophils 88 H (36.-66.) % Band Neutrophils 4 H (0.0-2.0) % Lymphocytes (Manual) 5 L (24-44) % Monocytes (Manual) 3 (0.0-12.0) % Platelet Estimate NORMAL (NORMAL) RBC Morphology NORMAL Sodium 136 L (137-145) mmol/L Potassium 4.5 (3.5-5.1) mmol/L Chloride 104 (98-107) mmol/L Carbon Dioxide 26 (22-30) mmol/L Anion Gap 10.1 (5-15) MEQ/L BUN 26 H (9-20) mg/dL Creatinine 0.88 (0.66-1.25) mg/dL Estimated GFR > 60.0 ML/MIN Glucose 103 (74-106) mg/dL Calcium 10.4 H (8.4-10.2) mg/dL Total Bilirubin 1.10 (0.2-1.3) mg/dL AST 25 (17-59) U/L ALT 44 (0-50) U/L Alkaline Phosphatase 84 (38-126) U/L Troponin I 0.013 (0.000-0.034) ng/mL Serum Total Protein 6.4 (6.3-8.2) g/dL Albumin 3.5 (3.5-5.0) g/dL - Progress Progress: improved Air Movement: fair Progress Note: 09/05/19 22:39 pt feeling much better. back to baseline. basic labs unremarkable. pt xray still shows the right mid to lower lung opacities. unsure if its pna. he has had it for a while. given his comorbidities I will start him on doxy, prednisone burst. duoneb every 4 hours as needed., f/u with clay molder in a weeks time. Blood Culture(s) Obtained: No Antibiotics given: Yes, No Discussed with DrMartinez: Vel Counseled pt/family regarding: lab results, diagnosis, need for follow-up, rad results - Departure Departure Disposition: Home Clinical Impression: COPD exacerbation Condition: Stable Critical Care Time: No Referrals: GALEN DOBBINS MD [Primary Care Provider] - Instructions: Chronic Obstructive Pulmonary Disease, Exacerbation of COPD (DC)
--- NOTE | 2019-09-06 09:10 | XRAY ---
Indication: Cough. Comparison: August 05, 2019. PA/lateral chest again demonstrates COPD with chronic bibasilar fibrosis/scarring right greater than left. Heart is not enlarged. No new/acute cardiopulmonary abnormalities.
== END 2019-09-05 23:04 | disposition home or self-care (01) ==
LOC: ED 20:47
DX: J44.1 Chronic obstructive pulmonary disease with (acute) exacerbation (principal); Z86.711 Personal history of pulmonary embolism
CPT/HCPCS: 36415; 71046; 80053; 84484; 85025; 99284; A9270-GY

== ENCOUNTER 2019-09-22 18:11 | Observation (INO) | payer MEDICARE, OTHER ==
[2019-09-22] MEDS ORDERED: Zithromax 500 MG/ 250 ML NaCl Premix 500 MG/250 ML IVPB IV STA (18:19)
[2019-09-22] MEDS ORDERED: ROCEPHIN 1 Gm-D5w 50 ml Bag** 1 G/50 ML IVPB IV STA (18:19)
[2019-09-22] MEDS ORDERED: Xopenex 1.25 MG/0.5 ML UD NEBULE IH ONE ×2 (18:19→19:39)
--- NOTE | 2019-09-22 18:19 | ERPHSYRPT ---
- History of Present Illness Source: patient Exam Limitations: no limitations Hx Tetanus, Diphtheria Vaccination/Date Given: Yes Hx Influenza Vaccination/Date Given: No Hx Pneumococcal Vaccination/Date Given: Yes <MARIA TERESA BOURGEOIS - Last Filed: 09/22/19 21:33> - History of Present Illness Timing/Duration: day(s) Severity of Dyspnea-Max: severe Severity of Dyspnea-Current: moderate Possible Cause: frequent episodes, chronic episodes Modifying Factors: Improves With: coughing Associated Symptoms: constant, wheezing, productive cough <MARTINEZ VERNON - Last Filed: 09/22/19 23:16> - History of Present Illness Time Seen by Provider: 09/22/19 18:11 Physician History: for the past 5 hours pt has had increased shortness of air. pt also c/o daily bilateral chest pain for the past 3 years and an intermittent chronic cough sometimes productive of creamy discharge for years. pt denies abdominal pain, vomiting, fever. (MARIA TERESA BOURGEOIS) Allergies/Adverse Reactions: No Known Drug Allergies Allergy (Verified 09/22/19 18:27) Home Medications: Potassium Chloride 10 meq PO DAILY 11/16/16 [History] Nebivolol HCl 5 MG [Bystolic 5 MG] 10 mg PO QHS 03/23/19 [History] predniSONE [Prednisone] 20 mg PO DAILY 03/23/19 [History] Fluticasone/Vilanterol [Breo Ellipta 200-25 Mcg INH] 1 inh PO DAILY 09/22/19 [ History] - Review of Systems Constitutional: No Fever Respiratory: Cough, Dyspnea Cardiac: Chest Pain Abdominal/Gastrointestinal: No Abdominal Pain, No Vomiting Neurological: No Headache All Other Systems: Reviewed and Negative <MARIA TERESA BOURGEOIS - Last Filed: 09/22/19 21:33> - Review of Systems Eyes: No Symptoms Ears, Nose, & Throat: No Symptoms Genitourinary Symptoms: No Symptoms Musculoskeletal: No Symptoms Skin: No Symptoms Neurological: No Symptoms Psychological: No Symptoms Endocrine: No Symptoms Hematologic/Lymphatic: No Symptoms Immunological/Allergic: No Symptoms <MARTINEZ VERNON - Last Filed: 09/22/19 23:16> - Past Medical History Pertinent Past Medical History: Yes Neurological History: No Pertinent History ENT History: No Pertinent History Cardiac History: Hypertension Respiratory History: Bronchitis, COPD, Pneumonia, Pulmonary Embolism Endocrine Medical History: No Pertinent History Musculoskeletal History: No Pertinent History GI Medical History: No Pertinent History History: No Pertinent History Psycho-Social History: No Pertinent History Male Reproductive Disorders: No Pertinent History Other Medical History: 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 - Past Surgical History Past Surgical History: Yes Neuro Surgical History: No Pertinent History Cardiac: No Pertinent History Respiratory: No Pertinent History Gastrointestinal: Cholecystectomy, Hernia Repair Genitourinary: No Pertinent History Musculoskeletal: No Pertinent History Male Surgical History: No Pertinent History Other Surgical History: cataract IOL left eye, back surgery, Surgery on right eye to bring up lower eyelid - Social History Smoking Status: Former smoker How long have you smoked: 62 years Exposure to second hand smoke: Yes Drug Use: none Patient Lives Alone: Yes <MARIA TERESA BOURGEOIS - Last Filed: 09/22/19 21:33> - Physical Exam General Appearance: severe distress, alert Eye Exam: eyes nml inspection Ears, Nose, Throat Exam: pharyngeal erythema Neck Exam: normal inspection Respiratory Exam: respiratory distress, airway intact, wheezing (expiratory wheezing over posterior ford) Cardiovascular/Chest Exam: No gallop Abdominal/Gastrointestinal Exam: normal bowel sounds Extremity Exam: No pedal edema Peripheral Pulses Exam: dorsalis-pedis (R): 2+, dorsalis-pedis (L): 2+ Neurologic Exam: alert, cooperative Skin Exam: warm, dry SpO2 Interpretation: normal SpO2: 100 O2 Delivery: Aerosol Mask <MARIA TERESA BOURGEOIS - Last Filed: 09/22/19 21:33> - Physical Exam Cardiovascular/Chest Exam: normal heart sounds Rectal Exam: deferred Extremity Exam: non-tender Peripheral Pulses Exam: carotid (R): 2+, carotid (L): 2+, femoral (R): 2+, femoral (L): 2+, dorsalis-pedis (R): 2+, dorsalis-pedis (L): 2+ Neurologic Exam: alert, oriented x 3, cooperative, supervisor long goods II-XII nml as tested, normal mood/affect SpO2 Interpretation: borderline oxygenation <MARTINEZ VERNON - Last Filed: 09/22/19 23:16> - Nursing Vital Signs Nursing Vital Signs: Initial Vital Signs Temperature 97.5 F 09/22/19 18:12 Pulse Rate 87 09/22/19 18:12 Respiratory Rate 28 H 09/22/19 18:12 Blood Pressure 140/99 09/22/19 18:12 O2 Sat by Pulse Oximetry 100 09/22/19 18:12 Pain Scale Pain Intensity 0 - Course EKG Interpreted by Me: RATE (88), Sinus Rhythm, Left Springer Deviation, Other (PVC) - Radiology Exams Chest X-ray Interpretation: Discussed w/ radiologist (chronic bibasilar fibrosis/ scarring.) <MARIA TERESA BOURGEOIS - Last Filed: 09/22/19 21:33> - Course Nursing assessment & vital signs reviewed: Yes EKG Interpreted by Me: Non-specific ST Changes <MARTINEZ VERNON - Last Filed: 09/22/19 23:16> Ordered Tests: Active Orders 24 hr Category Date Time Status Automatic Serging Machine Operator STAT Care 09/22/19 18:21 Active EKG-ER Only STAT Care 09/22/19 18:19 Active IV Insertion STAT Care 09/22/19 18:19 Active Pulse Oximetry (ED) STAT Care 09/22/19 18:19 Active CHEST 1 VIEW (PORTABLE) Stat Exams 09/22/19 18:20 Completed CHEST WITH CONTRAST [CT] Stat Exams 09/22/19 19:28 Taken AMYLASE Stat Lab 09/22/19 19:11 Completed ARTERIAL BLOOD GASES Stat Lab 09/22/19 19:10 Completed BLOOD CULTURE Stat Lab 09/22/19 19:11 Received CBC W DIFF Stat Lab 09/22/19 19:11 Completed CMP Stat Lab 09/22/19 19:11 Completed CULTURE,SPUTUM Stat Lab 09/22/19 18:20 Uncollected D-DIMER QUANTITATIVE Stat Lab 09/22/19 19:11 Completed LIPASE Stat Lab 09/22/19 19:11 Completed MAGNESIUM Stat Lab 09/22/19 19:11 Completed Manual Differential NC Stat Lab 09/22/19 19:11 Completed NT PRO BNP Stat Lab 09/22/19 19:11 Completed PROTIME WITH INR Stat Lab 09/22/19 19:11 Completed PTT Stat Lab 09/22/19 19:11 Completed TROPONIN Q3H Lab 09/22/19 19:11 Completed TROPONIN Q3H Lab 09/22/19 21:37 Completed TROPONIN Q3H Lab 09/23/19 00:30 Ordered TROPONIN Q3H Lab 09/23/19 03:30 Ordered TROPONIN Q3H Lab 09/23/19 06:30 Ordered BiPap/CPAP STAT RT 09/22/19 18:19 Active Respiratory Therapy Assessment DAILY RT 09/22/19 19:41 Active Medication Summary Generic Name Dose Route Start Last Admin Trade Name Sreeq PRN Reason Stop Dose Admin Sodium Chloride 1,000 mls @ 100 mls/hr 09/22/19 18:30 09/22/19 19:05 Sodium Chloride 0.9% 1000 Ml IV 10/22/19 18:29 100 mls/hr .Q10H ALIYAH Administration Discontinued Medications Generic Name Dose Route Start Last Admin Trade Name Sreeq PRN Reason Stop Dose Admin Ceftriaxone Sodium/Dextrose 1 g in 50 mls @ 100 mls/hr 09/22/19 18:19 19:34 Rocephin 1 Gm-D5w 50 Ml Bag IV 09/22/19 18:48 Infused STAT STA Infusion Azithromycin 500 mg in 250 mls @ 250 mls/hr 09/22/19 18:19 09/22/19 20:16 Zithromax 500 Mg/ 250 Ml Nacl Premix IV 09/22/19 19:18 Infused STAT STA Infusion Azithromycin Confirm 09/22/19 19:02 Zithromax 500 Mg/ 250 Ml Nacl Premix Administered 09/22/19 19:03 Dose 500 mg in 250 mls @ ud IV .STK-MED ONE Ceftriaxone Sodium/Dextrose Confirm 09/22/19 19:02 Rocephin 1 Gm-D5w 50 Ml Bag Administered 09/22/19 19:03 Dose 1 g in 50 mls @ ud IV .STK-MED ONE Levalbuterol HCl 1.25 mg 09/22/19 18:19 09/22/19 19:41 Xopenex 1.25 Mg/0.5 Ml Ud Nebule IH 09/22/19 18:20 1.25 mg STAT ONE Administration Levalbuterol HCl Confirm 09/22/19 19:39 Xopenex 1.25 Mg/0.5 Ml Ud Nebule Administered 09/22/19 19:40 Dose 1.25 mg IH .STK-MED ONE Lorazepam 0.5 mg 09/22/19 18:38 09/22/19 18:40 Ativan 0.5 Mg PO 09/22/19 18:39 0.5 mg STAT ONE Administration Lorazepam Confirm 09/22/19 18:39 Ativan 1 Mg Administered 09/22/19 18:40 Dose 1 mg .ROUTE .STK-MED ONE Sodium Chloride Confirm 09/22/19 19:39 Sodium Chloride 3 Ml Ud Nebules Administered 09/22/19 19:40 Dose 3 ml IH .STK-MED ONE Lab/Rad Data: Laboratory Result Diagrams 09/22/19 19:11 09/22/19 19:11 Laboratory Results 09/22/19 09/22/19 09/22/19 Range/Units 21:37 21:37 19:11 WBC (4.0-10.5) K/mm3 RBC (4.1-5.6) M/mm3 Hgb (12.5-18.0) gm/dl Hct (42-50) % MCV (78-100) fl MCH (26-32) pg MCHC (32-36) g/dl RDW (11.5-14.0) % Plt Count (150-450) K/mm3 MPV (7.5-11.0) fl PT (8.83-12.87) SECONDS INR (0.8-3.0) APTT (24.1-36.1) SECONDS D-Dimer (215-500) ng/mL Puncture Site pCO2 (35-45) mmHg pO2 (75-100) mmHg Base Excess (-2.0-2.0) O2 Saturation (94-100) g/dF ABG pH (7.35-7.45) ABG HCO3 (22-28) ABG O2 Sat (Measured) (95-100) % Ravi Test A-a Gradient a/A Ratio Hemoglobin Carboxyhemoglobin (0.0-6.9) % THgb Methemoglobin (1.4-1.5) % Potassium (3.5-5.1) POC O2 Flow Rate % Vent Mode Inspiratory BiPAP Expiratory BiPAP Sodium (137-145) mmol/L Chloride (98-107) mmol/L Carbon Dioxide (22-30) mmol/L Anion Gap (5-15) MEQ/L BUN (9-20) mg/dL Creatinine (0.66-1.25) mg/dL Estimated GFR ML/MIN Glucose (74-106) mg/dL Calcium (8.4-10.2) mg/dL Magnesium (1.6-2.3) mg/dL Total Bilirubin (0.2-1.3) mg/dL AST (17-59) U/L ALT (0-50) U/L Alkaline Phosphatase (38-126) U/L Troponin I 0.019 0.025 (0.000-0.034) ng/mL NT-Pro-B Natriuret Pep (0-900) pg/mL Serum Total Protein (6.3-8.2) g/dL Albumin (3.5-5.0) g/dL Amylase (30-110) U/L Lipase (23-300) U/L Influenza Type A Ag NEGATIVE (NEGATIVE) Influenza Type B Ag NEGATIVE (NEGATIVE) RSV (PCR) NEGATIVE (Negative) 09/22/19 09/22/19 09/22/19 Range/Units 19:11 19:11 19:11 WBC 9.0 (4.0-10.5) K/mm3 RBC 5.59 (4.1-5.6) M/mm3 Hgb 16.0 (12.5-18.0) gm/dl Hct 47.2 (42-50) % MCV 84.4 (78-100) fl MCH 28.6 (26-32) pg MCHC 33.9 (32-36) g/dl RDW 17.5 H (11.5-14.0) % Plt Count 150 (150-450) K/mm3 MPV 9.9 (7.5-11.0) fl PT 14.3 H (8.83-12.87) SECONDS INR 1.26 (0.8-3.0) APTT 25.8 (24.1-36.1) SECONDS D-Dimer 769 H* (215-500) ng/mL Puncture Site pCO2 (35-45) mmHg pO2 (75-100) mmHg Base Excess (-2.0-2.0) O2 Saturation (94-100) g/dF ABG pH (7.35-7.45) ABG HCO3 (22-28) ABG O2 Sat (Measured) (95-100) % Ravi Test A-a Gradient a/A Ratio Hemoglobin Carboxyhemoglobin (0.0-6.9) % THgb Methemoglobin (1.4-1.5) % Potassium 4.4 (3.5-5.1) POC O2 Flow Rate % Vent Mode Inspiratory BiPAP Expiratory BiPAP Sodium 137 (137-145) mmol/L Chloride 104 (98-107) mmol/L Carbon Dioxide 29 (22-30) mmol/L Anion Gap 9.6 (5-15) MEQ/L BUN 30 H (9-20) mg/dL Creatinine 0.99 (0.66-1.25) mg/dL Estimated GFR > 60.0 ML/MIN Glucose 101 (74-106) mg/dL Calcium 10.3 H (8.4-10.2) mg/dL Magnesium 2.2 (1.6-2.3) mg/dL Total Bilirubin 1.40 H (0.2-1.3) mg/dL AST 40 (17-59) U/L ALT 55 H (0-50) U/L Alkaline Phosphatase 112 (38-126) U/L Troponin I (0.000-0.034) ng/mL NT-Pro-B Natriuret Pep 1720 H (0-900) pg/mL Serum Total Protein 6.0 L (6.3-8.2) g/dL Albumin 3.3 L (3.5-5.0) g/dL Amylase 112 H (30-110) U/L Lipase 112 (23-300) U/L Influenza Type A Ag (NEGATIVE) Influenza Type B Ag (NEGATIVE) RSV (PCR) (Negative) 09/22/19 Range/Units 19:10 WBC (4.0-10.5) K/mm3 RBC (4.1-5.6) M/mm3 Hgb (12.5-18.0) gm/dl Hct (42-50) % MCV (78-100) fl MCH (26-32) pg MCHC (32-36) g/dl RDW (11.5-14.0) % Plt Count (150-450) K/mm3 MPV (7.5-11.0) fl PT (8.83-12.87) SECONDS INR (0.8-3.0) APTT (24.1-36.1) SECONDS D-Dimer (215-500) ng/mL Puncture Site RIGHT RADIAL pCO2 28 L (35-45) mmHg pO2 67 L (75-100) mmHg Base Excess 10.4 H (-2.0-2.0) O2 Saturation 93.4 L (94-100) g/dF ABG pH 7.65 H* (7.35-7.45) ABG HCO3 30.8 H* (22-28) ABG O2 Sat (Measured) 97.3 (95-100) % Ravi Test YES A-a Gradient 290 a/A Ratio 0.19 Hemoglobin 16.6 Carboxyhemoglobin 3.0 (0.0-6.9) % THgb Methemoglobin 1.0 L (1.4-1.5) % Potassium 4.5 (3.5-5.1) POC O2 Flow Rate 55 % Vent Mode BiPAP Inspiratory BiPAP 14 Expiratory BiPAP 7 Sodium (137-145) mmol/L Chloride (98-107) mmol/L Carbon Dioxide (22-30) mmol/L Anion Gap (5-15) MEQ/L BUN (9-20) mg/dL Creatinine (0.66-1.25) mg/dL Estimated GFR ML/MIN Glucose (74-106) mg/dL Calcium (8.4-10.2) mg/dL Magnesium (1.6-2.3) mg/dL Total Bilirubin (0.2-1.3) mg/dL AST (17-59) U/L ALT (0-50) U/L Alkaline Phosphatase (38-126) U/L Troponin I (0.000-0.034) ng/mL NT-Pro-B Natriuret Pep (0-900) pg/mL Serum Total Protein (6.3-8.2) g/dL Albumin (3.5-5.0) g/dL Amylase (30-110) U/L Lipase (23-300) U/L Influenza Type A Ag (NEGATIVE) Influenza Type B Ag (NEGATIVE) RSV (PCR) (Negative) <MARIA TERESA BOURGEOIS - Last Filed: 09/22/19 21:33> - Progress Progress: improved, re-examined Air Movement: good Blood Culture(s) Obtained: Yes Antibiotics given: Yes Discussed with : Reed Will see patient in: hospital (observation) Counseled pt/family regarding: lab results, diagnosis, need for follow-up, rad results <MARTINEZ VERNON - Last Filed: 09/22/19 23:16> - Progress Progress Note: 09/22/19 21:35 pt taken at change of shift from Dr. Bourgeois after discussion of pending labs and probable need for admission as exacerbation of COPD. PE protocol pending for elevated trop and flu swabs pending - has received Ab already and steroids and is doing well on Bipap; 09/22/19 23:13 discussed with pt and Dr. Limon and all agree best to palce in obs and ICU since on BIPAP and wean off in am (MARTINEZ VERNON) <MARIA TERESA BOURGEOIS - Last Filed: 09/22/19 21:33> - Departure Departure Disposition: Observation Critical Care Time: Yes Critical Care Time(excluding separately billable procedures): Critical 30-74 mins (pt required BIPAP and obs of resp response for first 45 minutes of workup and then improved) <MARTINEZ VERNON - Last Filed: 09/22/19 23:16> - Departure Clinical Impression: Elevated d-dimer, COPD (chronic obstructive pulmonary disease), COPD exacerbation, Failure of outpatient treatment Condition: Good Referrals: GALEN DOBBINS MD [Primary Care Provider] - Instructions: Chronic Obstructive Pulmonary Disease
[2019-09-22] MEDS ORDERED: Ativan 0.5 MG PO ONE (18:38)
[2019-09-22] MEDS ORDERED: Ativan 1 MG ONE (18:39)
[2019-09-22] MEDS ORDERED: ROCEPHIN 1 Gm-D5w 50 ml Bag** 1 G/50 ML IVPB IV ONE (19:02)
[2019-09-22] MEDS ORDERED: Zithromax 500 MG/ 250 ML NaCl Premix 500 MG/250 ML IVPB IV ONE (19:02)
[2019-09-22] MEDS: Sodium Chloride 0.9% 1000 ML 1,000 ML IV SCH (19:05)
--- NOTE | 2019-09-22 19:10 | XRAY ---
Indication: Dyspnea. Comparison: September 05, 2019. Portable chest less inflated again with chronic bibasilar fibrosis/scarring. Remaining heart and lungs unremarkable. No new/acute cardiopulmonary abnormalities.
[2019-09-22 19:12] LABS: Hematocrit 47.2 % (42-50); Mean Cell Volume 84.4 fl (78-100); Mean Corpuscular Hemoglobin 28.6 pg (26-32); Mean Corpuscular Hgb Concent. 33.9 g/dl (32-36); Mean Platelet Volume 9.9 fl (7.5-11.0); Platelet Count 150 K/mm3 (150-450); Red Blood Count 5.59 M/mm3 (4.1-5.6); Red Cell Distribution Width 17.5 % (11.5-14.0)
[2019-09-22 19:13] LABS: A-aADO2 290; ABG HEMOGLOBIN 16.6; ABG POTASSIUM 4.5 (3.5-5.1); ARTERIAL BLD GAS O2 SATURATION 97.3 % (95-100); ARTERIAL BLOOD GAS BASE EXCESS 10.4 (-2.0-2.0); ARTERIAL BLOOD GAS FIO2 55 %; ARTERIAL BLOOD GAS PCO2 28 mmHg (35-45); ARTERIAL BLOOD GAS PO2 67 mmHg (75-100); ARTERIAL BLOOD GAS VENT MODE BiPAP; HCO3- 30.8 (22-28); HGB O2 SAT 93.4 g/dF (94-100); paO2 pAO1 0.19
[2019-09-22 19:14] LABS: ABG SITE RIGHT RADIAL; ALLEN TEST OK? YES; ARTERIAL BLOOD GAS pH 7.65 (7.35-7.45)
[2019-09-22 19:20] LABS: INR 1.26 (0.8-3.0); PROTIME 14.3 SECONDS (8.83-12.87)
[2019-09-22 19:23] LABS: PTT 25.8 SECONDS (24.1-36.1)
[2019-09-22 19:33] LABS: ALBUMIN 3.3 g/dL (3.5-5.0); ALKALINE PHOSPHATASE 112 U/L (38-126); AMYLASE 112 U/L (30-110); ANION GAP 9.6 MEQ/L (5-15); BLOOD UREA NITROGEN 30 mg/dL (9-20); CHLORIDE 104 mmol/L (98-107); Calcium 10.3 mg/dL (8.4-10.2); Carbon Dioxide 29 mmol/L (22-30); Creatinine 1 0.99 mg/dL (0.66-1.25); Glucose 101 mg/dL (74-106); LIPASE 112 U/L (23-300); MAGNESIUM 2.2 mg/dL (1.6-2.3); NT PRO BNP 1720 pg/mL (0-900); Potassium 4.4 mmol/L (3.5-5.1); SGOT/AST 40 U/L (17-59); SGPT/ALT 55 U/L (0-50); SODIUM 137 mmol/L (137-145)
[2019-09-22] MEDS ORDERED: Sodium Chloride 3 ML UD NEBULES IH ONE (19:39)
[2019-09-22 22:28] LABS: INFLUENZA A NEGATIVE (NEGATIVE); INFLUENZA B NEGATIVE (NEGATIVE); RESPIRATORY SYNCTIAL VIRUS NEGATIVE (Negative)
[2019-09-22] MEDS ORDERED: MORPHINE SULFATE 4 MG INJ IV PRN (23:35)
[2019-09-22] MEDS ORDERED: NovoLIN R SQ PRN (23:35)
[2019-09-22] MEDS ORDERED: Zofran 4 MG/2 ML VIAL IV PRN (23:35)
[2019-09-23 01:44] LABS: Lymphocytes 14 % (24-44); Monocyte 8 % (0.0-12.0); Neutrophils 78 % (36.-66.); Platelet Estimate NORMAL (NORMAL); Total Cells Counted 100
[2019-09-23] MEDS: solu-MEDROL 125 MG IV SCH ×5 (01:51→23:49)
[2019-09-23] MEDS: Pepcid 20 MG VIAL IV SCH ×3 (01:52→21:07)
[2019-09-23] MEDS: DUONEB 0.5-3 MG/3 ml Neb IH SCH ×6 (03:48→22:43)
[2019-09-23 04:24] LABS: Hematocrit 42.5 % (42-50); Hemoglobin 14.2 gm/dl (12.5-18.0); Mean Cell Volume 85.2 fl (78-100); Mean Corpuscular Hemoglobin 28.5 pg (26-32); Mean Corpuscular Hgb Concent. 33.4 g/dl (32-36); Platelet Count 134 K/mm3 (150-450); Red Blood Count 4.99 M/mm3 (4.1-5.6); Red Cell Distribution Width 16.9 % (11.5-14.0); White Blood Count 6.9 K/mm3 (4.0-10.5)
[2019-09-23 04:25] LABS: A-aADO2 107; ABG HEMOGLOBIN 14.8; ABG POTASSIUM 4.3 (3.5-5.1); ABG SITE LEFT RADIAL; ALLEN TEST OK? YES; ARTERIAL BLD GAS O2 SATURATION 99.3 % (95-100); ARTERIAL BLOOD GAS BASE EXCESS 4.2 (-2.0-2.0); ARTERIAL BLOOD GAS FIO2 36 %; ARTERIAL BLOOD GAS PCO2 35 mmHg (35-45); ARTERIAL BLOOD GAS PO2 106 mmHg (75-100); CARBOXYHEMOGLOBIN 2.9 % THgb (0.0-6.9); HCO3- 27.3 (22-28); HGB O2 SAT 95.3 g/dF (94-100)
[2019-09-23] MEDS: Sodium Chloride 0.9% 1000 ML 1,000 ML IV SCH ×2 (04:37→13:54)
[2019-09-23 04:46] LABS: ANION GAP 7.5 MEQ/L (5-15); BLOOD UREA NITROGEN 25 mg/dL (9-20); CHLORIDE 105 mmol/L (98-107); Calcium 9.1 mg/dL (8.4-10.2); Carbon Dioxide 27 mmol/L (22-30); Creatinine 1 0.83 mg/dL (0.66-1.25); Glucose 130 mg/dL (74-106); Potassium 4.2 mmol/L (3.5-5.1); SODIUM 136 mmol/L (137-145)
[2019-09-23] MEDS: Advair Hfa 115/21 Common canister IH SCH ×2 (07:05→18:29)
--- NOTE | 2019-09-23 08:41 | XRAY ---
Indication: Dyspnea. Elevated d-dimer. Advanced emphysema. Multiple contiguous axial images obtained through the chest using 80 cc Isovue 370 contrast and PE protocol. Comparison: May 06, 2019. There is good opacification of the pulmonary arteries to includes the lobar and segmental branches. No filling defect or pulmonary embolus. Heart is not enlarged. Aorta is minimally arteriosclerotic without aneurysm/dissection. Stable tiny mediastinal/hilar calcified nodes. No pathologic mediastinal/hilar lymphadenopathy. Lungs again demonstrate diffuse pulmonary emphysema, bilateral dependent atelectasis, scattered fibrosis/scarring, and a few tiny calcified granulomas. No focal infiltrate, consolidation, or effusion. Bony thorax again demonstrates a mild degenerative changes throughout the spine, multilevel endplate concave deformities, and T12/L1 kyphoplasty. T4 segment demonstrates new remote-appearing compression deformity with less than 25% height loss. Limited upper abdomen again demonstrates cholecystectomy clips. Impression: 1. Negative pulmonary embolus. No acute cardiopulmonary abnormalities. 2. Stable pulmonary emphysema, fibrosis/scarring, and evidence for old granulomatous disease. 3. New remote-appearing T4 compression fracture. Stable osteopenia, multilevel degenerative spondylosis, and T12/L1 kyphoplasty. Comment: Preliminary interpretation was made by [facility]. No critical discrepancy.
[2019-09-23] MEDS ORDERED: ROCEPHIN 1 Gm-D5w 50 ml Bag** 1 G/50 ML IVPB IV SCH ×2 (10:00→22:00)
--- NOTE | 2019-09-23 13:26 | PCM.HP ---
History of Present Illness - Chief Complaint Chief Complaint: ng shortness of breath for 1 day History of Present Illness: is a 74 year old male.pt has had increased shortness of air. pt also c /o daily bilateral chest pain for the past 3 years and an intermittent chronic cough sometimes productive of creamy discharge for years. pt denies abdominal pain, vomiting, fever. c/o left lower abdominal pain - Review of Systems Constitutional: Weakness, No Fever, No Chills Eyes: No Symptoms Ears, Nose, & Throat: No Symptoms Respiratory: Cough, Orthopnea, Short Of Breath, Wheezing Cardiac: No Chest Pain, No Edema, No Syncope Abdominal/Gastrointestinal: Abdominal Pain (left lower quadrant pain), No Nausea , No Vomiting, No Diarrhea Genitourinary Symptoms: No Dysuria Musculoskeletal: No Back Pain, No Neck Pain Skin: No Rash Neurological: No Dizziness, No Focal Weakness, No Sensory Changes Psychological: No Symptoms Endocrine: No Symptoms Hematologic/Lymphatic: No Symptoms Immunological/Allergic: No Symptoms Medications & Allergies Home Medications: Home Medication List Albuterol/Ipratropium 3ml Neb* [DUONEB 0.5-3 MG/3 ml Neb] 3 ml IH QID #120 ampul.neb 09/18/16 [Rx Confirmed 09/22/19] Potassium Chloride 10 meq PO DAILY 11/16/16 [History Confirmed 09/22/19] Apixaban [Eliquis 5 mg Tablet] 5 mg PO BID 30 Days #60 tablet 12/20/17 [ Rx Confirmed 09/22/19] Nebivolol HCl 5 MG [Bystolic 5 MG] 10 mg PO QHS 03/23/19 [History Confirmed 09/22/19] predniSONE [Prednisone] 20 mg PO BID 03/23/19 [History Confirmed 09/23/19] Fluticasone/Vilanterol [Breo Ellipta 200-25 Mcg INH] 1 inh PO DAILY 09/22/19 [ History Confirmed 09/22/19] Allergies/Adverse Reactions: Allergies Allergy/AdvReac Type Severity Reaction Status Date / Time No Known Drug Allergies Allergy Verified 09/22/19 18:27 - Past Medical History Past Medical History: Yes Neurological History: No Pertinent History ENT History: No Pertinent History Cardiac History: Hypertension Respiratory History: Bronchitis, COPD, Pneumonia, Pulmonary Embolism Endocrine Medical History: No Pertinent History Musculoskelatal History: No Pertinent History GI Medical History: No Pertinent History History: No Pertinent History Pyscho-Social History: No Pertinent History Male Reproductive Disorders: No Pertinent History 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 - Past Surgical History Past Surgical History: Yes Neuro Surgical History: No Pertinent History Cardiac History: No Pertinent History Respiratory Surgery: No Pertinent History GI Surgical History: Cholecystectomy, Hernia Repair Genitourinary Surgical Hx: No Pertinent History Musculskeletal Surgical Hx: No Pertinent History Male Surgical History: No Pertinent History Other Surgical History: cataract IOL left eye, back surgery, Surgery on right eye to bring up lower eyelid - Social History Smoking Status: Former smoker How long have you smoked: 62 years Exposure to second hand smoke: Yes Alcohol: None Drug Use: none - Physical Exam Vital Signs: Vital Signs - 24 hr Temp Pulse Resp BP Pulse Ox 09/23/19 12:00 97.8 F 104 H 22 142/79 94 L 09/23/19 10:47 103 H 22 95 09/23/19 08:00 91 H 09/23/19 07:53 97.6 F 91 H 23 132/95 97 09/23/19 07:09 88 24 98 09/23/19 04:49 97 09/23/19 04:00 97.5 F 82 18 133/96 97 09/23/19 03:49 84 19 97 09/23/19 00:39 79 18 96 09/23/19 00:22 97.4 F 84 22 158/93 98 09/23/19 00:01 68 09/22/19 22:54 77 17 134/88 99 09/22/19 22:08 81 16 154/95 99 09/22/19 21:33 100 09/22/19 21:08 81 20 134/77 99 09/22/19 19:42 92 H 25 H 99 09/22/19 19:35 88 20 130/95 99 09/22/19 18:57 80 140/99 98 09/22/19 18:25 98 09/22/19 18:16 28 H 100 09/22/19 18:12 97.5 F 87 28 H 140/99 100 Oxygen-Last 24 hours O2 Percentage 3 Liters = 32% O2 Percentage 3 Liters = 32% O2 Percentage 4 Liters = 36% O2 Percentage 100% Oxygen Flowrate (L/min)-RT 4 General Appearance: no apparent distress, alert Neurologic Exam: alert, oriented x 3, cooperative, normal mood/affect, nml cerebellar function, nml station & gait, sensation nml, No motor deficits Eye Exam: PERRL/EOMI, eyes nml inspection Ears, Nose, Throat Exam: normal ENT inspection, TMs normal, pharynx normal, moist mucous membranes Neck Exam: normal inspection, non-tender, supple, full range of motion Respiratory Exam: diminished breath sounds, accessory muscle use, crackles/rales , rhonchi, No respiratory distress Cardiovascular Exam: regular rate/rhythm, normal heart sounds, normal peripheral pulses Gastrointestinal/Abdomen Exam: soft, normal bowel sounds, No tenderness, No mass Back Exam: normal inspection, normal range of motion, No CVA tenderness, No vertebral tenderness Extremity Exam: normal inspection, normal range of motion, pelvis stable Skin Exam: normal color, warm, dry, No rash Lymphatic Exam: No adenopathy Results - Labs Lab/Micro Results: Lab Results-Last 24 Hours 09/22/19 09/22/19 09/22/19 Range/Units 19:10 19:11 19:11 WBC 9.0 (4.0-10.5) K/mm3 RBC 5.59 (4.1-5.6) M/mm3 Hgb 16.0 (12.5-18.0) gm/dl Hct 47.2 (42-50) % MCV 84.4 (78-100) fl MCH 28.6 (26-32) pg MCHC 33.9 (32-36) g/dl RDW 17.5 H (11.5-14.0) % Plt Count 150 (150-450) K/mm3 MPV 9.9 (7.5-11.0) fl Segmented Neutrophils 78 H (36.-66.) % Lymphocytes (Manual) 14 L (24-44) % Monocytes (Manual) 8 (0.0-12.0) % Platelet Estimate NORMAL (NORMAL) RBC Morphology NORMAL PT (8.83-12.87) SECONDS INR (0.8-3.0) APTT (24.1-36.1) SECONDS D-Dimer (215-500) ng/mL Puncture Site RIGHT RADIAL pCO2 28 L (35-45) mmHg pO2 67 L (75-100) mmHg Base Excess 10.4 H (-2.0-2.0) O2 Saturation 93.4 L (94-100) g/dF ABG pH 7.65 H* (7.35-7.45) ABG HCO3 30.8 H* (22-28) ABG O2 Sat (Measured) 97.3 (95-100) % Ravi Test YES A-a Gradient 290 a/A Ratio 0.19 Hemoglobin 16.6 Carboxyhemoglobin 3.0 (0.0-6.9) % THgb Methemoglobin 1.0 L (1.4-1.5) % Potassium 4.5 4.4 (3.5-5.1) Temperature C POC O2 Flow Rate 55 % Vent Mode BiPAP Inspiratory BiPAP 14 Expiratory BiPAP 7 Sodium 137 (137-145) mmol/L Chloride 104 (98-107) mmol/L Carbon Dioxide 29 (22-30) mmol/L Anion Gap 9.6 (5-15) MEQ/L BUN 30 H (9-20) mg/dL Creatinine 0.99 (0.66-1.25) mg/dL Estimated GFR > 60.0 ML/MIN Glucose 101 (74-106) mg/dL Calcium 10.3 H (8.4-10.2) mg/dL Magnesium 2.2 (1.6-2.3) mg/dL Total Bilirubin 1.40 H (0.2-1.3) mg/dL AST 40 (17-59) U/L ALT 55 H (0-50) U/L Alkaline Phosphatase 112 (38-126) U/L Troponin I (0.000-0.034) ng/mL NT-Pro-B Natriuret Pep 1720 H (0-900) pg/mL Serum Total Protein 6.0 L (6.3-8.2) g/dL Albumin 3.3 L (3.5-5.0) g/dL Amylase 112 H (30-110) U/L Lipase 112 (23-300) U/L Influenza Type A Ag (NEGATIVE) Influenza Type B Ag (NEGATIVE) RSV (PCR) (Negative) 09/22/19 09/22/19 09/22/19 Range/Units 19:11 19:11 21:37 WBC (4.0-10.5) K/mm3 RBC (4.1-5.6) M/mm3 Hgb (12.5-18.0) gm/dl Hct (42-50) % MCV (78-100) fl MCH (26-32) pg MCHC (32-36) g/dl RDW (11.5-14.0) % Plt Count (150-450) K/mm3 MPV (7.5-11.0) fl Segmented Neutrophils (36.-66.) % Lymphocytes (Manual) (24-44) % Monocytes (Manual) (0.0-12.0) % Platelet Estimate (NORMAL) RBC Morphology PT 14.3 H (8.83-12.87) SECONDS INR 1.26 (0.8-3.0) APTT 25.8 (24.1-36.1) SECONDS D-Dimer 769 H* (215-500) ng/mL Puncture Site pCO2 (35-45) mmHg pO2 (75-100) mmHg Base Excess (-2.0-2.0) O2 Saturation (94-100) g/dF ABG pH (7.35-7.45) ABG HCO3 (22-28) ABG O2 Sat (Measured) (95-100) % Ravi Test A-a Gradient a/A Ratio Hemoglobin Carboxyhemoglobin (0.0-6.9) % THgb Methemoglobin (1.4-1.5) % Potassium (3.5-5.1) Temperature C POC O2 Flow Rate % Vent Mode Inspiratory BiPAP Expiratory BiPAP Sodium (137-145) mmol/L Chloride (98-107) mmol/L Carbon Dioxide (22-30) mmol/L Anion Gap (5-15) MEQ/L BUN (9-20) mg/dL Creatinine (0.66-1.25) mg/dL Estimated GFR ML/MIN Glucose (74-106) mg/dL Calcium (8.4-10.2) mg/dL Magnesium (1.6-2.3) mg/dL Total Bilirubin (0.2-1.3) mg/dL AST (17-59) U/L ALT (0-50) U/L Alkaline Phosphatase (38-126) U/L Troponin I 0.025 0.019 (0.000-0.034) ng/mL NT-Pro-B Natriuret Pep (0-900) pg/mL Serum Total Protein (6.3-8.2) g/dL Albumin (3.5-5.0) g/dL Amylase (30-110) U/L Lipase (23-300) U/L Influenza Type A Ag (NEGATIVE) Influenza Type B Ag (NEGATIVE) RSV (PCR) (Negative) 09/22/19 09/23/19 09/23/19 Range/Units 21:37 01:00 04:18 WBC (4.0-10.5) K/mm3 RBC (4.1-5.6) M/mm3 Hgb (12.5-18.0) gm/dl Hct (42-50) % MCV (78-100) fl MCH (26-32) pg MCHC (32-36) g/dl RDW (11.5-14.0) % Plt Count (150-450) K/mm3 MPV (7.5-11.0) fl Segmented Neutrophils (36.-66.) % Lymphocytes (Manual) (24-44) % Monocytes (Manual) (0.0-12.0) % Platelet Estimate (NORMAL) RBC Morphology PT (8.83-12.87) SECONDS INR (0.8-3.0) APTT (24.1-36.1) SECONDS D-Dimer (215-500) ng/mL Puncture Site LEFT RADIAL pCO2 35 (35-45) mmHg pO2 106 H (75-100) mmHg Base Excess 4.2 H (-2.0-2.0) O2 Saturation 95.3 (94-100) g/dF ABG pH 7.50 H (7.35-7.45) ABG HCO3 27.3 (22-28) ABG O2 Sat (Measured) 99.3 (95-100) % Ravi Test YES A-a Gradient 107 a/A Ratio 0.50 Hemoglobin 14.8 Carboxyhemoglobin 2.9 (0.0-6.9) % THgb Methemoglobin 1.0 L (1.4-1.5) % Potassium 4.3 (3.5-5.1) Temperature 37.0 C POC O2 Flow Rate 36 % Vent Mode Inspiratory BiPAP Expiratory BiPAP Sodium (137-145) mmol/L Chloride (98-107) mmol/L Carbon Dioxide (22-30) mmol/L Anion Gap (5-15) MEQ/L BUN (9-20) mg/dL Creatinine (0.66-1.25) mg/dL Estimated GFR ML/MIN Glucose (74-106) mg/dL Calcium (8.4-10.2) mg/dL Magnesium (1.6-2.3) mg/dL Total Bilirubin (0.2-1.3) mg/dL AST (17-59) U/L ALT (0-50) U/L Alkaline Phosphatase (38-126) U/L Troponin I 0.020 (0.000-0.034) ng/mL NT-Pro-B Natriuret Pep (0-900) pg/mL Serum Total Protein (6.3-8.2) g/dL Albumin (3.5-5.0) g/dL Amylase (30-110) U/L Lipase (23-300) U/L Influenza Type A Ag NEGATIVE (NEGATIVE) Influenza Type B Ag NEGATIVE (NEGATIVE) RSV (PCR) NEGATIVE (Negative) 09/23/19 09/23/19 09/23/19 Range/Units 04:19 04:19 04:19 WBC 6.9 (4.0-10.5) K/mm3 RBC 4.99 (4.1-5.6) M/mm3 Hgb 14.2 (12.5-18.0) gm/dl Hct 42.5 (42-50) % MCV 85.2 (78-100) fl MCH 28.5 (26-32) pg MCHC 33.4 (32-36) g/dl RDW 16.9 H (11.5-14.0) % Plt Count 134 L (150-450) K/mm3 MPV 10.0 (7.5-11.0) fl Segmented Neutrophils (36.-66.) % Lymphocytes (Manual) (24-44) % Monocytes (Manual) (0.0-12.0) % Platelet Estimate (NORMAL) RBC Morphology PT (8.83-12.87) SECONDS INR (0.8-3.0) APTT (24.1-36.1) SECONDS D-Dimer (215-500) ng/mL Puncture Site pCO2 (35-45) mmHg pO2 (75-100) mmHg Base Excess (-2.0-2.0) O2 Saturation (94-100) g/dF ABG pH (7.35-7.45) ABG HCO3 (22-28) ABG O2 Sat (Measured) (95-100) % Ravi Test A-a Gradient a/A Ratio Hemoglobin Carboxyhemoglobin (0.0-6.9) % THgb Methemoglobin (1.4-1.5) % Potassium 4.2 (3.5-5.1) Temperature C POC O2 Flow Rate % Vent Mode Inspiratory BiPAP Expiratory BiPAP Sodium 136 L (137-145) mmol/L Chloride 105 (98-107) mmol/L Carbon Dioxide 27 (22-30) mmol/L Anion Gap 7.5 (5-15) MEQ/L BUN 25 H (9-20) mg/dL Creatinine 0.83 (0.66-1.25) mg/dL Estimated GFR > 60.0 ML/MIN Glucose 130 H (74-106) mg/dL Calcium 9.1 (8.4-10.2) mg/dL Magnesium (1.6-2.3) mg/dL Total Bilirubin (0.2-1.3) mg/dL AST (17-59) U/L ALT (0-50) U/L Alkaline Phosphatase (38-126) U/L Troponin I 0.025 (0.000-0.034) ng/mL NT-Pro-B Natriuret Pep (0-900) pg/mL Serum Total Protein (6.3-8.2) g/dL Albumin (3.5-5.0) g/dL Amylase (30-110) U/L Lipase (23-300) U/L Influenza Type A Ag (NEGATIVE) Influenza Type B Ag (NEGATIVE) RSV (PCR) (Negative) 09/23/19 Range/Units 06:38 WBC (4.0-10.5) K/mm3 RBC (4.1-5.6) M/mm3 Hgb (12.5-18.0) gm/dl Hct (42-50) % MCV (78-100) fl MCH (26-32) pg MCHC (32-36) g/dl RDW (11.5-14.0) % Plt Count (150-450) K/mm3 MPV (7.5-11.0) fl Segmented Neutrophils (36.-66.) % Lymphocytes (Manual) (24-44) % Monocytes (Manual) (0.0-12.0) % Platelet Estimate (NORMAL) RBC Morphology PT (8.83-12.87) SECONDS INR (0.8-3.0) APTT (24.1-36.1) SECONDS D-Dimer (215-500) ng/mL Puncture Site pCO2 (35-45) mmHg pO2 (75-100) mmHg Base Excess (-2.0-2.0) O2 Saturation (94-100) g/dF ABG pH (7.35-7.45) ABG HCO3 (22-28) ABG O2 Sat (Measured) (95-100) % Ravi Test A-a Gradient a/A Ratio Hemoglobin Carboxyhemoglobin (0.0-6.9) % THgb Methemoglobin (1.4-1.5) % Potassium (3.5-5.1) Temperature C POC O2 Flow Rate % Vent Mode Inspiratory BiPAP Expiratory BiPAP Sodium (137-145) mmol/L Chloride (98-107) mmol/L Carbon Dioxide (22-30) mmol/L Anion Gap (5-15) MEQ/L BUN (9-20) mg/dL Creatinine (0.66-1.25) mg/dL Estimated GFR ML/MIN Glucose (74-106) mg/dL Calcium (8.4-10.2) mg/dL Magnesium (1.6-2.3) mg/dL Total Bilirubin (0.2-1.3) mg/dL AST (17-59) U/L ALT (0-50) U/L Alkaline Phosphatase (38-126) U/L Troponin I 0.023 (0.000-0.034) ng/mL NT-Pro-B Natriuret Pep (0-900) pg/mL Serum Total Protein (6.3-8.2) g/dL Albumin (3.5-5.0) g/dL Amylase (30-110) U/L Lipase (23-300) U/L Influenza Type A Ag (NEGATIVE) Influenza Type B Ag (NEGATIVE) RSV (PCR) (Negative) - Radiology Impressions Radiology Exams & Impressions: Radiology Procedures Category Date Time Status CHEST 1 VIEW (PORTABLE) Stat Exams 09/22/19 18:20 Completed CHEST WITH CONTRAST [CT] Stat Exams 09/22/19 19:28 Completed - Other Procedures and Tests Respiratory Therapy 09/22/19 23:35 BiPap/CPAP ROUTINE 09/23/19 00:31 Oxygen Nasal Cannula 3 lpm 09/23/19 00:35 Respiratory Therapy Assessment DAILY 09/23/19 07:16 Peak Expiratory Flow Rate ONCE Assessment/Plan (1) COPD exacerbation Current Visit: Yes Status: Acute Assessment & Plan: Last Vital Signs Temp 97.8 F 09/23/19 12:00 Pulse 104 H 09/23/19 12:00 Resp 22 09/23/19 12:00 BP 142/79 09/23/19 12:00 Pulse Ox 94 L 09/23/19 12:00 Allergies No Known Drug Allergies Allergy (Verified 09/22/19 18:27) Active Medications Albuterol/Ipratropium (Duoneb 0.5-3 Mg/3 Ml Neb) 3 ml IH Q4HRT [facility] Stop: 10/23/19 02:59 Last Admin: 09/23/19 10:45 Dose: 3 ml Famotidine (Pepcid 20 Mg Vial) 20 mg IV Q12HT [facility] Stop: 10/23/19 09:59 Last Admin: 09/23/19 09:45 Dose: 20 mg Sodium Chloride (Sodium Chloride 0.9% 1000 Ml) 1,000 mls @ 100 mls/hr IV .Q10H [facility] Stop: 10/22/19 18:29 Last Admin: 09/23/19 04:37 Dose: 100 mls/hr Azithromycin (Zithromax 500 Mg/ 250 Ml Nacl Premix) 500 mg in 250 mls @ 250 mls /hr IV Q24H [facility] Stop: 10/23/19 19:59 Ceftriaxone Sodium/Dextrose (Rocephin 1 Gm-D5w 50 Ml Bag) 1 g in 50 mls @ 100 mls/hr IV HS [facility] Stop: 10/23/19 09:59 Insulin Human Regular (Novolin R) 0 unit SQ UD PRN PRN Reason: HYPERGLYCEMIA Stop: 10/22/19 23:34 Methylprednisolone Sodium Succinate (Solu-Medrol 125 Mg) 80 mg IV Q6HT [facility] Stop: 10/23/19 00:00 Last Admin: 09/23/19 11:19 Dose: 80 mg Morphine Sulfate (Morphine Sulfate 4 Mg Inj) 4 mg IV Q4H PRN PRN PRN Reason: PAIN Stop: 01/24/20 23:34 Ondansetron HCl (Zofran 4 Mg/2 Ml Vial) 4 mg IV Q6H PRN PRN PRN Reason: NAUSEA/VOMITING Stop: 10/22/19 23:34 Fluticasone/Salmeterol (Advair Hfa 115/21 Common Canister*) 2 puff IH BIDRT [facility] Stop: 10/23/19 06:59 Last Admin: 09/23/19 07:05 Dose: 2 puff Intake & Output 09/23/19 09/24/19 11:59 11:59 Intake Total 785 Output Total 375 Balance 410 Weight 59 kg Orders 09/23/19 00:31 Oxygen Nasal Cannula 3 lpm 09/23/19 00:35 Respiratory Therapy Assessment DAILY 09/23/19 07:00 Fluticasone/Salmeterol 115/21 [Advair Hfa 115/21 Common canister*] 2 puff IH BIDRT 09/23/19 07:16 Peak Expiratory Flow Rate ONCE Lab Tests 09/22/19 09/22/19 09/22/19 19:10 19:11 19:11 WBC 9.0 RBC 5.59 Hgb 16.0 Hct 47.2 MCV 84.4 MCH 28.6 MCHC 33.9 RDW 17.5 H Plt Count 150 MPV 9.9 Segmented Neutrophils 78 H Lymphocytes (Manual) 14 L Monocytes (Manual) 8 Platelet Estimate NORMAL RBC Morphology NORMAL PT INR APTT D-Dimer Puncture Site RIGHT RADIAL pCO2 28 L pO2 67 L Base Excess 10.4 H O2 Saturation 93.4 L ABG pH 7.65 H* ABG HCO3 30.8 H* ABG O2 Sat (Measured) 97.3 Ravi Test YES A-a Gradient 290 a/A Ratio 0.19 Hemoglobin 16.6 Carboxyhemoglobin 3.0 Methemoglobin 1.0 L Potassium 4.5 4.4 Temperature POC O2 Flow Rate 55 Vent Mode BiPAP Inspiratory BiPAP 14 Expiratory BiPAP 7 Sodium 137 Chloride 104 Carbon Dioxide 29 Anion Gap 9.6 BUN 30 H Creatinine 0.99 Estimated GFR > 60.0 Glucose 101 Calcium 10.3 H Magnesium 2.2 Total Bilirubin 1.40 H AST 40 ALT 55 H Alkaline Phosphatase 112 Troponin I NT-Pro-B Natriuret Pep 1720 H Serum Total Protein 6.0 L Albumin 3.3 L Amylase 112 H Lipase 112 Influenza Type A Ag Influenza Type B Ag RSV (PCR) 09/22/19 09/22/19 09/22/19 19:11 19:11 21:37 WBC RBC Hgb Hct MCV MCH MCHC RDW Plt Count MPV Segmented Neutrophils Lymphocytes (Manual) Monocytes (Manual) Platelet Estimate RBC Morphology PT 14.3 H INR 1.26 APTT 25.8 D-Dimer 769 H* Puncture Site pCO2 pO2 Base Excess O2 Saturation ABG pH ABG HCO3 ABG O2 Sat (Measured) Ravi Test A-a Gradient a/A Ratio Hemoglobin Carboxyhemoglobin Methemoglobin Potassium Temperature POC O2 Flow Rate Vent Mode Inspiratory BiPAP Expiratory BiPAP Sodium Chloride Carbon Dioxide Anion Gap BUN Creatinine Estimated GFR Glucose Calcium Magnesium Total Bilirubin AST ALT Alkaline Phosphatase Troponin I 0.025 0.019 NT-Pro-B Natriuret Pep Serum Total Protein Albumin Amylase Lipase Influenza Type A Ag Influenza Type B Ag RSV (PCR) 09/22/19 09/23/19 09/23/19 21:37 01:00 04:18 WBC RBC Hgb Hct MCV MCH MCHC RDW Plt Count MPV Segmented Neutrophils Lymphocytes (Manual) Monocytes (Manual) Platelet Estimate RBC Morphology PT INR APTT D-Dimer Puncture Site LEFT RADIAL pCO2 35 pO2 106 H Base Excess 4.2 H O2 Saturation 95.3 ABG pH 7.50 H ABG HCO3 27.3 ABG O2 Sat (Measured) 99.3 Ravi Test YES A-a Gradient 107 a/A Ratio 0.50 Hemoglobin 14.8 Carboxyhemoglobin 2.9 Methemoglobin 1.0 L Potassium 4.3 Temperature 37.0 POC O2 Flow Rate 36 Vent Mode Inspiratory BiPAP Expiratory BiPAP Sodium Chloride Carbon Dioxide Anion Gap BUN Creatinine Estimated GFR Glucose Calcium Magnesium Total Bilirubin AST ALT Alkaline Phosphatase Troponin I 0.020 NT-Pro-B Natriuret Pep Serum Total Protein Albumin Amylase Lipase Influenza Type A Ag NEGATIVE Influenza Type B Ag NEGATIVE RSV (PCR) NEGATIVE 09/23/19 09/23/19 09/23/19 04:19 04:19 04:19 WBC 6.9 RBC 4.99 Hgb 14.2 Hct 42.5 MCV 85.2 MCH 28.5 MCHC 33.4 RDW 16.9 H Plt Count 134 L MPV 10.0 Segmented Neutrophils Lymphocytes (Manual) Monocytes (Manual) Platelet Estimate RBC Morphology PT INR APTT D-Dimer Puncture Site pCO2 pO2 Base Excess O2 Saturation ABG pH ABG HCO3 ABG O2 Sat (Measured) Ravi Test A-a Gradient a/A Ratio Hemoglobin Carboxyhemoglobin Methemoglobin Potassium 4.2 Temperature POC O2 Flow Rate Vent Mode Inspiratory BiPAP Expiratory BiPAP Sodium 136 L Chloride 105 Carbon Dioxide 27 Anion Gap 7.5 BUN 25 H Creatinine 0.83 Estimated GFR > 60.0 Glucose 130 H Calcium 9.1 Magnesium Total Bilirubin AST ALT Alkaline Phosphatase Troponin I 0.025 NT-Pro-B Natriuret Pep Serum Total Protein Albumin Amylase Lipase Influenza Type A Ag Influenza Type B Ag RSV (PCR) 09/23/19 06:38 WBC RBC Hgb Hct MCV MCH MCHC RDW Plt Count MPV Segmented Neutrophils Lymphocytes (Manual) Monocytes (Manual) Platelet Estimate RBC Morphology PT INR APTT D-Dimer Puncture Site pCO2 pO2 Base Excess O2 Saturation ABG pH ABG HCO3 ABG O2 Sat (Measured) Ravi Test A-a Gradient a/A Ratio Hemoglobin Carboxyhemoglobin Methemoglobin Potassium Temperature POC O2 Flow Rate Vent Mode Inspiratory BiPAP Expiratory BiPAP Sodium Chloride Carbon Dioxide Anion Gap BUN Creatinine Estimated GFR Glucose Calcium Magnesium Total Bilirubin AST ALT Alkaline Phosphatase Troponin I 0.023 NT-Pro-B Natriuret Pep Serum Total Protein Albumin Amylase Lipase Influenza Type A Ag Influenza Type B Ag RSV (PCR) Code(s): J44.1 - CHRONIC OBSTRUCTIVE PULMONARY DISEASE W (ACUTE) EXACERBATION (2) Abdominal pain Current Visit: Yes Status: Acute Qualifiers: Abdominal location: left lower quadrant Qualified Code(s): R10.32 - Left lower quadrant pain Code(s): R10.9 - UNSPECIFIED ABDOMINAL PAIN (3) Inguinal hernia of left side with obstruction and without gangrene Current Visit: Yes Status: Acute Code(s): K40.30 - UNIL INGUINAL HERNIA, W OBST, W/O GANGR, NOT SPCF RECUR (4) Elevated d-dimer Current Visit: Yes Status: Acute Onset Date: ~12/19/17 Code(s): R79.89 - OTHER SPECIFIED ABNORMAL FINDINGS OF BLOOD CHEMISTRY
[2019-09-23] MEDS: ELIQUIS 2.5 MG TABLET PO SCH ×2 (14:25→21:07)
[2019-09-23] MEDS: Klor Con 10 MEQ PO SCH (14:26)
--- NOTE | 2019-09-23 16:04 | CONS ---
CONSULT DATE: 09/23/2019 HISTORY: A 74 year-old gentleman with chronic obstructive pulmonary disease exacerbation, severe chronic lung disease. He has apparently prior history of umbilical area hernia fixed in the past. He has a long history of chronic left inguinal hernia that has colon in it and quite reducible, soft and nontender on my exam now. No evidence of any strangulation. I am seeing the patient today. Dr. Velasquez Nrei is on for our group today should things change the patient needs anything. PAST MEDICAL HISTORY: Hypertension. Pulmonary embolism in the past. Chronic obstructive pulmonary disease. PAST SURGICAL HISTORY: Cholecystectomy. Hernia repair in the past. Cataract left eye in the past. Back surgery. Right eye surgery in the past. HOME MEDICATIONS: Albuterol, potassium chloride. He is on Eliquis. He is on Bystolic. He is on prednisone, Breo Ellipta. ALLERGIES: NKDA. FAMILY HISTORY: Negative in regards to this specific problem. SOCIAL HISTORY: Former smoker. No alcohol abuse. REVIEW OF SYSTEMS: Fourteen systems reviewed pertinent for severe chronic obstructive pulmonary disease and chronic lung disease. Again, he is admitted for chronic obstructive pulmonary disease exacerbation with a pO2 of 67 when he came in. PHYSICAL EXAMINATION: GENERAL: A chronically ill gentleman with severe chronic obstructive pulmonary disease on oxygen currently. CHEST: Equal excursion. CVS: Regular rhythm and pulse. ABDOMEN: Soft. He has a reducible left inguinal area looks fine. He has some sigmoid colon falls down in there. Scar well healed. EXTREMITIES: No edema currently. NEUROLOGIC: Alert, moving extremities symmetrically. LAB DATA AND TESTS: White count 6.9, hemoglobin 14.2, PLT 134,000. CT chest negative for pulmonary embolism. He has stable fibrosis, pulmonary emphysema, chronic obstructive pulmonary disease. He has a T4 compression fracture history. He has had back surgery in the past. IMPRESSION: A 74 year-old gentleman with chronic inguinal hernia with some sigmoid colon that falls down in there. No evidence any strangulation or obstruction. He has been tolerating p.o. His hernia area is quite soft and reducible at this time. I do not feel he needs emergent surgery. He is a very poor surgical candidate and cannot undergo anesthetic. If he complains of some more intermittent aches and pains are there he could try compression old fashion truss. Otherwise he would need to see his pearl glue drier and/or [employer] police officer to get pulmonary and cardiac cleared and he would have to be off of his blood thinners to consider any nonemergent hernia repair. There is a very good chance he could have worsening respiratory failure afterwards and even end up on a ventilator. At this time again, he has got a reducible hernia. No emergent surgery. Given his current chronic obstructive pulmonary disease exacerbation he is not a candidate for any nonemergent operation at this point. I do not feel he needs emergent operation as he has a quite soft, reducible hernia at this point. This was explained to the family. I also updated Dr. Luo. He said he could try a truss or some other intervention. Otherwise he needs to follow up with his pearl glue drier and get pulmonary cleared. He would have to be off of his blood thinners. Anesthesia would probably like him to be cardiac cleared as well. It likely should be done in [place] facility as there is a very good chance he could be on respirator perioperatively. At this time again I am seeing this patient for Dr. Velasquez Neri who is bundle person for our group today. Should things change and need emergent surgery likely will proceed otherwise get over his chronic obstructive pulmonary disease exacerbation, follow up with his lung doctor and/or cardiac doctor to see what their thoughts about him having surgical intervention and would obviously need to be done in [place] if that was the case. I will sign off at this time as he has pulmonary and/or cardiac clearance at a later date, be off his blood thinners and let us know.
[2019-09-23] MEDS ORDERED: Zithromax 500 MG/ 250 ML NaCl Premix 500 MG/250 ML IVPB IV SCH (20:00)
[2019-09-23] MEDS: DELTASONE 20 MG PO SCH (21:07)
[2019-09-23] MEDS ORDERED: Bystolic 5 MG PO SCH (22:00)
[2019-09-23] MEDS ORDERED: NON-FORMULARY ITEM (Apixaban*** [Eliquis 5 Mg Tablet***] 5 MG) PO SCH (22:00)
[2019-09-24] MEDS: Sodium Chloride 0.9% 1000 ML 1,000 ML IV SCH (01:26)
[2019-09-24] MEDS: DUONEB 0.5-3 MG/3 ml Neb IH SCH ×4 (02:34→15:05)
[2019-09-24] MEDS: solu-MEDROL 125 MG IV SCH ×2 (06:18→11:36)
[2019-09-24] MEDS: Advair Hfa 115/21 Common canister IH SCH (06:52)
--- NOTE | 2019-09-24 09:17 | PCM.DS ---
Discharge Summary Date of Admission: 09/22/19 23:32 Admitting Physician: GALEN DOBBINS Consults: Consults on Case 09/22/19 23:35 Consult Pulmonology 09/23/19 13:52 Consult Surgery ROUTINE Primary Care Provider: GALEN DOBBINS Allergies Allergies No Known Drug Allergies Allergy (Verified 09/22/19 18:27) Hospital Summary - Hospital Course Hospital Course: Chief Complaint Diagnosis ng shortness of breath for 1 day Allergies Allergy/AdvReac Type Severity Reaction Status Date / Time No Known Drug Allergies Allergy Verified 09/22/19 18:27 Vital Signs (Last 24 hours) Temp Pulse Resp BP BP Pulse Ox 09/24/19 07:32 98.4 F 83 18 118/60 90 L 09/24/19 07:10 81 24 98 09/24/19 04:00 98 F 87 21 130/93 97 09/24/19 02:34 82 22 98 09/24/19 00:01 92 H 09/23/19 23:56 97.6 F 85 24 109/62 93 L 09/23/19 22:44 76 19 98 09/23/19 19:59 93 H 09/23/19 19:33 98.7 F 98 H 21 109/64 97 09/23/19 18:30 89 20 95 09/23/19 16:00 97.6 F 90 20 147/83 95 09/23/19 14:34 94 H 20 94 L 09/23/19 12:00 97.8 F 104 H 22 142/79 94 L 09/23/19 10:47 103 H 22 95 Home Medications Medication Instructions Recorded Confirmed Last Taken Type Fluticasone/Vilanterol [Breo 1 inh PO DAILY 09/22/19 09/22/19 09/22/19 History Ellipta 200-25 Mcg INH] Current Medications Generic Name Dose Route Start Last Admin Trade Name Freq PRN Reason Stop Dose Admin Albuterol/Ipratropium 3 ml 09/23/19 03:00 09/24/19 06:49 Duoneb 0.5-3 Mg/3 Ml Neb IH 10/23/19 02:59 3 ml Q4HRT ALIYAH Administration Apixaban 5 mg 09/23/19 14:30 09/23/19 21:07 Eliquis 2.5 Mg Tablet PO 10/23/19 14:29 5 mg BID ALIYAH Administration Famotidine 20 mg 09/23/19 10:00 09/23/19 21:07 Pepcid 20 Mg Vial IV 10/23/19 09:59 20 mg Q12HT ALIYAH Administration Sodium Chloride 1,000 mls @ 100 mls/hr 09/22/19 18:30 09/24/19 01:26 Sodium Chloride 0.9% 1000 Ml IV 10/22/19 18:29 100 mls/hr .Q10H ALIYAH Administration Azithromycin 500 mg in 250 mls @ 250 mls/hr 09/23/19 20:00 09/23/19 19:43 Zithromax 500 Mg/ 250 Ml Nacl Premix IV 10/23/19 19:59 250 mls/hr Q24H ALIYAH Administration Ceftriaxone Sodium/Dextrose 1 g in 50 mls @ 100 mls/hr 09/23/19 22:00 21:08 Rocephin 1 Gm-D5w 50 Ml Bag IV 10/23/19 09:59 100 mls/hr HS ALIYAH Administration Insulin Human Regular 0 unit 09/22/19 23:35 Novolin R SQ 10/22/19 23:34 UD PRN HYPERGLYCEMIA Methylprednisolone Sodium Succinate 80 mg 09/23/19 00:00 09/24/19 06:18 Solu-Medrol 125 Mg IV 10/23/19 00:00 80 mg Q6HT ALIYAH Administration Morphine Sulfate 4 mg 09/22/19 23:35 Morphine Sulfate 4 Mg Inj IV 09/27/19 23:34 Q4H PRN PRN PAIN Nebivolol 10 mg 09/23/19 22:00 09/23/19 21:07 Bystolic 5 Mg PO 10/23/19 21:59 10 mg QHS ALIYAH Administration Ondansetron HCl 4 mg 09/22/19 23:35 Zofran 4 Mg/2 Ml Vial IV 10/22/19 23:34 Q6H PRN PRN NAUSEA/VOMITING Potassium Chloride 10 meq 09/23/19 15:00 09/23/19 14:26 Klor Con 10 Meq PO 10/23/19 14:59 10 meq DAILY ALIYAH Administration Prednisone 20 mg 09/23/19 22:00 09/23/19 21:07 Deltasone 20 Mg PO 10/23/19 21:59 20 mg BID ALIYAH Administration Fluticasone/Salmeterol 2 puff 09/23/19 07:00 09/24/19 06:52 Advair Hfa 115/21 Common Canister* IH 10/23/19 06:59 2 puff BIDRT ALIYAH Administration Discontinued Medications Generic Name Dose Route Start Last Admin Trade Name Freq PRN Reason Stop Dose Admin Ceftriaxone Sodium/Dextrose 1 g in 50 mls @ 100 mls/hr 09/22/19 18:19 19:34 Rocephin 1 Gm-D5w 50 Ml Bag IV 09/22/19 18:48 Infused STAT STA Infusion Azithromycin 500 mg in 250 mls @ 250 mls/hr 09/22/19 18:19 09/22/19 20:16 Zithromax 500 Mg/ 250 Ml Nacl Premix IV 09/22/19 19:18 Infused STAT STA Infusion Azithromycin Confirm 09/22/19 19:02 Zithromax 500 Mg/ 250 Ml Nacl Premix Administered 09/22/19 19:03 Dose 500 mg in 250 mls @ ud IV .STK-MED ONE Ceftriaxone Sodium/Dextrose Confirm 09/22/19 19:02 Rocephin 1 Gm-D5w 50 Ml Bag Administered 09/22/19 19:03 Dose 1 g in 50 mls @ ud IV .STK-MED ONE Ceftriaxone Sodium/Dextrose 1 g in 50 mls @ 100 mls/hr 09/23/19 10:00 Rocephin 1 Gm-D5w 50 Ml Bag IV 10/23/19 09:59 Q24H10 ALIYAH Levalbuterol HCl 1.25 mg 09/22/19 18:19 09/22/19 19:41 Xopenex 1.25 Mg/0.5 Ml Ud Nebule IH 09/22/19 18:20 1.25 mg STAT ONE Administration Levalbuterol HCl Confirm 09/22/19 19:39 Xopenex 1.25 Mg/0.5 Ml Ud Nebule Administered 09/22/19 19:40 Dose 1.25 mg IH .STK-MED ONE Lorazepam 0.5 mg 09/22/19 18:38 09/22/19 18:40 Ativan 0.5 Mg PO 09/22/19 18:39 0.5 mg STAT ONE Administration Lorazepam Confirm 09/22/19 18:39 Ativan 1 Mg Administered 09/22/19 18:40 Dose 1 mg .ROUTE .STK-MED ONE Sodium Chloride Confirm 09/22/19 19:39 Sodium Chloride 3 Ml Ud Nebules Administered 09/22/19 19:40 Dose 3 ml IH .STK-MED ONE Intake & Output (Last 24 hours) 09/21/19 09/22/19 09/23/19 09/24/19 11:59 11:59 11:59 11:59 Intake Total 785 3117 Output Total 375 400 Balance 410 2717 Weight 59 kg 55.9 kg Microbiology Results (Last 24 hours) 09/23/19 11:44 Sputum - Expectorant Gram Stain - Final 09/23/19 11:44 Sputum - Expectorant Sputum Culture - Pending 09/22/19 19:11 Blood Blood Culture Gram Stain - Pending 09/22/19 19:11 Blood Blood Culture - Preliminary NO GROWTH TO DATE 09/22/19 19:11 Blood Blood Culture Gram Stain - Pending 09/22/19 19:11 Blood Blood Culture - Preliminary NO GROWTH TO DATE Orders (Last 24 hours) Category Date Time Status Consult Surgery ROUTINE Cons 09/23/19 13:52 Completed CULTURE,SPUTUM Stat Lab 09/23/19 11:44 Results Apixaban [Eliquis 2.5 mg Tablet] Med 09/23/19 14:30 Active 5 mg PO BID Azithromycin 500 mg/250 ml [Zithromax 500 MG/ 250 ML Med 09/23/19 20:00 Active NaCl Premix] 500 mg in 250 ml IV Q24H Ceftriaxone 1 GM/50 ML PREMIX* [ROCEPHIN 1 Gm-D5w 50 ml Med 09/23/19 22:00 Active Bag] 1 g in 50 ml IV HS Ceftriaxone 1 GM/50 ML PREMIX* [ROCEPHIN 1 Gm-D5w 50 ml Med 09/23/19 10:00 Discontinued Bag] 1 g in 50 ml IV Q24H10 Famotidine 20 mg Vial [Pepcid 20 MG VIAL] Med 09/23/19 10:00 Active 20 mg IV Q12HT Nebivolol HCl 5 MG [Bystolic 5 MG] Med 09/23/19 22:00 Active 10 mg PO QHS Potassium Chloride 10 Meq Tab* [Klor Con 10 MEQ] Med 09/23/19 15:00 Active 10 meq PO DAILY Prednisone 20 mg [Deltasone 20 mg] Med 09/23/19 22:00 Active 20 mg PO BID Patient Care Notes (Last 24 hours) 09/23/19 13:52 Nursing Note by Nimco Coyle Dr. assessed pt. Hernia reported to be easily reduced no need for repair till breathing is improved. speak with Dr. Rasheed Whiting for clearance then follow up out pt. later down the road for repair. Initialized on 09/23/19 13:52 - END OF NOTE 09/23/19 10:49 Nursing Note by Nimco Coyle Pt's daughter called for update. any questions answered. pt's daughter and reported POA request pt get a CT abd and pelvis for abd tenderness Initialized on 09/23/19 10:49 - END OF NOTE 09/23/19 09:29 Nursing Note by Nimco Coyle Pt states he is not diabetic accu checks refused. Initialized on 09/23/19 09:29 - END OF NOTE - Vitals & Intake/Output Vital Signs: Vital Signs Temperature 98.4 F 09/24/19 07:32 Pulse Rate 83 09/24/19 07:32 Respiratory Rate 18 09/24/19 07:32 Blood Pressure 118/60 09/24/19 07:32 O2 Sat by Pulse Oximetry 90 L 09/24/19 07:32 Oxygen-Last Documented O2 Percentage 3 Liters = 32% Intake & Output: Intake & Output 09/21/19 09/22/19 09/23/19 09/24/19 11:59 11:59 11:59 11:59 Intake Total 785 3117 Output Total 375 400 Balance 410 2717 Weight 59 kg 55.9 kg - Lab Result Diagrams: 09/23/19 04:19 09/23/19 04:19 Micro Results-Entire Visit: Microbiology 09/23/19 11:44 Gram Stain - Final Sputum - Expectorant 09/22/19 19:11 Blood Culture - Preliminary Blood NO GROWTH TO DATE 09/22/19 19:11 Blood Culture - Preliminary Blood NO GROWTH TO DATE - Radiology Exams Ordered Rad Exams-Entire Visit: Radiology Procedures Category Date Time Status CHEST 1 VIEW (PORTABLE) Stat Exams 09/22/19 18:20 Completed CHEST WITH CONTRAST [CT] Stat Exams 09/22/19 19:28 Completed - Procedures and Test Procedures and Tests throughout Hospitalization: Therapy Orders & Screens 09/22/19 18:19 BiPap/CPAP STAT Comment: 09/22/19 19:41 Respiratory Therapy Assessment DAILY Comment: 09/22/19 23:35 BiPap/CPAP ROUTINE Comment: adjust by resp tx Diagnosis: COPD exacerbation Respiratory Therapy Consult ROUTINE Comment: adjust by resp tx Reason For Exam: Diagnosis: COPD exacerbation 09/23/19 00:31 Oxygen Nasal Cannula 3 lpm Comment: Diagnosis: COPD exacerbation 09/23/19 00:35 Respiratory Therapy Assessment DAILY Comment: Diagnosis: COPD exacerbation 09/23/19 00:58 OT Screen per Nursing Assess Comment: Protocol Order Physician Instructions: Greater than 3 points order OT Admission Screening Reason For Exam: Triggered on Admission Diagnosis: COPD exacerbation Open Wound/Cellutlitis/Pressure Ulcers: No Acute Fx/ORIF/Change in wt bearing status: No Severe MUSCULOSKELETAL pain: No ADL Dysfunction: Yes Acute CVA w/Hemiparesis/Hemiplegia: No Decreased Functional Mobility/Strength: Yes Sprain/Strain: No Acute Post-op Mobility Dysfunction: No Total Points: 4 PT Screen per Nursing Assess ONCE Comment: Protocol Order Physician Instructions: Greater than 3 points order PT Admission Screenin Reason For Exam: Triggered on Admission Diagnosis: COPD exacerbation Open Wound/Cellutlitis/Pressure Ulcers: No Acute Fx/ORIF/Change in wt bearing status: No Severe MUSCULOSKELETAL pain: No ADL Dysfunction: Yes Acute CVA w/Hemiparesis/Hemiplegia: No Decreased Functional Mobility/Strength: Yes Sprain/Strain: No Acute Post-op Mobility Dysfunction: No Total Points: 4 RT Screen per Nursing Assess ONCE Comment: Protocol Order Physician Instructions: Greater than 3 points order RT Admission Screen Reason For Exam: Triggered on Admission Diagnosis: COPD exacerbation Diagnosis: COPD exacerbation Pneumonia: No Home O2: Yes Asthma: No CHF: No Home CPAP/BIPAP: No Home Nebs/MDI: Yes Total Points: 10 09/23/19 07:16 Peak Expiratory Flow Rate ONCE Comment: Reason For Exam: Diagnosis: COPD exacerbation Discharge Exam General Appearance: no apparent distress, alert Neurologic Exam: alert, oriented x 3, cooperative, normal mood/affect, nml cerebellar function, sensation nml, No motor deficits Eye Exam: PERRL, EOMI, eyes nml inspection Ears, Nose, Throat Exam: normal ENT inspection, pharynx normal, moist mucous membranes Neck Exam: normal inspection, non-tender, supple, full range of motion Respiratory Exam: normal breath sounds, lungs clear, No respiratory distress Cardiovascular Exam: regular rate/rhythm, normal heart sounds Gastrointestinal/Abdomen Exam: soft, No tenderness, No mass Male Genitalia Exam: deferred Rectal Exam: deferred Back Exam: normal inspection, normal range of motion, No CVA tenderness, No vertebral tenderness Extremity Exam: normal inspection, normal range of motion Skin Exam: normal color, warm, dry Final Diagnosis/Problem List - Final Discharge Diagnosis/Problem (1) COPD exacerbation Current Visit: Yes Status: Acute Priority: High Assessment & Plan: Last Vital Signs Temp 98.4 F 09/24/19 07:32 Pulse 83 09/24/19 07:32 Resp 18 09/24/19 07:32 BP 118/60 09/24/19 07:32 Pulse Ox 90 L 09/24/19 07:32 Allergies No Known Drug Allergies Allergy (Verified 09/22/19 18:27) Active Medications Albuterol/Ipratropium (Duoneb 0.5-3 Mg/3 Ml Neb) 3 ml IH Q4HRT [facility] Stop: 10/23/19 02:59 Last Admin: 09/24/19 06:49 Dose: 3 ml Apixaban (Eliquis 2.5 Mg Tablet) 5 mg PO BID ALIYAH Stop: 10/23/19 14:29 Last Admin: 09/23/19 21:07 Dose: 5 mg Famotidine (Pepcid 20 Mg Vial) 20 mg IV Q12HT ALIYAH Stop: 10/23/19 09:59 Last Admin: 09/23/19 21:07 Dose: 20 mg Sodium Chloride (Sodium Chloride 0.9% 1000 Ml) 1,000 mls @ 100 mls/hr IV .Q10H ALIYAH Stop: 10/22/19 18:29 Last Admin: 09/24/19 01:26 Dose: 100 mls/hr Azithromycin (Zithromax 500 Mg/ 250 Ml Nacl Premix) 500 mg in 250 mls @ 250 mls /hr IV Q24H [facility] Stop: 10/23/19 19:59 Last Admin: 09/23/19 19:43 Dose: 250 mls/hr Ceftriaxone Sodium/Dextrose (Rocephin 1 Gm-D5w 50 Ml Bag) 1 g in 50 mls @ 100 mls/hr IV HS [facility] Stop: 10/23/19 09:59 Last Admin: 09/23/19 21:08 Dose: 100 mls/hr Insulin Human Regular (Novolin R) 0 unit SQ UD PRN PRN Reason: HYPERGLYCEMIA Stop: 10/22/19 23:34 Methylprednisolone Sodium Succinate (Solu-Medrol 125 Mg) 80 mg IV Q6HT [facility] Stop: 10/23/19 00:00 Last Admin: 09/24/19 06:18 Dose: 80 mg Morphine Sulfate (Morphine Sulfate 4 Mg Inj) 4 mg IV Q4H PRN PRN PRN Reason: PAIN Stop: 09/27/19 23:34 Nebivolol (Bystolic 5 Mg) 10 mg PO QHS [facility] Stop: 10/23/19 21:59 Last Admin: 09/23/19 21:07 Dose: 10 mg Ondansetron HCl (Zofran 4 Mg/2 Ml Vial) 4 mg IV Q6H PRN PRN PRN Reason: NAUSEA/VOMITING Stop: 10/22/19 23:34 Potassium Chloride (Klor Con 10 Meq) 10 meq PO DAILY [facility] Stop: 10/23/19 14:59 Last Admin: 09/23/19 14:26 Dose: 10 meq Prednisone (Deltasone 20 Mg) 20 mg PO BID [facility] Stop: 10/23/19 21:59 Last Admin: 09/23/19 21:07 Dose: 20 mg Fluticasone/Salmeterol (Advair Hfa 115/21 Common Canister*) 2 puff IH BIDRT [facility] Stop: 10/23/19 06:59 Last Admin: 09/24/19 06:52 Dose: 2 puff Intake & Output 09/23/19 09/24/19 11:59 11:59 Intake Total 785 3117 Output Total 375 400 Balance 410 2717 Weight 59 kg 55.9 kg Orders 09/23/19 14:30 Apixaban [Eliquis 2.5 mg Tablet] 5 mg PO BID 09/23/19 15:00 Potassium Chloride 10 Meq Tab* [Klor Con 10 MEQ] 10 meq PO DAILY 09/23/19 22:00 Nebivolol HCl 5 MG [Bystolic 5 MG] 10 mg PO QHS Prednisone 20 mg [Deltasone 20 mg] 20 mg PO BID Microbiology 09/23/19 11:44 Sputum - Expectorant Gram Stain - Final 09/22/19 19:11 Blood Blood Culture - Preliminary NO GROWTH TO DATE 09/22/19 19:11 Blood Blood Culture - Preliminary NO GROWTH TO DATE Code(s): J44.1 - CHRONIC OBSTRUCTIVE PULMONARY DISEASE W (ACUTE) EXACERBATION (2) Abdominal pain Current Visit: Yes Status: Acute Code(s): R10.9 - UNSPECIFIED ABDOMINAL PAIN (3) Inguinal hernia of left side with obstruction and without gangrene Current Visit: Yes Status: Acute Code(s): K40.30 - UNIL INGUINAL HERNIA, W OBST, W/O GANGR, NOT SPCF RECUR (4) Elevated d-dimer Current Visit: Yes Status: Acute Onset Date: ~12/19/17 Code(s): R79.89 - OTHER SPECIFIED ABNORMAL FINDINGS OF BLOOD CHEMISTRY - Discharge Discharge Date: 09/24/19 Disposition: Home, Self-Care Condition: Stable Prescriptions: Continue Albuterol/Ipratropium 3ml Neb* [DUONEB 0.5-3 MG/3 ml Neb] 3 ml IH QID #120 ampul.neb Potassium Chloride 10 meq PO DAILY Apixaban [Eliquis 5 mg Tablet] 5 mg PO BID 30 Days #60 tablet predniSONE [Prednisone] 20 mg PO BID Nebivolol HCl 5 MG [Bystolic 5 MG] 10 mg PO QHS Fluticasone/Vilanterol [Breo Ellipta 200-25 Mcg INH] 1 inh PO DAILY Follow up with: GALEN DOBBINS MD [Primary Care Provider] - 1 Week
[2019-09-24] MEDS: ELIQUIS 2.5 MG TABLET PO SCH (09:51)
[2019-09-24] MEDS: Klor Con 10 MEQ PO SCH (09:52)
[2019-09-24] MEDS: Pepcid 20 MG VIAL IV SCH (09:52)
[2019-09-24] MEDS: DELTASONE 20 MG PO SCH (09:52)
[2019-09-24] MEDS ORDERED: NON-FORMULARY ITEM (Potassium Chloride [Potassium Chloride] 10 MEQ) PO SCH (10:00)
[2019-09-24 16:43] VITALS: BP 134/87; PULSE 94; O2SAT 96
== END 2019-09-24 17:05 | disposition home or self-care (01) ==
LOC: ED 18:11 → ICU 23:32
PROVIDERS: ADMIT General Practice; ATTEND General Practice
DX: J44.1 Chronic obstructive pulmonary disease with (acute) exacerbation (principal); R10.9 Unspecified abdominal pain; K40.30 Unilateral inguinal hernia, with obstruction, without gangrene, not specified as recurrent; R79.89 Other specified abnormal findings of blood chemistry; Z79.899 Other long term (current) drug therapy; Z86.711 Personal history of pulmonary embolism; Z79.01 Long term (current) use of anticoagulants
CPT/HCPCS: 36415; 36600; 71260; 80048; 80053; 82150; 82375; 82803; 83690; 83735; 83880; 84484; 85025; 85027; 85379; 85610; 85730; 87040; 87070; 87077; 87186; 87631; 93005; 93041; 93268; 94003; 94150; 94640; 96365; 96368; 99291; G0378; 36000; 71045; 94002; 94760; 94762; 99285; J0456; J0696; J2930; A9270-GY

== ENCOUNTER 2019-09-27 15:59 | Inpatient (IN) | payer MEDICARE ==
[2019-09-27 16:56] LABS: Hematocrit 44.9 % (42-50); Hemoglobin 15.9 gm/dl (12.5-18.0); Mean Cell Volume 81.8 fl (78-100); Mean Corpuscular Hgb Concent. 35.4 g/dl (32-36); Platelet Count 149 K/mm3 (150-450); Red Blood Count 5.49 M/mm3 (4.1-5.6); Red Cell Distribution Width 17.2 % (11.5-14.0); White Blood Count 10.9 K/mm3 (4.0-10.5)
[2019-09-27 17:15] LABS: BAND 6 % (0.0-2.0); Lymphocytes 2 % (24-44); Monocyte 4 % (0.0-12.0); Neutrophils 88 % (36.-66.); Total Cells Counted 100
[2019-09-27 17:16] LABS: ALBUMIN 3.2 g/dL (3.5-5.0); ALKALINE PHOSPHATASE 102 U/L (38-126); BLOOD UREA NITROGEN 30 mg/dL (9-20); CHLORIDE 100 mmol/L (98-107); Calcium 9.8 mg/dL (8.4-10.2); Carbon Dioxide 25 mmol/L (22-30); Creatinine 1 0.87 mg/dL (0.66-1.25); Glucose 145 mg/dL (74-106); Platelet Estimate NORMAL (NORMAL); Potassium 4.6 mmol/L (3.5-5.1); SGOT/AST 29 U/L (17-59); SGPT/ALT 46 U/L (0-50); SODIUM 133 mmol/L (137-145); Total Protein 5.8 g/dL (6.3-8.2)
[2019-09-27 17:17] LABS: Absolute Neutrophil Ct (ANC) 10.23 (1.4-6.9)
[2019-09-27] MEDS: solu-MEDROL 125 MG IV SCH (17:17)
[2019-09-27] MEDS: MORPHINE SULFATE 2 MG INJ IV PRN (17:18)
[2019-09-27] MEDS: Ativan 2 MG/1 ML VIAL IV PRN (17:18)
[2019-09-27 17:22] LABS: A-aADO2 138; ABG HEMOGLOBIN 15.6; ABG POTASSIUM 4.4 (3.5-5.1); ARTERIAL BLD GAS O2 SATURATION 99.5 % (95-100); ARTERIAL BLOOD GAS BASE EXCESS 7.4 (-2.0-2.0); ARTERIAL BLOOD GAS FIO2 40 %; ARTERIAL BLOOD GAS PCO2 29 mmHg (35-45); ARTERIAL BLOOD GAS PO2 111 mmHg (75-100); CARBOXYHEMOGLOBIN 1.7 % THgb (0.0-6.9); HCO3- 28.5 (22-28); HGB O2 SAT 96.9 g/dF (94-100); Methhemoglobin 0.9 % (1.4-1.5); paO2 pAO1 0.45
[2019-09-27 17:23] LABS: ABG SITE LEFT RADIAL
[2019-09-27 17:24] LABS: ALLEN TEST OK? yes
[2019-09-27] MEDS ORDERED: DUONEB 0.5-3 MG/3 ml Neb IH ONE (17:40)
[2019-09-27] MEDS: DUONEB 0.5-3 MG/3 ml Neb IH SCH (18:20)
[2019-09-27] MEDS: ELIQUIS 2.5 MG TABLET PO SCH (21:46)
[2019-09-27] MEDS ORDERED: Bystolic 5 MG PO SCH (22:00)
[2019-09-27] MEDS ORDERED: DELTASONE 20 MG PO SCH (22:00)
[2019-09-27] MEDS ORDERED: DUONEB 0.5-3 MG/3 ml Neb IH PRN (22:15)
--- NOTE | 2019-09-27 22:46 | XRAY ---
Indication: COPD. Comparison: An September 22, 2019. Portable chest unchanged again demonstrating bibasilar fibrosis/scarring. Remaining heart and upper lungs unremarkable. No new cardiopulmonary abnormalities. Comment: Preliminary interpretation was made by [facility]. No critical discrepancy.
[2019-09-28] MEDS: solu-MEDROL 125 MG IV SCH ×5 (00:35→23:52)
--- NOTE | 2019-09-28 07:37 | PCM.NOTE ---
Date and Time: 09/28/19732 Subjective Assessment: very short of breath - Review of Systems Constitutional: Lethargy, Malaise, No Fever, No Chills Eyes: No Symptoms Ears, Nose, & Throat: No Symptoms Respiratory: Cough, Orthopnea, Short Of Breath, Wheezing Cardiac: No Chest Pain, No Edema, No Syncope Abdominal/Gastrointestinal: No Abdominal Pain, No Nausea, No Vomiting, No Diarrhea Genitourinary Symptoms: No Dysuria Musculoskeletal: No Back Pain, No Neck Pain Skin: No Rash Neurological: No Dizziness, No Focal Weakness, No Sensory Changes Psychological: No Symptoms Endocrine: No Symptoms Hematologic/Lymphatic: No Symptoms Immunological/Allergic: No Symptoms Objective Exam General Appearance: moderate distress Neurologic Exam: alert Skin Exam: dry Eye Exam: PERRL Neck Exam: JVD, limited range of motion Respiratory Exam: diminished breath sounds, accessory muscle use, crackles/rales , rhonchi, wheezing Cardiovascular Exam: tachycardia Gastrointestinal/Abdomen Exam: soft Extremity Exam: pedal edema Back Exam: decreased range of motion OBJECTIVE DATA Vital Signs: Vital Signs - 24 hr Temp Pulse Resp BP Pulse Ox 09/28/19 04:00 97.9 F 77 16 126/88 97 09/28/19 02:49 78 14 97 09/27/19 23:48 97.9 F 74 17 135/85 98 09/27/19 20:00 97.6 F 79 16 118/70 99 09/27/19 18:23 78 22 96 09/27/19 17:01 97.6 F 88 28 H 128/91 97 09/27/19 16:12 97.6 F 88 28 H 128/91 97 Oxygen-Last 24 hours Oxygen Flowrate (L/min)-RT 3 Pain Assessment - Last Documented Pain Intensity 9 Pain Scale Used [facility] Intake and Output: Intake & Output 09/25/19 09/26/19 09/27/19 09/28/19 11:59 11:59 11:59 11:59 Intake Total 120 Balance 120 Weight 55.7 kg Lab Results: Lab Results-Last 24 Hours 09/27/19 09/27/19 09/27/19 Range/Units 16:39 16:40 16:40 WBC 10.9 H (4.0-10.5) K/mm3 RBC 5.49 (4.1-5.6) M/mm3 Hgb 15.9 (12.5-18.0) gm/dl Hct 44.9 (42-50) % MCV 81.8 (78-100) fl MCH 29.0 (26-32) pg MCHC 35.4 (32-36) g/dl RDW 17.2 H (11.5-14.0) % Plt Count 149 L (150-450) K/mm3 MPV 10.0 (7.5-11.0) fl Absolute Granulocytes 10.23 H (1.4-6.9) Segmented Neutrophils 88 H (36.-66.) % Band Neutrophils 6 H (0.0-2.0) % Lymphocytes (Manual) 2 L (24-44) % Monocytes (Manual) 4 (0.0-12.0) % Platelet Estimate NORMAL (NORMAL) RBC Morphology NORMAL Puncture Site LEFT RADIAL pCO2 29 L (35-45) mmHg pO2 111 H (75-100) mmHg Base Excess 7.4 H (-2.0-2.0) O2 Saturation 96.9 (94-100) g/dF ABG pH 7.60 H* (7.35-7.45) ABG HCO3 28.5 H (22-28) ABG O2 Sat (Measured) 99.5 (95-100) % Ravi Test yes A-a Gradient 138 a/A Ratio 0.45 Hemoglobin 15.6 Carboxyhemoglobin 1.7 (0.0-6.9) % THgb Methemoglobin 0.9 L (1.4-1.5) % Potassium 4.4 4.6 (3.5-5.1) Temperature 37.0 C POC O2 Flow Rate 40 % Sodium 133 L (137-145) mmol/L Chloride 100 (98-107) mmol/L Carbon Dioxide 25 (22-30) mmol/L Anion Gap 13.0 (5-15) MEQ/L BUN 30 H (9-20) mg/dL Creatinine 0.87 (0.66-1.25) mg/dL Estimated GFR > 60.0 ML/MIN Glucose 145 H (74-106) mg/dL Calcium 9.8 (8.4-10.2) mg/dL Total Bilirubin 1.40 H (0.2-1.3) mg/dL AST 29 (17-59) U/L ALT 46 (0-50) U/L Alkaline Phosphatase 102 (38-126) U/L Serum Total Protein 5.8 L (6.3-8.2) g/dL Albumin 3.2 L (3.5-5.0) g/dL Prealbumin (17.6-36.0) mg/dL 09/27/19 Range/Units 16:40 WBC (4.0-10.5) K/mm3 RBC (4.1-5.6) M/mm3 Hgb (12.5-18.0) gm/dl Hct (42-50) % MCV (78-100) fl MCH (26-32) pg MCHC (32-36) g/dl RDW (11.5-14.0) % Plt Count (150-450) K/mm3 MPV (7.5-11.0) fl Absolute Granulocytes (1.4-6.9) Segmented Neutrophils (36.-66.) % Band Neutrophils (0.0-2.0) % Lymphocytes (Manual) (24-44) % Monocytes (Manual) (0.0-12.0) % Platelet Estimate (NORMAL) RBC Morphology Puncture Site pCO2 (35-45) mmHg pO2 (75-100) mmHg Base Excess (-2.0-2.0) O2 Saturation (94-100) g/dF ABG pH (7.35-7.45) ABG HCO3 (22-28) ABG O2 Sat (Measured) (95-100) % Ravi Test A-a Gradient a/A Ratio Hemoglobin Carboxyhemoglobin (0.0-6.9) % THgb Methemoglobin (1.4-1.5) % Potassium (3.5-5.1) Temperature C POC O2 Flow Rate % Sodium (137-145) mmol/L Chloride (98-107) mmol/L Carbon Dioxide (22-30) mmol/L Anion Gap (5-15) MEQ/L BUN (9-20) mg/dL Creatinine (0.66-1.25) mg/dL Estimated GFR ML/MIN Glucose (74-106) mg/dL Calcium (8.4-10.2) mg/dL Total Bilirubin (0.2-1.3) mg/dL AST (17-59) U/L ALT (0-50) U/L Alkaline Phosphatase (38-126) U/L Serum Total Protein (6.3-8.2) g/dL Albumin (3.5-5.0) g/dL Prealbumin 27.38 (17.6-36.0) mg/dL Radiology Exams: Radiology Procedures Category Date Time Status CHEST 1 VIEW (PORTABLE) Routine Exams 09/27/19 17:00 Completed Assessment/Plan (1) Acute and chronic respiratory failure ([id number]) Current Visit: Yes Status: Acute Qualifiers: Respiratory failure complication: hypoxia and hypercapnia Qualified Code(s) : J96.21 - Acute and chronic respiratory failure with hypoxia; J96.22 - Acute and chronic respiratory failure with hypercapnia Assessment & Plan: Last Vital Signs Temp 97.9 F 09/28/19 04:00 Pulse 77 09/28/19 04:00 Resp 16 09/28/19 04:00 BP 126/88 09/28/19 04:00 Pulse Ox 97 09/28/19 04:00 Allergies No Known Drug Allergies Allergy (Verified 09/22/19 18:27) Active Medications Albuterol/Ipratropium (Duoneb 0.5-3 Mg/3 Ml Neb) 3 ml IH QIDRT [facility] Stop: 10/27/19 18:59 Last Admin: 09/27/19 18:20 Dose: 3 ml Albuterol/Ipratropium (Duoneb 0.5-3 Mg/3 Ml Neb) 3 ml IH Q4HPRN PRN PRN Reason: SHORTNESS OF BREATH/WHEEZING Stop: 10/27/19 22:14 Last Admin: 09/28/19 02:46 Dose: 3 ml Apixaban (Eliquis 2.5 Mg Tablet) 5 mg PO BID [facility] Stop: 10/27/19 21:59 Last Admin: 09/27/19 21:46 Dose: 5 mg Lorazepam (Ativan 2 Mg/1 Ml Vial) 1 mg IV Q6H PRN PRN PRN Reason: ANXIETY Stop: 10/27/19 16:48 Last Admin: 09/27/19 17:18 Dose: 1 mg Methylprednisolone Sodium Succinate (Solu-Medrol 125 Mg) 125 mg IV Q6HT [facility] Stop: 10/27/19 17:59 Last Admin: 09/28/19 05:48 Dose: 125 mg Morphine Sulfate (Morphine Sulfate 2 Mg Inj) 2 mg IV Q6H PRN PRN PRN Reason: PAIN Stop: 10/02/19 16:48 Last Admin: 09/27/19 17:18 Dose: 2 mg Nebivolol (Bystolic 5 Mg) 10 mg PO HS [facility] Stop: 10/27/19 21:59 Intake & Output 09/27/19 09/28/19 11:59 11:59 Intake Total 120 Balance 120 Weight 55.7 kg Orders 09/27/19 16:11 Admit as Inpatient ROUTINE 09/27/19 16:48 Telemetry q4h 09/27/19 16:49 Lorazepam 2 mg/1 ml [Ativan 2 MG/1 ML VIAL] 1 mg IV Q6H PRN PRN Morphine Sulfate 2 mg Inj 2 mg IV Q6H PRN PRN 09/27/19 16:51 Miscellaneous Nursing Order ROUTINE 09/27/19 17:53 Infection Control Consult [employer]/Discharge Plan OT Screen per Nursing Assess PT Screen per Nursing Assess 09/27/19 18:00 Methylprednis Sod Succ 125 mg* [solu-MEDROL 125 MG] 125 mg IV Q6HT 09/27/19 18:21 BiPap/CPAP ROUTINE 09/27/19 18:22 Oxygen Nasal Cannula 5 lpm Pulse Oximetry [Pulse Oximetry] .continuos 09/27/19 19:00 Albuterol/Ipratropium 3ml Neb* [DUONEB 0.5-3 MG/3 ml Neb] 3 ml IH QIDRT 09/27/19 22:00 Apixaban [Eliquis 2.5 mg Tablet] 5 mg PO BID 09/27/19 22:15 Albuterol/Ipratropium 3ml Neb* [DUONEB 0.5-3 MG/3 ml Neb] 3 ml IH Q4HPRN PRN 09/27/19 Dinner Regular Diet 09/28/19 02:49 Respiratory Therapy Assessment DAILY 09/28/19 22:00 Nebivolol HCl 5 MG [Bystolic 5 MG] 10 mg PO HS Lab Tests 09/27/19 09/27/19 09/27/19 16:39 16:40 16:40 WBC 10.9 H RBC 5.49 Hgb 15.9 Hct 44.9 MCV 81.8 MCH 29.0 MCHC 35.4 RDW 17.2 H Plt Count 149 L MPV 10.0 Absolute Granulocytes 10.23 H Segmented Neutrophils 88 H Band Neutrophils 6 H Lymphocytes (Manual) 2 L Monocytes (Manual) 4 Platelet Estimate NORMAL RBC Morphology NORMAL Puncture Site LEFT RADIAL pCO2 29 L pO2 111 H Base Excess 7.4 H O2 Saturation 96.9 ABG pH 7.60 H* ABG HCO3 28.5 H ABG O2 Sat (Measured) 99.5 Ravi Test yes A-a Gradient 138 a/A Ratio 0.45 Hemoglobin 15.6 Carboxyhemoglobin 1.7 Methemoglobin 0.9 L Potassium 4.4 4.6 Temperature 37.0 POC O2 Flow Rate 40 Sodium 133 L Chloride 100 Carbon Dioxide 25 Anion Gap 13.0 BUN 30 H Creatinine 0.87 Estimated GFR > 60.0 Glucose 145 H Calcium 9.8 Total Bilirubin 1.40 H AST 29 ALT 46 Alkaline Phosphatase 102 Serum Total Protein 5.8 L Albumin 3.2 L Prealbumin 09/27/19 16:40 WBC RBC Hgb Hct MCV MCH MCHC RDW Plt Count MPV Absolute Granulocytes Segmented Neutrophils Band Neutrophils Lymphocytes (Manual) Monocytes (Manual) Platelet Estimate RBC Morphology Puncture Site pCO2 pO2 Base Excess O2 Saturation ABG pH ABG HCO3 ABG O2 Sat (Measured) Ravi Test A-a Gradient a/A Ratio Hemoglobin Carboxyhemoglobin Methemoglobin Potassium Temperature POC O2 Flow Rate Sodium Chloride Carbon Dioxide Anion Gap BUN Creatinine Estimated GFR Glucose Calcium Total Bilirubin AST ALT Alkaline Phosphatase Serum Total Protein Albumin Prealbumin 27.38 Code(s): J96.20 - ACUTE AND CHR RESP FAILURE, UNSP W HYPOXIA OR HYPERCAPNIA (2) COPD exacerbation Current Visit: Yes Status: Acute Onset Date: ~12/18/17 Code(s): J44.1 - CHRONIC OBSTRUCTIVE PULMONARY DISEASE W (ACUTE) EXACERBATION
[2019-09-28] MEDS: DUONEB 0.5-3 MG/3 ml Neb IH SCH ×4 (07:57→19:15)
[2019-09-28] MEDS ORDERED: MEDICATION INTERVENTION MC SCH (08:00)
[2019-09-28] MEDS: ROCEPHIN 1 Gm-D5w 50 ml Bag** 1 G/50 ML IVPB IV SCH (09:24)
[2019-09-28] MEDS: ELIQUIS 2.5 MG TABLET PO SCH ×2 (09:24→20:21)
[2019-09-28] MEDS: Klor Con 10 MEQ PO SCH (09:24)
[2019-09-28] MEDS ORDERED: NON-FORMULARY ITEM (Potassium Chloride [Potassium Chloride] 10 MEQ) PO SCH (10:00)
[2019-09-28] MEDS ORDERED: FLUTICASONE PO SCH (10:00)
[2019-09-28] MEDS ORDERED: VILANTEROL PO SCH (10:00)
[2019-09-28] MEDS: MORPHINE SULFATE 2 MG INJ IV PRN (16:47)
[2019-09-28] MEDS: Bystolic 5 MG PO SCH (20:21)
[2019-09-28] MEDS: Ativan 2 MG/1 ML VIAL IV PRN (21:48)
[2019-09-29] MEDS: solu-MEDROL 125 MG IV SCH ×3 (06:10→19:05)
--- NOTE | 2019-09-29 06:25 | PCM.NOTE ---
Date and Time: 09/29/19622 Subjective Assessment: breathing better on BiPap. - Review of Systems Constitutional: No Fever, No Chills Eyes: No Symptoms Ears, Nose, & Throat: No Symptoms Respiratory: Orthopnea, Short Of Breath, Wheezing, No Cough Cardiac: No Chest Pain, No Edema, No Syncope Abdominal/Gastrointestinal: No Abdominal Pain, No Nausea, No Vomiting, No Diarrhea Genitourinary Symptoms: No Dysuria Musculoskeletal: No Back Pain, No Neck Pain Skin: No Rash Neurological: No Dizziness, No Focal Weakness, No Sensory Changes Psychological: No Symptoms Endocrine: No Symptoms Hematologic/Lymphatic: No Symptoms Immunological/Allergic: No Symptoms Objective Exam General Appearance: mild distress, alert Neurologic Exam: alert, oriented x 3, cooperative, normal mood/affect, nml cerebellar function, sensation nml, No motor deficits Skin Exam: normal color, warm, dry Eye Exam: PERRL, EOMI, eyes nml inspection Ears, Nose, Throat Exam: normal ENT inspection, pharynx normal, moist mucous membranes Neck Exam: normal inspection, non-tender, supple, full range of motion Respiratory Exam: respiratory distress, diminished breath sounds, accessory muscle use, crackles/rales, rhonchi, wheezing Cardiovascular Exam: regular rate/rhythm, normal heart sounds Gastrointestinal/Abdomen Exam: soft, No tenderness, No mass Extremity Exam: normal inspection, normal range of motion Back Exam: normal inspection, normal range of motion, No CVA tenderness, No vertebral tenderness Male Genitalia Exam: deferred Rectal Exam: deferred OBJECTIVE DATA Vital Signs: Vital Signs - 24 hr Temp Pulse Resp BP Pulse Ox 09/29/19 04:00 97.6 F 78 19 131/68 98 09/28/19 23:50 18 09/28/19 19:38 80 24 99 09/28/19 19:22 97.3 F 88 18 134/88 98 09/28/19 16:00 98.4 F 71 20 137/72 92 L 09/28/19 15:04 75 30 H 98 09/28/19 12:00 71 20 135/83 95 09/28/19 08:04 71 16 97 09/28/19 07:38 97.4 F 70 24 144/91 93 L Pain Assessment - Last Documented Pain Intensity 8 Pain Scale Used FLACC Intake and Output: Intake & Output 09/26/19 09/27/19 09/28/1926/20 11:59 11:59 11:59 11:59 Intake Total 460 605 Output Total 200 540 Balance 260 65 Weight 55.7 kg Radiology Exams: Radiology Procedures Category Date Time Status CHEST 1 VIEW (PORTABLE) Routine Exams 09/27/19 17:00 Completed Multi-Disciplinary Progress Notes: Multi-Disciplinary Progress Notes 09/28/19 12:23 Respiratory Note by Keara Silvestre 1220 FAMILY HELD TX AT THIS TIME PT ASLEEP Initialized on 09/28/19 12:23 - END OF NOTE 09/28/19 08:23 Respiratory Note by Keara Silvestre 08 OFF BIPAP PLACED ON N/C 4LPM . WANTS TO TRY AND EAT Initialized on 09/28/19 08:23 - END OF NOTE Assessment/Plan (1) Acute and chronic respiratory failure ([id number]) Current Visit: Yes Status: Acute Qualifiers: Respiratory failure complication: hypoxia and hypercapnia Qualified Code(s) : J96.21 - Acute and chronic respiratory failure with hypoxia; J96.22 - Acute and chronic respiratory failure with hypercapnia Assessment & Plan: Chief Complaint Diagnosis copd Allergies Allergy/AdvReac Type Severity Reaction Status Date / Time No Known Drug Allergies Allergy Verified 09/22/19 18:27 Vital Signs (Last 24 hours) Temp Pulse Resp BP Pulse Ox 09/29/19 04:00 97.6 F 78 19 131/68 98 09/28/19 23:50 18 09/28/19 19:38 80 24 99 09/28/19 19:22 97.3 F 88 18 134/88 98 09/28/19 16:00 98.4 F 71 20 137/72 92 L 09/28/19 15:04 75 30 H 98 09/28/19 12:00 71 20 135/83 95 09/28/19 08:04 71 16 97 09/28/19 07:38 97.4 F 70 24 144/91 93 L Current Medications Generic Name Dose Route Start Last Admin Trade Name Freq PRN Reason Stop Dose Admin Albuterol/Ipratropium 3 ml 09/27/19 19:00 09/28/19 19:15 Duoneb 0.5-3 Mg/3 Ml Neb IH 10/27/19 18:59 3 ml QIDRT ALIYAH Administration Albuterol/Ipratropium 3 ml 09/27/19 22:15 09/28/19 02:46 Duoneb 0.5-3 Mg/3 Ml Neb IH 10/27/19 22:14 3 ml Q4HPRN PRN Administration SHORTNESS OF BREATH/WHEEZING Apixaban 5 mg 09/27/19 22:00 09/28/19 20:21 Eliquis 2.5 Mg Tablet PO 10/27/19 21:59 5 mg BID ALIYAH Administration Ceftriaxone Sodium/Dextrose 1 g in 50 mls @ 100 mls/hr 09/28/19 10:00 09:24 Rocephin 1 Gm-D5w 50 Ml Bag IV 10/28/19 09:59 100 mls/hr Q24H10 AILYAH Administration Lorazepam 1 mg 09/27/19 16:49 09/28/19 21:48 Ativan 2 Mg/1 Ml Vial IV 10/27/19 16:48 1 mg Q6H PRN PRN Administration ANXIETY Methylprednisolone Sodium Succinate 125 mg 09/27/19 18:00 09/29/19 06:10 Solu-Medrol 125 Mg IV 10/27/19 17:59 125 mg Q6HT ALIYAH Administration Miscellaneous Information 1 each 09/28/19 08:00 Medication Intervention 10/28/19 07:59 .RT TO CHECK ON ALIYAH Morphine Sulfate 2 mg 09/27/19 16:49 09/28/19 16:47 Morphine Sulfate 2 Mg Inj IV 10/02/19 16:48 2 mg Q6H PRN PRN Administration PAIN Nebivolol 10 mg 09/28/19 22:00 09/28/19 20:21 Bystolic 5 Mg PO 10/27/19 21:59 10 mg HS ALIYAH Administration Potassium Chloride 10 meq 09/28/19 10:00 09/28/19 09:24 Klor Con 10 Meq PO 10/28/19 09:59 10 meq DAILY ALIYAH Administration Discontinued Medications Generic Name Dose Route Start Last Admin Trade Name Freq PRN Reason Stop Dose Admin Albuterol/Ipratropium Confirm 09/27/19 17:40 Duoneb 0.5-3 Mg/3 Ml Neb Administered 09/27/19 17:41 Dose 3 ml IH .STK-MED ONE Nebivolol 5 mg 09/27/19 22:00 09/27/19 21:47 Bystolic 5 Mg PO 10/27/19 21:59 5 mg HS ALIYAH Administration Prednisone 20 mg 09/27/19 22:00 Deltasone 20 Mg PO 10/27/19 21:59 BID ALIYAH Intake & Output (Last 24 hours) 09/26/19 09/27/19 09/28/19 09/29/19 11:59 11:59 11:59 11:59 Intake Total 460 605 Output Total 200 540 Balance 260 65 Weight 55.7 kg Orders (Last 24 hours) Category Date Time Status Ceftriaxone 1 GM/50 ML PREMIX* [ROCEPHIN 1 Gm-D5w 50 ml Med 09/28/19 10:00 Active Bag] 1 g in 50 ml IV Q24H10 Medication Intervention Med 09/28/19 08:00 Active 1 each MC .RT TO CHECK ON Nebivolol HCl 5 MG [Bystolic 5 MG] Med 09/28/19 22:00 Active 10 mg PO HS Potassium Chloride 10 Meq Tab* [Klor Con 10 MEQ] Med 09/28/19 10:00 Active 10 meq PO DAILY Patient Care Notes (Last 24 hours) 09/28/19 12:23 Respiratory Note by Keara Silvestre 1220 FAMILY HELD TX AT THIS TIME PT ASLEEP Initialized on 09/28/19 12:23 - END OF NOTE 09/28/19 10:27 Nursing Note by Krystle Robbins Call placed to [place] for home hospice with Bipap per MD request Initialized on 09/28/19 10:27 - END OF NOTE 09/28/19 08:23 Respiratory Note by Keara Silvestre 0820 OFF BIPAP PLACED ON N/C 4LPM . WANTS TO TRY AND EAT Initialized on 09/28/19 08:23 - END OF NOTE Code(s): J96.20 - ACUTE AND CHR RESP FAILURE, UNSP W HYPOXIA OR HYPERCAPNIA (2) COPD exacerbation Current Visit: Yes Status: Acute Onset Date: ~12/18/17 Code(s): J44.1 - CHRONIC OBSTRUCTIVE PULMONARY DISEASE W (ACUTE) EXACERBATION
[2019-09-29] MEDS: DUONEB 0.5-3 MG/3 ml Neb IH SCH ×6 (06:49→19:41)
[2019-09-29] MEDS: Klor Con 10 MEQ PO SCH (09:17)
[2019-09-29] MEDS: ELIQUIS 2.5 MG TABLET PO SCH ×2 (09:17→22:35)
[2019-09-29] MEDS: ROCEPHIN 1 Gm-D5w 50 ml Bag** 1 G/50 ML IVPB IV SCH (09:18)
[2019-09-29] MEDS: MORPHINE SULFATE 2 MG INJ IV PRN (19:17)
[2019-09-29] MEDS: Advair Hfa 115/21 Common canister IH SCH (19:45)
[2019-09-29] MEDS: Bystolic 5 MG PO SCH (22:35)
[2019-09-30] MEDS: solu-MEDROL 125 MG IV SCH ×4 (01:08→18:24)
[2019-09-30] MEDS: MORPHINE SULFATE 2 MG INJ IV PRN ×2 (02:14→09:13)
[2019-09-30] MEDS: DUONEB 0.5-3 MG/3 ml Neb IH SCH ×3 (06:46→14:40)
[2019-09-30] MEDS: ROCEPHIN 1 Gm-D5w 50 ml Bag** 1 G/50 ML IVPB IV SCH (09:17)
[2019-09-30] MEDS: ELIQUIS 2.5 MG TABLET PO SCH (09:17)
[2019-09-30] MEDS: Klor Con 10 MEQ PO SCH (09:17)
[2019-09-30] MEDS: Advair Hfa 115/21 Common canister IH SCH (10:38)
--- NOTE | 2019-09-30 13:14 | PCM.DS ---
Discharge Summary Date of Admission: 09/27/19 16:12 Admitting Physician: GALEN DOBBINS Primary Care Provider: GALEN DOBBINS Allergies Allergies No Known Drug Allergies Allergy (Verified 09/22/19 18:27) Hospital Summary - Hospital Course Hospital Course: Last Vital Signs Temp 97.5 F 09/30/19 07:57 Pulse 73 09/30/19 10:42 Resp 20 09/30/19 10:42 BP 127/70 09/30/19 07:57 Pulse Ox 96 09/30/19 10:42 Allergies No Known Drug Allergies Allergy (Verified 09/22/19 18:27) Active Medications Albuterol/Ipratropium (Duoneb 0.5-3 Mg/3 Ml Neb) 3 ml IH QIDRT [facility] Stop: 10/27/19 18:59 Last Admin: 09/30/19 10:38 Dose: 3 ml Albuterol/Ipratropium (Duoneb 0.5-3 Mg/3 Ml Neb) 3 ml IH Q4HPRN PRN PRN Reason: SHORTNESS OF BREATH/WHEEZING Stop: 10/27/19 22:14 Last Admin: 09/28/19 02:46 Dose: 3 ml Apixaban (Eliquis 2.5 Mg Tablet) 5 mg PO BID [facility] Stop: 10/27/19 21:59 Last Admin: 09/30/19 09:17 Dose: 5 mg Ceftriaxone Sodium/Dextrose (Rocephin 1 Gm-D5w 50 Ml Bag) 1 g in 50 mls @ 100 mls/hr IV Q24H10 [facility] Stop: 10/28/19 09:59 Last Admin: 09/30/19 09:17 Dose: 100 mls/hr Lorazepam (Ativan 2 Mg/1 Ml Vial) 1 mg IV Q6H PRN PRN PRN Reason: ANXIETY Stop: 10/27/19 16:48 Last Admin: 09/28/19 21:48 Dose: 1 mg Methylprednisolone Sodium Succinate (Solu-Medrol 125 Mg) 125 mg IV Q6HT [facility] Stop: 10/27/19 17:59 Last Admin: 09/30/19 06:15 Dose: 125 mg Morphine Sulfate (Morphine Sulfate 2 Mg Inj) 2 mg IV Q6H PRN PRN PRN Reason: PAIN Stop: 10/02/19 16:48 Last Admin: 09/30/19 09:13 Dose: 2 mg Nebivolol (Bystolic 5 Mg) 10 mg PO HS ALIYAH Stop: 10/27/19 21:59 Last Admin: 09/29/19 22:35 Dose: 10 mg Potassium Chloride (Klor Con 10 Meq) 10 meq PO DAILY ALIYAH Stop: 10/28/19 09:59 Last Admin: 09/30/19 09:17 Dose: 10 meq Fluticasone/Salmeterol (Advair Hfa 115/21 Common Canister*) 2 puff IH BIDRT ALIYAH Stop: 10/29/19 18:59 Last Admin: 09/30/19 10:38 Dose: 2 puff Intake & Output 09/30/19 10/01/19 11:59 11:59 Intake Total 990 Output Total 550 Balance 440 Orders 09/29/19 19:00 Fluticasone/Salmeterol 115/21 [Advair Hfa 115/21 Common canister*] 2 puff IH BIDRT - Vitals & Intake/Output Vital Signs: Vital Signs Temperature 97.5 F 09/30/19 07:57 Pulse Rate 73 09/30/19 10:42 Respiratory Rate 20 09/30/19 10:42 Blood Pressure 127/70 09/30/19 07:57 O2 Sat by Pulse Oximetry 96 09/30/19 10:42 Intake & Output: Intake & Output 09/28/19 09/29/19 09/30/19 10/01/19 11:59 11:59 11:59 11:59 Intake Total 460 605 990 Output Total 200 740 550 Balance 260 -135 440 Weight 55.7 kg - Lab Result Diagrams: 09/27/19 16:40 09/27/19 16:40 - Procedures and Test Procedures and Tests throughout Hospitalization: Therapy Orders & Screens 09/27/19 16:39 Respiratory Nebulizer Q4H Comment: kishor Diagnosis: copd Respiratory Therapy Consult ROUTINE Comment: kishor Reason For Exam: Diagnosis: copd 09/27/19 17:53 OT Screen per Nursing Assess Comment: Protocol Order Physician Instructions: Greater than 3 points order OT Admission Screening Reason For Exam: Triggered on Admission Diagnosis: copd Open Wound/Cellutlitis/Pressure Ulcers: No Acute Fx/ORIF/Change in wt bearing status: No Severe MUSCULOSKELETAL pain: No ADL Dysfunction: Yes Acute CVA w/Hemiparesis/Hemiplegia: No Decreased Functional Mobility/Strength: Yes Sprain/Strain: No Acute Post-op Mobility Dysfunction: No Total Points: 4 PT Screen per Nursing Assess Comment: Protocol Order Physician Instructions: Greater than 3 points order PT Admission Screenin Reason For Exam: Triggered on Admission Diagnosis: copd Open Wound/Cellutlitis/Pressure Ulcers: No Acute Fx/ORIF/Change in wt bearing status: No Severe MUSCULOSKELETAL pain: No ADL Dysfunction: Yes Acute CVA w/Hemiparesis/Hemiplegia: No Decreased Functional Mobility/Strength: Yes Sprain/Strain: No Acute Post-op Mobility Dysfunction: No Total Points: 4 RT Screen per Nursing Assess ONCE Comment: Protocol Order Physician Instructions: Greater than 3 points order RT Admission Screen Reason For Exam: Triggered on Admission Diagnosis: copd Diagnosis: copd Pneumonia: No Home O2: Yes Asthma: No CHF: No Home CPAP/BIPAP: No Home Nebs/MDI: Yes Total Points: 10 09/27/19 18:21 BiPap/CPAP ROUTINE Comment: Diagnosis: copd 09/27/19 18:22 Oxygen Nasal Cannula 5 lpm Comment: Diagnosis: copd 09/28/19 02:49 Respiratory Therapy Assessment DAILY Comment: Diagnosis: copd Discharge Exam General Appearance: moderate distress, alert Neurologic Exam: alert, oriented x 3, cooperative, normal mood/affect, nml cerebellar function, sensation nml, No motor deficits Eye Exam: PERRL, EOMI, eyes nml inspection Ears, Nose, Throat Exam: normal ENT inspection, pharynx normal, moist mucous membranes Neck Exam: normal inspection, non-tender, supple, full range of motion Respiratory Exam: diminished breath sounds, accessory muscle use, prolonged expirations, crackles/rales, rhonchi, wheezing, No respiratory distress Cardiovascular Exam: regular rate/rhythm, normal heart sounds Gastrointestinal/Abdomen Exam: soft, No tenderness, No mass Male Genitalia Exam: deferred Rectal Exam: deferred Back Exam: normal inspection, normal range of motion, No CVA tenderness, No vertebral tenderness Extremity Exam: normal inspection, normal range of motion Skin Exam: normal color, warm, dry Final Diagnosis/Problem List - Final Discharge Diagnosis/Problem (1) Acute and chronic respiratory failure ([id number]) Current Visit: Yes Status: Acute Priority: High Assessment & Plan: Patient is going home with hospice on BiPap Code(s): J96.20 - ACUTE AND CHR RESP FAILURE, UNSP W HYPOXIA OR HYPERCAPNIA (2) COPD exacerbation Current Visit: Yes Status: Acute Onset Date: ~12/18/17 Code(s): J44.1 - CHRONIC OBSTRUCTIVE PULMONARY DISEASE W (ACUTE) EXACERBATION - Discharge Discharge Date: 09/30/19 Disposition: Hospice @ [facility] Condition: Stable Prescriptions: No Action Albuterol/Ipratropium 3ml Neb* [DUONEB 0.5-3 MG/3 ml Neb] 3 ml IH QID #120 ampul.neb Potassium Chloride 10 meq PO DAILY Apixaban [Eliquis 5 mg Tablet] 5 mg PO BID 30 Days #60 tablet predniSONE [Prednisone] 20 mg PO BID Nebivolol HCl 5 MG [Bystolic 5 MG] 10 mg PO QHS Fluticasone/Vilanterol [Breo Ellipta 200-25 Mcg INH] 1 inh PO DAILY Follow up with: GALEN DOBBINS MD [Primary Care Provider] - 1 Week
[2019-09-30 17:09] VITALS: BP 125/79; PULSE 93; O2SAT 98
== END 2019-09-30 19:43 | disposition hospice, home (50) | DRG 189 ==
LOC: MED SURG 16:11 → OBSVTOIN 16:12 → MED SURG 16:12
PROVIDERS: ADMIT General Practice; ATTEND General Practice
DX: J96.20 Acute and chronic respiratory failure, unspecified whether with hypoxia or hypercapnia (principal); J44.1 Chronic obstructive pulmonary disease with (acute) exacerbation; Z79.01 Long term (current) use of anticoagulants; Z79.899 Other long term (current) drug therapy; Z86.711 Personal history of pulmonary embolism
CPT/HCPCS: 36415; 36600; 71045; 80053; 82375; 82803; 84134; 85025; 94002; 94003; 94640; 94760; 94762; J0696; J2060; J2270; J2930; A9270-GY